=== PATIENT | male | born 1945 | race Caucasian/White ===

== ENCOUNTER 2020-04-06 19:58 | Inpatient (IN) | payer MEDICAID, SELFPAY ==
[~2020-04-06] VITALS: Ht 177.8 cm; Wt 87.1 kg
[2020-04-06] MEDS ORDERED: ACETAMINOPHEN ES 500 MG TABLET ONE (20:14)
[2020-04-06 20:27] LABS: BASOPHILS % (AUTO) 0.3 % (0.0-2.0); HEMATOCRIT 43 % (39-51); HEMOGLOBIN 14.4 g/dL (13.5-17.5); LYMPHOCYTES # (AUTO) 0.5 /CMM (0.8-4.8); LYMPHOCYTES % (AUTO) 4.3 % (20.0-44.0); MEAN CORPUSCULAR HGB CONC 33 g/dl (31.0-36.0); MEAN CORPUSCULAR VOLUME 90 fL (80-96); MONOCYTES # (AUTO) 0.4 /CMM (0.1-1.30); MONOCYTES % (AUTO) 3.5 % (2.0-12.0); NEUTROPHILS # (AUTO) 10.2 /CMM (1.8-8.9); NEUTROPHILS % (AUTO) 91.9 % (43.0-81.0); PLATELET COUNT (AUTO) 269 /CMM (150-450); RED BLOOD CELL COUNT(AUTO) 4.81 MIL/uL (4.5-6.0); WHITE BLOOD COUNT (AUTO) 11.1 K/uL (4.3-11.0)
[2020-04-06] MEDS ORDERED: IV NS 0.9% 500 ML BAG IV ONE (20:30)
[2020-04-06] MEDS ORDERED: ACETAMINOPHEN ES 500 MG TABLET PO ONE (20:30)
--- NOTE | 2020-04-06 20:32 | NUR ---
bryant from home sob x 3d; d/c'd from [facility], covid+. PT AAOX3, PT ALSO C/O FATIGUE. DENIES CP, DIZZINESS, N/V AT THIS TIME. PT SEEN & EVAL'D BY DR. SALOMON. PLACED ON BATT MACHINE OPERATOR, ST. PLACED ON HI MAGY NR PER DR. SALOMON, PT BOBBY WELL. RESP TECH @ BS. LABS DRAWN & SENT TO LAB. WILL CONT TO MONITOR.
[2020-04-06 20:49] LABS: CALCIUM, SERUM 8.7 mg/dL (8.5-10.1); CARBON DIOXIDE 26 mmol/L (21-32); CHLORIDE 99 mmol/L (98-107); CREATININE 1.6 mg/dL (0.6-1.3); GLUCOSE 200 mg/dL (74-106); POTASSIUM 4.3 mmol/L (3.5-5.1); SODIUM SERUM 135 mmol/L (136-145); UREA NITROGEN, BLOOD 50 mg/dL (7-18)
[2020-04-06 20:55] LABS: ALANINE AMINOTRANSFERASE 147 U/L (12-78); ALBUMIN 2.5 g/dL (3.4-5.0); ALKALINE PHOSPHATASE 87 U/L (46-116); ASPARTATE AMINOTRANSFERASE 75 U/L (15-37); B-TYPE NATRIURETIC PEPTIDE 1174 PG/ML (0-125); BILIRUBIN,TOTAL 0.9 mg/dL (0.2-1.0); TOTAL PROTEIN, SERUM 7.5 g/dL (6.4-8.2)
[2020-04-06] MEDS ORDERED: DEXAMETHASONE SOD PHOSPHATE 10 MG/ML VIAL IV ONE (21:00)
[2020-04-06] MEDS ORDERED: DEXAMETHASONE SOD PHOSPHATE 10 MG/ML VIAL ONE (21:08)
[2020-04-06] MEDS ORDERED: FUROSEMIDE 20 MG/2 ML VIAL ONE (21:08)
[2020-04-06] MEDS ORDERED: LEVOFLOXACIN 750 MG /D5W 150ML 150 ML IV ONE ×2 (21:24→21:30)
--- NOTE | 2020-04-06 21:24 | NUR ---
MEDICATED PER ERMD ORDER, PT BOBBY WELL.
[2020-04-06] MEDS ORDERED: FUROSEMIDE 20 MG/2 ML VIAL IV ONE (21:30)
--- NOTE | 2020-04-06 21:30 | NUR ---
RN OPENING NOTES Received the client from ED with moderate respiratory distress, Covid + according to previous testing reports the client. Sat at 95% on 60 L hiflow NC, fio2 100%. A/o x4. Other VS WNL. skin is intact. denies pain, no s/s of pain. L arm 20G flushing well. independent repositioning on bed. Minimal assistance to perform ADLs. All needs rendered at this time. will continue to monitor.
[2020-04-06 21:33] LABS: CREATINE KINASE, TOTAL 74 U/L (39-308); FERRITIN 3377 ng/mL (8-388)
--- NOTE | 2020-04-06 21:41 | NUR ---
REPORT GIVEN TO KENJI KNIGHT FOR CONOR.
[2020-04-06] MEDS ORDERED: MAG HYDROX/AL HYDROX/SIMETH 30 ML UDC PO PRN (22:00)
[2020-04-06] MEDS ORDERED: LEVOFLOXACIN 500 MG /D5W 100ML 500 MG in PREMIX 1 EA IV SCH (22:00)
[2020-04-06 22:10] LABS: ABG BASE EXCESS 0.7 mmol/L; ABG PH 7.489 (7.350-7.450); ABG PO2 68.5 mmHg (75.0-100.0); AaDO2 613.5 mmHg; SITE, ABG Left Radial; VENT MODE, BG HFNC
[2020-04-06] MEDS ORDERED: VANCOMYCIN 1.75 GM in IV D5W 500 ML IV ONE (22:30)
[2020-04-06] MEDS ORDERED: VANCOMYCIN 1 GM VIAL ONE (22:48)
[2020-04-06 23:03] VITALS: BP 108/66
[2020-04-07] VITALS (19 sets, daily range): BP systolic 95–169; BP diastolic 52–84
[2020-04-07 06:01] LABS: APPEARANCE,URINE CLEAR (CLEAR); BILIRUBIN,URINE NEGATIVE (NEGATIVE); BLOOD, URINE NEGATIVE Ery/uL (NEGATIVE); COLOR,URINE YELLOW (YELLOW); KETONES,URINE NEGATIVE (NEGATIVE); LEUKOCYTE ESTERASE ,URINE NEGATIVE (NEGATIVE); NITRITE, URINE NEGATIVE (NEGATIVE); PH,URINE 5.5 (5.0-8.0); PROTEIN,URINE TRACE mg/dl (NEGATIVE); UGLUCOSE NEGATIVE (NEGATIVE); UROBILINOGEN,URINE 0.2 EU/dL (0.2)
--- NOTE | 2020-04-07 06:44 | NUR ---
RN CLOSING NOTES No change of condition during the shift. The client is Covid + according to previous testing reports, states the client. Sat at 94% on 60 L hiflow NC, fio2 100%. A/o x4. Other VS WNL. skin is intact. denies pain, no s/s of pain. L arm 20G flushing well. independent repositioning on bed. Minimal assistance to perform ADLs. All needs rendered at this time. Will endorse the next shift.
--- NOTE | 2020-04-07 07:10 | NUR ---
RN OPENING NOTES RECEIVED PT ON BED, A/Ox4, PT ON HIGH FLOW O2 , O2 SAT WNL , ON TELE SR HR IN 80'S, L HAND IV SITE G 20 CLEAN, DRY AND INTACT, SR UP x3, CALL LIGHT WITHIN EASY REACH, BED LOCKED AND IN LOWEST POSITION, CONTINUE TO MONITOR .
[2020-04-07] MEDS ORDERED: FEE PK DOSING 1 MIN EA MC ONE (07:25)
[2020-04-07 08:04] LABS: BASOPHILS % (AUTO) 0.1 % (0.0-2.0); HEMATOCRIT 43 % (39-51); HEMOGLOBIN 14.1 g/dL (13.5-17.5); LYMPHOCYTES # (AUTO) 0.7 /CMM (0.8-4.8); LYMPHOCYTES % (AUTO) 6.7 % (20.0-44.0); MEAN CORPUSCULAR HGB CONC 33 g/dl (31.0-36.0); MEAN CORPUSCULAR VOLUME 91 fL (80-96); MONOCYTES # (AUTO) 0.4 /CMM (0.1-1.30); MONOCYTES % (AUTO) 4.1 % (2.0-12.0); NEUTROPHILS # (AUTO) 8.7 /CMM (1.8-8.9); NEUTROPHILS % (AUTO) 89.1 % (43.0-81.0); PLATELET COUNT (AUTO) 282 /CMM (150-450); RED BLOOD CELL COUNT(AUTO) 4.71 MIL/uL (4.5-6.0); WHITE BLOOD COUNT (AUTO) 9.7 K/uL (4.3-11.0)
[2020-04-07 08:20] LABS: ALBUMIN 2.4 g/dL (3.4-5.0); BILIRUBIN,DIRECT 0.3 mg/dL (0.0-0.2); BILIRUBIN,TOTAL 0.7 mg/dL (0.2-1.0); CALCIUM, SERUM 8.5 mg/dL (8.5-10.1); CREATININE 1.3 mg/dL (0.6-1.3); PHOSPHORUS 4.1 mg/dL (2.5-4.9); POTASSIUM 4.2 mmol/L (3.5-5.1); TOTAL PROTEIN, SERUM 7.3 g/dL (6.4-8.2)
[2020-04-07 08:26] LABS: THYROID STIMULATING HORMONE 0.263 uIU/mL (0.358-3.74)
[2020-04-07] MEDS: ENOXAPARIN SODIUM 40 MG/0.4 ML DISP.SYRIN SQ SCH (08:33)
[2020-04-07] MEDS ORDERED: AZIT250T13 PO (09:41)
[2020-04-07] MEDS ORDERED: METH4TAB17 PO (09:41)
[2020-04-07] MEDS ORDERED: ASCO500T10 PO (09:41)
[2020-04-07] MEDS ORDERED: ZINC1CAP3 PO (09:41)
[2020-04-07] MEDS ORDERED: ACET325T53 MT (09:41)
--- NOTE | 2020-04-07 10:15 | NUR ---
RN NOTES SHERICE MASTERSON NOITFED REGARDING ID CONSULT .
[2020-04-07 10:22] LABS: ABG BASE EXCESS 0.9 mmol/L; ABG OXYGEN SATURATION 91.6 % (92.0-98.5); ABG PCO2 33.1 mmHg (35.0-45.0); ABG PH 7.474 (7.350-7.450); ABG PO2 59.6 mmHg (75.0-100.0); AaDO2 620.3 mmHg; COHb 0.1 % (0.5-1.5); MetHb 0.2 % (0.0-1.5); O2Hb 91.3 % (94.0-97.0); SITE, ABG Right Radial; VENT MODE, BG HIGH FLOW 100%
[2020-04-07] MEDS ORDERED: VANCOMYCIN 1 GM in IV D5W 250 ML IV SCH (11:00)
--- NOTE | 2020-04-07 11:00 | NUR ---
RN NOTES VANCO IV IS NOT AVAILABLE FROM PHARMACY . PHARMACY NOITFED .
--- NOTE | 2020-04-07 11:00 | NUR ---
RN NOTES ABG DONE, DR DELVIN ELI, ORDER RECEIVED TO TRANSFER PT TO ICU FOR CLOSE MONITORING . CONTINUE TO MONITOR .
[2020-04-07] MEDS: IV D5/0.45 NACL 1,000 ML IV PRN (11:16)
[2020-04-07] MEDS ORDERED: TOCILIZUMAB 400 MG in IV NS 0.9% 80 ML IV ONE (11:30)
--- NOTE | 2020-04-07 11:30 | NUR ---
RN NOTES PT IS ON HIGH FLOW O2 , O2 SAT IN 91-93%, D51/2 NS AT 75CC /HR RUNNING , CONTINUE TO MONITOR .
[2020-04-07] MEDS: VANCOMYCIN HCL 1.25 GM in IV D5W 250 ML IV SCH (12:19)
[2020-04-07] MEDS ORDERED: INVESTIGATIONAL MED MISC 1 EA in IV NS 0.9% 250 ML IV ONE (12:30)
--- NOTE | 2020-04-07 13:35 | NUR ---
KENJI NOTES PT TRANSFERED TO ICU VIA ACLS PROTOCOL . Addendum: 04/07/20 at 1336 by BRANDO HURTADO RN CORRECTION PT TRANSFERRED TO ICU AT 1100
[2020-04-07] MEDS: MORPHINE SULFATE INJ 2 MG/ML DISP.SYRIN IV PRN (14:23)
[2020-04-07] MEDS: LIDOCAINE 5% (PATCH) 1 EA PATCH TP SCH (15:00)
--- NOTE | 2020-04-07 18:00 | NUR ---
RN NOTES NO SIGNIFICANT CHANGES NOTED ON THIS SHIFT, PT IS A/OX4, ON HIGH FLOW O2 , ABLE TO MOVE AROUND IN BED AND USES URINAL , ON TELE SR HR IN 80'S , L HAND AND L FOREARM IV SITES, CLEAN,DRY AND INTACT, NO CONVALESCENT PLASMA FROM BLOOD BANK YET, SR UP X4 CALL LIGHT WITHIN EASY REACH, BED LOCKED AND IN LOWEST POSITION, WILL ENDORSE TO ENGLISH LANGUAGE LEARNER TEACHER NURSE FOR CONTINUITY OF CARE.
--- NOTE | 2020-04-07 19:30 | NUR ---
RN NOTES RECEIVED PATIENT IN BED ALERT AWAKE ORIENTED X4. CONTINUES ON HIGH FLOW OXYGEN SATURATING 95%. ON TELE MONITOR SR WITH PAC AND PVC IN 80'S. IV SITES LT HAND AND LFA INTACT PATENT FLUSHING WELL. SKIN WARM AND DRY TO TOUCH. ABDOMEN SOFT AND NON DISTENDED. SAFETY MEASURES IN PLACE, CALL LIGHT WITHIN REACH. WILL CONT TO MONITOR FOR CONOR.
--- NOTE | 2020-04-07 20:01 | NUR ---
RT PATIENT WAS RECEIVED ON HFNC 60L , 100% WITH 15 L NON REBREATHER . PATIENT TOLERATED CURRENT SETTINGS AT THIS TIME . WILL CONTINUE TO MONITOR. Addendum: 04/07/20 at 2005 by BALDEV KAMINSKI RT Amended: Links added.
[2020-04-07] MEDS: DEXAMETHASONE SOD PHOSPHATE 10 MG/ML VIAL IV SCH (20:36)
[2020-04-07] MEDS: LEVOFLOXACIN 750 MG /D5W 150ML 750 MG in PREMIX 1 EA IV SCH (22:01)
[2020-04-07 23:25] LABS: APPEARANCE,URINE CLOUDY (CLEAR); BILIRUBIN,URINE NEGATIVE (NEGATIVE); BLOOD, URINE NEGATIVE Ery/uL (NEGATIVE); COLOR,URINE YELLOW (YELLOW); KETONES,URINE NEGATIVE (NEGATIVE); LEUKOCYTE ESTERASE ,URINE NEGATIVE (NEGATIVE); NITRITE, URINE NEGATIVE (NEGATIVE); PH,URINE 5.5 (5.0-8.0); PROTEIN,URINE TRACE mg/dl (NEGATIVE); UGLUCOSE NEGATIVE (NEGATIVE); UROBILINOGEN,URINE 0.2 EU/dL (0.2)
[2020-04-07 23:45] LABS: CREATININE, URINE 161.8 MG/DL (30.0-125.0); URINE TOTAL PROTEIN 53.8 mg/dL (0-11.9)
[2020-04-07 23:55] LABS: BACTERIA,URINE None seen /HPF (None Seen); RBC,URINE 0-2 /HPF (0-2); SQUAMOUS EPITHELIAL CELL,UR Few /HPF (None Seen); WBC,URINE 0-2 /HPF (0-3)
[2020-04-07 23:56] LABS: EOSINOPHIL,URINE None Seen; URINE AMORPHOUS URATE Many /HPF (None Seen)
[2020-04-08] VITALS (26 sets, daily range): BP systolic 88–138; BP diastolic 49–96
[2020-04-08] MEDS: IV D5/0.45 NACL 1,000 ML IV PRN ×2 (03:00→18:54)
[2020-04-08 04:07] LABS: BASOPHILS % (AUTO) 0.4 % (0.0-2.0); HEMATOCRIT 42 % (39-51); HEMOGLOBIN 13.6 g/dL (13.5-17.5); LYMPHOCYTES # (AUTO) 0.5 /CMM (0.8-4.8); LYMPHOCYTES % (AUTO) 7.4 % (20.0-44.0); MEAN CORPUSCULAR HGB CONC 33 g/dl (31.0-36.0); MEAN CORPUSCULAR VOLUME 90 fL (80-96); MONOCYTES # (AUTO) 0.3 /CMM (0.1-1.30); MONOCYTES % (AUTO) 4.1 % (2.0-12.0); NEUTROPHILS # (AUTO) 5.4 /CMM (1.8-8.9); NEUTROPHILS % (AUTO) 88.1 % (43.0-81.0); PLATELET COUNT (AUTO) 263 /CMM (150-450); WHITE BLOOD COUNT (AUTO) 6.2 K/uL (4.3-11.0)
[2020-04-08 05:05] LABS: ALBUMIN 2.2 g/dL (3.4-5.0); BILIRUBIN,DIRECT 0.2 mg/dL (0.0-0.2); BILIRUBIN,TOTAL 0.5 mg/dL (0.2-1.0); CALCIUM, SERUM 8.3 mg/dL (8.5-10.1); CREATININE 1.2 mg/dL (0.6-1.3); MAGNESIUM 2.8 mg/dL (1.8-2.4); PHOSPHORUS 3.4 mg/dL (2.5-4.9); POTASSIUM 4.5 mmol/L (3.5-5.1); TOTAL PROTEIN, SERUM 6.6 g/dL (6.4-8.2)
[2020-04-08 05:59] LABS: D-DIMER 1.31 mg/L(FEU (0.17-0.50)
[2020-04-08] MEDS: VANCOMYCIN HCL 1.25 GM in IV D5W 250 ML IV SCH (06:06)
--- NOTE | 2020-04-08 06:30 | NUR ---
PATIENT WAS DESATURATING 84-85%. START ABG ORDERED.
[2020-04-08 06:51] LABS: ABG BASE EXCESS 0.3 mmol/L; ABG PCO2 33.9 mmHg (35.0-45.0); ABG PH 7.459 (7.350-7.450); ABG PO2 52.1 mmHg (75.0-100.0); COHb 0.1 % (0.5-1.5); MetHb 0.1 % (0.0-1.5); O2Hb 87.8 % (94.0-97.0); SITE, ABG Right Radial; VENT MODE, BG HFNC
--- NOTE | 2020-04-08 07:00 | NUR ---
RN NOTES RECEIVED PT ON BED, A/Ox4, ON HIGH FLOW O2 , O2 SAT 88%, NOTED THAT PT KEEP TAKING THE NR MASK OFF , ADVISED AND EXPLAINED TO PT HOW IMPORTANT IS TO KEEP NR MASK AND HIGH FLOW O2 ON AT ALL TIMES, AND FOLLOW PLAN OF CARE, PT VERBALIZES UNDERSTANDING, O2 SAT WENT UP TO 93-94% AFTER MASK PLACE BACK ON PT FACE . ON TELE SR HR IN 70'S , PT IS ABLE TO USE URINAL , VOIDING WELL, LFA AND L HAND IV SITS , CLEAN, DRY AND INTACT, SR UP x3, CALL LIGHT WITHIN EASY REACH, BED LOCKED AND IN LOWEST POSITION, CONTINUE TO MONITOR
--- NOTE | 2020-04-08 07:10 | NUR ---
RN NOTES ON HIGH FLOW O2 SATURATING 90%. NO S/S OF DISTRESS NOTED. IV SITES INTACT FLUIDS RUNNING WELL. SKIN WARM AND DRY TO TOUCH. DENIES ANY PAIN OR DISCOMFORT. PATIENT IAS INDEPENDENT REPOSITIONING ON BED AND NEEDS MINIMAL ASSISTANCE. SAFETY MEASURES IN PLACE. ENDORSE TO AM NURSE FOR CONOR.
[2020-04-08] MEDS: ENOXAPARIN SODIUM 40 MG/0.4 ML DISP.SYRIN SQ SCH (08:07)
[2020-04-08] MEDS: DEXAMETHASONE SOD PHOSPHATE 10 MG/ML VIAL IV SCH (08:19)
--- NOTE | 2020-04-08 11:20 | NUR ---
RN NOTES REMESIVIR IV IS NOT AVAILABLE FROM PHARMACY YET, PHARMACY NOITFED x2
[2020-04-08] MEDS: INVESTIGATIONAL MED MISC 1 EA in IV NS 0.9% 250 ML IV SCH (11:38)
--- NOTE | 2020-04-08 14:00 | NUR ---
RN NOTES PT STABLE , O2 SAT WNL , CONTINUE TO MONITOR ,
[2020-04-08] MEDS: LIDOCAINE 5% (PATCH) 1 EA PATCH TP SCH (15:00)
--- NOTE | 2020-04-08 18:00 | NUR ---
RN NOTES PT REMAINS ON HIGH FLOW O2 , O2 SAT IN MID 90'S , NO DISTRESS NOTED, SR UP x3, CALL LIGHT WITHIN EASY REACH, BED LOCKED AND IN LOWEST POSITION, WILL ENDORSE TO MOBILE PARAMEDICAL EXAMINER NURSE FOR CONTINUITY OF CARE .
--- NOTE | 2020-04-08 19:30 | NUR ---
RN NOTES RECEIVED PATIENT IN BED AO/4. CONTINUES ON HIGH FLOW O2,SATURATING 90%. BREATHING NORMAL NO SOB NOTED. ON TELE SR HR IN 75'S. LFA, LT HAND IV SITES INTACT PATENT FLUSHING WELL. CONTINUES ON ISOLATION FOR COVID+SKIN WARM AND DRY TO TOUCH. CALL LIGHT WITHIN REACH. WILL CONT TO MONITOR.
[2020-04-08] MEDS: LEVOFLOXACIN 750 MG /D5W 150ML 750 MG in PREMIX 1 EA IV SCH (22:00)
[2020-04-09] VITALS (24 sets, daily range): BP systolic 101–135; BP diastolic 55–95
--- NOTE | 2020-04-09 04:00 | NUR ---
BED BATH GIVEN PATIENT TOLERATED WELL
[2020-04-09 04:25] LABS: CALCIUM, SERUM 8.2 mg/dL (8.5-10.1); CREATININE 1.1 mg/dL (0.6-1.3); POTASSIUM 4.3 mmol/L (3.5-5.1)
--- NOTE | 2020-04-09 06:55 | NUR ---
RN NOTES NO CHANGES NOTED DURING SHIFT. CONTINUES ON HIGH FLOW OXYGEN SATURATING 92%. NO S/S OF ACUTE DISTRESS NOTED. DENIES ANY PAIN OR DISCOMFORT. SAFETY MEASURES IN PLACE. WILL ENDORSE TO AM NURSE FOR CONOR.
[2020-04-09] MEDS: DEXAMETHASONE SOD PHOSPHATE 10 MG/ML VIAL IV SCH (08:36)
[2020-04-09] MEDS: ENOXAPARIN SODIUM 40 MG/0.4 ML DISP.SYRIN SQ SCH (08:36)
[2020-04-09 09:32] LABS: ABG BASE EXCESS -1.5 mmol/L; ABG OXYGEN SATURATION 91.3 % (92.0-98.5); ABG PCO2 29.6 mmHg (35.0-45.0); ABG PH 7.469 (7.350-7.450); ABG PO2 57.9 mmHg (75.0-100.0); AaDO2 625.5 mmHg; COHb 0.1 % (0.5-1.5); MetHb 0.2 % (0.0-1.5); SITE, ABG Right Radial; VENT MODE, BG hfnc 60L 100% +nrb
[2020-04-09 10:14] LABS: ALBUMIN 2.2 g/dL (3.4-5.0); BILIRUBIN,DIRECT 0.2 mg/dL (0.0-0.2); BILIRUBIN,TOTAL 0.5 mg/dL (0.2-1.0); TOTAL PROTEIN, SERUM 6.3 g/dL (6.4-8.2)
[2020-04-09] MEDS: INVESTIGATIONAL MED MISC 1 EA in IV NS 0.9% 250 ML IV SCH (11:39)
[2020-04-09 13:17] LABS: PTH, INTACT 34 pg/mL (15-65)
[2020-04-09] MEDS: LIDOCAINE 5% (PATCH) 1 EA PATCH TP SCH (15:00)
[2020-04-09] MEDS: IV D5/0.45 NACL 1,000 ML IV PRN (16:00)
--- NOTE | 2020-04-09 18:50 | NUR ---
FINANCIAL COMPLIANCE OFFICER Patient remains A/Ox4, Belgian speaking, able to make needs known. 60L highflow nasal cannula + 15L 100% nonbreather mask SPO 96%, RR 23, no respiratory distress noted. Tele monitor attached, SR w/ PACs+PVCs HR in 70s. Urinal output=1,100mL this shift. Skin intact. NPO status maintained -> OGT & NGT not feasible for patient safety at this time due to O2 methods. Bri granddaughter updated - requesting "[place] water." L hand 20G infusing D5 1/2 NS@75mL/hr. Echo techs called x2 @1400, no answer. Patient remained laterally positioned throughout shift per Dr. Dooley order. SPO between 88-97%. Call light within reach. Tmax 100F oral.
--- NOTE | 2020-04-09 19:40 | NUR ---
BASKET PATCHER NOTES, PATIENT IN BED AWAKE A/O LATVIAN/SPANISH SPEAKING, ON HIGH FLOW O2 60L, 100% FIO2 AND NRM AT 15L, WITH O2 SAT 92-96% AT THIS TIME, ,BREATHING EVEN AND UNLABORED, NO S/S OF RESPIRATORY DISTRESS NOTED, NSR WITH OCCASIONAL PVC ON TELE MONITOR, WITH HR AT 80S AT THIS TIME, IV LINE IN LEFT HAND, PATENT AND INTACT, WITH IVF INFUSING ORDERED, AND PATIENT TOLERATED WELL, AFEBRILE, BED LOCKED AND LOWEST POSITION, 2 1/2 S/R OF BED UP, SAFETY MEASURES IN PLACE, WILL CONTINUE TO MONITOR CLOSELY.
[2020-04-09] MEDS: LEVOFLOXACIN 750 MG /D5W 150ML 750 MG in PREMIX 1 EA IV SCH (21:00)
[2020-04-09] MEDS ORDERED: MENTHOL/CETYLPYRD (CEPACOL) 1 LOZ LOZENGE PO PRN (22:00)
[2020-04-10] VITALS (24 sets, daily range): BP systolic 107–154; BP diastolic 59–102
[2020-04-10 05:05] LABS: BASOPHILS % (AUTO) 0.5 % (0.0-2.0); EOSINOPHILS % (AUTO) 0.2 % (0.0-6.0); HEMATOCRIT 44 % (39-51); HEMOGLOBIN 14.6 g/dL (13.5-17.5); LYMPHOCYTES # (AUTO) 0.6 /CMM (0.8-4.8); LYMPHOCYTES % (AUTO) 5.6 % (20.0-44.0); MEAN CORPUSCULAR HGB CONC 33 g/dl (31.0-36.0); MEAN CORPUSCULAR VOLUME 91 fL (80-96); MONOCYTES # (AUTO) 0.3 /CMM (0.1-1.30); MONOCYTES % (AUTO) 3.1 % (2.0-12.0); NEUTROPHILS % (AUTO) 90.6 % (43.0-81.0); PLATELET COUNT (AUTO) 292 /CMM (150-450); RED BLOOD CELL COUNT(AUTO) 4.87 MIL/uL (4.5-6.0)
[2020-04-10 05:39] LABS: CALCIUM, SERUM 8.9 mg/dL (8.5-10.1); CREATININE 1.1 mg/dL (0.6-1.3); MAGNESIUM 2.4 mg/dL (1.8-2.4); PHOSPHORUS 3.3 mg/dL (2.5-4.9); POTASSIUM 4.2 mmol/L (3.5-5.1)
[2020-04-10 05:53] LABS: ALBUMIN 2.3 g/dL (3.4-5.0); BILIRUBIN,DIRECT 0.1 mg/dL (0.0-0.2); BILIRUBIN,TOTAL 0.6 mg/dL (0.2-1.0); TOTAL PROTEIN, SERUM 6.3 g/dL (6.4-8.2)
[2020-04-10] MEDS: IV D5/0.45 NACL 1,000 ML IV PRN (05:53)
--- NOTE | 2020-04-10 06:50 | NUR ---
DIE FITTER NOTES, PATIENT IN BED AWAKE A/O LIBERIAN/URUGUAYAN SPEAKING, CONT ON HIGH FLOW O2 60L, 100% FIO2 AND NRM AT 15L, WITH O2 SAT 90-96% AT THIS TIME, BREATHING EVEN AND UNLABORED, NO S/S OF RESPIRATORY DISTRESS NOTED, NSR WITH OCCASIONAL PVC ON TELE MONITOR, WITH HR AT 80S MOST OF THE TIME, IV LINE IN LEFT HAND, PATENT AND INTACT, WITH IVF INFUSING ORDERED, NO SIGNIFICANT CHANGE IN CONDITION DURING THE NIGHT, AFEBRILE THROUGHOUT THE NIGHT, BED LOCKED AND LOWEST POSITION, 2 1/2 S/R OF BED UP, SAFETY MEASURES IN PLACE, WILL ENDORSE CONTINUITY OF CARE TO ONCOMING NURSE.
[2020-04-10] MEDS: DEXAMETHASONE SOD PHOSPHATE 10 MG/ML VIAL IV SCH (08:15)
[2020-04-10] MEDS: ENOXAPARIN SODIUM 40 MG/0.4 ML DISP.SYRIN SQ SCH (08:16)
[2020-04-10] MEDS: INVESTIGATIONAL MED MISC 1 EA in IV NS 0.9% 250 ML IV SCH (10:30)
--- NOTE | 2020-04-10 10:39 | NUR ---
per Dr. Dooley, maintain NPO status as patient is not stable to eat
[2020-04-10 12:00] LABS: ALBUMIN 2.3 g/dL (3.4-5.0); BILIRUBIN,DIRECT 0.2 mg/dL (0.0-0.2); BILIRUBIN,TOTAL 0.7 mg/dL (0.2-1.0); TOTAL PROTEIN, SERUM 6.2 g/dL (6.4-8.2)
[2020-04-10] MEDS: LIDOCAINE 5% (PATCH) 1 EA PATCH TP SCH (15:00)
[2020-04-10 15:38] LABS: C-REACTIVE PROTEIN 3.1 mg/dL (0.0-0.9)
--- NOTE | 2020-04-10 17:58 | NUR ---
RT NOTE Pt received on high flow nasal cannula 60L 100% w NRB 15L. Pt stable t/o shift. No respiratory distress noted. Addendum: 04/10/20 at 1838 by SIVAN KING RT Amended: Links added.
--- NOTE | 2020-04-10 19:24 | NUR ---
FIBRE OPTICS JOINTER Patient remains A/Ox4, Danish speaking, able to make needs known. 60L highflow nasal cannula + 15L 100% nonbreather mask SPO 87%, RR 25, no respiratory distress noted. Tele monitor attached, SR w/ PACs+PVCs HR in 80s. Skin intact. NPO status maintained -> OGT & NGT not feasible for patient safety at this time due to O2 methods. Bri granddaughter updated - L hand 20G infusing D5 1/2 NS@75mL/hr. Patient remained laterally positioned throughout shift per Dr. Dooley order. SPO between 88-94%. Call light within reach.
--- NOTE | 2020-04-10 19:35 | NUR ---
COAL OR ORE CONTROLLER NOTES PATIENT IN BED AWAKE A/OX4 MACEDONIAN/ALBANIAN SPEAKING, ABLE TO MAKE NEEDS KNOWN. ON HIGH FLOW NC O2 60L, 100% FIO2 AND NRM AT 15L, WITH O2 SAT 86-92% AT THIS TIME. NAD, NO SOB, NSR WITH OCCASIONAL PVC AND PAC ON TELE MONITOR. CONTINENT OF URINE AND BOWELS. ABLE TO UTILIZE THE URINAL. PIV LINE IN L HAND, PATENT AND INTACT, WITH IVF INFUSING ORDERED, BOBBY WELL. BED LOCKED AND LOWEST POSITION, 2 1/2 S/R OF BED UP, SAFETY MEASURES IN PLACE, WILL CONTINUE TO MONITOR.
[2020-04-10] MEDS: LEVOFLOXACIN 750 MG /D5W 150ML 750 MG in PREMIX 1 EA IV SCH (21:00)
[2020-04-11] VITALS (26 sets, daily range): BP systolic 84–136; BP diastolic 41–88
[2020-04-11] MEDS: IV D5/0.45 NACL 1,000 ML IV PRN ×2 (02:42→16:04)
[2020-04-11 05:00] LABS: BASOPHILS % (AUTO) 0.1 % (0.0-2.0); EOSINOPHILS % (AUTO) 0.9 % (0.0-6.0); HEMATOCRIT 44 % (39-51); HEMOGLOBIN 14.6 g/dL (13.5-17.5); LYMPHOCYTES # (AUTO) 0.7 /CMM (0.8-4.8); LYMPHOCYTES % (AUTO) 5.7 % (20.0-44.0); MEAN CORPUSCULAR HGB CONC 33 g/dl (31.0-36.0); MEAN CORPUSCULAR VOLUME 90 fL (80-96); MONOCYTES # (AUTO) 0.3 /CMM (0.1-1.30); MONOCYTES % (AUTO) 2.6 % (2.0-12.0); NEUTROPHILS # (AUTO) 11.2 /CMM (1.8-8.9); NEUTROPHILS % (AUTO) 90.7 % (43.0-81.0); PLATELET COUNT (AUTO) 264 /CMM (150-450); RED BLOOD CELL COUNT(AUTO) 4.86 MIL/uL (4.5-6.0); WHITE BLOOD COUNT (AUTO) 12.3 K/uL (4.3-11.0)
[2020-04-11 05:31] LABS: CALCIUM, SERUM 8.1 mg/dL (8.5-10.1); MAGNESIUM 2.1 mg/dL (1.8-2.4); POTASSIUM 3.9 mmol/L (3.5-5.1)
[2020-04-11 07:30] LABS: *SPE A/G RATIO 0.7 (0.7-1.7); *SPE ALBUMIN 2.3 g/dL (2.9-4.4); *SPE ALPHA-1-GLOBULIN 0.3 g/dL (0.0-0.4); *SPE ALPHA-2-GLOBULIN 1.1 g/dL (0.4-1.0); *SPE BETA GLOBULIN 1.2 g/dL (0.7-1.3); *SPE GLOBULIN, TOTAL 3.3 g/dL (2.2-3.9); *SPE M-SPIKE Not Observed g/dL (Not Observed); *SPEGAMMA GLOBULIN 0.7 g/dL (0.4-1.8)
--- NOTE | 2020-04-11 07:46 | NUR ---
CLOUD ARCHITECT NOTE PATIENT IN BED ,ALERT ORIENTED X3 ON 60L HIGH FLOW 100%AND NONREBREATHER MASK 100% O2 SAT AT THIS TIME 88%, ON NPO STATUS AT THIS TIME, ON IVF ORDERED, BED IN LOWEST AND LOCKED POSITION , CALL LIGHT WITHIN REACH , WILL CONT TO MONITOR
[2020-04-11] MEDS: DEXAMETHASONE SOD PHOSPHATE 10 MG/ML VIAL IV SCH (08:09)
[2020-04-11] MEDS: ENOXAPARIN SODIUM 40 MG/0.4 ML DISP.SYRIN SQ SCH (08:10)
--- NOTE | 2020-04-11 08:30 | NUR ---
agricultural crop farm manager note stayed on prone position, marina 88-89% abg done as ordered
[2020-04-11 08:37] LABS: ABG BASE EXCESS -2.5 mmol/L; ABG OXYGEN SATURATION 94.3 % (92.0-98.5); ABG PCO2 34.6 mmHg (35.0-45.0); ABG PH 7.408 (7.350-7.450); ABG PO2 72.1 mmHg (75.0-100.0); AaDO2 606.3 mmHg; COHb 1.4 % (0.5-1.5); MetHb 0.1 % (0.0-1.5); O2Hb 92.9 % (94.0-97.0); SITE, ABG Right Radial; VENT MODE, BG HFNC 60L 100%
--- NOTE | 2020-04-11 09:00 | NUR ---
director of curriculum note abg result given to dr garrison with cont same o2 as ordered
--- NOTE | 2020-04-11 09:38 | NUR ---
AUTOMOTIVE PAINTER HELPER NOTE UNABLE TO STAY ON PRONE POSITION ,REPOSITION DONE ON BACK SIDE ,SATURATION NOW 86%, WILL CONT TO MONITOR
--- NOTE | 2020-04-11 10:21 | NUR ---
MACHINE BILLER NOTE OFFERED TO STAY ON PRONE POSITION STILL REFUSING, EXPLAINED HOW IMPORTANT, STILL REFUSED ,WILL CONT TO ENCOURAGING TO PLACE ON PRONE POSITION
[2020-04-11] MEDS: INVESTIGATIONAL MED MISC 1 EA in IV NS 0.9% 250 ML IV SCH (10:23)
[2020-04-11 11:40] LABS: ALBUMIN 2.2 g/dL (3.4-5.0); BILIRUBIN,DIRECT 0.2 mg/dL (0.0-0.2); BILIRUBIN,TOTAL 0.8 mg/dL (0.2-1.0); TOTAL PROTEIN, SERUM 5.9 g/dL (6.4-8.2)
--- NOTE | 2020-04-11 12:31 | NUR ---
SENIOR ARCHITECTURAL DESIGNER NOTE MID LINE ANDERSON 18 INSERTED ON LT UPPER ARM ORDERED, CONT ON IVF ORDERED WILL MONITOR
--- NOTE | 2020-04-11 14:00 | NUR ---
WAITER/WAITRESS DINING CAR NOTE PLACED ON PRONE POSITION, ENCOURAGED PATIENT STAY LONGER POSSIBLE, SAT NOW 88-90% ,WILL MONITOR ,CONT ON IVF VIA MID LINE
[2020-04-11] MEDS: LIDOCAINE 5% (PATCH) 1 EA PATCH TP SCH (14:16)
--- NOTE | 2020-04-11 14:30 | NUR ---
LIGHTOUT EXAMINER NOTE BACK TO BACK POSITION ,SAT NOW 88% EXPLAINED PATIENT TO STAY LONGER ON HIS BACK , WILL CONT TO MONITOR
[2020-04-11 14:50] LABS: C-REACTIVE PROTEIN 2.3 mg/dL (0.0-0.9)
--- NOTE | 2020-04-11 18:17 | NUR ---
AIRFIELD ENGINEER OFFICER NOTE CONT ON HIGH O2 AND NONREBREATHER MASK, SAT NOW 88% SHERICE PHILLIP SUPERVISORY LIFEGUARD ID NURSE AWARE OF PATIENT CONDITION Addendum: 04/11/20 at 1828 by STEFANIE VALDIVIA RN SHERICE PHILLIP SUPERVISORY LIFEGUARD ID NOTIFIED ABOUT REACTIVE PROTEIN 2.3, NO NEW ORDER GIVEN AT THIS TIME
--- NOTE | 2020-04-11 19:10 | NUR ---
RN OPENING NOTES RECEIVED PT ON BED AWAKE A/O X4 KAZAKH SPEAKING ON HIGH FLOW 60L 100% FIO2 SPO2 89% NASAL FLARING NOTED, WITH YISEL MIDLINE WITH ONGOING D5 1/2 NS @ 75ML /HR INFUSING WELL ON NPO MIGUEL ON BEDSIDE MONITOR WITH CURRENT READING SINUS TACHY 90-100, ON DROPLET ISOLATION FOR COVID (+) SAFETY MEASURE MAINTAINED WILL CONT TO MONITOR
[2020-04-11] MEDS: LEVOFLOXACIN 750 MG /D5W 150ML 750 MG in PREMIX 1 EA IV SCH (21:24)
[2020-04-11] MEDS: MORPHINE SULFATE INJ 2 MG/ML DISP.SYRIN IV PRN (23:10)
[2020-04-12] VITALS (25 sets, daily range): BP systolic 98–134; BP diastolic 56–87
--- NOTE | 2020-04-12 | NUR ---
RN NOTES PT BLOOD PRESSURE DROPS WHEN WE CHANGE HE LEVOPHED FROM 8MG TO 32MG CONCENTRATION TITRATE IT UP TO 1MCG/KG/MIN BUT BP STILL 74/46 SPO2 IS 94 VIA 15L NON REBREATHER MASK PT ON KUSSMAUL RESPIRATION NOESYNEPHRINE STARTED AND TITRATE IT PER PROTOCOL DR. VALIENTE MADE AWARE OF THE PT CONDITION AND HE SAW IT, FAMILY MADE AWARE OF THE LATEST CONDITION OF THE PT VIA PHONE CALL WILL CONT TO MONITOR THE PT Addendum: 04/12/20 at 0214 by VENESSA ALBERT RN WRONG PT IT SHOULD BE ON ROOM 260
[2020-04-12 04:42] LABS: BASOPHILS % (AUTO) 0.2 % (0.0-2.0); EOSINOPHILS % (AUTO) 1.5 % (0.0-6.0); HEMATOCRIT 45 % (39-51); LYMPHOCYTES # (AUTO) 0.7 /CMM (0.8-4.8); LYMPHOCYTES % (AUTO) 4.5 % (20.0-44.0); MEAN CORPUSCULAR HGB CONC 33 g/dl (31.0-36.0); MEAN CORPUSCULAR VOLUME 90 fL (80-96); MONOCYTES # (AUTO) 0.4 /CMM (0.1-1.30); MONOCYTES % (AUTO) 2.6 % (2.0-12.0); NEUTROPHILS # (AUTO) 13.5 /CMM (1.8-8.9); NEUTROPHILS % (AUTO) 91.2 % (43.0-81.0); PLATELET COUNT (AUTO) 223 /CMM (150-450); RED BLOOD CELL COUNT(AUTO) 4.99 MIL/uL (4.5-6.0); WHITE BLOOD COUNT (AUTO) 14.8 K/uL (4.3-11.0)
[2020-04-12] MEDS: IV D5/0.45 NACL 1,000 ML IV PRN ×2 (05:04→18:24)
[2020-04-12 05:05] LABS: CALCIUM, SERUM 7.1 mg/dL (8.5-10.1); CARBON DIOXIDE 21 mmol/L (21-32); CHLORIDE 97 mmol/L (98-107); PHOSPHORUS 2.8 mg/dL (2.5-4.9); POTASSIUM 3.6 mmol/L (3.5-5.1); SODIUM SERUM 128 mmol/L (136-145); UREA NITROGEN, BLOOD 25 mg/dL (7-18)
[2020-04-12 05:08] LABS: GLUCOSE 567 mg/dL (74-106)
[2020-04-12 05:12] LABS: FERRITIN 950 ng/mL (8-388)
[2020-04-12 05:52] LABS: CALCIUM, SERUM 8.1 mg/dL (8.5-10.1); CARBON DIOXIDE 23 mmol/L (21-32); CHLORIDE 101 mmol/L (98-107); GLUCOSE 154 mg/dL (74-106); POTASSIUM 4.3 mmol/L (3.5-5.1); SODIUM SERUM 133 mmol/L (136-145); UREA NITROGEN, BLOOD 29 mg/dL (7-18)
--- NOTE | 2020-04-12 06:52 | NUR ---
RN CLOSING NOTES PT ON BED ASLEEP NO SIGN AND SYMPTOMS OF RESPIRATORY DISTRESS SPO2 90 VIA 60L 100% FI02 HIGH FLOW AND NON REBREATHER, NO PAIN COMPLAINT AT THIS TIME, BEDSIDE MONITOR READS SINUS TACHY 100'S NO SIGNIFICANT CHANGES ON CONDITION NOTED, ALL NEEDS ATTENDED, DROPLET ISOLATION MAINTAINED FOR COVID 19(+) SAFETY PRECAUTION OBSERVED WILL ENDORSED TO AM SHIFT NURSE
--- NOTE | 2020-04-12 07:30 | NUR ---
BIT WELDER NOTES PT ON BED A/OX4 SCOTTISH SPEAKER ON ISOLATION FOR COVID POSITIVE DROPLET. NO SIGN AND SYMPTOMS OF RESPIRATORY DISTRESS SPO2 90 VIA 60L 100% FI02 HIGH FLOW AND NON REBREATHER, PATIENT DOES NOT HAVE ANY PAIN AT THIS MOMENT. SINUS TACHY 100'S. BED AT THE LOWEST POSITION LOCKED. PATIENT ON D51/2 NS 75ML /HR. WILL CONTINUE TO MONITOR.
[2020-04-12] MEDS: ENOXAPARIN SODIUM 40 MG/0.4 ML DISP.SYRIN SQ SCH (09:26)
[2020-04-12] MEDS: DEXAMETHASONE SOD PHOSPHATE 10 MG/ML VIAL IV SCH (09:27)
[2020-04-12 10:21] LABS: ALBUMIN 2.2 g/dL (3.4-5.0); BILIRUBIN,DIRECT 0.3 mg/dL (0.0-0.2); BILIRUBIN,TOTAL 0.9 mg/dL (0.2-1.0); TOTAL PROTEIN, SERUM 5.8 g/dL (6.4-8.2)
[2020-04-12 11:53] LABS: ABG BASE EXCESS -2.1 mmol/L; ABG OXYGEN SATURATION 94.2 % (92.0-98.5); ABG PCO2 30.3 mmHg (35.0-45.0); ABG PO2 68.3 mmHg (75.0-100.0); AaDO2 614.4 mmHg; COHb 0.2 % (0.5-1.5); MetHb 0.2 % (0.0-1.5); O2Hb 93.8 % (94.0-97.0); SITE, ABG Left Radial; VENT MODE, BG Hi Flow 60 L 100% + NRB
[2020-04-12] MEDS: LIDOCAINE 5% (PATCH) 1 EA PATCH TP SCH (15:18)
--- NOTE | 2020-04-12 18:45 | NUR ---
DIRECTOR EXPERIMENTAL MEDICINE NOTES CLOSING PT ON BED A/OX4 INDONESIAN SPEAKER STILL ON ISOLATION FOR COVID POSITIVE DROPLET. NO SIGN AND SYMPTOMS OF RESPIRATORY DISTRESS SPO2 89 VIA 60L 100% FI02 HIGH FLOW AND NON REBREATHER, PATIENT DOES NOT HAVE ANY PAIN AT THIS MOMENT. HR 99. ALL NEEDS ATTENDED, MEDS GIVEN. HAD CONVERSATION WITH THE GRANDDAUGHTER ABOUT THE CONDITION DURING THE DAY. NO MAJOR CHANGES DURING THE SHIFT. BED AT THE LOWEST POSITION LOCKED. PATIENT ON D51/2 NS 75ML /HR. ENDORSED TO CEO AND PRESIDENT NURSE FOR CONOR.
--- NOTE | 2020-04-12 19:30 | NUR ---
YOUTH TEACHER OPENING NOTES: Received pt awake in bed, A&Ox4 Paraguayan speaking. On isolation for positive Covid. On high flow O2 tolerating well. No SOB or respiratory distress noted. ST with PVC on tele monitor. Pt NPO. L hand #20 patent and flushed. Dressing c/d/i. YISEL midline patent and flushed w/ D5 1/2NS infusing at 75ml/hr. Dressing c/d/i. Safety measures in place. Will continue to monitor.
[2020-04-12] MEDS: LEVOFLOXACIN 750 MG /D5W 150ML 750 MG in PREMIX 1 EA IV SCH (22:00)
[2020-04-13] VITALS (41 sets, daily range): BP systolic 89–147; BP diastolic 53–90
[2020-04-13] MEDS: ONDANSETRON HCL/PF 4 MG/2 ML VIAL IVP PRN ×2 (04:09→04:16)
--- NOTE | 2020-04-13 04:16 | NUR ---
MICROPHONE BOOM OPERATOR NOTE: Yellow emesis x1 noted. IV Zofran PRn given as ordered. Will continue to monitor.
[2020-04-13 04:55] LABS: BASOPHILS % (AUTO) 0.2 % (0.0-2.0); HEMATOCRIT 47 % (39-51); HEMOGLOBIN 15.2 g/dL (13.5-17.5); LYMPHOCYTES # (AUTO) 0.7 /CMM (0.8-4.8); LYMPHOCYTES % (AUTO) 4.5 % (20.0-44.0); MEAN CORPUSCULAR HGB CONC 32 g/dl (31.0-36.0); MEAN CORPUSCULAR VOLUME 92 fL (80-96); MONOCYTES # (AUTO) 0.3 /CMM (0.1-1.30); MONOCYTES % (AUTO) 2.1 % (2.0-12.0); NEUTROPHILS # (AUTO) 14.5 /CMM (1.8-8.9); NEUTROPHILS % (AUTO) 92.2 % (43.0-81.0); PLATELET COUNT (AUTO) 156 /CMM (150-450); RED BLOOD CELL COUNT(AUTO) 5.12 MIL/uL (4.5-6.0); WHITE BLOOD COUNT (AUTO) 15.7 K/uL (4.3-11.0)
[2020-04-13 05:18] LABS: CALCIUM, SERUM 8.1 mg/dL (8.5-10.1); MAGNESIUM 2.4 mg/dL (1.8-2.4); PHOSPHORUS 3.1 mg/dL (2.5-4.9); POTASSIUM 4.2 mmol/L (3.5-5.1)
[2020-04-13 05:31] LABS: ALBUMIN 2.2 g/dL (3.4-5.0); BILIRUBIN,DIRECT 0.4 mg/dL (0.0-0.2); TOTAL PROTEIN, SERUM 5.6 g/dL (6.4-8.2)
--- NOTE | 2020-04-13 05:56 | NUR ---
MACHINE ETCHER NOTE: Pt noted w/ HR in 180s. Randy Abad on floor. Made aware. Gave orders for Adenosine 12mg for sustained SVT >2 mins. As was giving orders, pt's HR came down to 120-123. Stated to monitor pt and give if needed. Will continue to monitor.
[2020-04-13] MEDS ORDERED: ADENOSINE 6 MG/2 ML VIAL IVP ONE ×2 (06:00→13:00)
[2020-04-13] MEDS: MORPHINE SULFATE INJ 2 MG/ML DISP.SYRIN IV PRN ×3 (06:12→18:59)
--- NOTE | 2020-04-13 06:30 | NUR ---
SIZE STAMPER CLOSING NOTES: Pt remains on high flow and nonrebreather mask. No SOB or respiratory distress noted. Isolation precautions still in place. ST on tele monitor w/ episode of SVT. All meds administered as ordered. Safety measures in place. Will endorse to AM nurse for CONOR.
--- NOTE | 2020-04-13 08:00 | NUR ---
RN NOTE: PT RECEIVED ALERT AWAKE ORIENTED X 4. ON NON REBREATHER MASK/HIGH FLOW 60L, 100% FiO2. DESATURATES (SPO2 <89%) WITH PERIODS OF ANXIETY. ST ON TELE MONITOR. C/O CHEST DISCOMFORT R/T BREATHING, ABLE TO TOLERATE PER PT. IV INTACT, RUNNING IV FLUIDS ORDERED. CONTINUE WITH CONTACT & DROPLET PRECAUTIONS FOR COVID. ENCOURAGE PT TO TURN & REPOSITION Q2H. SAFETY MEASURES OBSERVED. ENCOURAGE TO USE CALL LIGHT FOR ASSISTANCE. CONTINUE WITH PLAN OF CARE.
[2020-04-13] MEDS: DEXAMETHASONE SOD PHOSPHATE 10 MG/ML VIAL IV SCH (08:52)
[2020-04-13] MEDS: ENOXAPARIN SODIUM 40 MG/0.4 ML DISP.SYRIN SQ SCH (09:00)
[2020-04-13] MEDS: IV NS 0.9% 1,000 ML IV PRN (09:47)
[2020-04-13] MEDS ORDERED: AMIODARONE 150 MG in IV D5W 100 ML IV ONE (14:30)
--- NOTE | 2020-04-13 14:30 | NUR ---
RN NOTE: PT REFUSED TO TURN & REPOSITION Q2H. EXPLAIN RISK OF SKIN BREAKDOWN, PT VERBALIZED UNDERSTANDING. WILL CONTINUE TO ENCOURAGE TURNING & REPOSITIONING.
--- NOTE | 2020-04-13 14:50 | NUR ---
ICU/RN P COMPLAIN OF PAIN 9-07/06.MORPHINE SULFATE 2MG IV GIVEN ORDERED.
[2020-04-13] MEDS: LIDOCAINE 5% (PATCH) 1 EA PATCH TP SCH (15:21)
[2020-04-13] MEDS: AMIODARONE 450 MG in IV D5W 250 ML IV PRN ×2 (15:46→21:45)
--- NOTE | 2020-04-13 15:56 | NUR ---
RN NOTES: SVT NOTED HR 150s SUSTAINING. NOTIFIED DR. LANCE AT BEDSIDE, EKG DONE ORDERED. EKG RELAYED TO DR. ALFORD. RECEIVED NEW ORDERS, OK TO GIVE ADENOSINE 12MG IV ONCE. & START AMIODARONE 150MG IV BOLUS ONCE & THEN MAINTENANCE DOSE PER PHARMACY. 1407: ADENOSINE 12 MG IVP FAST & FLUSHED WITH NS. HR FROM 150S DOWN TO 110-120S AFTER ADENOSINE IV PUSH. 15:20 AMIODARONE 150MG BOLUS GIVEN ORDERED. 15:45 AMIODARONE 1GM/HR IS RUNNING FOR 6 HOURS UNTIL 09:45PM. CONTINUE TO MONITOR CLOSELY.
--- NOTE | 2020-04-13 18:00 | NUR ---
RN NOTE: ABG DONE ORDERED. RESULTS RELAYED TO DR. LOPEZ, CONTINUE WITH SAME TREATMENT, IF STABLE PER DR. LOPEZ. CONTINUE TO MONITOR.
--- NOTE | 2020-04-13 19:05 | NUR ---
RN OPENING NOTES RECEIVED PT ON BED AWAKE A/O X4 DIVEHI SPEAKING ON HIGH FLOW 60L 100% FIO2 SPO2 88% NASAL FLARING NOTED, WITH YISEL MIDLINE WITH ONGOING NS @ 50ML /HR AND AMIODARONE DRIP @ 33.33 ML/HR INFUSING WELL ON NPO MIGUEL ON BEDSIDE MONITOR WITH CURRENT READING SINUS TACHY 90-100, ON DROPLET ISOLATION FOR COVID (+) SAFETY MEASURE MAINTAINED WILL CONT TO MONITOR
[2020-04-13] MEDS ORDERED: PROPOFOL 100 ML ONE (23:38)
--- NOTE | 2020-04-13 23:45 | NUR ---
RN NOTES PT SPO2 IS ON 85-87% REPORTED TO DR. ALBA VALIENTE WITH ORDER PREPARE PT FOR INTUBATION, CHARGE NURSE TALK TO THE PT AND EXPLAIN THAT HE NEED TO BE INTUBATED PT AGREE, I INFORM THE FAMILY TALK TO MS VO AND EXPLAIN THE SITUATION AND THE NEED OF HIS GRANDFATHER TO BE INTUBATED, FAMILY AGREED. PREPARE PT FOR INTUBATION
[2020-04-14] VITALS (95 sets, daily range): BP systolic 44–174; BP diastolic 23–122
[2020-04-14] MEDS: PROPOFOL 10MG/ML 50ML 50 ML IV PRN ×2 (00:05→02:15)
--- NOTE | 2020-04-14 00:05 | NUR ---
RT NOTES PT ORALLY INTUBATED BY DR VALIENTE WITH 8.0 ETT SECURED AT 25.5CM AT THE LIP LINE. COLOR CHANGED CONFIRMED ON CO2 DETECTOR. MIST IN TUBE NOTED. EQUAL CHEST RISE NOTED. PT PLACED ON MD ORDERED SETTINGS OF AC MODE, RATE 24, VT 600, FIO2 100%, PEEP +12. ALARMS SET AND AUDIBLE. VENT PLUGGED INTO RED OUTLET. ABG TO BE DONE IN AN HOUR. WILL CONT TO MONITOR CLOSELY. Addendum: 04/14/20 at 0050 by FELIPE DING RT Amended: Links added.
[2020-04-14] MEDS ORDERED: NOREPINEPHRINE 8MG/250ML RTU 250 ML IV ONE ×2 (00:19→04:37)
[2020-04-14] MEDS: NOREPINEPHRINE 8 MG in IV NS 0.9% 242 ML IV PRN ×4 (00:36→17:01)
[2020-04-14] MEDS ORDERED: PROPOFOL 100 ML ONE (02:39)
[2020-04-14] MEDS: PROPOFOL 100 ML IV PRN ×6 (04:44→23:54)
[2020-04-14 05:31] LABS: EOSINOPHILS % (AUTO) 0.1 % (0.0-6.0); HEMATOCRIT 46 % (39-51); HEMOGLOBIN 14.9 g/dL (13.5-17.5); LYMPHOCYTES # (AUTO) 0.9 /CMM (0.8-4.8); LYMPHOCYTES % (AUTO) 2.9 % (20.0-44.0); MEAN CORPUSCULAR HGB CONC 32 g/dl (31.0-36.0); MEAN CORPUSCULAR VOLUME 91 fL (80-96); MONOCYTES # (AUTO) 1.4 /CMM (0.1-1.30); MONOCYTES % (AUTO) 4.3 % (2.0-12.0); NEUTROPHILS # (AUTO) 29.8 /CMM (1.8-8.9); NEUTROPHILS % (AUTO) 92.7 % (43.0-81.0); PLATELET COUNT (AUTO) 167 /CMM (150-450); RED BLOOD CELL COUNT(AUTO) 5.07 MIL/uL (4.5-6.0)
[2020-04-14 05:46] LABS: CALCIUM, SERUM 7.9 mg/dL (8.5-10.1); CARBON DIOXIDE 21 mmol/L (21-32); CHLORIDE 98 mmol/L (98-107); CREATININE 1.6 mg/dL (0.6-1.3); GLUCOSE 209 mg/dL (74-106); MAGNESIUM 2.3 mg/dL (1.8-2.4); PHOSPHORUS 4.4 mg/dL (2.5-4.9); POTASSIUM 4.4 mmol/L (3.5-5.1); SODIUM SERUM 131 mmol/L (136-145); UREA NITROGEN, BLOOD 37 mg/dL (7-18)
[2020-04-14] MEDS: IV NS 0.9% 1,000 ML IV PRN (05:57)
--- NOTE | 2020-04-14 06:19 | NUR ---
RT NOTES ETT ADVANCED 1.[address] VALIENTE. 8.0 ETT NOW SECURED AT 27CM AT THE LIP LINE. Addendum: 04/14/20 at 0620 by FELIPE DING RT Amended: Links added.
[2020-04-14 06:52] LABS: WHITE BLOOD COUNT (AUTO) 32.1 K/uL (4.3-11.0)
--- NOTE | 2020-04-14 06:58 | NUR ---
RN CLOSING NOTES PT ON BED SEDATED ON ETT/VENT SETTING ORDERED SPO2 99% NO SIGN AND SYMPTOMS OF DISTRESS, NO SIGNIFICANT CHANGES ON CONDITION NOTED, ON DROPLET ISOLATION FOR COVID STILL ON AMIODARONE 0.5MG/ML BEDSIDE MONITOR READS SINUS RHYTHM 83 BPM, ALL NEEDS ATTENDED ON BILATERLA WRIST SOFT RESTRAINTS SAFETY MEASURE MAINTAINED WILL ENDORSED TO AM SHIFT NURSE
--- NOTE | 2020-04-14 07:30 | NUR ---
RN NOTES RECEIVED PATIENT IN BED, SEDATED WITH DIPRIVAN AT 50MCG/KG/MIN. ORALLY INTUBATED, SECURED AT 27CM ON THE LIP. ON VENTILATOR WITH THE FOLLOWING SETTINGS AC 24, TV 650, FIO2 AT 100% AND PEEP OF 10, TOLERATING WELL AND SATING FINE AT 9% AT THIS TIME. SINUS RHYTHM ON THE MONITOR WITH HR ON THE 80s. WITH ONGOING AMIODARONE DRIP AT 0.05MG/MIN, LEVOPHED AT 0.03MCG/KG/MIN-WILL TITRATE ABLE, NS AT 50CC/HR. BILATERAL SOFT RESTRAINTS IN PLACE, REMOVE AND REPLACED TO CHECK FOR SKIN ISSUES. HOB ELEVATED AT 30-45. SAFETY MEASURES OBSERVED AND MAINTAINED. BED IN LOW AND LOCK POSITION. SRX2 UP. CALL LIGHT WITHIN REACH, WILL CONTINUE TO MONITOR PATIENT AND IMPLEMENT ISOLATION AT ALL TIME.
[2020-04-14] MEDS: HYDROCORTISONE SOD SUCCINATE 100 MG/2 ML VIAL IV SCH ×3 (09:11→17:17)
[2020-04-14] MEDS: ENOXAPARIN SODIUM 40 MG/0.4 ML DISP.SYRIN SQ SCH (09:11)
[2020-04-14 10:34] LABS: MONOCYTES % (MANUAL) 3 % (0-11.0); NEUTROPHILS % (MANUAL) 97 (42-76)
[2020-04-14 10:38] LABS: LYMPHOCYTES % (MANUAL) 0 % (16-48)
[2020-04-14] MEDS ORDERED: SUCCINYLCHOLINE CHLORIDE 20 MG/ML VIAL IV ONE (11:47)
[2020-04-14] MEDS ORDERED: ETOMIDATE 2 MG/ML VIAL IV ONE (11:47)
[2020-04-14 15:55] LABS: ABG OXYGEN SATURATION 87.3 % (92.0-98.5); ABG PCO2 33.9 mmHg (35.0-45.0); ABG PH 7.371 (7.350-7.450); ABG PO2 53.4 mmHg (75.0-100.0); AaDO2 625.7 mmHg; COHb 0.5 % (0.5-1.5); MetHb 0.2 % (0.0-1.5); O2Hb 86.7 % (94.0-97.0); SITE, ABG Right Radial; VENT MODE, BG HFNC 6OL 100%
[2020-04-14 15:55] LABS: ABG BASE EXCESS -7.6 mmol/L; ABG PCO2 49.3 mmHg (35.0-45.0); AaDO2 588.7 mmHg; COHb 0.3 % (0.5-1.5); MetHb 0.3 % (0.0-1.5); O2Hb 91.4 % (94.0-97.0); SITE, ABG Right Radial
[2020-04-14] MEDS ORDERED: JEVITY 1.2 CAL 1,000 ML BOTTLE GT PRN (16:00)
[2020-04-14] MEDS: LIDOCAINE 5% (PATCH) 1 EA PATCH TP SCH (16:12)
--- NOTE | 2020-04-14 19:30 | NUR ---
CONCRETE ROD BUSTER INITIAL SHIFT NOTES RECEIVED PATIENT IN BED, ORALLY INTUBATED, ON MECHANICAL VENTILATION, SETTINGS PRESCRIBED, TOLERATING WELL, SPO2 99% AT THIS TIME, FREE FROM ANY SIGNS AND SYMPTOMS OF RESPIRATORY DISTRESS OTHERWISE. TUBE FEEDING ONGOING @ 20ML/HR, TOLERATING FAIRLY, GASTRIC RESIDUAL 10ML. LEFT UPPER ARM MIDLINE PATENT AND INTACT, LEVOPHED DRIP @ 0.06MCG/KG/MIN, DIPRIVAN @ 45MCG/KG/MIN. BILATERAL SOFT WRIST RESTRAINTS IN PLACE FOR SAFETY DUE TO SELF EXTUBATION RISK. WILL MONITOR CLOSELY
[2020-04-14] MEDS: MEROPENEM 1 G in IV NS 0.9% 100 ML IV SCH (20:12)
[2020-04-15] VITALS (96 sets, daily range): BP systolic 86–161; BP diastolic 56–91
[2020-04-15] MEDS: PROPOFOL 100 ML IV PRN ×6 (03:10→23:43)
--- NOTE | 2020-04-15 03:42 | NUR ---
RT NOTE PT rec'd orally intubated via ETT #8.0 secured @ 27CM at the lipline. pt on [facility] vent on AC mode settings as charted. Pt shows no signs of resp distress or sob. Pt sx'd for thick large amt of blood tinged secretions. Alarms are set and auidble. Vent plugged into red outlet. Ambu bag bedside. Will continue to monitor cloesly. Addendum: 04/15/20 at 0342 by SILVIA WHITE RT Amended: Links added.
[2020-04-15 05:10] LABS: BASOPHILS # (AUTO) 0.1 /CMM (0.0-0.2); BASOPHILS % (AUTO) 0.4 % (0.0-2.0); EOSINOPHILS % (AUTO) 0.1 % (0.0-6.0); HEMATOCRIT 41 % (39-51); HEMOGLOBIN 13.2 g/dL (13.5-17.5); LYMPHOCYTES # (AUTO) 0.6 /CMM (0.8-4.8); LYMPHOCYTES % (AUTO) 3.3 % (20.0-44.0); MEAN CORPUSCULAR HGB CONC 33 g/dl (31.0-36.0); MEAN CORPUSCULAR VOLUME 90 fL (80-96); MONOCYTES # (AUTO) 0.6 /CMM (0.1-1.30); MONOCYTES % (AUTO) 3.5 % (2.0-12.0); NEUTROPHILS # (AUTO) 17.1 /CMM (1.8-8.9); NEUTROPHILS % (AUTO) 92.7 % (43.0-81.0); PLATELET COUNT (AUTO) 103 /CMM (150-450); RED BLOOD CELL COUNT(AUTO) 4.53 MIL/uL (4.5-6.0); WHITE BLOOD COUNT (AUTO) 18.5 K/uL (4.3-11.0)
[2020-04-15 05:49] LABS: ALANINE AMINOTRANSFERASE 21 U/L (12-78); ALKALINE PHOSPHATASE 52 U/L (46-116); ASPARTATE AMINOTRANSFERASE 20 U/L (15-37); BILIRUBIN,TOTAL 0.5 mg/dL (0.2-1.0); CALCIUM, SERUM 7.9 mg/dL (8.5-10.1); CARBON DIOXIDE 23 mmol/L (21-32); CHLORIDE 99 mmol/L (98-107); CREATININE 1.4 mg/dL (0.6-1.3); GLUCOSE 176 mg/dL (74-106); MAGNESIUM 2.5 mg/dL (1.8-2.4); PHOSPHORUS 3.8 mg/dL (2.5-4.9); POTASSIUM 4.5 mmol/L (3.5-5.1); SODIUM SERUM 132 mmol/L (136-145); TOTAL PROTEIN, SERUM 5.3 g/dL (6.4-8.2); UREA NITROGEN, BLOOD 41 mg/dL (7-18)
[2020-04-15 05:51] LABS: CREATINE KINASE, TOTAL 44 U/L (39-308)
--- NOTE | 2020-04-15 06:00 | NUR ---
SCALP TREATMENT OPERATOR NOTES BP 87/62, LEVOPHED DRIP TITRATED TO 0.1MCG/KG/MIN. DIPRIVAN DRIP REMAINS @ 45MCG/KG/MIN. WILL MONITOR CLOSELY
[2020-04-15 06:47] LABS: ABG BASE EXCESS -3.2 mmol/L; ABG OXYGEN SATURATION 97.4 % (92.0-98.5); ABG PCO2 38.1 mmHg (35.0-45.0); ABG PH 7.372 (7.350-7.450); ABG PO2 95.6 mmHg (75.0-100.0); AaDO2 579.3 mmHg; COHb 0.3 % (0.5-1.5); MetHb 0.2 % (0.0-1.5); O2Hb 96.9 % (94.0-97.0); PEEP,BG 10 cm H2O; SITE, ABG Left Radial; VENT MODE, BG AC 24 650 100 +10
[2020-04-15] MEDS: MEROPENEM 1 G in IV NS 0.9% 100 ML IV SCH ×2 (09:23→21:56)
[2020-04-15] MEDS: HYDROCORTISONE SOD SUCCINATE 100 MG/2 ML VIAL IV SCH ×3 (09:23→17:43)
[2020-04-15] MEDS ORDERED: ENOXAPARIN SODIUM 100 MG/ML DISP.SYRIN SQ SCH (09:30)
[2020-04-15] MEDS: NOREPINEPHRINE 8 MG in IV NS 0.9% 242 ML IV PRN ×2 (10:52→22:12)
[2020-04-15] MEDS: ENOXAPARIN SODIUM 100 MG/ML DISP.SYRIN SQ SCH ×2 (11:37→22:01)
[2020-04-15] MEDS: LIDOCAINE 5% (PATCH) 1 EA PATCH TP SCH (15:10)
[2020-04-15 15:23] LABS: ABG BASE EXCESS -4.5 mmol/L; ABG OXYGEN SATURATION 98.4 % (92.0-98.5); ABG PCO2 31.4 mmHg (35.0-45.0); ABG PH 7.403 (7.350-7.450); ABG PO2 123.3 mmHg (75.0-100.0); AaDO2 414.1 mmHg; COHb 0.2 % (0.5-1.5); MetHb 0.2 % (0.0-1.5); SITE, ABG Right Radial; VENT MODE, BG AC24 650 +10 80%
[2020-04-15] MEDS: IV NS 0.9% 250 ML IV PRN (16:26)
--- NOTE | 2020-04-15 19:30 | NUR ---
MARKETING ASSOCIATE INITIAL SHIFT NOTES RECEIVED PATIENT IN BED, ORALLY INTUBATED, ON MECHANICAL VENTILATION, SETTINGS PRESCRIBED, TOLERATING WELL, SPO2 96% AT THIS TIME, FREE FROM ANY SIGNS AND SYMPTOMS OF RESPIRATORY DISTRESS OTHERWISE. TUBE FEEDING ONGOING @ 20ML/HR, TOLERATING WELL, GASTRIC RESIDUAL <5ML. LEFT UPPER ARM MIDLINE PATENT AND INTACT, LEVOPHED DRIP @ 0.1MCG/KG/MIN, DIPRIVAN @ 30MCG/KG/MIN. BILATERAL SOFT WRIST RESTRAINTS IN PLACE FOR SAFETY DUE TO SELF EXTUBATION RISK. WILL MONITOR CLOSELY
[2020-04-16] VITALS (84 sets, daily range): BP systolic 90–141; BP diastolic 50–92
[2020-04-16] MEDS: PROPOFOL 100 ML IV PRN ×4 (03:25→21:58)
[2020-04-16 05:15] LABS: BASOPHILS # (AUTO) 0.1 /CMM (0.0-0.2); BASOPHILS % (AUTO) 0.5 % (0.0-2.0); EOSINOPHILS % (AUTO) 0.1 % (0.0-6.0); HEMATOCRIT 40 % (39-51); LYMPHOCYTES # (AUTO) 0.6 /CMM (0.8-4.8); LYMPHOCYTES % (AUTO) 3.5 % (20.0-44.0); MEAN CORPUSCULAR HGB CONC 33 g/dl (31.0-36.0); MEAN CORPUSCULAR VOLUME 91 fL (80-96); MONOCYTES # (AUTO) 0.7 /CMM (0.1-1.30); MONOCYTES % (AUTO) 3.8 % (2.0-12.0); NEUTROPHILS # (AUTO) 16.7 /CMM (1.8-8.9); NEUTROPHILS % (AUTO) 92.1 % (43.0-81.0); PLATELET COUNT (AUTO) 106 /CMM (150-450); RED BLOOD CELL COUNT(AUTO) 4.41 MIL/uL (4.5-6.0); WHITE BLOOD COUNT (AUTO) 18.2 K/uL (4.3-11.0)
[2020-04-16 05:40] LABS: BILIRUBIN,TOTAL 0.6 mg/dL (0.2-1.0); CALCIUM, SERUM 8.3 mg/dL (8.5-10.1); CREATININE 1.1 mg/dL (0.6-1.3); MAGNESIUM 2.7 mg/dL (1.8-2.4); PHOSPHORUS 3.5 mg/dL (2.5-4.9); POTASSIUM 4.5 mmol/L (3.5-5.1); TOTAL PROTEIN, SERUM 5.2 g/dL (6.4-8.2)
[2020-04-16] MEDS: HYDROCORTISONE SOD SUCCINATE 100 MG/2 ML VIAL IV SCH ×3 (08:35→16:51)
[2020-04-16] MEDS: MEROPENEM 1 G in IV NS 0.9% 100 ML IV SCH ×2 (08:35→21:09)
[2020-04-16] MEDS: ENOXAPARIN SODIUM 100 MG/ML DISP.SYRIN SQ SCH ×2 (08:36→22:05)
--- NOTE | 2020-04-16 11:50 | NUR ---
pt receive stable on MV, settings are AC 24 650 +10 60% FIO2, ET tube patent and secured, morning ABG done 7.43 33 86 21.5 96%, Dr Dooley said just leave on current settings, will continue to monitor Addendum: 04/16/20 at 1153 by ORESTES VALERA RT Amended: Links added.
[2020-04-16] MEDS: NOREPINEPHRINE 8 MG in IV NS 0.9% 242 ML IV PRN (12:02)
[2020-04-16 14:05] LABS: ABG OXYGEN SATURATION 96.4 % (92.0-98.5); ABG PH 7.431 (7.350-7.450); ABG PO2 86.1 mmHg (75.0-100.0); AaDO2 305.4 mmHg; COHb 0.2 % (0.5-1.5); O2Hb 96.2 % (94.0-97.0); PEEP,BG 10 cm H2O; SITE, ABG Left Radial; VT, ABG 650 mL
[2020-04-16] MEDS: LIDOCAINE 5% (PATCH) 1 EA PATCH TP SCH (14:28)
[2020-04-16] MEDS: GLUCERNA 1.2 1,000 ML BOTTLE NG PRN (15:33)
[2020-04-16] MEDS: IV NS 0.9% 250 ML IV PRN (16:51)
--- NOTE | 2020-04-16 19:30 | NUR ---
RN OPENING NOTE RECEIVED PATIENT IN BED RESTING SEDATED ON PROPOFOL, ORALLY INTUBATED MECHANICAL VENT,ETT 8/27 CM AT LIP LINE AC 24 TV 650 FIO2 60% PEEP 10,ON ISOLATION PRECAUTION FOR COVID+,ON ORAL G-TUBE FEEDING GLUCERNA 1.2 30CC/HR PLACEMENT CHECKED IN PLACE,ON NAVARRETE CATHETER, URINE DRAINAGE YELLOW AND CLEAR, IV SITE IS ON MID LINE ON LEFT UPPER ARM,INTACT PATENT,PROPOFOL RUNNING ON 30 MCG/KG/MIN,ALSO PATIENT IS ON RESTRAIN BILATERAL WRIST CONTINUE TO MONITOR.
[2020-04-17] VITALS (69 sets, daily range): BP systolic 68–160; BP diastolic 44–102
--- NOTE | 2020-04-17 03:45 | NUR ---
RN NOTE BP 83/55 STARTED LEVOPHED AT 0.1 MCG/KG/MIN .
[2020-04-17] MEDS: PROPOFOL 100 ML IV PRN ×6 (04:00→22:19)
[2020-04-17 04:27] LABS: BASOPHILS # (AUTO) 0.1 /CMM (0.0-0.2); BASOPHILS % (AUTO) 0.6 % (0.0-2.0); EOSINOPHILS % (AUTO) 0.9 % (0.0-6.0); HEMATOCRIT 37 % (39-51); LYMPHOCYTES # (AUTO) 0.7 /CMM (0.8-4.8); LYMPHOCYTES % (AUTO) 6.2 % (20.0-44.0); MEAN CORPUSCULAR HGB CONC 33 g/dl (31.0-36.0); MEAN CORPUSCULAR VOLUME 91 fL (80-96); MONOCYTES # (AUTO) 0.8 /CMM (0.1-1.30); MONOCYTES % (AUTO) 6.5 % (2.0-12.0); NEUTROPHILS # (AUTO) 9.9 /CMM (1.8-8.9); NEUTROPHILS % (AUTO) 85.8 % (43.0-81.0); PLATELET COUNT (AUTO) 83 /CMM (150-450); RED BLOOD CELL COUNT(AUTO) 4.01 MIL/uL (4.5-6.0); WHITE BLOOD COUNT (AUTO) 11.6 K/uL (4.3-11.0)
[2020-04-17 04:49] LABS: CALCIUM, SERUM 8.3 mg/dL (8.5-10.1); POTASSIUM 4.4 mmol/L (3.5-5.1)
[2020-04-17 05:37] LABS: LYMPHOCYTES % (MANUAL) 5 % (16-48); MONOCYTES % (MANUAL) 3 % (0-11.0); NEUTROPHILS % (MANUAL) 92 (42-76)
--- NOTE | 2020-04-17 07:00 | NUR ---
RN CLOSING NOTE PATIENT REMAINS ON ORALLY INTUBATED ON MECH VENT,AT PRESCRIBE SETTING,TOLERATING WELL,PATIENT SEDATED ON PROPOFOL 30 MCG/KG/MIN AND ON LEVOPHED 0.05 MCG/KG/MIN,ALL DUE MED GIVEN MD ORDERED,KEPT CLEAN AND DRY ALL THE TIME,ENDORSE TO NEXT COMING SHIFT FOR CONTINUATION OF CARE
[2020-04-17] MEDS: ENOXAPARIN SODIUM 40 MG/0.4 ML DISP.SYRIN SQ SCH (09:00)
[2020-04-17] MEDS: HYDROCORTISONE SOD SUCCINATE 100 MG/2 ML VIAL IV SCH ×3 (09:15→16:15)
--- NOTE | 2020-04-17 09:15 | NUR ---
RN OPENING NOTE: RECEIVED PATIENT IN BED THIS MORNING. PATIENT IS SEDATED AND INTUBATED. TOLERATING VENT SETTINGS WELL. NO SIGNS OF ACUTE DISTRESS NOTED AT THIS PRESENT TIME. PATIENT IS SR IN THE 90S ALTERNATING WITH ST AND PVC ON THE BEDSIDE MONITOR. PATIENT HAS OGT WITH GLUCERNA 1.2 RUNNING AT 30CC/HR WITH A GOAL OF 40CC/HR, NO RESIDUAL NOTED ON ASPIRATION. YISEL MIDLINE, C/D/I, FLUSHING WELL, NO SIGNS OF COMPLICATIONS NOTED. PATIENT HAS A NAVARRETE, DRAINING WELL. ISOLATION PRECAUTIONS FOR COVID 19 + IMPLEMENTED. SAFETY MEASURES IMPLEMENTED, BED IN LOWEST POSITION, LOCKED, SIDE RAILS UP, CALL LIGHT WITHIN REACH. WILL CONTINUE TO MONITOR PATIENT FOR CHANGES.
[2020-04-17] MEDS: MEROPENEM 1 G in IV NS 0.9% 100 ML IV SCH ×2 (09:16→21:19)
[2020-04-17] MEDS: PROSOURCE / PROSTAT (PYXIS) 30 ML UDC GT SCH ×2 (11:42→16:16)
--- NOTE | 2020-04-17 12:40 | NUR ---
CONTACTED DR LANCE IN REGARDS TO PRN TYLENOL FOR PATIENT'S INCREASED TEMP WITH NEW ORDERS
[2020-04-17] MEDS: ACETAMINOPHEN 650 MG/20.3 ML UDC GT PRN (13:10)
[2020-04-17 15:41] LABS: ABG BASE EXCESS -0.8 mmol/L; ABG OXYGEN SATURATION 96.8 % (92.0-98.5); ABG PCO2 32.9 mmHg (35.0-45.0); ABG PH 7.452 (7.350-7.450); ABG PO2 90.1 mmHg (75.0-100.0); AaDO2 301.5 mmHg; COHb 0.2 % (0.5-1.5); O2Hb 96.6 % (94.0-97.0); PEEP,BG 10 cm H2O; SITE, ABG Left Radial; VT, ABG 650 mL
[2020-04-17] MEDS: LIDOCAINE 5% (PATCH) 1 EA PATCH TP SCH (16:15)
--- NOTE | 2020-04-17 18:59 | NUR ---
RN CLOSING NOTE: PATIENT REMAINS IN BED. NO SIGNS OF ACUTE DISTRESS NOTED AT THIS PRESENT TIME. PATIENT IS SR IN THE 70S ALTERNATING WITH ST AND PVC ON THE BEDSIDE MONITOR. SAFETY MEASURES IMPLEMENTED, BED IN LOWEST POSITION, LOCKED, SIDE RAILS UP, CALL LIGHT WITHIN REACH. WILL ENDORSE TO ONCOMING SHIFT RN FOR CONTINUITY OF CARE.
--- NOTE | 2020-04-17 19:00 | NUR ---
RN OPENING NOTES: PATIENT IN BED, INTUBATED, TOLERATING CURRENT VENT SETTINGS WELL. NO RESPIRATORY DISTRESS. REMAINS SEDATED, ON PROPOFOL AT 60 MCG, WILL TITRATE PER PROTOCOL. NO S/S OF PAIN. SAFETY PRECAUTIONS IMPLEMENTED. BED LOCKED, ALARM ON, LOW POSITION. HOB ELEVATED. ON GT FEEDING, NO RESIDUAL. NAVARRETE CATH INTACT AND PATENT. YISEL MIDLINE FLUSHING; C/D/I. WILL CONT. TO MONITOR.
[2020-04-17] MEDS: NOREPINEPHRINE 8 MG in IV NS 0.9% 242 ML IV PRN (19:13)
[2020-04-17] MEDS ORDERED: FEE PK DOSING 1 MIN EA MC ONE (20:13)
[2020-04-17] MEDS ORDERED: VANCOMYCIN 1.5 GM in IV D5W 500 ML IV ONE (21:00)
--- NOTE | 2020-04-17 21:26 | NUR ---
RT NOTE PT RECEIVED INTUBATED WITH 7.5 ET TUBE @ 27 CM MID LIP LINE. MOVED ET TUBE TO LEFT LIP LINE. SX DONE, ET TUBE SECURED AND PATENT. AMBU BAG @ HOB. ALARMS ON AND AUDIBLE. VENT PLUGGED TO RED OUTLET. NO DISTRESS NOTED AT THIS TIME. WILL CONTINUE TO MONITOR T/O SHIFT. Addendum: 04/17/20 at 2127 by MIN CARY RT Amended: Links added.
[2020-04-18] VITALS (91 sets, daily range): BP systolic 92–141; BP diastolic 56–89
--- NOTE | 2020-04-18 00:49 | NUR ---
RN NOTE: RT COLLECTED RESPIRATORY CX SPECIMEN. CALLED EBONI FROM LAB, READY FOR INFORMATICS MANAGER.
[2020-04-18] MEDS: PROPOFOL 100 ML IV PRN ×7 (00:55→22:59)
[2020-04-18] MEDS: GLUCERNA 1.2 1,000 ML BOTTLE NG PRN (01:56)
[2020-04-18 05:14] LABS: CALCIUM, SERUM 8.1 mg/dL (8.5-10.1); CREATININE 0.9 mg/dL (0.6-1.3); MAGNESIUM 2.5 mg/dL (1.8-2.4); PHOSPHORUS 3.3 mg/dL (2.5-4.9); POTASSIUM 4.2 mmol/L (3.5-5.1)
[2020-04-18 05:15] LABS: BASOPHILS % (AUTO) 0.1 % (0.0-2.0); EOSINOPHILS % (AUTO) 0.3 % (0.0-6.0); HEMATOCRIT 37 % (39-51); HEMOGLOBIN 12.1 g/dL (13.5-17.5); LYMPHOCYTES # (AUTO) 0.9 /CMM (0.8-4.8); LYMPHOCYTES % (AUTO) 5.6 % (20.0-44.0); MEAN CORPUSCULAR HGB CONC 33 g/dl (31.0-36.0); MEAN CORPUSCULAR VOLUME 90 fL (80-96); MONOCYTES # (AUTO) 1.2 /CMM (0.1-1.30); MONOCYTES % (AUTO) 7.7 % (2.0-12.0); NEUTROPHILS # (AUTO) 13.2 /CMM (1.8-8.9); NEUTROPHILS % (AUTO) 86.3 % (43.0-81.0); PLATELET COUNT (AUTO) 125 /CMM (150-450); WHITE BLOOD COUNT (AUTO) 15.3 K/uL (4.3-11.0)
[2020-04-18 05:50] LABS: C-REACTIVE PROTEIN 10.3 mg/dL (0.0-0.9)
[2020-04-18] MEDS ORDERED: NOREPINEPHRINE 8MG/250ML RTU 250 ML IV ONE (05:51)
[2020-04-18] MEDS: NOREPINEPHRINE 8 MG in IV NS 0.9% 242 ML IV PRN (06:31)
--- NOTE | 2020-04-18 07:05 | NUR ---
RN NOTES: RECEIVED PT ON BED, INTUBATED,AND SEDATED, ON DIPRIVAN AT 60 MCG/KG/MIN, WILL TITRATE PER RROTOCOL TOLERATING CURRENT VENT SETTINGS WELL.ON TELE SR HR IN 60'S, ON LEVO AT .08MCG/KG/MIN FOR BP SUPPORT, NAVARRETE DRINING TO GRAVITY, NO S/S OF PAIN NOTED, SAFETY PRECAUTIONS IMPLEMENTED. BED LOCKED, AND IN LOWEST POSITION. HOB ELEVATED. ON OGT FEEDING AT 40CC/HR RUNNING, NO RESIDUAL. YISEL MIDLINE FLUSHING; C/D/I. WILL CONT. TO MONITOR.
--- NOTE | 2020-04-18 07:15 | NUR ---
RN CLOSING NOTES: PATIENT IN NO ACUTE DISTRESS DURING SHIFT. REMAINED STABLE. ENDORSED TO AM RN FOR CONTINUITY OF CARE.
[2020-04-18] MEDS: MEROPENEM 1 G in IV NS 0.9% 100 ML IV SCH ×2 (08:42→20:20)
[2020-04-18] MEDS: HYDROCORTISONE SOD SUCCINATE 100 MG/2 ML VIAL IV SCH ×3 (08:43→16:16)
[2020-04-18] MEDS: ENOXAPARIN SODIUM 40 MG/0.4 ML DISP.SYRIN SQ SCH (08:45)
[2020-04-18] MEDS: PROSOURCE / PROSTAT (PYXIS) 30 ML UDC GT SCH ×2 (08:46→16:17)
[2020-04-18] MEDS: VANCOMYCIN 1 GM in IV D5W 250 ML IV SCH ×2 (09:12→21:15)
[2020-04-18 14:02] LABS: ABG BASE EXCESS 6.4 mmol/L; ABG OXYGEN SATURATION 96.4 % (92.0-98.5); ABG PH 7.487 (7.350-7.450); ABG PO2 86.4 mmHg (75.0-100.0); AaDO2 296.3 mmHg; COHb 0.3 % (0.5-1.5); MetHb 0.2 % (0.0-1.5); O2Hb 95.9 % (94.0-97.0); PEEP,BG 10 cm H2O; SITE, ABG Right Radial; VT, ABG 650 mL
[2020-04-18] MEDS: LIDOCAINE 5% (PATCH) 1 EA PATCH TP SCH (15:29)
--- NOTE | 2020-04-18 18:48 | NUR ---
RN NOTES PT REMAINS INTUBATED AND SEDATED, ON DIPRIVAN AT 45MCG/KG/MIN, AND LEVO AT .03MCG/KG/MIN FOR BP SUPPORT, ON TELE SR HR IN 60'D, NO SIGNIFICANT CHANGES NOTED ON THIS SHIFT, TOLERATING OGT FEEDING AT 40CC/HR WELL, NO RESIDUAL NOTED, SR UP X3, CALL LIGHT WITHIN EASY REACH, BED LOCKED AND IN LOWEST POSITION, WILL ENDORSE TO LABORATORY EQUIPMENT CLEANER NURSE FOR CONTINUITY OF CARE .
--- NOTE | 2020-04-18 19:30 | NUR ---
ELECTRICIAN SHOP RCD PT W/DX COVID; PT IS SEDATED ON PROPOFOL AT 45 MCG/KG/MIN. NSR ON MONITOR W/LEVOPHED AT 0.03 MCG/KG/MIN. OG TUBE W/GLUCERNA AT 40 ML/HR NO RESIDUAL AT THIS TIME. SACRAL REDNESS NOTED; MEPILEX APPLIED. YISEL MIDLINE PATENT NO BLOOD RETURN AT THIS TIME.
[2020-04-18] MEDS ORDERED: NOREPINEPHRINE 8 MG in IV D5W 242 ML IV PRN (20:30)
[2020-04-18] MEDS ORDERED: NOREPINEPHRINE 8 MG in IV D5W 500 ML IV PRN (20:30)
[2020-04-18] MEDS: NOREPINEPHRINE 8 MG in IV D5W 250 ML IV PRN (21:30)
--- NOTE | 2020-04-18 22:00 | NUR ---
TRAIN INSPECTOR PT TURNED AND REPOSITIONED; RENDERED ORAL CARE.
--- NOTE | 2020-04-18 22:45 | NUR ---
HUMAN RESOURCES RECORDS CLERK RCD CALL FROM GRAND DAUGHTER UPDATED ON PLAN OF CARE.
[2020-04-19] VITALS (75 sets, daily range): BP systolic 92–128; BP diastolic 54–91
[2020-04-19] MEDS: GLUCERNA 1.2 1,000 ML BOTTLE NG PRN (01:41)
[2020-04-19] MEDS: ACETAMINOPHEN 650 MG/20.3 ML UDC GT PRN (04:25)
[2020-04-19 05:21] LABS: BASOPHILS % (AUTO) 0.1 % (0.0-2.0); EOSINOPHILS % (AUTO) 0.3 % (0.0-6.0); HEMATOCRIT 34 % (39-51); HEMOGLOBIN 11.2 g/dL (13.5-17.5); LYMPHOCYTES # (AUTO) 0.6 /CMM (0.8-4.8); LYMPHOCYTES % (AUTO) 5.8 % (20.0-44.0); MEAN CORPUSCULAR HGB CONC 33 g/dl (31.0-36.0); MEAN CORPUSCULAR VOLUME 91 fL (80-96); MONOCYTES # (AUTO) 0.7 /CMM (0.1-1.30); MONOCYTES % (AUTO) 6.1 % (2.0-12.0); NEUTROPHILS # (AUTO) 9.9 /CMM (1.8-8.9); NEUTROPHILS % (AUTO) 87.7 % (43.0-81.0); PLATELET COUNT (AUTO) 112 /CMM (150-450); RED BLOOD CELL COUNT(AUTO) 3.75 MIL/uL (4.5-6.0); WHITE BLOOD COUNT (AUTO) 11.3 K/uL (4.3-11.0)
[2020-04-19 05:38] LABS: ALBUMIN 1.8 g/dL (3.4-5.0); BILIRUBIN,TOTAL 0.5 mg/dL (0.2-1.0); CALCIUM, SERUM 8.1 mg/dL (8.5-10.1); CREATININE 0.8 mg/dL (0.6-1.3); MAGNESIUM 2.2 mg/dL (1.8-2.4); PHOSPHORUS 3.4 mg/dL (2.5-4.9); POTASSIUM 4.6 mmol/L (3.5-5.1); TOTAL PROTEIN, SERUM 5.2 g/dL (6.4-8.2)
[2020-04-19] MEDS: PROPOFOL 100 ML IV PRN ×5 (06:05→20:30)
--- NOTE | 2020-04-19 08:00 | NUR ---
RN STAFF: pt is sedated with 45 mcg/kg/m Diprivan well, reactive for pain stimuli/grimacing, coughing with suction, on wrists restraints, O2sat. over 95%, no SOB, SR, SBP over 90 now, on 0.03 mcg/kg/m Levophed gtt/continue titrate, OGTF residual 5 ml, keep HOB over 40, urine out 650ml/12hr, no critical labs reported
[2020-04-19] MEDS ORDERED: ENOXAPARIN SODIUM 40 MG/0.4 ML DISP.SYRIN SQ SCH (09:00)
[2020-04-19] MEDS: PROSOURCE / PROSTAT (PYXIS) 30 ML UDC GT SCH ×2 (09:22→16:28)
[2020-04-19] MEDS: MEROPENEM 1 G in IV NS 0.9% 100 ML IV SCH ×2 (09:27→20:30)
[2020-04-19] MEDS: HYDROCORTISONE SOD SUCCINATE 100 MG/2 ML VIAL IV SCH ×3 (09:27→16:28)
[2020-04-19] MEDS: LIDOCAINE 5% (PATCH) 1 EA PATCH TP SCH (09:28)
[2020-04-19] MEDS: ENOXAPARIN SODIUM 40 MG/0.4 ML DISP.SYRIN SQ SCH (09:29)
--- NOTE | 2020-04-19 09:30 | NUR ---
EDGE BRUSHER: called to pharmacy to get Vanco IV BAG
--- NOTE | 2020-04-19 11:30 | NUR ---
MOTOR BUILDER WINDER: pt.daughter called/updated with pt.current condition, VS, T, sedation level, pressor titration, I/O, OGTF, labs, O2sat., knows phone#/recommended for Dx, prognosis, CXR results to speak with Mds
--- NOTE | 2020-04-19 11:45 | NUR ---
HOUSING ASSISTANT PROPERTY MANAGER: is in room, updated with pt.sedation level, Levophed gtt is off now, VS, I/O, OGTF, vent setting/60% FiO2/peep10, O2sat. over 95%, pt.granddaughter call, labs, see new orders
--- NOTE | 2020-04-19 12:44 | NUR ---
RT NOTE PT REMAINS MECHANICALLY VENTILATED VIA 8.0 CUFFED TRACHEOSTOMY TUBE @ 27 CM LIP. CUFF INFLATED. ETT SECURE. VENTILATOR SETTINGS PRESCRIBED. ALARMS SET PER PROTOCOL AND AUDIBLE. VENT PLUGGED IN TO RED OUTLET. NO DISTRESS NOTED. Addendum: 04/19/20 at 1247 by JENNIFER KAMINSKI RT Amended: Links added. Addendum: 04/19/20 at 1250 by JENNIFER KAMINSKI RT CORRECTION: ETT NOT TRACHEOSTOMY
[2020-04-19] MEDS: VANCOMYCIN 1 GM in IV D5W 250 ML IV SCH ×2 (13:31→23:00)
--- NOTE | 2020-04-19 17:16 | NUR ---
ADVANCED SOLUTIONS ARCHITECT: pt.is sedated well with 40mcg/kg/m Diprivan, reactive(grimacing, arms activity+) by pain stimuli, O2sat. over 96%, no SOB, SR, SBP over 90, Levophed is off, OGTF residual WNL, urine out 700ml/12h, all PM/skin care/bedbath done, skin under restraints is intact/WNL, suctioned well
--- NOTE | 2020-04-19 18:50 | NUR ---
VINYL FLOORING INSTALLER: RU Hayward updated with pt.VS, T, sedation level, pressor off, I/O, respiratory status, meds
--- NOTE | 2020-04-19 19:30 | NUR ---
EVENT HOST RCD PT W/DX COVID; PT IS SEDATED ON PROPOFOL AT 40 MCG/KG/MIN. NSR ON MONITOR.OG TUBE W/GLUCERNA AT 40 ML/HR NO RESIDUAL AT THIS TIME. SACRAL REDNESS NOTED; MEPILEX IN PLACE. YISEL MIDLINE PATENT NO BLOOD RETURN AT THIS TIME. INTUBATED 8 @ 27 W/VENT SETTINGS AC 18 650 60% +10. NOTED THICK WHITE SECRETIONS. NAVARRETE CATH WITH CLEAR YELLOW URINE OUTPUT. NS @ TKO. CONTINUE TO MONITOR.
--- NOTE | 2020-04-19 20:02 | NUR ---
RT NOTE PT rec'd orally intubated via ETT #8.0 secured @ 27CM at the lipline. pt on [facility] vent on AC mode settings as charted. Pt shows no signs of resp distress or sob. Pt sx'd for thick large amt of blood tinged secretions. Alarms are set and auidble. Vent plugged into red outlet. Ambu bag bedside. Will continue to monitor cloesly. Addendum: 04/19/20 at 2001 by JEAN CLAUDE SAMSON RT Amended: Links added.
[2020-04-19] MEDS: IV NS 0.9% 250 ML IV PRN (20:30)
--- NOTE | 2020-04-19 22:45 | NUR ---
POTATO CHIP SACKING MACHINE OPERATOR RCD CALL FROM PTS GRAND DAUGHTER. UPDATED ON PLAN OF CARE. CONTINUE TO MONITOR.
[2020-04-20] VITALS (44 sets, daily range): BP systolic 85–113; BP diastolic 54–75
[2020-04-20] MEDS: PROPOFOL 100 ML IV PRN ×6 (00:55→20:02)
[2020-04-20] MEDS: GLUCERNA 1.2 1,000 ML BOTTLE NG PRN (01:45)
[2020-04-20] MEDS: ACETAMINOPHEN 650 MG/20.3 ML UDC GT PRN (02:13)
[2020-04-20 05:15] LABS: BASOPHILS % (AUTO) 0.5 % (0.0-2.0); EOSINOPHILS % (AUTO) 1.5 % (0.0-6.0); HEMATOCRIT 32 % (39-51); HEMOGLOBIN 10.8 g/dL (13.5-17.5); LYMPHOCYTES # (AUTO) 0.7 /CMM (0.8-4.8); LYMPHOCYTES % (AUTO) 8.5 % (20.0-44.0); MEAN CORPUSCULAR HGB CONC 34 g/dl (31.0-36.0); MEAN CORPUSCULAR VOLUME 91 fL (80-96); MONOCYTES # (AUTO) 0.5 /CMM (0.1-1.30); MONOCYTES % (AUTO) 6.9 % (2.0-12.0); NEUTROPHILS # (AUTO) 6.6 /CMM (1.8-8.9); NEUTROPHILS % (AUTO) 82.6 % (43.0-81.0); PLATELET COUNT (AUTO) 111 /CMM (150-450); RED BLOOD CELL COUNT(AUTO) 3.53 MIL/uL (4.5-6.0)
[2020-04-20 05:23] LABS: CALCIUM, SERUM 8.4 mg/dL (8.5-10.1); CREATININE 0.9 mg/dL (0.6-1.3); POTASSIUM 4.2 mmol/L (3.5-5.1)
--- NOTE | 2020-04-20 08:00 | NUR ---
ORDERLY: pt is sedated well with 40 mcg/kg/m Diprivan, reactive by light pain stimuli/touch with coughing, grimacing, trace arms activity, on wrists restraints, suctioned well, SR, pressor off, SBP over 90/below 150, O2sat. over 95%/no SOB, OGTF residual 5 ml, urine 700ml/12hrs, no BM reported since 04/13/has Mg milk PRN, FiO60%, peep10, ABG: pH 7.44/36/89/24
[2020-04-20] MEDS: ENOXAPARIN SODIUM 40 MG/0.4 ML DISP.SYRIN SQ SCH (08:24)
[2020-04-20] MEDS: PROSOURCE / PROSTAT (PYXIS) 30 ML UDC GT SCH ×2 (08:25→16:25)
[2020-04-20] MEDS: HYDROCORTISONE SOD SUCCINATE 100 MG/2 ML VIAL IV SCH ×3 (08:25→16:25)
[2020-04-20] MEDS: MEROPENEM 1 G in IV NS 0.9% 100 ML IV SCH ×2 (08:26→21:00)
[2020-04-20 08:30] LABS: ABG BASE EXCESS 2.7 mmol/L; ABG OXYGEN SATURATION 96.8 % (92.0-98.5); ABG PH 7.506 (7.350-7.450); ABG PO2 87.9 mmHg (75.0-100.0); AaDO2 303.6 mmHg; COHb 0.3 % (0.5-1.5); MetHb 0.1 % (0.0-1.5); O2Hb 96.4 % (94.0-97.0); SITE, ABG Right Radial; VENT MODE, BG AC 24 650 60% +10
--- NOTE | 2020-04-20 10:30 | NUR ---
FIELD HEALTH OFFICER: pt.granddaughter called/updated with pt status, VS, O2sat., I/O, labs, POC
--- NOTE | 2020-04-20 11:05 | NUR ---
FRONT DESK ADMIN: updated with pt.current condition, ABG, VS, sedation level, pressor off, I/O, suction amount, pt.neuro reaction yesterday with 30 mcg Diprivan rate (grimacing, coughing, bitting ETT)
[2020-04-20 11:10] LABS: ABG BASE EXCESS 0.5 mmol/L; ABG OXYGEN SATURATION 96.7 % (92.0-98.5); ABG PCO2 36.1 mmHg (35.0-45.0); ABG PH 7.445 (7.350-7.450); AaDO2 299.1 mmHg; COHb 0.3 % (0.5-1.5); MetHb 0.1 % (0.0-1.5); O2Hb 96.3 % (94.0-97.0); PEEP,BG 10 cm H2O; SITE, ABG Left Radial; VENT MODE, BG AC 60%; VT, ABG 650 mL
[2020-04-20] MEDS: VANCOMYCIN 1 GM in IV D5W 250 ML IV SCH (12:27)
[2020-04-20] MEDS: LIDOCAINE 5% (PATCH) 1 EA PATCH TP SCH (12:40)
--- NOTE | 2020-04-20 13:10 | NUR ---
INSURANCE DEFENSE PARALEGAL: updated with pt.current condition, VS, sedation level, pressor off, vent setting/O2 sat/suction amount, I/O, GTF, no BM last 6 days/laxatives meds prn+, 700ml/12hrs urine out, restraints, granddaughter call, meds/antbxs, see new orders
--- NOTE | 2020-04-20 16:59 | NUR ---
BAG PRINTER: O2sat. over 96%, still on 60% FiO2, peep10, no SOB, sedated well with 40 mcg/kg/m Diprivan, suctioned well, thick orally saliva++, T WNL, SR , SBP over 90/below 150, GTF residual below 10ml, applied Lidocaine patch, all PM/bedbath/skin/wound care done, no BM/will notify [facility] nurse to use laxatives HS PRN, turned q2h, skin under restraints: intact, WNL
--- NOTE | 2020-04-20 18:16 | NUR ---
ASSEMBLER SURGICAL GARMENT: RU Hayward updated with pt.status, VS, tWNL, sedation level, I/O, meds, suction amount, vent setting
--- NOTE | 2020-04-20 19:15 | NUR ---
COMMUTATOR TESTER OPENING NOTES: RECEIVED PATIENT ORALLY INTUBATED WITH ETT 8 AND 27 CM AT LIPLINE, IN BED. PATIENT IN NO S/SX OF ACUTE DISTRESS AT THIS TIME. NO SOB NOTED. PATIENT ON MECHANICAL VENT; SETTINGS PRESCRIBED; PT TOLERATED WELL. AMBU BAG AT BED SIDE ALARMS SET PER PROTOCOL AND AUDIBLE. VENT PLUGGED IN TO RED OUTLET. NO DISTRESS NOTED. PATIENT ON TELE MONITORING READING SINUS RHYTHM HR IS @70 AT TIME OF RECEIVED. NOTED OGT IN PLACED. PLACEMENT VERIFIED WITH AUSCULTATION. NO RESIDUAL TAKEN AT THIS TIME. WITH TUBE FEEDING OF GLUCERNA 1.2 RUNNING @40MLS/HR; PT TOLERATES WELL. NOTED IV SITE ON L UA MIDLINE #18; PATENT IN INTACT,NO S/S OF INFECTION OR INFILTRATION. WITH BILATERAL SOFT WRIST RESTRAINTS IN PLACE, ASSESSED PER PROTOCOL.NAVARRETE CATH IN PLACE; MODERATE URINE OUTPUT NOTED. SAFETY MEASURES HAVE BEEN PROVIDED AND IMPLEMENTED. PATIENT BED ALARM IS ON. HEAD OF BED ELEVATED. BED IS LOCKED, IN LOWEST POSITION AND SIDE RAILS UP. CALL LIGHT WITHIN REACH OF THE PATIENT. ISOLATION PRECAUTIONS IN IMPLEMENTED. WILL CONTINUE TO MONITOR AND REASSESS FOR ANY CHANGES.
[2020-04-21] VITALS (32 sets, daily range): BP systolic 88–115; BP diastolic 54–77
[2020-04-21] MEDS: MAGNESIUM HYDROXIDE 30 ML UDC PO PRN (00:12)
[2020-04-21] MEDS: PROPOFOL 100 ML IV PRN ×7 (04:06→23:53)
[2020-04-21 04:57] LABS: BASOPHILS % (AUTO) 0.6 % (0.0-2.0); EOSINOPHILS % (AUTO) 3.3 % (0.0-6.0); HEMATOCRIT 32 % (39-51); HEMOGLOBIN 10.8 g/dL (13.5-17.5); LYMPHOCYTES # (AUTO) 0.8 /CMM (0.8-4.8); LYMPHOCYTES % (AUTO) 11.7 % (20.0-44.0); MEAN CORPUSCULAR HGB CONC 34 g/dl (31.0-36.0); MEAN CORPUSCULAR VOLUME 90 fL (80-96); MONOCYTES # (AUTO) 0.5 /CMM (0.1-1.30); MONOCYTES % (AUTO) 6.4 % (2.0-12.0); NEUTROPHILS # (AUTO) 5.6 /CMM (1.8-8.9); PLATELET COUNT (AUTO) 135 /CMM (150-450); RED BLOOD CELL COUNT(AUTO) 3.55 MIL/uL (4.5-6.0); WHITE BLOOD COUNT (AUTO) 7.2 K/uL (4.3-11.0)
[2020-04-21 05:12] LABS: CALCIUM, SERUM 8.3 mg/dL (8.5-10.1); CREATININE 0.8 mg/dL (0.6-1.3); MAGNESIUM 2.4 mg/dL (1.8-2.4); PHOSPHORUS 3.4 mg/dL (2.5-4.9)
[2020-04-21] MEDS: GLUCERNA 1.2 1,000 ML BOTTLE NG PRN (06:01)
--- NOTE | 2020-04-21 06:51 | NUR ---
ICU CLOSING NOTES PATIENT RESTING IN BED COMFORTABLY,PT SEDATED WELL WITH 40 MCG/KG/M OF DIPRIVAN. TOLERATING VENT SETTINGS ORDERED. NO SIGNS OF ACUTE DISTRESS. BREATHING EVEN AND UNLABORED. TELE MONITORS READING SR WITH EPISODES OF PACs & PVCs. VITAL SIGNS WNL. OGTUBE FEEDING RUNNING @40ML/HR. IV LINE REMAINED PATENT AND INTACT WITHIN END OF SHIFT. SAFETY PRECAUTIONS IN PLACE WITH BED IN LOWEST POSITION, CALL LIGHT WITHIN REACH, BREAKS ON, SIDE RAILS UP. ALL NEEDS ATTENDED TO; SHIFT ASSESSMENT/BEDBATH/SKIN/WOUND CARE DONE. PATIENT KEPT CLEAN AND DRY. WILL ENDORSE TO INCOMING SHIFT FOR CONOR.
--- NOTE | 2020-04-21 07:20 | NUR ---
RN OPENING NOTE Received patient sedated in bed appears calm and relaxed. Vital signs within normal limits. On ett 05/23 vent setting ac 18 tv 650 fio2 60% peep 5 tolerating well. On Propofol 40mcg/kg/hr running on YISEL Midline. Tele monitor reading SR with PVCs at 90s. Has OG tube running Glucerna 1.2 @ 40ml/hr. Mar catheter in place draining yellow urine by gravity. Noted with BLE edema. Bilateral soft wrist restraints in place no signs of decreased circulation. Safety measures reinforced. Will cont to monitor.
[2020-04-21] MEDS: PROSOURCE / PROSTAT (PYXIS) 30 ML UDC GT SCH ×2 (08:27→16:36)
[2020-04-21] MEDS: HYDROCORTISONE SOD SUCCINATE 100 MG/2 ML VIAL IV SCH ×3 (08:28→16:36)
[2020-04-21] MEDS: MEROPENEM 1 G in IV NS 0.9% 100 ML IV SCH ×2 (08:28→21:09)
[2020-04-21] MEDS: ENOXAPARIN SODIUM 40 MG/0.4 ML DISP.SYRIN SQ SCH (08:34)
--- NOTE | 2020-04-21 09:20 | NUR ---
SEDATION VACATION DONE NOTED WITH MILD AGITATION AND INC EFFORT IN BREATHING
--- NOTE | 2020-04-21 11:47 | NUR ---
SEEN BY DR LANCE NO NEW ORDER AT THIS TIME.
--- NOTE | 2020-04-21 12:27 | NUR ---
VANCO TROUGH 14 WILL GIVE 1200 DOSE
[2020-04-21] MEDS: VANCOMYCIN 1 GM in IV D5W 250 ML IV SCH ×4 (14:10→23:36)
[2020-04-21] MEDS: LIDOCAINE 5% (PATCH) 1 EA PATCH TP SCH (15:18)
--- NOTE | 2020-04-21 18:47 | NUR ---
RN CLOSING NOTE Patient os still sedated in bed appears calm and relaxed. On ett 05/23 vent setting ac 18 tv 650 fio2 60% peep 10 tolerating well. On Propofol 40mcg/kg/hr running on YISEL Midline. Has R. Forearm #22 saline lock flushes well. Tele monitor reading SR with PVCs at 80-90s. Has OG tube running Glucerna 1.2 @ 40ml/hr. Mar catheter in place drained 1300ml. Noted with BUE edema. Bilateral soft wrist restraints in place no signs of decreased circulation. Accdg to notes inflammatory markers trending down. Will hold off on IL-6. Kept clean and comfortable. Repositioned q2h. Flushed water frequently for hydration. Vital signs within normal limits. Safety measures reinforced. Will endorse chute operator nurse for leda.
--- NOTE | 2020-04-21 19:15 | NUR ---
FIXED WING PILOT NOTE RECEIVED PATIENT IN BED RESTING WITH HOB ELEVATED. SEDATED. BREATHING IS EVEN AND NON LABORED, NO SOB NOTED AT THIS TIME. VENT DEPENDANT. IV SITES ON YISEL MIDLINE AND RIGHT FOREARM GAUGE 22 ARE CLEAN, DRY, AND PATENT. ON DIPRIVAN DRIP RUNNING AT 40 MCS/KG/MIN. ON NAVARRETE CATH, URINE IS CLEAR AND YANNICK IN COLOR. NOTED NON PITTING EDEMA ON BILATERAL UPPER EXTREMITIES. IN NO APPARENT DISTRESS NOTED AT THIS TIME. WILL CONTINUE TO MONITOR.
[2020-04-21] MEDS: ACETAMINOPHEN 650 MG/20.3 ML UDC GT PRN (21:14)
--- NOTE | 2020-04-21 23:15 | NUR ---
KERRICK KLEANER OPERATOR NOTE NOTED PATIENT WITH BOWEL MOVEMENT AROUND THIS TIME. PATIENT IS CLEANED, DRIED, AND MADE COMFORTABLE. BED LINENS CHANGED. WOUND CARE RENDERED. PICTURE OF SACRAL REDNESS TAKEN AND PLACED IN PATIENT'S CHART. WILL CONTINUE TO MONITOR.
[2020-04-22] VITALS (83 sets, daily range): BP systolic 79–172; BP diastolic 49–115
[2020-04-22] MEDS: NOREPINEPHRINE 8 MG in IV D5W 250 ML IV PRN (02:17)
--- NOTE | 2020-04-22 02:30 | NUR ---
PSYCHIATRIC MENTAL HEALTH NURSE NOTE PATIENT STARTED ON LEVOPHED DRIP AROUND THIS TIME. PATIENT'S BP DROPPED TO 79/54 AROUND 0215. WILL TITRATE PER PROTOCOL AND CONTINUE TO MONITOR CLOSELY.
[2020-04-22 04:12] LABS: BASOPHILS % (AUTO) 0.5 % (0.0-2.0); EOSINOPHILS % (AUTO) 0.7 % (0.0-6.0); HEMATOCRIT 36 % (39-51); LYMPHOCYTES # (AUTO) 0.9 /CMM (0.8-4.8); MEAN CORPUSCULAR HGB CONC 34 g/dl (31.0-36.0); MEAN CORPUSCULAR VOLUME 92 fL (80-96); MONOCYTES # (AUTO) 0.6 /CMM (0.1-1.30); MONOCYTES % (AUTO) 6.7 % (2.0-12.0); NEUTROPHILS # (AUTO) 7.7 /CMM (1.8-8.9); NEUTROPHILS % (AUTO) 82.1 % (43.0-81.0); PLATELET COUNT (AUTO) 181 /CMM (150-450); WHITE BLOOD COUNT (AUTO) 9.3 K/uL (4.3-11.0)
[2020-04-22 04:31] LABS: CALCIUM, SERUM 8.5 mg/dL (8.5-10.1); CREATININE 0.8 mg/dL (0.6-1.3); MAGNESIUM 2.3 mg/dL (1.8-2.4); PHOSPHORUS 3.7 mg/dL (2.5-4.9); POTASSIUM 3.9 mmol/L (3.5-5.1)
[2020-04-22] MEDS: PROPOFOL 100 ML IV PRN ×6 (05:02→20:30)
[2020-04-22] MEDS: GLUCERNA 1.2 1,000 ML BOTTLE NG PRN (05:27)
--- NOTE | 2020-04-22 06:59 | NUR ---
CRIBBER NOTE PATIENT IS KEPT CLEAN, DRY, AND COMFORTABLE. ALL NEEDS ATTENDED AND MET. ALL DUE MEDS GIVEN ORDERED AND TOLERATED WELL. TITRATED LEVOPHED ORDERED. WILL ENDORSE TO AM SHIFT RN FOR CONTINUATION OF CARE.
--- NOTE | 2020-04-22 08:00 | NUR ---
Sedation Vacation Notes Patient able to follow command. Pupils PERRLA. Biting on ETT+ coughing
[2020-04-22] MEDS: ENOXAPARIN SODIUM 40 MG/0.4 ML DISP.SYRIN SQ SCH (08:43)
--- NOTE | 2020-04-22 08:43 | NUR ---
VENT CHANGES BELOW PER DR. HARGROVE: FIO2 50% Addendum: 04/22/[address] THOMPSON RT Amended: Links added.
[2020-04-22] MEDS: HYDROCORTISONE SOD SUCCINATE 100 MG/2 ML VIAL IV SCH ×3 (08:44→17:47)
[2020-04-22] MEDS: MEROPENEM 1 G in IV NS 0.9% 100 ML IV SCH ×2 (08:46→20:30)
[2020-04-22] MEDS: PROSOURCE / PROSTAT (PYXIS) 30 ML UDC GT SCH ×2 (08:46→17:47)
[2020-04-22] MEDS: VANCOMYCIN 1 GM in IV D5W 250 ML IV SCH ×2 (12:12→23:59)
[2020-04-22] MEDS: LIDOCAINE 5% (PATCH) 1 EA PATCH TP SCH (14:17)
--- NOTE | 2020-04-22 17:27 | NUR ---
"Upper arm DVTs don't embolize" - Dr. Marco Conklin. No new orders received for L arm DVT
--- NOTE | 2020-04-22 19:25 | NUR ---
DRAIN TILER RCD PT W/DX COVID. SEDATED ON DIPRIVAN AT 40 MCG/KG/MIN W/INTERMITTENT EPISODES OF WAKING UP THUS HEEL STAINER RESTRAINTS IN PLACE. INTUBATED 8 @ 27 W/VENT SETTINGS AC 18 650 50% +10. RENDERED ORAL CARE. NAVARRETE CATH DRAINING DARK COLORED URINE. EDEMA NOTED TO BUE. SACRAL REDNESS W/MEPILEX IN PLACE. OG TUBE W/ GLUCERNA 1.2 @ 40 ML/HR NO RESIDUAL NOTED AT THIS TIME. CONTINUE TO MONITOR.
--- NOTE | 2020-04-22 19:30 | NUR ---
SENIOR CORPORATE STRATEGY MANAGER RCD PT W/DX ACUTE HYPOXIC RESP FAIL. PT WAS INTUBATED TODAY 7.5 @ 20 W/VENT SETTINGS AC 20 450 +5. RENDERED ORAL CARE. PT ON DIPRIVAN 30 MCG/KG/MIN HOWEVER PT IS AWAKE AT THIS TIME W/LOW BP NOTED; LEVOPHED AT 0.2 MCG/KG/MIN. TITRATING TO MAINTAIN SBP >90. OG TUBE W/JEVITY @ 45 ML/HR. NO RESIDUAL NOTED AT THIS TIME. BUE EDEMA W/WEEPING NOTED ON LEFT ARM. CONTINUE TO MONITOR. Addendum: 04/22/20 at 2134 by TRINA RICK RN ERROR WRONG PT
--- NOTE | 2020-04-22 20:00 | NUR ---
CLINICAL SERVICES DIRECTOR LEVOPHED TITRATED OFF BP 111/61. CONTINUE TO MONITOR.
[2020-04-23] VITALS (73 sets, daily range): BP systolic 79–134; BP diastolic 49–86
[2020-04-23] MEDS: PROPOFOL 100 ML IV PRN ×5 (03:20→21:39)
[2020-04-23 04:08] LABS: HEMATOCRIT 32 % (39-51); HEMOGLOBIN 10.7 g/dL (13.5-17.5); LYMPHOCYTES # (AUTO) 0.4 /CMM (0.8-4.8); LYMPHOCYTES % (AUTO) 5.7 % (20.0-44.0); MEAN CORPUSCULAR HGB CONC 33 g/dl (31.0-36.0); MEAN CORPUSCULAR VOLUME 92 fL (80-96); MONOCYTES # (AUTO) 2.5 /CMM (0.1-1.30); MONOCYTES % (AUTO) 37.1 % (2.0-12.0); NEUTROPHILS # (AUTO) 3.8 /CMM (1.8-8.9); NEUTROPHILS % (AUTO) 56.2 % (43.0-81.0); PLATELET COUNT (AUTO) 165 /CMM (150-450); RED BLOOD CELL COUNT(AUTO) 3.48 MIL/uL (4.5-6.0); WHITE BLOOD COUNT (AUTO) 6.8 K/uL (4.3-11.0)
[2020-04-23 04:28] LABS: CALCIUM, SERUM 8.1 mg/dL (8.5-10.1); CREATININE 0.8 mg/dL (0.6-1.3); MAGNESIUM 2.3 mg/dL (1.8-2.4); PHOSPHORUS 2.9 mg/dL (2.5-4.9); POTASSIUM 3.6 mmol/L (3.5-5.1)
[2020-04-23 05:16] LABS: LYMPHOCYTES % (MANUAL) 7 % (16-48); MONOCYTES % (MANUAL) 6 % (0-11.0); NEUTROPHILS % (MANUAL) 87 (42-76)
--- NOTE | 2020-04-23 08:00 | NUR ---
Sedation Vacation Notes Patient able to follow commands "squeeze fingers". Addendum: 04/23/20 at 1333 by GAVI ORTIZ RN communicated using Charito PHILLIP Iraqi speaker
[2020-04-23] MEDS: HYDROCORTISONE SOD SUCCINATE 100 MG/2 ML VIAL IV SCH ×3 (08:33→17:03)
[2020-04-23] MEDS: PROSOURCE / PROSTAT (PYXIS) 30 ML UDC GT SCH ×2 (08:33→17:01)
[2020-04-23] MEDS: ENOXAPARIN SODIUM 40 MG/0.4 ML DISP.SYRIN SQ SCH (08:34)
[2020-04-23] MEDS: GLUCERNA 1.2 1,000 ML BOTTLE NG PRN (11:40)
[2020-04-23] MEDS: LIDOCAINE 5% (PATCH) 1 EA PATCH TP SCH (14:01)
[2020-04-23 14:32] LABS: ABG BASE EXCESS 5.7 mmol/L; ABG OXYGEN SATURATION 96.9 % (92.0-98.5); ABG PCO2 40.4 mmHg (35.0-45.0); ABG PH 7.483 (7.350-7.450); ABG PO2 91.6 mmHg (75.0-100.0); AaDO2 219.5 mmHg; COHb 0.3 % (0.5-1.5); MetHb 0.3 % (0.0-1.5); O2Hb 96.3 % (94.0-97.0); SITE, ABG Left Radial; VENT MODE, BG AC 18 600 50% +10
[2020-04-23] MEDS ORDERED: ENOXAPARIN SODIUM 80 MG/0.8 ML DISP.SYRIN SQ SCH (15:00)
--- NOTE | 2020-04-23 18:25 | NUR ---
FRAME STYLIST Closing Note Patient sedated at this time. PERREMELY. Attached to [facility] vent via ETT, 27@lip. FiO2 50%, PEEP 10. SPO2 96%, no SOB or respiratory distress noted. See sedation vacation notes. Tele monitor attached, SR HR 70s-80s this shift. OGT in place, verified via auscultation+aspiration, glucerna @40mL/hr, no residual. Mar draining to gravity. Turned per protocol. Zguard applied. Restraints on bilat wrists. no s/s impaired sensation or circulation. R FA 22G, intact, MAIKOL midline infusing diprivan @35mcg/kg/min. Lidocaine patch on L shoulder, endorse off @0200 to NOC RN. HOB slightly elevated, oral care provided. Lovenox 80mg given this afternoon in addition to 40mg given this morning, per pharmacy who spoke to Randy Abad DNP.
--- NOTE | 2020-04-23 20:00 | NUR ---
REceived patient orally intubated to the ventilator on AC mode,+ Covid -19, on contact/Droplet isolation. Sedated on Propofol drip with RASS -3,opens eyes to pain ,+ cough and gag ,grimaces to pain, weakly able to moves all extremities.Comfort care done ,needs attended.Tube feeding tolerating well via OGT ,Aspiration precaution observed.
[2020-04-23] MEDS ORDERED: ENOXAPARIN SODIUM 100 MG/ML DISP.SYRIN SQ SCH (21:00)
[2020-04-24] VITALS (69 sets, daily range): BP systolic 85–148; BP diastolic 45–85
--- NOTE | 2020-04-24 | NUR ---
Condition unchanged,not in any distress,at times awake,opens eyes,tries to talk,but not triggering the ventilator.
[2020-04-24] MEDS: PROPOFOL 100 ML IV PRN ×8 (02:32→23:00)
--- NOTE | 2020-04-24 04:00 | NUR ---
AM bath done,tolerated turning/moving, no SOB ,saturation stable in the high 90's.
[2020-04-24 04:23] LABS: BASOPHILS % (AUTO) 0.3 % (0.0-2.0); HEMATOCRIT 31 % (39-51); HEMOGLOBIN 10.4 g/dL (13.5-17.5); LYMPHOCYTES # (AUTO) 0.8 /CMM (0.8-4.8); LYMPHOCYTES % (AUTO) 14.2 % (20.0-44.0); MEAN CORPUSCULAR HGB CONC 33 g/dl (31.0-36.0); MEAN CORPUSCULAR VOLUME 91 fL (80-96); MONOCYTES # (AUTO) 0.4 /CMM (0.1-1.30); MONOCYTES % (AUTO) 7.6 % (2.0-12.0); NEUTROPHILS # (AUTO) 4.4 /CMM (1.8-8.9); NEUTROPHILS % (AUTO) 76.9 % (43.0-81.0); PLATELET COUNT (AUTO) 184 /CMM (150-450); RED BLOOD CELL COUNT(AUTO) 3.43 MIL/uL (4.5-6.0); WHITE BLOOD COUNT (AUTO) 5.8 K/uL (4.3-11.0)
[2020-04-24 04:27] LABS: CALCIUM, SERUM 8.1 mg/dL (8.5-10.1); CREATININE 0.7 mg/dL (0.6-1.3); MAGNESIUM 2.3 mg/dL (1.8-2.4); PHOSPHORUS 3.1 mg/dL (2.5-4.9); POTASSIUM 3.5 mmol/L (3.5-5.1)
[2020-04-24] MEDS ORDERED: ENOXAPARIN SODIUM 80 MG/0.8 ML DISP.SYRIN SQ SCH (05:00)
--- NOTE | 2020-04-24 06:00 | NUR ---
slightly agitated ,moving and kicking legs,propofol drip titrated up to 45 mcg/kg/min.
[2020-04-24] MEDS: IV NS 0.9% 250 ML IV PRN (06:43)
--- NOTE | 2020-04-24 07:00 | NUR ---
report given to Tessa PHILLIP.
--- NOTE | 2020-04-24 07:10 | NUR ---
RN NOTES RECEIVED PT ON BED, INTUBATED, SEDATED, ON DIPRIVAN AT 35MCG/KG/MIN RUNNING , TOLERATING CURRENT VENT SETTING WELL, NO SOB NOTED, NAVARRETE DRINING TO GRAVITY, GLUCERNA AT 40CC /HR RUNNING VIA OGT , NO RESIDUAL NOTED, PT ON CONTACT /DROPLETS ISOLATION FOR COVID-19, SR UP x3,CALL LIGHT WITHIN EASY REACH, BED LOCKED AND IN LOWEST POSITION, CONTINUE TO MONITOR
[2020-04-24 08:16] LABS: ABG BASE EXCESS 7.1 mmol/L; ABG OXYGEN SATURATION 96.5 % (92.0-98.5); ABG PCO2 41.9 mmHg (35.0-45.0); ABG PH 7.488 (7.350-7.450); ABG PO2 85.6 mmHg (75.0-100.0); AaDO2 223.8 mmHg; COHb 0.3 % (0.5-1.5); O2Hb 96.2 % (94.0-97.0); PEEP,BG 10 cm H2O; SITE, ABG Right Brachial; VT, ABG 600 mL
[2020-04-24] MEDS: PROSOURCE / PROSTAT (PYXIS) 30 ML UDC GT SCH ×2 (08:34→16:53)
[2020-04-24] MEDS: HYDROCORTISONE SOD SUCCINATE 100 MG/2 ML VIAL IV SCH ×3 (08:34→16:53)
--- NOTE | 2020-04-24 12:00 | NUR ---
RN NOTES ET TUBE SUCTIONING DONE, VSS STABLE, CONTINUITY TO MONITOR .
[2020-04-24] MEDS: GLUCERNA 1.2 1,000 ML BOTTLE NG PRN (13:12)
[2020-04-24] MEDS: LIDOCAINE 5% (PATCH) 1 EA PATCH TP SCH (16:07)
[2020-04-24] MEDS: ENOXAPARIN SODIUM 100 MG/ML DISP.SYRIN SQ SCH (16:55)
--- NOTE | 2020-04-24 18:00 | NUR ---
RN NOTES PT REMAINS INTUBATED AND SEDATED ON DIPRIVAN AT 60MCG/KG/MIN , TF AT 40CC/HR RUNNING , TOLERATING WELL, NO RESIDUAL NOTED , NO SIGNIFICANT CHANGES NOTED ON THIS SHIFT, WILL ENDORSE TO MEAT CUTTING BLOCK REPAIRER NURSE FOR CONTINUITY OF CARE .
--- NOTE | 2020-04-24 19:20 | NUR ---
HYDROBLASTER NOTES, RECEIVED PATIENT ON BED, INTUBATED, SEDATED, ON DIPRIVAN AT 60MCG/KG/MIN RUNNING , ON MECHANICAL VENTILATOR, TOLERATING CURRENT VENT SETTING WELL, NO SOB NOTED/ACUTE DISTRESS NOTED AT THIS TIME, NSR IN TELE MONITOR WITH HR 70S-80S AT THIS TIME, MAIKOL MIDLINE IN PLACED, PATENT AND INTACT, NAVARRETE DRAINING TO GRAVITY, OGT IN PLACED, AND ISOLATION PRECAUTIONS IN PLACED FOR COVID-19, BED LOCKED AND LOWEST POSITION, SR UP x3, CALL LIGHT WITHIN EASY REACH, WILL CONTINUE TO MONITOR CLOSELY.
[2020-04-25] VITALS (43 sets, daily range): BP systolic 101–143; BP diastolic 57–99
[2020-04-25] MEDS: PROPOFOL 100 ML IV PRN ×7 (01:35→22:18)
[2020-04-25 04:28] LABS: BASOPHILS # (AUTO) 0.1 /CMM (0.0-0.2); BASOPHILS % (AUTO) 0.8 % (0.0-2.0); EOSINOPHILS % (AUTO) 0.9 % (0.0-6.0); HEMATOCRIT 33 % (39-51); LYMPHOCYTES # (AUTO) 0.9 /CMM (0.8-4.8); MEAN CORPUSCULAR HGB CONC 33 g/dl (31.0-36.0); MEAN CORPUSCULAR VOLUME 92 fL (80-96); MONOCYTES # (AUTO) 0.6 /CMM (0.1-1.30); MONOCYTES % (AUTO) 8.5 % (2.0-12.0); NEUTROPHILS # (AUTO) 5.4 /CMM (1.8-8.9); NEUTROPHILS % (AUTO) 76.8 % (43.0-81.0); PLATELET COUNT (AUTO) 190 /CMM (150-450)
--- NOTE | 2020-04-25 04:31 | NUR ---
RT NOTE Pt rec'd orally intubated via ETT sz #8.0 secured @ 27 cm at the lipline. Pt on [facility] vent on AC mode settings as charted. Pt shows no signs of resp distress and sob. Pt sx'd for small amt of Thick blood tinged secretions. Alarms are set and audible. Ambu bag is bedside. Vent plugged into red outlet. Will continue to monitor. Addendum: 04/25/20 at 0432 by SILVIA WHITE RT Amended: Links added.
[2020-04-25] MEDS: ENOXAPARIN SODIUM 100 MG/ML DISP.SYRIN SQ SCH ×2 (04:35→17:51)
[2020-04-25 04:42] LABS: CREATININE 0.7 mg/dL (0.6-1.3); MAGNESIUM 2.2 mg/dL (1.8-2.4); PHOSPHORUS 3.9 mg/dL (2.5-4.9); POTASSIUM 3.9 mmol/L (3.5-5.1)
--- NOTE | 2020-04-25 06:47 | NUR ---
MANDREL PRESS HAND CLOSING NOTES, PATIENT ON BED, INTUBATED, CONT ON MECHANICAL VENTILATOR, SEDATED, ON DIPRIVAN SAME RATE, TOLERATED WELL, NO SOB NOTED/ACUTE DISTRESS NOTED THROUGHOUT THE NIGHT, NSR IN TELE MONITOR WITH [id number] DURING THE NIGHT, MAIKOL MIDLINE IN PLACED, PATENT AND INTACT, NAVARRETE DRAINING TO GRAVITY, OGT IN PLACED, AND ISOLATION PRECAUTIONS IN PLACED FOR COVID-19, NO SIGNIFICANT CHANGE IN CONDITION DURING THE NIGHT, BED LOCKED AND LOWEST POSITION, SR UP x3, CALL LIGHT WITHIN REACH, WILL ENDORSE CONTINUITY OF CARE TO ONCOMING NURSE.
[2020-04-25] MEDS: HYDROCORTISONE SOD SUCCINATE 100 MG/2 ML VIAL IV SCH ×3 (08:08→17:53)
[2020-04-25] MEDS: PROSOURCE / PROSTAT (PYXIS) 30 ML UDC GT SCH ×2 (08:11→17:53)
[2020-04-25 08:44] LABS: ABG BASE EXCESS 4.7 mmol/L; ABG OXYGEN SATURATION 98.2 % (92.0-98.5); ABG PH 7.457 (7.350-7.450); ABG PO2 115.9 mmHg (75.0-100.0); AaDO2 193.4 mmHg; COHb 0.1 % (0.5-1.5); O2Hb 98.1 % (94.0-97.0); PEEP,BG 10 cm H2O; SITE, ABG Left Radial; VT, ABG 550 mL
--- NOTE | 2020-04-25 14:24 | NUR ---
PROVIDER RELATIONS REP NOTE CLARIFIED LIDOCAINE PATCH ORDER WITH DR VALIENTE, PATIENT SEDATED ON DIPRIVAN. OK TO DC LIDOCAINE PATCH PER DR VALIENTE. NOTED AND CARRIED OUT.
[2020-04-25] MEDS: GLUCERNA 1.2 1,000 ML BOTTLE NG PRN (17:56)
--- NOTE | 2020-04-25 19:05 | NUR ---
MANAGED SERVICES SALES CONSULTANT NOTE RECEIVED PATIENT IN BED RESTING WITH HOB ELEVATED. PATIENT IS SEDATED. ON DIPRIVAN DRIP RUNNING AT 60 MCS/KG/MIN. PATIENT IS VENT DEPENDANT. BREATHING IS EVEN AND NON LABORED, NO SOB NOTED. ON ISOLATION FOR POSITIVE COVID-19. IV SITES ON MAIKOL MIDLINE AND RIGHT FOREARM SL ARE CLEAN, DRY, AND PATENT. ON GTF GLUCERNA 1.2 RUNNING AT 40 ML/HR. 10 ML RESIDUAL NOTED. PATIENT IS ON NAVARRETE CATH, URINE IS SLIGHTLY CLOUDY AND YELLOW IN COLOR. NOTED BILATERAL ARMS EDEMA. PER REPORT FROM AM NURSE, PATIENT HAS DVT ON LEFT ARM. LEFT ARM IS ELEVATED AND STABILIZED AT THIS TIME. ON BILATERAL SOFT WRIST RESTRAINTS. IN NO APPARENT DISTRESS NOTED AT THIS TIME. WILL CONTINUE TO MONITOR.
--- NOTE | 2020-04-25 19:14 | NUR ---
RAIL SWITCHMAN CLOSING NOTE NO SIGNIFICANT CHANGES. NO DISTRESS NOTED. TOLERATING CURRENT VENT SETTINGS. OGT PATENT AND INTACT, NO RESIDUAL NOTED. PATIENT SEDATED WITH DIPRIVAN AT 60 MCG/KG/MIN. TOLERATED GTF. F/C PATENT AND DRAINING BY GRAVITY. ALL DUE MEDS GIVEN. ISOLATION PRECAUTIONS OBSERVED. HOB ELEVATED. SIDE RAILS UP AND LOCKED. TURNED AND REPOSITIONED Q2 AND PRN. CONTINUITY OF CARE ENDORSED TO PM NURSE.
[2020-04-26] VITALS (63 sets, daily range): BP systolic 93–203; BP diastolic 46–133
[2020-04-26] MEDS: PROPOFOL 100 ML IV PRN ×8 (01:14→23:03)
--- NOTE | 2020-04-26 02:05 | NUR ---
METER TESTER PRIMARY NOTE PATIENT TOLERATED BED BATH WELL AT THIS TIME. NO BM NOTED. WOUND CARE RENDERED AND BED LINENS CHANGED. WILL CONTINUE TO MONITOR.
[2020-04-26 04:13] LABS: BASOPHILS % (AUTO) 0.9 % (0.0-2.0); EOSINOPHILS % (AUTO) 1.8 % (0.0-6.0); HEMATOCRIT 32 % (39-51); HEMOGLOBIN 10.6 g/dL (13.5-17.5); LYMPHOCYTES # (AUTO) 0.8 /CMM (0.8-4.8); LYMPHOCYTES % (AUTO) 15.9 % (20.0-44.0); MEAN CORPUSCULAR HGB CONC 33 g/dl (31.0-36.0); MEAN CORPUSCULAR VOLUME 91 fL (80-96); MONOCYTES # (AUTO) 0.5 /CMM (0.1-1.30); MONOCYTES % (AUTO) 10.9 % (2.0-12.0); NEUTROPHILS # (AUTO) 3.4 /CMM (1.8-8.9); NEUTROPHILS % (AUTO) 70.5 % (43.0-81.0); PLATELET COUNT (AUTO) 199 /CMM (150-450); WHITE BLOOD COUNT (AUTO) 4.8 K/uL (4.3-11.0)
[2020-04-26 04:17] LABS: CALCIUM, SERUM 8.5 mg/dL (8.5-10.1); CREATININE 0.7 mg/dL (0.6-1.3); MAGNESIUM 2.1 mg/dL (1.8-2.4); PHOSPHORUS 3.6 mg/dL (2.5-4.9); POTASSIUM 3.7 mmol/L (3.5-5.1)
[2020-04-26] MEDS: ENOXAPARIN SODIUM 100 MG/ML DISP.SYRIN SQ SCH (04:18)
--- NOTE | 2020-04-26 06:35 | NUR ---
ASSEMBLY MECHANIC NOTE PATIENT REMAINED STABLE THROUGHOUT THE NIGHT. NO SIGNIFICANT CHANGES NOTED. DUE MED GIVEN ORDERED AND TOLERATED WELL. KEPT ON PROPOFOL 55 MCS/KG/MIN. PATIENT IS KEPT CLEAN, DRY, AND COMFORTABLE. WOUND CARE RENDERED. REPOSITIONED Q2H. WILL ENDORSE TO AM SHIFT RN FOR CONTINUATION OF CARE.
--- NOTE | 2020-04-26 07:25 | NUR ---
VICE PRINCIPAL: pt is sedated well with 55 mcg/kg/m Diprivan, weak legs, arms activity+, , grimacing, plan: SIMV mode today, will stop Diprivan gtt per protocol, on wrists restraints, O2sat. over 96%, no SOB, no distress reported, no any information re sedation vacation reaction by report, SR, SBP over 100/below 160, OGTF residual 5ml, keep HOB over 40
--- NOTE | 2020-04-26 07:30 | NUR ---
CARDIAC CATH RN: Spyker/isoflex bed system was disconnected, fixed problem
--- NOTE | 2020-04-26 07:35 | NUR ---
WINDOWS MOBILE DEVELOPER: yellow/pinky urine out, F/c tube hnederson applied with F/c tight pull out position/traumatization?, reapplied skin touch henderson
--- NOTE | 2020-04-26 07:50 | NUR ---
TARIFF EXPERT: updated with pt.current condition
[2020-04-26] MEDS: HYDROCORTISONE SOD SUCCINATE 100 MG/2 ML VIAL IV SCH ×3 (08:08→16:23)
--- NOTE | 2020-04-26 08:15 | NUR ---
EXPRESS CLERK: sedation is off, notified RT
[2020-04-26] MEDS: PROSOURCE / PROSTAT (PYXIS) 30 ML UDC GT SCH ×2 (08:46→16:24)
--- NOTE | 2020-04-26 09:10 | NUR ---
INCIDENT COORDINATOR: pt is off of sedation, on SIMV mode, O2sst. 94-96%, no SOB, ST, neuro: with open eyes, unable to follow commands (spoke with pt.by Libyan), legs/arms activity+, suctioned, hold GTF for 1 hr, ABG in 40mins
[2020-04-26 10:05] LABS: ABG BASE EXCESS 7.8 mmol/L; ABG OXYGEN SATURATION 92.1 % (92.0-98.5); ABG PH 7.454 (7.350-7.450); AaDO2 241.5 mmHg; COHb 0.1 % (0.5-1.5); MetHb 0.3 % (0.0-1.5); O2Hb 91.7 % (94.0-97.0); SITE, ABG Right Radial; VENT MODE, BG SIMV 4 50% PS 15
--- NOTE | 2020-04-26 10:50 | NUR ---
TOOLING MECHANIC: pt.is restless, with open eyes, but no eyes contact, unable to follow commands, strong uncontrolled legs, arms activity, suctioned x3 with thick large amount, laboring breathing before suctions, O2sat. 89-91%, RR 25-32, St 120-125, SBP up to 180, ABG: pH 7.45/48/61/32, RT updated, updated, pt is placed back to AC mode, resumed sedation
--- NOTE | 2020-04-26 11:11 | NUR ---
MOOSE HUNTER: pt.granddaughter called/detailed updated with all VS, weaning attempt, I/O, labs, neuro status, POC
--- NOTE | 2020-04-26 12:19 | NUR ---
EXTENSION COURSE COUNSELOR: at the room, updated with all above, weaning attempt with SIMV mode, sedation off reaction, ABG, VS, I/O, OGTF, suction amount, granddaughter call, restraints
--- NOTE | 2020-04-26 15:00 | NUR ---
HAIRCUTTER: after reposition noticed dark brown residual in stomach, connected to LIS, got 300ml coffee ground contents, also urine is yellow/pinky, getting Lovenox 100mg/12h, L.arm DVT+, H/H 10.6, plat 199, notified /got orders: start Protonix 40mg IV q12h, H/H at 17.00. RT was notified before: some times resistance into ETT with suction
[2020-04-26] MEDS: PANTOPRAZOLE 40 MG VIAL IV SCH ×2 (16:23→21:06)
[2020-04-26 17:37] LABS: HEMOGLOBIN 11.6 g/dL (13.5-17.5)
--- NOTE | 2020-04-26 17:43 | NUR ---
TELE RN: pt.is sedated well with 45 mcg/kg/m Diprivan, rest, O2sat. over 95%, no SOB, suctioned by RT, SR, SBP over 100, all skin/PM/bedbath care done, urine still yellow/pinky, OGT to LIS: 200 ml more of dark brown/coffee ground contents, waiting H/H result, last BM 04/23 by comp data/will notify next nurse re HS laxatives, skin under restraints is intact, FiO2 50%, peep8
[2020-04-26] MEDS: IV NS 0.9% 1,000 ML IV PRN (18:31)
--- NOTE | 2020-04-26 18:32 | NUR ---
ACCOUNTS PAYABLE LEAD: updated with H/H , still coffee ground OGT LIS, ordered: IVF NS@75ml/h, d/c Lovenox, continue LIS, charge nurse updated
--- NOTE | 2020-04-26 20:00 | NUR ---
Received patient Dx: Acute Hypoxic Respiratory Failure,Sepsis,Covid 19 +.Patient intubated to full vent support with prescribed settings and tolerating well.SPO2 100%Sedated on Diprivan gtt and will titrate accordingly.SR 70's.Normotensive. OGT to LIWS draining brownish output.Abdomen soft BS+.FC to gravity.IV's infusing to MAIKOL ML site intact.No distress noted.Turned and repositioned.Continue monitoring. Droplet/Contact isolation precaution maintained.
--- NOTE | 2020-04-26 23:39 | NUR ---
RT NOTE Pt rec'd orally intubated via ETT sz #8.0 secured @ 27 cm at the lipline. Pt on [facility] vent on AC mode settings as charted. Pt shows no signs of resp distress and sob. Pt sx'd for mod amt of thick pale yellow secretions. Alarms are set and audible. Ambu bag is bedside. Vent plugged into red outlet. Will continue to monitor. Addendum: 04/26/20 at 2340 by SILVIA WHITE RT Amended: Links added.
[2020-04-27] VITALS (49 sets, daily range): BP systolic 87–133; BP diastolic 44–83
[2020-04-27] MEDS: PROPOFOL 100 ML IV PRN ×5 (01:23→22:01)
[2020-04-27] MEDS: MAGNESIUM HYDROXIDE 30 ML UDC PO PRN (04:13)
[2020-04-27 04:44] LABS: BASOPHILS % (AUTO) 0.8 % (0.0-2.0); HEMATOCRIT 31 % (39-51); HEMOGLOBIN 10.2 g/dL (13.5-17.5); LYMPHOCYTES # (AUTO) 0.9 /CMM (0.8-4.8); LYMPHOCYTES % (AUTO) 19.5 % (20.0-44.0); MEAN CORPUSCULAR HGB CONC 33 g/dl (31.0-36.0); MEAN CORPUSCULAR VOLUME 91 fL (80-96); MONOCYTES # (AUTO) 0.4 /CMM (0.1-1.30); MONOCYTES % (AUTO) 9.1 % (2.0-12.0); NEUTROPHILS # (AUTO) 3.3 /CMM (1.8-8.9); NEUTROPHILS % (AUTO) 68.6 % (43.0-81.0); PLATELET COUNT (AUTO) 222 /CMM (150-450); RED BLOOD CELL COUNT(AUTO) 3.41 MIL/uL (4.5-6.0); WHITE BLOOD COUNT (AUTO) 4.8 K/uL (4.3-11.0)
[2020-04-27 05:10] LABS: CALCIUM, SERUM 7.9 mg/dL (8.5-10.1); CREATININE 0.7 mg/dL (0.6-1.3); MAGNESIUM 2.2 mg/dL (1.8-2.4); PHOSPHORUS 2.9 mg/dL (2.5-4.9); POTASSIUM 3.1 mmol/L (3.5-5.1)
[2020-04-27] MEDS: IV NS 0.9% 1,000 ML IV PRN ×2 (06:20→18:24)
--- NOTE | 2020-04-27 06:30 | NUR ---
Patient resting in no acute distress.Remains sedated on Diprivan gtt.VSS.SR.NPO with OGT to LIWS.IVF infusing well.No BM noted during the shift.PRN mom administered.No significant change noted.Complete Bed bath rendered.Complete linens changed.Turned and repositioned.All needs met.Will endorse to day shift for leda.
--- NOTE | 2020-04-27 08:09 | NUR ---
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
[2020-04-27] MEDS: PANTOPRAZOLE 40 MG VIAL IV SCH ×2 (08:49→21:11)
[2020-04-27] MEDS: PROSOURCE / PROSTAT (PYXIS) 30 ML UDC GT SCH ×2 (08:49→16:56)
[2020-04-27] MEDS: HYDROCORTISONE SOD SUCCINATE 100 MG/2 ML VIAL IV SCH ×3 (08:49→16:55)
[2020-04-27] MEDS ORDERED: POTASSIUM CHLORIDE 20 MEQ POWDER PACKET GT SCH (09:15)
--- NOTE | 2020-04-27 16:17 | NUR ---
pt is resting in the bed, sedated on Diprivan at 45mcg, sat well, OG to ILS, f/c OK output, v/s stable, no pain, pt cleaned, changed and repositioned.
--- NOTE | 2020-04-27 20:00 | NUR ---
Received patient from day shift patient resting in no acute distress.VSS.SR.Intubated to vent tolerating vent settings well.SPO2 100%.Sedated on Diprivan gtt at 45 mcg.Secretions suction and oral care done.NPO status with OGT to LIWS draining brownish output.Maintenance IVF and Diprivan gtt infusing via MAIKOL MLsite intact.FC fo gravity drainage.Turned and repositioned. Continue monitoring.PPE for droplet/contact isolation implemented.
[2020-04-28] VITALS (37 sets, daily range): BP systolic 86–168; BP diastolic 53–97
[2020-04-28] MEDS: PROPOFOL 100 ML IV PRN ×8 (00:58→21:31)
[2020-04-28 05:14] LABS: CALCIUM, SERUM 7.6 mg/dL (8.5-10.1); CARBON DIOXIDE 31 mmol/L (21-32); CHLORIDE 108 mmol/L (98-107); CREATININE 0.6 mg/dL (0.6-1.3); GLUCOSE 86 mg/dL (74-106); SODIUM SERUM 144 mmol/L (136-145); UREA NITROGEN, BLOOD 26 mg/dL (7-18)
[2020-04-28] MEDS: MAGNESIUM HYDROXIDE 30 ML UDC PO PRN (06:51)
[2020-04-28] MEDS: IV NS 0.9% 1,000 ML IV PRN ×2 (06:56→20:22)
--- NOTE | 2020-04-28 07:20 | NUR ---
Patient resting in no acute distress.VSS.SR.Tolerating vent settings well.Still no bm noted mom administered as prn.All needs attended.Turned and repositioned.Report given to day shift RN for CONOR.
--- NOTE | 2020-04-28 07:30 | NUR ---
PULLEY MAN INITIAL NOTE RECEIVED PATIENT AWAKE, CALM COOPERATIVE ON DIPRIVAN FOR [id number]. NO S/S OF PAIN OR DISCOMFORT. NO RESPIRATORY DISTRESS NOTED. ETT IN PLACE. TOLERATING VENT SETTINGS. OGT PATENT, INTACT, IN PLACE ON LOW INTERMITTENT SUCTION. F/C PATENT AND DRAINING BY GRAVITY. HOB ELEVATED. SIDE RAILS UP AND LOCKED. BED KEPT AT LOWEST POSITION. ISOLATION PRECAUTIONS OBSERVED. WILL CONTINUE TO MONITOR.
[2020-04-28] MEDS: HYDROCORTISONE SOD SUCCINATE 100 MG/2 ML VIAL IV SCH ×3 (08:41→16:35)
[2020-04-28] MEDS: POTASSIUM CHLORIDE 20 MEQ POWDER PACKET NG SCH ×2 (08:41→10:25)
[2020-04-28] MEDS: PANTOPRAZOLE 40 MG VIAL IV SCH ×2 (08:41→20:11)
[2020-04-28] MEDS: PROSOURCE / PROSTAT (PYXIS) 30 ML UDC GT SCH ×2 (08:41→16:35)
--- NOTE | 2020-04-28 19:26 | NUR ---
LASER ENGRAVER CLOSING NOTE NO SIGNIFICANT CHANGES. ALL DUE MEDS GIVEN. NO RESPIRATORY DISTRESS NOTED. TOLERATING CURRENT VENT SETTINGS. KEPT CLEAN AND DRY. TURNED AND REPOSITIONED Q2 AND PRN. SIDE RAILS UP AND LOCKED. BED KEPT AT LOWEST POSITION. BILATERAL SOFT RESTRAINTS IN PLACE. ISOLATION PRECAUTIONS OBSERVED. CONTINUITY OF CARE ENDORSED TO PM NURSE.
--- NOTE | 2020-04-28 20:00 | NUR ---
HEAD STOCK TRANSFER CLERK NOTE RECEIVED PT IN BED SUPINE SEDATED. ETT INTACT AND PATENT. TOLERATING VENT SETTINGS WELL. NO DISTRESS OR DISCOMFORT NOTED. NO S/S OF PAIN NOTED. ON TELE MONITOR SB 58. F/C INTACT AND PATENT DRAINING YELLOWISH COLOR URINE. PT REMAIN NPO EXCEPT MEDS. MAIKOL MIDLINE INTACT AND PATENT INFUSING DIPRIVAN AT 60 MCG/KG/MIN AND ALSO INFUSING NS AT 75 ML/HR, S/L IN RFA #22G ALSO INTACT AND PATENT, NO S/S OF INFILTRATION NOTED. ALSO OGT INTACT AND PATENT ON LIS NOTED LIGHT BROWNISH COLOR FLUIDS IN THE SUCTION CONTAINER. KEPT HIM DRY AND CLEAN. REPOSITION HIM FOR SKIN MANAGEMENT. SIDE RAILS UP X 3 AND CALL LIGHT WITHIN REACH. VSS. CONTINUE TO MONITOR HIM.
[2020-04-29] VITALS (40 sets, daily range): BP systolic 88–151; BP diastolic 45–90
[2020-04-29] MEDS: PROPOFOL 100 ML IV PRN ×9 (00:19→23:43)
[2020-04-29 04:27] LABS: BASOPHILS # (AUTO) 0.1 /CMM (0.0-0.2); BASOPHILS % (AUTO) 1.2 % (0.0-2.0); EOSINOPHILS % (AUTO) 1.6 % (0.0-6.0); HEMATOCRIT 32 % (39-51); HEMOGLOBIN 10.6 g/dL (13.5-17.5); LYMPHOCYTES # (AUTO) 0.9 /CMM (0.8-4.8); LYMPHOCYTES % (AUTO) 17.7 % (20.0-44.0); MEAN CORPUSCULAR HGB CONC 33 g/dl (31.0-36.0); MEAN CORPUSCULAR VOLUME 92 fL (80-96); MONOCYTES # (AUTO) 0.5 /CMM (0.1-1.30); MONOCYTES % (AUTO) 9.5 % (2.0-12.0); NEUTROPHILS # (AUTO) 3.5 /CMM (1.8-8.9); PLATELET COUNT (AUTO) 216 /CMM (150-450); RED BLOOD CELL COUNT(AUTO) 3.48 MIL/uL (4.5-6.0)
[2020-04-29 04:50] LABS: CALCIUM, SERUM 7.8 mg/dL (8.5-10.1); CARBON DIOXIDE 29 mmol/L (21-32); CHLORIDE 108 mmol/L (98-107); CREATININE 0.5 mg/dL (0.6-1.3); GLUCOSE 88 mg/dL (74-106); MAGNESIUM 2.4 mg/dL (1.8-2.4); PHOSPHORUS 2.1 mg/dL (2.5-4.9); POTASSIUM 3.3 mmol/L (3.5-5.1); SODIUM SERUM 142 mmol/L (136-145); UREA NITROGEN, BLOOD 23 mg/dL (7-18)
--- NOTE | 2020-04-29 06:41 | NUR ---
RELIGIOUS RITUAL SLAUGHTERER NOTE PT IN BED SEDATED. TOLERATING VENT SETTINGS WELL. NO DISTRESS OR DISCOMFORT NOTED. NO S/S OF PAIN NOTED. KEPT HIM DRY AND CLEAN. ON SB HR 51. F/C INTACT AND PATENT DRAINING GREENISH COLOR URINE. REPOSITION HIM Q2H, DIPRIVAN INFUSING AT 60 MCG AND NS INFUSING AT 75 ML/HR, NO S/S OF INFILTRATION NOTED. SIDE RAILS UP X 3 AND CALL LIGHT WITHIN REACH. WILL ENDORSE TO DAY SHIFT NURSE FOR CONTINUE TO CARE.
--- NOTE | 2020-04-29 07:30 | NUR ---
METAL COATER OPERATOR INITIAL NOTE RECEIVED PATIENT SEDATED ON DIPRIVAN AT 60MCG/ KG/ MIN. NO S/S OF PAIN OR DISCOMFORT. NO RESPIRATORY DISTRESS NOTED. ETT IN PLACE. TOLERATING VENT SETTINGS AC 18, TV 500, FIO2 40%, PEEP 5. OGT PATENT, INTACT, IN PLACE ON LOW INTERMITTENT SUCTION. F/C PATENT AND DRAINING BY GRAVITY. HOB ELEVATED. SIDE RAILS UP AND LOCKED. BED KEPT AT LOWEST POSITION. ISOLATION PRECAUTIONS OBSERVED. WILL CONTINUE TO MONITOR. Addendum: 04/29/20 at 0748 by COLT MOSS RN WRONG NURSE
[2020-04-29] MEDS: PANTOPRAZOLE 40 MG VIAL IV SCH ×2 (08:15→21:19)
[2020-04-29] MEDS: HYDROCORTISONE SOD SUCCINATE 100 MG/2 ML VIAL IV SCH ×3 (08:16→16:13)
[2020-04-29] MEDS: PROSOURCE / PROSTAT (PYXIS) 30 ML UDC GT SCH ×2 (08:17→16:15)
[2020-04-29] MEDS: IV NS 0.9% 1,000 ML IV PRN ×2 (09:30→21:36)
[2020-04-29] MEDS ORDERED: POTASSIUM CHLORIDE 20 MEQ POWDER PACKET GT SCH (10:00)
--- NOTE | 2020-04-29 11:24 | NUR ---
RESIDENTIAL FINISH CARPENTER NOTE RT AT BEDSIDE, PATIENT ATTEMPTED TO BE WEANED TODAY AND FAILED. PATIENT BECAME TACHYPNEIC AND DESATURATING. DIPRIVAN RESTARTED.
--- NOTE | 2020-04-29 11:31 | NUR ---
RT PATIENT WAS PLACED ON VENT WEANING TRIAL. AFTER 30 MIN PATIENT SHOWED VISIBLE SIGNS OF DISTRESS AND HR INCREASED OVER 100 AND PATIENT BEGAN TO DESATURATE. PATIENT PLACED BACK ON AC MODE AND SEDATED UNTIL COMFORTABLE. Addendum: 04/29/20 at 1133 by MEHREEN MATHEW RT Amended: Links added.
[2020-04-29] MEDS ORDERED: K PHOS NEUTRAL 250 MG TABLET PO ONE (14:30)
--- NOTE | 2020-04-29 14:34 | NUR ---
HOSPITAL RECRUITER NOTE DR HARGROVE SPOKE WITH GRANDDAUGHTER PER REQUEST AND UPDATES WERE GIVEN.
[2020-04-29] MEDS: ENOXAPARIN SODIUM 40 MG/0.4 ML DISP.SYRIN SQ SCH (15:11)
--- NOTE | 2020-04-29 19:05 | NUR ---
CAR SHUNTER NOTE RECEIVED PATIENT IN BED RESTING WITH HOB ELEVATED. PATIENT IS SEDATED. ON DIPRIVAN DRIP RUNNING AT 70 MCS/KG/MIN. PATIENT IS VENT DEPENDANT. BREATHING IS EVEN AND NON LABORED, NO SOB NOTED. ON ISOLATION FOR POSITIVE COVID-19. IV SITES ON MAIKOL MIDLINE AND RIGHT FOREARM SL ARE CLEAN, DRY, AND PATENT. GTF IS CLAMPED, ON LOW CONTINUOUS SUCTION. PATIENT IS ON NAVARRETE CATH, URINE IS CLEAR AND YELLOW IN COLOR. NOTED BILATERAL ARMS EDEMA. PATIENT HAS DVT ON LEFT ARM. LEFT ARM IS ELEVATED AND STABILIZED AT THIS TIME. ON BILATERAL SOFT WRIST RESTRAINTS. IN NO APPARENT DISTRESS NOTED AT THIS TIME. WILL CONTINUE TO MONITOR.
[2020-04-30] VITALS (41 sets, daily range): BP systolic 100–150; BP diastolic 50–95
--- NOTE | 2020-04-30 | NUR ---
PEDIATRIC PHYSICIAN ASSISTANT NOTE PATIENT IS STABLE AT THIS TIME. NO APPARENT DISTRESS NOTED. VITALS WNL. PROPOFOL DRIP RUNNING AT 70 MC/KG/MIN AND TOLERATING WELL.
[2020-04-30] MEDS: PROPOFOL 100 ML IV PRN ×9 (02:06→23:06)
--- NOTE | 2020-04-30 03:30 | NUR ---
WHEEL TUNER NOTE PATIENT TOLERATED BED BATH WELL AT THIS TIME. WOUND CARE RENDERED. NO BM NOTED.
[2020-04-30 04:12] LABS: CALCIUM, SERUM 7.6 mg/dL (8.5-10.1); CREATININE 0.6 mg/dL (0.6-1.3); MAGNESIUM 2.2 mg/dL (1.8-2.4); PHOSPHORUS 2.4 mg/dL (2.5-4.9); POTASSIUM 3.4 mmol/L (3.5-5.1)
[2020-04-30 04:20] LABS: BASOPHILS % (AUTO) 0.7 % (0.0-2.0); EOSINOPHILS % (AUTO) 1.4 % (0.0-6.0); HEMATOCRIT 32 % (39-51); HEMOGLOBIN 10.5 g/dL (13.5-17.5); LYMPHOCYTES # (AUTO) 0.9 /CMM (0.8-4.8); LYMPHOCYTES % (AUTO) 20.8 % (20.0-44.0); MEAN CORPUSCULAR HGB CONC 33 g/dl (31.0-36.0); MEAN CORPUSCULAR VOLUME 91 fL (80-96); MONOCYTES # (AUTO) 0.4 /CMM (0.1-1.30); MONOCYTES % (AUTO) 9.9 % (2.0-12.0); NEUTROPHILS % (AUTO) 67.2 % (43.0-81.0); PLATELET COUNT (AUTO) 216 /CMM (150-450); RED BLOOD CELL COUNT(AUTO) 3.49 MIL/uL (4.5-6.0); WHITE BLOOD COUNT (AUTO) 4.4 K/uL (4.3-11.0)
--- NOTE | 2020-04-30 06:39 | NUR ---
PROFESSOR OF CRIMINAL JUSTICE NOTE NO SIGNIFICANT CHANGES NOTED THROUGHOUT THE SHIFT. PATIENT IS KEPT CLEAN, DRY, AND COMFORTABLE. REPOSITIONED Q2H. DUE MED GIVEN AND TOLERATED WELL. KEPT ON LOW INTERMITTENT OGT SUCTION. IN NO APPARENT DISTRESS NOTED AT THIS TIME. WILL ENDORSE TO AM SHIFT RN FOR CONTINUATION OF CARE.
--- NOTE | 2020-04-30 07:52 | NUR ---
INFECTION CONTROL MANAGER NOTE PATIENT IN BED SEDATED ,BOTH EYES CLOSED, ON ETT TO VENT SETTING ORDERED, SATURATION AT THIS TIME 98%, ON TELE MONITOR SR HR 57 , WITH OG TUBE TO LOWE INTERMITTED SUCTION WITH GREEN BROWN COLOR NOTED, KEEP HOB ELEVATED TOLERATED, WITH NAVARRETE CATH TO GRAVITY WITH YELLOW COLOR URINE NOTED SMALL AMT , ON DIRPOVAN DRIP AT 70DCSKG\MIN, ON NPO STATUS AT THIS TIME ,ON IVF ORDERED, , BED IN LOWEST AND LOCKED POSITIOM, ORAL SUCTION DONE, WILL CONT TO MONITOR,
[2020-04-30] MEDS: PANTOPRAZOLE 40 MG VIAL IV SCH ×2 (08:43→21:52)
[2020-04-30] MEDS: HYDROCORTISONE SOD SUCCINATE 100 MG/2 ML VIAL IV SCH ×3 (08:43→16:39)
[2020-04-30] MEDS: PROSOURCE / PROSTAT (PYXIS) 30 ML UDC GT SCH ×2 (08:44→16:38)
[2020-04-30] MEDS: ENOXAPARIN SODIUM 40 MG/0.4 ML DISP.SYRIN SQ SCH (08:44)
--- NOTE | 2020-04-30 09:13 | NUR ---
GEAR HOBBER SET UP OPERATOR NOTE BP 115/70 SAT 97% HR 55 SEDATED DECREASED DIPRIVAN TO 65 MCG\KG\MIN WILL MONITOR
[2020-04-30] MEDS ORDERED: POTASSIUM PHOSPHATE MM 15 MMOL in IV NS 0.9% 250 ML IV SCH (09:30)
[2020-04-30] MEDS: POTASSIUM PHOSPHATE MM 7.5 MMOL in IV D5W 100 ML IV SCH ×2 (09:40→12:05)
--- NOTE | 2020-04-30 11:51 | NUR ---
FOLDED TOWEL MACHINE OPERATOR NOTE MORE RESTLESS DIPRIVAN DRIP AT 60 MCG\MIN\KG WILL MONITOR
[2020-04-30] MEDS: IV NS 0.9% 1,000 ML IV PRN (11:55)
--- NOTE | 2020-04-30 15:00 | NUR ---
STATISTICS MANAGER NOTE ROUNDS MADE WILL CONT TO MONITOR
--- NOTE | 2020-04-30 18:51 | NUR ---
WOOD CABINETMAKER NOTE ON DIPRIVAN AT 70 MCG\KG\MIN AND IVF ORDERED ,ALL NEEDS ATTENDED ,WILL MONITOR
--- NOTE | 2020-04-30 20:00 | NUR ---
RN NOTES RECEIVED PATIENT SEDATED WITH DIPRIVAN. ON STRICTLY ISOLATION DUE TO +COVID 19. ORALLY INTUBATED WITH ETT 8 AND 27B CM AT LIPLINE W/ VENT SETTING AC 18, TV 500 FIO2 40% AND PEEP 5 TOLERATED WELL SATURATION 97%. NO SOB OR ACUTE RESPIRATORY DITRESS NOTED. SR ON TELE MONITOR. ZERO FLACC. PATIENT HAS OGT ON LIS WITH COFFEE GROUND COLOR. IV SITE ON MAIKOL MIDLINE AND RFA G 22 WITH DIPRIVAN AND NS @ 75 ML/HR INTACT AND PATENT. PATIENT NAVARRETE CATH OFF FROM THE FLOOR DRAINED VIA GRAVITY WITH TEA COLOR URINE. TURNED AND REPOSITIONED MUCH POSSIBLE. KEPT PT CLEAN AND DRY. WILL CLOSELY MONITOR.
[2020-05-01] VITALS (44 sets, daily range): BP systolic 107–159; BP diastolic 45–98
[2020-05-01] MEDS: IV NS 0.9% 1,000 ML IV PRN ×2 (01:05→17:13)
[2020-05-01] MEDS: PROPOFOL 100 ML IV PRN ×4 (01:39→09:19)
[2020-05-01 04:24] LABS: BASOPHILS # (AUTO) 0.1 /CMM (0.0-0.2); BASOPHILS % (AUTO) 1.4 % (0.0-2.0); EOSINOPHILS % (AUTO) 2.9 % (0.0-6.0); HEMATOCRIT 33 % (39-51); HEMOGLOBIN 10.9 g/dL (13.5-17.5); LYMPHOCYTES # (AUTO) 1.2 /CMM (0.8-4.8); LYMPHOCYTES % (AUTO) 26.1 % (20.0-44.0); MEAN CORPUSCULAR HGB CONC 34 g/dl (31.0-36.0); MEAN CORPUSCULAR VOLUME 92 fL (80-96); MONOCYTES # (AUTO) 0.6 /CMM (0.1-1.30); MONOCYTES % (AUTO) 12.9 % (2.0-12.0); NEUTROPHILS # (AUTO) 2.7 /CMM (1.8-8.9); NEUTROPHILS % (AUTO) 56.7 % (43.0-81.0); PLATELET COUNT (AUTO) 183 /CMM (150-450); RED BLOOD CELL COUNT(AUTO) 3.55 MIL/uL (4.5-6.0); WHITE BLOOD COUNT (AUTO) 4.8 K/uL (4.3-11.0)
[2020-05-01 04:26] LABS: CALCIUM, SERUM 7.3 mg/dL (8.5-10.1); CARBON DIOXIDE 28 mmol/L (21-32); CHLORIDE 109 mmol/L (98-107); CREATININE 0.5 mg/dL (0.6-1.3); GLUCOSE 85 mg/dL (74-106); MAGNESIUM 2.1 mg/dL (1.8-2.4); PHOSPHORUS 2.6 mg/dL (2.5-4.9); POTASSIUM 3.1 mmol/L (3.5-5.1); SODIUM SERUM 143 mmol/L (136-145); UREA NITROGEN, BLOOD 14 mg/dL (7-18)
--- NOTE | 2020-05-01 07:00 | NUR ---
RN NOTES PATIENT REMAINED SEDATED WITH DIPRIVAN TITRATED ORDERED. ETT AND VENT SETTING TOLERATED WELL. NO CHANGE FROM VENT SETTING. AFEBRILE. VSS WITHOUT PRESSORS. STRICTLY ON OBSERVATION FOR COVID. ISOLATION PRECAUTION ALWAYS MET. OGT ON LIS STILL WITH COFFEE GROUND OUTPUT. IV SITE ARE INTACT AND PATENT, ,NAVARRETE CATH DRAINED WITH ADEQ. URINE. KEPT PT CLEAN AND DRY. ENDORSED CONTINUITY OF CARE TO AM NURSE.
[2020-05-01] MEDS: PANTOPRAZOLE 40 MG VIAL IV SCH ×2 (09:06→20:38)
[2020-05-01] MEDS: HYDROCORTISONE SOD SUCCINATE 100 MG/2 ML VIAL IV SCH ×3 (09:08→17:12)
[2020-05-01] MEDS: PROSOURCE / PROSTAT (PYXIS) 30 ML UDC GT SCH ×2 (09:10→17:13)
[2020-05-01] MEDS: ENOXAPARIN SODIUM 40 MG/0.4 ML DISP.SYRIN SQ SCH (09:10)
[2020-05-01] MEDS: PRECEDEX 400 MCG/100 ML BOTTLE 100 ML IV PRN ×4 (10:11→21:40)
--- NOTE | 2020-05-01 10:30 | NUR ---
Sedation Vacation Notes Patient speaks Swedish+Canadian. After titration of Propofol so that patient is minimally sedated, Cassy (Swedish speaking) & I went to assess neuro status. Patient was able to follow command "squeeze fingers" , "open+close eyes" and makes eye contact.
[2020-05-01] MEDS ORDERED: POTASSIUM CHLORIDE 20 MEQ TAB.PRT.SR PO ONE (11:00)
[2020-05-01] MEDS: POTASSIUM CL. PREMIX PERIPHER. 50 ML IV SCH ×4 (11:26→16:46)
--- NOTE | 2020-05-01 17:58 | NUR ---
Randy Abad notified of abdomen/flank appearance (sent picture)+ swollen MAIKOL. 100mL coffee ground output this shift. Per Dr. Dooley "no" to another unit of convalescent plasma
--- NOTE | 2020-05-01 19:05 | NUR ---
orders to check venous US of MAIKOL and monitor lower abdomen
--- NOTE | 2020-05-01 19:30 | NUR ---
RN NOTES RECEIVED PATIENT ON STRICTLY ISOLATION DUE TO + COVID 19. ORALLY INTUBATED WITH ETT 8 AND 27 CM AT LIP LINE W/ VENT SETTING AC 18, TV 500 FIO2 40% AND PEEP 5 BOBBY WELL SATURATION 98%. NO SOB OR ACUTE RESPIRATORY DISTRESS NOTED. SB 50'S ON TELE MONITOR. OGT ON LIS WITH YELLOW COLOR OUTPUT. IV SITE ON MAIKOL MIDLINE AND RFA G 22 WITH PRECEDEX AND NS @ 75 ML/HR INTACT AND PATENT. PATIENT NAVARRETE CATH OFF FROM THE FLOOR DRAINED VIA GRAVITY WITH YELLOW COLOR URINE. KEPT PT CLEAN AND DRY. TURNED AND REPOSITIONED AND WILL CLOSELY MONITOR.
--- NOTE | 2020-05-01 20:34 | NUR ---
RT NOTE PT INTUBATED WITH 8.0 ET TUBE @ 27 CM. MOVED ET TUBE TO RIGHT LIP LINE. PT AWAKE/ALERT. SX DONE, ET TUBE SECURED AND PATENT. ALARMS ON AND AUDIBLE. NO DISTRESS NOTED AT THIS TIME. VENT PLUGGED TO RED OUTLET. NO DISTRESS NOTED AT THIS TIME. WILL CONTINUE TO MONITOR T/O SHIFT. Addendum: 05/01/20 at 2034 by MIN CARY RT Amended: Links added.
[2020-05-01] MEDS: MORPHINE SULFATE INJ 2 MG/ML DISP.SYRIN IV PRN (20:38)
[2020-05-02] VITALS (31 sets, daily range): BP systolic 132–163; BP diastolic 74–111
[2020-05-02] MEDS: PRECEDEX 400 MCG/100 ML BOTTLE 100 ML IV PRN ×6 (02:00→21:09)
[2020-05-02 04:10] LABS: BASOPHILS % (AUTO) 1.1 % (0.0-2.0); EOSINOPHILS % (AUTO) 0.9 % (0.0-6.0); HEMATOCRIT 34 % (39-51); HEMOGLOBIN 11.2 g/dL (13.5-17.5); LYMPHOCYTES # (AUTO) 0.8 /CMM (0.8-4.8); LYMPHOCYTES % (AUTO) 17.2 % (20.0-44.0); MEAN CORPUSCULAR HGB CONC 33 g/dl (31.0-36.0); MEAN CORPUSCULAR VOLUME 91 fL (80-96); MONOCYTES # (AUTO) 0.5 /CMM (0.1-1.30); MONOCYTES % (AUTO) 11.2 % (2.0-12.0); NEUTROPHILS # (AUTO) 3.2 /CMM (1.8-8.9); NEUTROPHILS % (AUTO) 69.6 % (43.0-81.0); PLATELET COUNT (AUTO) 176 /CMM (150-450); RED BLOOD CELL COUNT(AUTO) 3.72 MIL/uL (4.5-6.0); WHITE BLOOD COUNT (AUTO) 4.6 K/uL (4.3-11.0)
[2020-05-02 04:26] LABS: CALCIUM, SERUM 7.4 mg/dL (8.5-10.1); CARBON DIOXIDE 26 mmol/L (21-32); CHLORIDE 107 mmol/L (98-107); CREATININE 0.5 mg/dL (0.6-1.3); GLUCOSE 120 mg/dL (74-106); MAGNESIUM 1.9 mg/dL (1.8-2.4); PHOSPHORUS 3.1 mg/dL (2.5-4.9); POTASSIUM 3.6 mmol/L (3.5-5.1); SODIUM SERUM 142 mmol/L (136-145); UREA NITROGEN, BLOOD 17 mg/dL (7-18)
[2020-05-02] MEDS: MORPHINE SULFATE INJ 2 MG/ML DISP.SYRIN IV PRN ×2 (04:29→21:32)
[2020-05-02] MEDS: IV NS 0.9% 1,000 ML IV PRN ×2 (06:52→19:44)
--- NOTE | 2020-05-02 07:10 | NUR ---
RN NOTES ETT AND ENT SETTING THE SAME TOLERATED WELL. NO ACUTE RESP. DISTRESS. NO SIGNIFICANT CHANGES THROUGHOUT THE SHIFT. AFEBRILE. VS CONTROLLED WITHUT PRESSOR. SB LOWEST HR 48. ISOLATION PRECAUTION FOR COVID STRICTLY OBSERVED. PRECEDEX CONTINUE TITRATED ORDERED. KEPT PT CLEAN AND DRY. F/C DRAINED WITH LIGHT GREENISH COLOR URINE. BED BATH TOLERATED WELL. KEPT PT CLEAN AND DRY.
--- NOTE | 2020-05-02 07:15 | NUR ---
RN NOTES CALLED GRAND DAUGHTER SPOKE TO TAVO AND GET CONSENT FOR PICC LINE INSERTION WITNESSED BY HELEN PHILLIP
--- NOTE | 2020-05-02 08:00 | NUR ---
ICU/RN: INITIAL NOTES,AM RECEIVED BEDSIDE REPORT FROM NIGHT NURSE. PT SEDATED AND INTUBATED ON VENT SETTINGS ORDERED BY MD, NO ACUTE DISTRESS NOTED AT THIS TIME. SINUS AIME ON TELE, VSS. PT ON IV PRECEDEX FOR IV SEDATION, ASSESSED AND TITRATED PER PROTOCOL. RIGHT ARM SWELLING NOTED, MD NOTIFIED. WILL FOLLOW UP. ALL NEEDS WILL BE ATTENDED TO, SAFETY MEASURES TAKEN, BED IN LOW POSITION, SIDE RAILS UP, CALL LIGHT WITHIN REACH. BILATERAL SOFT WRIST RESTRAINTS IN PLACE, ASSESSED PER PROTOCOL.
--- NOTE | 2020-05-02 09:00 | NUR ---
ICU/RN: PER DR. HARGROVE NO SEDATION VACATION THIS AM. PT NOTED TO BE AGITATED, EASILY OPENS EYES ON PRECEDEX SEDATION.
[2020-05-02] MEDS: PANTOPRAZOLE 40 MG VIAL IV SCH ×2 (09:13→21:17)
[2020-05-02] MEDS: HYDROCORTISONE SOD SUCCINATE 100 MG/2 ML VIAL IV SCH ×3 (09:13→17:10)
[2020-05-02] MEDS: ENOXAPARIN SODIUM 40 MG/0.4 ML DISP.SYRIN SQ SCH (09:14)
[2020-05-02] MEDS: PROSOURCE / PROSTAT (PYXIS) 30 ML UDC GT SCH ×2 (09:21→17:10)
--- NOTE | 2020-05-02 09:45 | NUR ---
ICU/RN: PER AND NO NEED FOR RIGHT ARM VENOUS DOPPLER. MIDLINE IS PATENT AT THIS TIME. SWELLING NOTED, HOWEVER IT HAS NOT INCREASED IN SIZE AND PULSES ARE EQUAL AND PALPABLE. WILL CONTINUE TO MONITOR.
--- NOTE | 2020-05-02 18:54 | NUR ---
ICU/RN: ENDING NOTES,AM REPORT WILL BE ENDORSED TO NIGHT NURSE FOR CONOR. ALL NEEDS ATTENDED TO. PT CONTINUES ON VENT SETTINGS ORDERED. NO DISTRESS. WEANING IN AM. SAFETY MEASURES TAKEN.
--- NOTE | 2020-05-02 19:31 | NUR ---
RT NOTE PT INTUBATED WITH 8.0 ET TUBE @ 27 CM. PT AWAKE. ET TUBE SECURED AND PATENT. ALARMS ON AND AUDIBLE. NO DISTRESS NOTED AT THIS TIME. VENT PLUGGED TO RED OUTLET. NO DISTRESS NOTED AT THIS TIME. WILL CONTINUE TO MONITOR T/O SHIFT.
--- NOTE | 2020-05-02 19:35 | NUR ---
RN NOTES RECEIVED PATIENT ORALLY INTUBATED WITH ETT 8/27 CM AT LIPLINE AND VENT SETTING AC 18 TV 500 FIO2 40% AND PEEP 5 SATURATION 99%. PATIENT IS AWAKE CALM AND COOPERATIVE NO ACUTE RESP. DISTRESS. . AFEBRILE. VS CONTROLLED WITHOUT PRESSOR. SB HR 49. ISOLATION PRECAUTION FOR COVID STRICTLY OBSERVED. PRECEDEX CONTINUE TITRATED ORDERED. KEPT PT CLEAN AND DRY. F/C KEPT OFF FROM THE FLOOR WITH GOOD URINE OUTPUT. TURNED AND REPOSITIONED PATIENT.WILL CONT TO MONITOR.
[2020-05-03] VITALS (44 sets, daily range): BP systolic 62–200; BP diastolic 36–125
[2020-05-03] MEDS: PRECEDEX 400 MCG/100 ML BOTTLE 100 ML IV PRN ×6 (00:56→23:33)
[2020-05-03 04:26] LABS: BASOPHILS # (AUTO) 0.1 /CMM (0.0-0.2); BASOPHILS % (AUTO) 1.3 % (0.0-2.0); EOSINOPHILS % (AUTO) 0.5 % (0.0-6.0); HEMATOCRIT 34 % (39-51); HEMOGLOBIN 11.5 g/dL (13.5-17.5); MEAN CORPUSCULAR HGB CONC 33 g/dl (31.0-36.0); MEAN CORPUSCULAR VOLUME 91 fL (80-96); MONOCYTES # (AUTO) 0.6 /CMM (0.1-1.30); MONOCYTES % (AUTO) 9.7 % (2.0-12.0); NEUTROPHILS # (AUTO) 4.4 /CMM (1.8-8.9); NEUTROPHILS % (AUTO) 72.5 % (43.0-81.0); PLATELET COUNT (AUTO) 170 /CMM (150-450)
[2020-05-03 04:38] LABS: CALCIUM, SERUM 7.5 mg/dL (8.5-10.1); CREATININE 0.6 mg/dL (0.6-1.3); MAGNESIUM 1.8 mg/dL (1.8-2.4); PHOSPHORUS 2.5 mg/dL (2.5-4.9); POTASSIUM 3.4 mmol/L (3.5-5.1)
--- NOTE | 2020-05-03 07:00 | NUR ---
RN NOTES PATIENT REMAINED CALM AND COOPERATIVE AT NIGHT. ETT AND VENT SETTING TOLERATED WELL, SATURATIING WELL. AFEBRILE. VSS. NO PRESSOR NEEDED. INCONTINENT CARE RENDERED. BED BATH DONE AND TOLERATED WELL. NO SIGNIFICANT CHANGES THROUGHOUT THE SHIFT. IV SITE FLUSHED WELL CONTINEU WITH PRECEDEX AND IVF TITRATED ORDERED. WILL HAVE WEANING TRIAL TODAY.
--- NOTE | 2020-05-03 07:30 | NUR ---
TOOL PROFILING MACHINE SET UP OPERATOR: pt is sedated with 0.7 mcg/kg/m Precedex, continue to titrate down/plan SIMV mode today, pt is with open eyes, rest, very slow and weak reaction by tracking stimuli, SR/SB, SB down to 41 episodes reported/MD is aware, SBP over 100, O2sat. over 96%, no SOB, OGT to LIS: nothing over night reported, on wrists restraints/skin is intact, MAIKOL midline is patent/no blood return reported
--- NOTE | 2020-05-03 08:00 | NUR ---
MAITRE D': updated with pt current status
[2020-05-03] MEDS: ENOXAPARIN SODIUM 40 MG/0.4 ML DISP.SYRIN SQ SCH (08:24)
[2020-05-03] MEDS: POTASSIUM CL. PREMIX PERIPHER. 50 ML IV SCH ×2 (08:24→09:11)
[2020-05-03] MEDS: HYDROCORTISONE SOD SUCCINATE 100 MG/2 ML VIAL IV SCH ×3 (08:25→16:21)
[2020-05-03] MEDS: PROSOURCE / PROSTAT (PYXIS) 30 ML UDC GT SCH ×2 (08:25→16:18)
[2020-05-03] MEDS: PANTOPRAZOLE 40 MG VIAL IV SCH ×2 (08:26→21:10)
--- NOTE | 2020-05-03 08:52 | NUR ---
COMMERCIAL INTELLIGENCE MANAGER: sedation is off, RT is in room/started SIMV mode, pt is with open eyes, rest, short eyes contact, can follow commands but with slow very weak reaction, no SOB now, suctioned well, SR, O2sat over 95%
--- NOTE | 2020-05-03 10:00 | NUR ---
MAGAZINE PUBLISHER: pt is awake, eyes contact+, can follow simple commands, but without appropriate strong reaction/without progress, O2sat. over 94%, no SOB, SR/ST
[2020-05-03 10:46] LABS: ABG BASE EXCESS -2.4 mmol/L; ABG PCO2 29.9 mmHg (35.0-45.0); ABG PH 7.453 (7.350-7.450); ABG PO2 73.3 mmHg (75.0-100.0); AaDO2 177.5 mmHg; COHb 0.6 % (0.5-1.5); MetHb 0.2 % (0.0-1.5); O2Hb 94.2 % (94.0-97.0); PEEP,BG 5 cm H2O; SITE, ABG Right Radial; VT, ABG 500 mL
--- NOTE | 2020-05-03 11:30 | NUR ---
RN ACUTE CARE: updated with pt.ABG, VS (ST,SBP 165), neuro reactions and current neurostatus, said: place back on AC mode, plan: CPAP tomorrow
--- NOTE | 2020-05-03 12:28 | NUR ---
FORENSIC INVESTIGATOR: resumed Precedex sedation but pt is still restless, grimacing, ST, SBP 160-150, will give Morphine, suctioned well, notified RT, plan CPAP at 06.00 tomorrow, ABG at 09.00
[2020-05-03] MEDS: MORPHINE SULFATE INJ 2 MG/ML DISP.SYRIN IV PRN ×2 (12:33→16:21)
[2020-05-03] MEDS: ACETAMINOPHEN 650 MG/20.3 ML UDC GT PRN (16:21)
--- NOTE | 2020-05-03 17:49 | NUR ---
SUPERVISOR JEWELRY DEPARTMENT: pt is sedated with 1.2 mcg/kg/m Precedex, rest now, no SOB, episode of O2sat. over 97%, SR, SBP over 90/[id number], suctioned well, OGT to LIS: 200ml/12hr, all PM,skin,wound care done, skin under restraints is intact, bedbath done
--- NOTE | 2020-05-03 19:30 | NUR ---
RN OPENING NOTES Received the client sedated in bed. client is arousal to pain, client remains with eyes open. The client is currently on PRECEDEX at 1.2 mcg. Per previous shift nurse, the client is to be taken off the precedex because the client will be removed from vent and place cpap, confirmed by orders from Dr Dooley. Client remains NPO, except for meds. Client is on OGT, no residual noted. F/C draining well. Safety and omfort measures in place, will continue to monitor.
--- NOTE | 2020-05-03 21:29 | NUR ---
sputum and urine sample for cultures have been delivered to the laboratory
[2020-05-03] MEDS: IV NS 0.9% 1,000 ML IV PRN (23:23)
[2020-05-04] VITALS (46 sets, daily range): BP systolic 108–200; BP diastolic 56–128
--- NOTE | 2020-05-04 00:57 | NUR ---
RN NOTES Per Ed the charge nurse, titration down of the current Precedex amount given at 1.2mcg/kg/hr should be lowered by 0.2mcg/kg/hr every hr, starting at 0200 at the actual dose and reaching a final dose of 0.2mcg/kg/hr at 0500 hr where the patient will remain until further instructions.
--- NOTE | 2020-05-04 02:00 | NUR ---
RN NOTES Precedex is set to 1.0 mcg/kg/hr, will monitor the client for unexpected changes. Client is currently sedated.
[2020-05-04] MEDS: PRECEDEX 400 MCG/100 ML BOTTLE 100 ML IV PRN ×7 (02:28→23:33)
--- NOTE | 2020-05-04 03:00 | NUR ---
the client seems a arousable to touch but remain unable to follow command. Will continue to monitor.
--- NOTE | 2020-05-04 04:00 | NUR ---
Client remains sedated, with eyes open but unable to follow commands. no s/s of distress other VS WNL.
[2020-05-04 04:48] LABS: BASOPHILS # (AUTO) 0.1 /CMM (0.0-0.2); BASOPHILS % (AUTO) 0.9 % (0.0-2.0); EOSINOPHILS % (AUTO) 0.4 % (0.0-6.0); HEMATOCRIT 32 % (39-51); HEMOGLOBIN 10.5 g/dL (13.5-17.5); LYMPHOCYTES # (AUTO) 0.9 /CMM (0.8-4.8); LYMPHOCYTES % (AUTO) 15.1 % (20.0-44.0); MEAN CORPUSCULAR HGB CONC 33 g/dl (31.0-36.0); MEAN CORPUSCULAR VOLUME 91 fL (80-96); MONOCYTES # (AUTO) 0.6 /CMM (0.1-1.30); MONOCYTES % (AUTO) 10.4 % (2.0-12.0); NEUTROPHILS # (AUTO) 4.4 /CMM (1.8-8.9); NEUTROPHILS % (AUTO) 73.2 % (43.0-81.0); PLATELET COUNT (AUTO) 140 /CMM (150-450); RED BLOOD CELL COUNT(AUTO) 3.53 MIL/uL (4.5-6.0)
--- NOTE | 2020-05-04 05:00 | NUR ---
client is able to follow simple commands. client is not in any form of apparent distress nor exhibits s/s of pain. VS are WNL. current level of precedex is at 0.4mcg/kg/hr. Will continue to monitor.
[2020-05-04 05:12] LABS: CALCIUM, SERUM 7.4 mg/dL (8.5-10.1); CREATININE 0.6 mg/dL (0.6-1.3); MAGNESIUM 1.8 mg/dL (1.8-2.4); PHOSPHORUS 1.9 mg/dL (2.5-4.9)
[2020-05-04 05:15] LABS: POTASSIUM 2.8 mmol/L (3.5-5.1)
[2020-05-04] MEDS ORDERED: POTASSIUM CHLORIDE 20 MEQ POWDER PACKET GT ONE ×2 (05:30→10:00)
--- NOTE | 2020-05-04 05:35 | NUR ---
critical lab value of potassium 2.8. Hospitalist is aware. Has placed order for 40meq at 0530 and another 40meq at 1000. The initial dose will be administer now.
--- NOTE | 2020-05-04 06:08 | NUR ---
client has been placed on CPAP settings are as follow: PS 15, FIO2 40%, PEEP 5. Clietn saturation is at 98%. No s/s of distress at the moment. No s/s of pain. Will endorse the incoming nurse about changes.
--- NOTE | 2020-05-04 06:14 | NUR ---
RT PLACED PATIENT ON CPAP MODE PER MD ORDER. PATIENT TOLERATED CPAP MODE AT THIS TIME , NO RESPIRATORY DISTRESS NOTED .WILL CONTINUE TO MONITOR. Addendum: 05/04/20 at 0616 by BALDEV KAMINKSI RT Amended: Links added.
--- NOTE | 2020-05-04 06:44 | NUR ---
RN CLOSING NOTES Client is A/O x2. Client is on CPAP. Settings as previously noted. VS WNL. no S/S of distress nor pain at this moment. Client remains on OGT. Will endorse the incoming nurse on changes.
--- NOTE | 2020-05-04 07:30 | NUR ---
MED SPEC: pt is on CPAP mode now, O2sat. over 92%, no distress now, suctioned well, small dose of Precedex 0.2 mcg/kg/m - will stop, ABG at 09.00, SR, SBP 130-170, on wrists restraints, OGT to LIS: nothing over night reported
[2020-05-04] MEDS: HYDROCORTISONE SOD SUCCINATE 100 MG/2 ML VIAL IV SCH ×3 (08:17→16:53)
[2020-05-04] MEDS: PANTOPRAZOLE 40 MG VIAL IV SCH ×2 (08:17→21:16)
[2020-05-04] MEDS: ENOXAPARIN SODIUM 40 MG/0.4 ML DISP.SYRIN SQ SCH (08:19)
--- NOTE | 2020-05-04 08:45 | NUR ---
MAINTENANCE TECH: pt. is without sedation since 629 on CPAP mode, reactive by name, can follow simple commands for seconds, but no any progress for interaction reaction, unable to demonstrate appropriate awake reaction by commands, uncoordinated arms/legs activity, bitting ETT occas., ST 100-125, SBP up to 180, O2sat. 89-92%, tachypnea, t up to 100.2, evaluated pt., ABG, said: resume AC mode, sedation
[2020-05-04 08:51] LABS: ABG BASE EXCESS -1.3 mmol/L; ABG PCO2 34.3 mmHg (35.0-45.0); ABG PH 7.433 (7.350-7.450); ABG PO2 56.3 mmHg (75.0-100.0); AaDO2 189.5 mmHg; COHb 1.7 % (0.5-1.5); O2Hb 88.5 % (94.0-97.0); PEEP,BG 5 cm H2O; SITE, ABG Right Radial; VENT MODE, BG CPAP PS15 40%
[2020-05-04] MEDS: PROSOURCE / PROSTAT (PYXIS) 30 ML UDC GT SCH ×2 (08:56→16:53)
[2020-05-04] MEDS: MORPHINE SULFATE INJ 2 MG/ML DISP.SYRIN IV PRN ×4 (08:57→21:15)
[2020-05-04] MEDS: ACETAMINOPHEN 650 MG/20.3 ML UDC GT PRN (09:34)
--- NOTE | 2020-05-04 09:45 | NUR ---
BLASTING CAP ASSEMBLER: continuously lags activity, unable to fix BP cuff well, SBP 180-190, not accurate?, unable to use arms for BP cuff by report
[2020-05-04] MEDS ORDERED: POTASSIUM PHOSPHATE MM 15 MMOL in IV NS 0.9% 250 ML IV ONE (09:54)
--- NOTE | 2020-05-04 10:00 | NUR ---
POLICE RESERVES COMMANDER: is at room/updated with pt.current condition, neuro/mental reaction without sedation and on CPAP mode, ABG, back to AC mode and Precedex on, restraints, VS, I/O, still NPO status, IVF, labs, meds, ordered: start OGTF Jevity 30ml/hr
--- NOTE | 2020-05-04 11:30 | NUR ---
SPECIAL COLLECTIONS LIBRARIAN: pt.granddaughter called, notified re pt.current condition, sedation off,CPAP attempt, neuro status, VS, I/O, suction amount, O2sat., POC
[2020-05-04] MEDS: IV NS 0.9% 1,000 ML IV PRN (12:25)
[2020-05-04] MEDS: JEVITY 1.2 CAL 1,000 ML BOTTLE GT PRN ×2 (14:49→19:45)
--- NOTE | 2020-05-04 15:53 | NUR ---
NEUROSCIENCE SPECIALIST: pt.is sedated well, rest, no SOB/distress, reactive by touch/light pain with grimacing, weak activity, O2sat. over 96%, suctioned well with thick secretion, SR, on Edwardo, Levo gtts, will continue titrate down as possible, getting free water 150 ml TID, GTF residual WNL, keep HOB over, BM x1, all PM/skin/bedbath/wounds care done, turned q2h, warmed measures applied
--- NOTE | 2020-05-04 16:43 | NUR ---
TIMBER INSPECTOR: Yesy VENCES updated, pt.is grimacing now 5-8/10, coughing, restless, max rate of Precedex, will give Morphine 2 mg, all PM/skin/bedbath/wound care done
--- NOTE | 2020-05-04 19:30 | NUR ---
RN OPENING NOTES Client is on vent, setting as follow: AC18, TV500, FIO2 50, PEEP 5, tolerating settings well. Maggy remains sedated at this time. Client is receiving 1.5 mcg/kg/hr of Precedex. No s/s/ of distress nor pain at this time. Client has OGT, flushing well. Safety mechanisms in place, call light within reach. Bilateral wrist restraints, skin intact, cap refill less than 3sec. Will continue to monitor and provide care as indicated.
--- NOTE | 2020-05-04 22:30 | NUR ---
RN NOTES Client seems to not be tolerating Tube feeding at this time. Total amount given 20ml, rsidual amount 300ml which includes all gastric content. The client exhibits discomfort, agitation, and regurgitation sound form his stomach. Tube feeding has been stopped at this moment. Has been placed in intermittent suctioning to avoid aspiration. The hospitalist is aware of all changes made. Will continue to monitor.
--- NOTE | 2020-05-04 22:30 | NUR ---
Spoke to the hospitalist about the moderate agitation of the client and the elevated BP 150/90. The hospitalist recommend to continue the current level of Precedex at 1.5mcg/kg/hr and Morphine IV Q4 PRN.
[2020-05-05] VITALS (78 sets, daily range): BP systolic 74–171; BP diastolic 49–114
--- NOTE | 2020-05-05 00:05 | NUR ---
PT SPO2 DECREASED TO LOW 80S. PT SUCTIONED, HME CHANGED, AND FIO2 INCREASED. PT SPO2 94% POST CHANGES. Addendum: 05/05/20 at 0619 by ABNER LEYVA RT Amended: Links added.
[2020-05-05] MEDS ORDERED: LORAZEPAM INJ 2 MG/ML VIAL IV PRN (00:30)
--- NOTE | 2020-05-05 00:30 | NUR ---
RN NOTES Ativan is being administer to help reduce agitation. Order is being placed at the sole judgement of the Charge nurse Ed.
--- NOTE | 2020-05-05 01:00 | NUR ---
per the charge nurse Ed, give morphine dose earlier to help the client with ventilator discomfort.
[2020-05-05] MEDS: MORPHINE SULFATE INJ 2 MG/ML DISP.SYRIN IV PRN ×2 (01:05→04:47)
[2020-05-05] MEDS: ACETAMINOPHEN 650 MG/20.3 ML UDC GT PRN ×2 (01:21→13:12)
[2020-05-05] MEDS: IV NS 0.9% 1,000 ML IV PRN (01:27)
[2020-05-05] MEDS: PRECEDEX 400 MCG/100 ML BOTTLE 100 ML IV PRN ×3 (01:54→09:25)
--- NOTE | 2020-05-05 03:31 | NUR ---
PT SPO2 DECREASED TO LOW 80S. PT SUCTIONED AND SPO2 INCREASED TO 100% ABG ORDERED FOR 0400 Addendum: 05/05/20 at 0619 by ABNER DECKER Amended: Links added.
--- NOTE | 2020-05-05 03:33 | NUR ---
CLIENT SATURATION AT 0300 O2 85% ON 50%FIO2. vent settings changed to 100% FIO2, CLIENT NOW SATURATING 92% TO 85%. ABG'S STAT ABG'S HAVE BEEN PLACED TO FURTHER ASSESS THE CLIENT.
[2020-05-05 04:09] LABS: ABG BASE EXCESS -1.7 mmol/L; ABG OXYGEN SATURATION 77.5 % (92.0-98.5); ABG PCO2 50.3 mmHg (35.0-45.0); ABG PH 7.314 (7.350-7.450); ABG PO2 44.7 mmHg (75.0-100.0); COHb 1.1 % (0.5-1.5); O2Hb 76.6 % (94.0-97.0); PEEP,BG 5 cm H2O; SITE, ABG Right Radial; VENT MODE, BG AC 18 500 100% +5; VT, ABG 500 mL
--- NOTE | 2020-05-05 04:30 | NUR ---
SPOKE TO DR SINCLAIR ABOUT THE CURRENT PATIENT CONDITION: DOCTOR ORDER TO CHANGE VENT SETTINGS TO PEEP OF 10; ATIVAN Q2HR, AND MORPHINE Q2HR TO REDUCE AGITATION. CURRENT O2 SAT IS 93%.
--- NOTE | 2020-05-05 06:17 | NUR ---
VENT CHANGES INCREASE PEEP TO 10 PER MD. Addendum: 05/05/20 at 0619 by ABNER LEYVA RT Amended: Links added.
--- NOTE | 2020-05-05 06:49 | NUR ---
RN CLOSING NOTES Client remains stable at this time, sedated. Vent setting changed to PEEP of 10, per MD, other settings remain as previously noted. No s/s of distress at this time. no s/s of pain. Client reains on ativan 1MG, and morphine 2MG PRN per MD. Other changes and updates have been previously documented. All comfort and safety mechanisms in place at this time. Will endorse the incoming nurse.
[2020-05-05 08:00] LABS: ABG BASE EXCESS -2.9 mmol/L; ABG OXYGEN SATURATION 93.4 % (92.0-98.5); ABG PCO2 54.7 mmHg (35.0-45.0); ABG PH 7.271 (7.350-7.450); ABG PO2 75.3 mmHg (75.0-100.0); COHb 0.6 % (0.5-1.5); MetHb 0.2 % (0.0-1.5); O2Hb 92.7 % (94.0-97.0); SITE, ABG Right Radial; VENT MODE, BG AC 18 500 +10 100%
[2020-05-05] MEDS ORDERED: NEUTRA PHOS 1 POWD.PACKET PO SCH (08:00)
[2020-05-05] MEDS ORDERED: POTASSIUM CHLORIDE 20 MEQ POWDER PACKET GT SCH (08:30)
[2020-05-05] MEDS: PANTOPRAZOLE 40 MG/PACK PACK NG SCH (08:40)
[2020-05-05] MEDS: HYDROCORTISONE SOD SUCCINATE 100 MG/2 ML VIAL IV SCH ×3 (08:45→16:55)
[2020-05-05] MEDS: PROSOURCE / PROSTAT (PYXIS) 30 ML UDC GT SCH ×2 (08:47→16:55)
[2020-05-05] MEDS: LORAZEPAM INJ 2 MG/ML VIAL IV PRN (08:48)
--- NOTE | 2020-05-05 08:52 | NUR ---
RN OPENING NOTE: RECEIVED PATIENT IN BED THIS MORNING. PATIENT IS INTUBATED, SATING WELL ON CURRENT SETTINGS, RT FOLLOWING UP WITH PATIENT'S RESPIRATORY STATUS. PATIENT IS ST IN THE 100S WITH OCCASIONAL PAC, PVC ON THE MONITOR. PATIENT HAS A GT, C/D/I, FLUSHING WELL, FEEDING HELD D/T HIGH RESIDUAL. NAVARRETE CATHETER DRAINING URINE. #20 RFA, MAIKOL MIDLINE, C/D/I, FLUSHING WELL, NO SIGNS OF COMPLICATIONS NOTED. SAFETY MEASURES IMPLEMENTED, BED IN LOWEST POSITION, LOCKED, SIDE RAILS UP, CALL LIGHT WITHIN REACH. WILL CONTINUE TO MONITOR PATIENT FOR CHANGES.
--- NOTE | 2020-05-05 08:59 | NUR ---
PER DR HARGROVE, PATIENT IS UNSTABLE, HOLD OFF ON SEDATION VACATION.
[2020-05-05] MEDS: ENOXAPARIN SODIUM 40 MG/0.4 ML DISP.SYRIN SQ SCH (09:26)
--- NOTE | 2020-05-05 09:31 | NUR ---
PER DR HARGROVE, OK TO GIVE LOVENOX WITH PLATELET 140
[2020-05-05 10:49] LABS: CALCIUM, SERUM 7.5 mg/dL (8.5-10.1); CREATININE 0.6 mg/dL (0.6-1.3); MAGNESIUM 1.6 mg/dL (1.8-2.4); PHOSPHORUS 2.8 mg/dL (2.5-4.9); POTASSIUM 3.2 mmol/L (3.5-5.1)
--- NOTE | 2020-05-05 10:57 | NUR ---
PATIENT'S BP 74/49 AFTER RE-CHECKING BP. NEW ORDERS FOR LEVOPHED CARRIED OUT. Addendum: 05/05/20 at 1131 by ALEXANDREA ANDERSON RN STILL AWAITING DELIVERY OF NEWLY ORDERED MEDS FROM PHARMACY
[2020-05-05] MEDS ORDERED: NOREPINEPHRINE 32 MG in IV NS 0.9% 218 ML IV PRN (11:00)
[2020-05-05] MEDS ORDERED: INVESTIGATIONAL MED MISC 1 EA in IV NS 0.9% 250 ML IV ONE (11:00)
[2020-05-05] MEDS ORDERED: TOCILIZUMAB 400 MG in IV NS 0.9% 80 ML IV ONE (11:00)
[2020-05-05 11:44] LABS: C-REACTIVE PROTEIN 15.4 mg/dL (0.0-0.9)
[2020-05-05] MEDS: NOREPINEPHRINE 8 MG in IV D5W 250 ML IV PRN ×2 (11:52→19:32)
[2020-05-05 12:17] LABS: BILIRUBIN,TOTAL 1.5 mg/dL (0.2-1.0); TOTAL PROTEIN, SERUM 5.5 g/dL (6.4-8.2)
[2020-05-05] MEDS: MIDAZOLAM HCL 100 MG in IV NS 0.9% 80 ML IV PRN (12:24)
[2020-05-05] MEDS: FENTANYL CITRATE IV 1,250 MCG in IV NS 0.9% 225 ML IV PRN ×2 (12:31→19:23)
[2020-05-05] MEDS: Magnesium 1GM/D5W 100ML PREMIX 100 ML IV SCH ×2 (13:07→14:16)
[2020-05-05 14:30] LABS: D-DIMER 5.06 mg/L(FEU (0.17-0.50)
[2020-05-05] MEDS: INVESTIGATIONAL MED MISC 1 EA in IV NS 0.9% 250 ML IV SCH (16:38)
--- NOTE | 2020-05-05 18:30 | NUR ---
CONTACTED DR ALFORD IN REGARDS TO PATIENT HAVING AN EPISODE OF SVT OF 170
--- NOTE | 2020-05-05 19:38 | NUR ---
RN CLOSING NOTE: PATIENT REMAINS IN BED. NO SIGNS OF ACUTE DISTRESS NOTED AT THIS TIME. SAFETY MEASURES IMPLEMENTED, BED IN LOWEST POSITION, LOCKED, SIDE RAILS UP, CALL LIGHT WITHIN REACH. ENDORSED TO KENJI GARAY FOR CONTINUITY OF CARE/ TO GIVE LIFE SCIENCE TECHNICAL OFFICER THE PAPERWORK FOR CONVALESCENT PLASMA.
[2020-05-05] MEDS ORDERED: VANCOMYCIN 2 GM in IV D5W 500 ML IV ONE (20:00)
[2020-05-05] MEDS: MICAFUNGIN SODIUM 100 MG in IV NS 0.9% 100 ML IV SCH (20:08)
--- NOTE | 2020-05-05 20:25 | NUR ---
CUSTOM PROTECTION OFFICER NOTES - IV CEFEPIME NOTED WITH NEW ORDER FOR IV ANTIBIOTICS, NO MEDICATION AVAILABLE IN MED ROOM AND OMNICELL. ORDER FAXED TO SPRING UP SUPERVISOR MAURO. WILL ADMINISTER MEDICATION ONCE DELIVERED
[2020-05-05] MEDS ORDERED: CEFEPIME 1 GM VIAL ONE ×2 (21:14→21:46)
[2020-05-05] MEDS ORDERED: VANCOMYCIN 1 GM VIAL ONE (21:15)
[2020-05-05] MEDS: CEFEPIME 2 GM in IV D5W 100 ML IV SCH (21:35)
--- NOTE | 2020-05-05 22:08 | NUR ---
WORKING SECOND HAND NOTES NOTED RHYTHM CHANGE FROM SINUS TACHYCARDIA, HR 105 BPM TO SINUS TACHYCARDIA/SVT. PATIENT SEEN AND EXAMINED BY KEILY TRANSMITTER ENGINEER, WITH ORDERS FOR LAB WORK, STAT BMP AND MAGNESIUM LEVEL, AND STAT EKG. ORDERS PLACED, RT NOTIFIED REGARDING STAT EKG. WILL CONTINUE TO MONITOR
[2020-05-05 22:49] LABS: MAGNESIUM 2.2 mg/dL (1.8-2.4)
[2020-05-05 23:18] LABS: CREATININE 0.8 mg/dL (0.6-1.3)
--- NOTE | 2020-05-05 23:38 | NUR ---
TELECOMMUNICATIONS OFFICER NOTES LAB RESULTS, MAGNESIUM LEVEL 2.2, POTASSIUM LEVEL 4.0, BNP [id number]. ALL RESULTS RELAYED TO KEILY ORACLE EBS DEVELOPER. PER KEILY, IF ELEVATED HEART RATE PERSISTS, START AMIODARONE DRIP PER PROTOCOL WITH BOLUS. ALL ORDERS READ BACK FOR CLARIFICATION. WILL MONITOR CLOSELY AND CARRY OUT NEW ORDERS
[2020-05-05] MEDS ORDERED: AMIODARONE 150 MG/3 ML VIAL IV ONE (23:46)
[2020-05-06] VITALS (92 sets, daily range): BP systolic 83–155; BP diastolic 54–112
[2020-05-06] MEDS ORDERED: AMIODARONE 150 MG in IV D5W 100 ML IV ONE ×2
[2020-05-06] MEDS: AMIODARONE 450 MG in IV D5W 250 ML IV PRN ×2 (00:08→05:28)
[2020-05-06] MEDS: MIDAZOLAM HCL 100 MG in IV NS 0.9% 80 ML IV PRN ×3 (01:04→20:01)
[2020-05-06] MEDS: FENTANYL CITRATE IV 1,250 MCG in IV NS 0.9% 225 ML IV PRN ×4 (02:43→21:57)
[2020-05-06] MEDS: IV NS 0.9% 250 ML IV PRN (02:57)
[2020-05-06] MEDS: CEFEPIME 2 GM in IV D5W 100 ML IV SCH ×3 (03:50→20:00)
[2020-05-06] MEDS ORDERED: AMIODARONE 150 MG/3 ML VIAL IV ONE (04:15)
[2020-05-06 04:36] LABS: BASOPHILS # (AUTO) 0.2 /CMM (0.0-0.2); BASOPHILS % (AUTO) 1.1 % (0.0-2.0); HEMATOCRIT 37 % (39-51); HEMOGLOBIN 11.9 g/dL (13.5-17.5); LYMPHOCYTES # (AUTO) 1.1 /CMM (0.8-4.8); LYMPHOCYTES % (AUTO) 7.2 % (20.0-44.0); MEAN CORPUSCULAR HGB CONC 33 g/dl (31.0-36.0); MEAN CORPUSCULAR VOLUME 92 fL (80-96); MONOCYTES # (AUTO) 1.3 /CMM (0.1-1.30); MONOCYTES % (AUTO) 8.9 % (2.0-12.0); NEUTROPHILS # (AUTO) 12.1 /CMM (1.8-8.9); NEUTROPHILS % (AUTO) 82.8 % (43.0-81.0); PLATELET COUNT (AUTO) 170 /CMM (150-450); RED BLOOD CELL COUNT(AUTO) 3.96 MIL/uL (4.5-6.0); WHITE BLOOD COUNT (AUTO) 14.7 K/uL (4.3-11.0)
[2020-05-06] MEDS: MORPHINE SULFATE INJ 2 MG/ML DISP.SYRIN IV PRN ×2 (05:11→20:25)
[2020-05-06 05:16] LABS: CALCIUM, SERUM 8.1 mg/dL (8.5-10.1); CREATININE 0.9 mg/dL (0.6-1.3); MAGNESIUM 2.4 mg/dL (1.8-2.4); PHOSPHORUS 2.2 mg/dL (2.5-4.9); POTASSIUM 3.6 mmol/L (3.5-5.1)
--- NOTE | 2020-05-06 05:45 | NUR ---
SAMPLE CUTTER NOTES PATIENT CONTINUES ON AMIODARONE DRIP, TITRATED DOWN TO 0.5MG/MIN BY CHARGE NURSE ED. PATIENT REMAINS IN AFIB, RATE BETTER CONTROLLED COMPARED TO BEFORE INITIATING DRIP. WILL CONTINUE CLOSE MONITORING
--- NOTE | 2020-05-06 07:00 | NUR ---
CONCRETE PUMP OPERATOR CLOSING NOTES PATIENT REMAINS ORALLY INTUBATED ON MECHANICAL VENT, AMIODARONE DRIP @ 0.5MG/MIN, LEVOPHED @ 0.04MCG/KG/MIN, VERSED DRIP @ 0.5MG/HR, FENTANYL DRIP @ 2MCG. WILL ENDORSE THE PATIENT TO THE AM SHIFT NURSE FOR CONTINUITY OF CARE. ISOLATION PRECAUTIONS FOR COVID-19 FOLLOWED CLOSELY
--- NOTE | 2020-05-06 07:30 | NUR ---
RN NOTES RECEIVED PATIENT. SEDATED VERSED AT 0.5MG/HR AND FENTANYL AT 2MCG/JG/MIN. PATIENT RESPONSIVE TO TACTILE STIMULI, OPENS EYES BUT IS NOT ABLE TO TRACK, UNABLE TO FOLLOW COMMAND. NOT ON RESPIRATORY DISTRESS. ORALLY INTUBATED. SATING 98% WITH CURRENT VENT SETTING. SATING FINE. AFIB ON THE MONITOR WITH HR FLUCTUATING FROM 120-140s, ON AMIODARONE DRIP AT 0.O5MG. OGT ON LIS, SECRETION NOTED TO BE BROWNISH IN COLOR, WILL CONTINUE TO MONITOR.ABDOMEN IS NONDISTENDED, NO TENDERNESS NOTED. BILATERAL HAND SWELLING, L>R. BILATERAL SOFT RESTRAINTS IN PLACE, REMOVE AND REPLACED TO CHECK FOR SKIN BREAKDOWN, NONE NOTED AT THIS TIME. MIDLINE ON THE MAIKOL, IN PLACE. DRESSING INTACT.NAVARRETE CATHETER IN PLACE. HOB ELEVATED FOR SAP. SAFETY MEASURES OBSERVED AND MAINTAINED. CALL LIGHT WITHIN REACH, WILL CONTINUE TO MONITOR PATIENT ACCORDINGLY
[2020-05-06] MEDS: NOREPINEPHRINE 8 MG in IV D5W 250 ML IV PRN (07:35)
[2020-05-06] MEDS: ENOXAPARIN SODIUM 40 MG/0.4 ML DISP.SYRIN SQ SCH (08:56)
[2020-05-06] MEDS: HYDROCORTISONE SOD SUCCINATE 100 MG/2 ML VIAL IV SCH ×3 (08:56→17:20)
[2020-05-06] MEDS: PANTOPRAZOLE 40 MG/PACK PACK NG SCH (08:56)
[2020-05-06] MEDS: PROSOURCE / PROSTAT (PYXIS) 30 ML UDC GT SCH ×2 (08:56→17:00)
[2020-05-06 11:25] LABS: ALBUMIN 1.8 g/dL (3.4-5.0); BILIRUBIN,DIRECT 0.8 mg/dL (0.0-0.2); BILIRUBIN,TOTAL 1.3 mg/dL (0.2-1.0); TOTAL PROTEIN, SERUM 5.5 g/dL (6.4-8.2)
[2020-05-06] MEDS ORDERED: NEUTRA PHOS 1 POWD.PACKET GT ONE (11:30)
[2020-05-06] MEDS: VANCOMYCIN 1 GM in IV D5W 250ml IV SCH ×2 (11:36→23:48)
[2020-05-06 11:49] LABS: ABG BASE EXCESS 2.3 mmol/L; ABG OXYGEN SATURATION 98.2 % (92.0-98.5); ABG PCO2 55.4 mmHg (35.0-45.0); ABG PH 7.339 (7.350-7.450); ABG PO2 113.6 mmHg (75.0-100.0); AaDO2 253.3 mmHg; MetHb 0.3 % (0.0-1.5); O2Hb 97.9 % (94.0-97.0); SITE, ABG Left Radial; VENT MODE, BG ac 18 500 60% +12
--- NOTE | 2020-05-06 12:00 | NUR ---
RN NOTES HAD A VERY LONG CONVERSATION WITH BEN (GRANDSON) IN BEHALF OF TAVO (RP) PER THE LATER TAVO IS WITH HER AT THIS TIME AND WOULD WANT AN UPDATE SINCE TAVO IS NOT ON THE MEDICAL FIELD. ACCOMMODATED AND ADDRESSED ABLE. CONCERNS REGARDING KIDNEY FUNCTIONS WERE DEFERRED TO DR. HERRERA, WHO SPOKE TO THE THE GRANDSON. AFTER TALKING TO DR. HERRERA. PHONE CALL WAS GIVEN BACK TO ME AND AT THIS POINT, DR VALIENTE WAS ALSO IN THE UNIT, AWARE THAT I AM TALKING TO FAMILY. ALL FAMILYS QUESTION AND CONCERNS DEFERRED TO DR. VALIENTE WELL.
[2020-05-06] MEDS ORDERED: FUROSEMIDE 20 MG/2 ML VIAL IV ONE (13:30)
[2020-05-06] MEDS: INVESTIGATIONAL MED MISC 1 EA in IV NS 0.9% 250 ML IV SCH (18:32)
--- NOTE | 2020-05-06 19:28 | NUR ---
RN NOTES UPDATED DR. ALFORD ON PATIENT BEING STILL ON AFIB WITH HR FLUCTUATING FRON 120-130s . OBTAINED ORDER TO CONTINUE AMIODARONE DRIP TO 0.5M. ORDER NOTED AND CARRIED OUT
[2020-05-06] MEDS ORDERED: AMIODARONE 450 MG in IV D5W 250 ML IV PRN (19:30)
--- NOTE | 2020-05-06 19:30 | NUR ---
CELLOPHANE WORKER INITIAL SHIFT NOTES RECEIVED PATIENT IN BED, ORALLY INTUBATED ON MECHANICAL VENTILATION 50% FIO2, PEEP +12, SEDATED ON VERSED DRIP @ 0.5, FENTANYL @ 2. ORDER CLARIFIED WITH DR ALFORD REGARDING AMIODARONE DRIP, NOW CONTINUOUS AT 0.5MG/MIN. WILL CARRY OUT NEW ORDERS. BEDSIDE TELEMETRY MONITORING SHOWS UNCONTROLLED AFIB, HR 130-160BPM AT THIS TIME, CONTINUES ON AMIODARONE DRIP @ 0.5MG/MIN ORDERED. RIGHT THIGH PICC LINE NOT FLUSHING UNLESS PULLED TAUT. ATTEMPTED TO KEEP TAUT USING TAPE, BUT INEFFECTIVE. ALL MEDICATIONS RUNNING THROUGH MAIKOL MIDLINE. ISOLATION PRECAUTIONS OBSERVED. WILL MONITOR CLOSELY
[2020-05-06] MEDS: MICAFUNGIN SODIUM 100 MG in IV NS 0.9% 100 ML IV SCH (20:36)
--- NOTE | 2020-05-06 23:45 | NUR ---
TRAVELING CONSTRUCTION SUPERINTENDENT NOTES RECEIVED CALL FROM PATIENT'S FAMILY MEMBERS, WITH MULTIPLE QUESTIONS, ANSWERED ABLE. FAMILY MEMBERS REQUESTING TO SPEAK TOP A PROVIDER REGARDING CONCERN ABOUT KIDNEY FUNCTION. CALLED AND SPOKE TO KEILY PLANER OPERATOR / GRADER, WHOM WAS ABLE TO PERSONALLY SPEAK TO THE FAMILY, AND ADDRESSED ALL CONCERNS AT THIS TIME, INCLUDING STARTING LOW RATE IV FLUIDS. PLAN TO START TUBE FEEDING LATER ON IN SHIFT AFTER CLOSE MONITORING OF GASTRIC RESIDUALS.
[2020-05-07] VITALS (93 sets, daily range): BP systolic 75–136; BP diastolic 46–110
[2020-05-07] MEDS: AMIODARONE 450 MG in IV D5W 250 ML IV PRN (01:13)
[2020-05-07 04:05] LABS: BASOPHILS % (AUTO) 0.3 % (0.0-2.0); HEMATOCRIT 32 % (39-51); HEMOGLOBIN 10.5 g/dL (13.5-17.5); LYMPHOCYTES # (AUTO) 0.6 /CMM (0.8-4.8); LYMPHOCYTES % (AUTO) 7.9 % (20.0-44.0); MEAN CORPUSCULAR HGB CONC 33 g/dl (31.0-36.0); MEAN CORPUSCULAR VOLUME 92 fL (80-96); MONOCYTES # (AUTO) 0.5 /CMM (0.1-1.30); MONOCYTES % (AUTO) 6.2 % (2.0-12.0); NEUTROPHILS # (AUTO) 6.9 /CMM (1.8-8.9); NEUTROPHILS % (AUTO) 85.6 % (43.0-81.0); PLATELET COUNT (AUTO) 132 /CMM (150-450); RED BLOOD CELL COUNT(AUTO) 3.51 MIL/uL (4.5-6.0); WHITE BLOOD COUNT (AUTO) 8.1 K/uL (4.3-11.0)
[2020-05-07] MEDS: CEFEPIME 2 GM in IV D5W 100 ML IV SCH ×2 (05:02→12:52)
[2020-05-07] MEDS: FENTANYL CITRATE IV 1,250 MCG in IV NS 0.9% 225 ML IV PRN (05:09)
[2020-05-07 05:13] LABS: ALBUMIN 1.7 g/dL (3.4-5.0); BILIRUBIN,DIRECT 0.5 mg/dL (0.0-0.2); BILIRUBIN,TOTAL 0.8 mg/dL (0.2-1.0); CALCIUM, SERUM 7.8 mg/dL (8.5-10.1); CREATININE 1.3 mg/dL (0.6-1.3); PHOSPHORUS 2.2 mg/dL (2.5-4.9); POTASSIUM 3.2 mmol/L (3.5-5.1); TOTAL PROTEIN, SERUM 5.3 g/dL (6.4-8.2)
--- NOTE | 2020-05-07 07:00 | NUR ---
CUSTOMER ACCOUNT ADMINISTRATOR NOTES NAVARRETE CATHETER, URINE OUTPUT TOTAL = 1400 ML YELLOW. PATIENT CONTINUES ON VERSED DRIP @ 0.5, FENTANYL @ 2, LEVOPHED @ 0.02, NS @ 75ML/HR. HR REMAINS IN AFIB, BUT RATE BETTER CONTROLLED, NOW 100-110 BPM. WILL ENDORSE THE PATIENT TO THE AM SHIFT NURSE FOR CONTINUITY OF CARE
[2020-05-07] MEDS: JEVITY 1.2 CAL 1,000 ML BOTTLE GT PRN (07:20)
[2020-05-07] MEDS ORDERED: POTASSIUM PHOSPHATE MM 5 MMOL in IV NS 0.9% 100 ML IV SCH (09:00)
[2020-05-07] MEDS: PROSOURCE / PROSTAT (PYXIS) 30 ML UDC GT SCH ×2 (09:10→17:07)
[2020-05-07] MEDS: PANTOPRAZOLE 40 MG/PACK PACK NG SCH (09:12)
[2020-05-07] MEDS: HYDROCORTISONE SOD SUCCINATE 100 MG/2 ML VIAL IV SCH ×3 (09:12→17:05)
[2020-05-07] MEDS: ACETAMINOPHEN 650 MG/20.3 ML UDC GT PRN ×2 (09:14→17:09)
[2020-05-07] MEDS: NOREPINEPHRINE 8 MG in IV D5W 250 ML IV PRN (09:16)
--- NOTE | 2020-05-07 09:59 | NUR ---
JUST RECEIVED VERSED AND FENTANYL FROM PHARMACY, STILL AWAITING AMIODARONE DRIP.
[2020-05-07] MEDS ORDERED: Sodium Phosphate 15 MMOL in IV NS 0.9% 245 ML IV SCH (10:00)
[2020-05-07] MEDS: FENTANYL CITRAT IV 2,500 MCG in IV NS 0.9% 200 ML IV PRN ×2 (10:22→20:04)
[2020-05-07] MEDS: NS 0.9% IV PRN ×2 (10:23→21:55)
[2020-05-07] MEDS: MIDAZOLAM HCL IV PRN ×2 (10:23→21:55)
[2020-05-07] MEDS: POTASSIUM CL. PREMIX PERIPHER. 50 ML IV SCH ×3 (10:58→13:06)
[2020-05-07 11:07] LABS: ABG BASE EXCESS 3.9 mmol/L; ABG OXYGEN SATURATION 92.4 % (92.0-98.5); ABG PCO2 47.7 mmHg (35.0-45.0); ABG PH 7.406 (7.350-7.450); ABG PO2 61.5 mmHg (75.0-100.0); AaDO2 168.8 mmHg; COHb 0.3 % (0.5-1.5); O2Hb 92.1 % (94.0-97.0); SITE, ABG Right Radial
[2020-05-07] MEDS: VANCOMYCIN 1 GM in IV D5W 250ml IV SCH (11:57)
[2020-05-07] MEDS: DIGOXIN INJ 0.5 MG/2 ML AMPUL IV SCH ×2 (12:13→17:05)
[2020-05-07] MEDS: LORAZEPAM INJ 2 MG/ML VIAL IV PRN (12:46)
--- NOTE | 2020-05-07 12:57 | NUR ---
INFORMED DR SALDANA THAT PATIENT'S HR AND BP IS INCREASING AND PATIENT IS MOVING AROUND, ANXIOUS, ATTEMPTING TO PULL OUT TUBING. MD AWARE THAT FENTANYL IS INCREASED TO 3MCG/KG/MIN. ATIVAN ALSO GIVEN TO HELP WITH THE ANXIOUSNESS. WILL CONTINUE TO MONITOR PATIENT.
--- NOTE | 2020-05-07 13:23 | NUR ---
UPDATED FAMILY ABOUT PATIENT'S STATUS
--- NOTE | 2020-05-07 14:18 | NUR ---
TF RESUMED AT 10CC/HR , RESIDUAL 100CC AFTER 4 HOURS, DIETARY AWARE, INFORMED TO CONTINUE FEEDING AND RE-CHECK RESIDUAL. WILL CONTINUE TO MONITOR PATIENT.
--- NOTE | 2020-05-07 14:19 | NUR ---
PER DR HARGROVE, HOLD OFF ON SEDATION VACATION D/T PATIENT'S UNSTABLE HEALTH STATUS
[2020-05-07] MEDS: INVESTIGATIONAL MED MISC 1 EA in IV NS 0.9% 250 ML IV SCH (15:23)
--- NOTE | 2020-05-07 17:47 | NUR ---
INFORMED DR SALDANA THAT PATIENT HAS 200CC RESIDUAL FROM GT. ORDERS TO HOLD FEEDING AND TRY AGAIN TOMORROW MORNING.
--- NOTE | 2020-05-07 18:53 | NUR ---
CONTACTED TAVO Alejo TO RECEIVE OVER THE PHONE CONSENT FOR TRACHEOSTOMY PLACEMENT, NO RESPONSE, LEFT VOICEMAIL, WILL ENDORSE TO ONCOMING SHIFT TO FOLLOW UP. ALSO, SPOKE TO DR ROD AND DR LESTER REGARDING TRACH PLACEMENT SET UP FOR TOMORROW. STATES INR OF 1.6 IS TOO HIGH AND WANTS IT TO GO DOWN PRIOR TO SURGERY. ALSO WANTS 2 NEGATIVES FOR COVID TESTING TO OPERATE AND IS REQUESTING A RAPID COVID TEST. WILL ENDORSE TO ONCOMING RN TO RE-SWAB PATIENT.
--- NOTE | 2020-05-07 19:00 | NUR ---
Received patient orally intubated to the ventilator on AC mode,not in any acute distress,breathing regular and non labored.On contact and enhanced droplet isolation due to COVID. But last swab done 05/06/20 (-), 1st negative result.(2nd swab will be done tonight).On Sedation Fentanyl and versed drip, RASS -2, still responds to deep pain,+ cough and gag ,grimaces to pain and suctioning. + edema of all extremities ,with very limited to no movement of extremities.OGT clamped,feeding on hold due to high residuals.(residuals checked ,aspirated at least 200 ml of light brownish return,connected to LIWS). MIDline @ MAIKOL, PICC line @ right thigh, all ports clogged,unable to flush all 3 ports.Comfort care done,needs attended. Patient for tracheostomy in am. 1930 Family called,updated on patient's status ,spoke to Mj (grandson), consent obtained for tracheostomy ,and anesthesia consent.
--- NOTE | 2020-05-07 19:24 | NUR ---
RN CLOSING NOTE: PATIENT REMAINS IN BED. NO SIGNS OF ACUTE DISTRESS NOTED AT THIS TIME. ENDORSED IN REGARDS TO SURGERY TOMORROW AND TO RE-SWAB RAPID COVID TEST. INNPUT ORDERS. SAFETY MEASURES IMPLEMENTED, BED IN LOWEST POSITION, LOCKED, SIDE RAILS UP, CALL LIGHT WITHIN REACH. GAVE REPORT TO KENJI SALTER FOR CONTINUITY OF CARE.
[2020-05-07] MEDS: MICAFUNGIN SODIUM 100 MG in IV NS 0.9% 100 ML IV SCH (20:15)
[2020-05-07] MEDS: IV NS 0.9% 1,000 ML IV PRN ×2 (21:08)
[2020-05-07] MEDS: MEROPENEM 500 MG in IV NS 0.9% 50 ML IV SCH (22:06)
--- NOTE | 2020-05-07 22:30 | NUR ---
Specimen sent for rapid Covid test .
[2020-05-07] MEDS: VANCOMYCIN 0.75 GM in IV D5W 250 ML IV SCH (23:06)
--- NOTE | 2020-05-07 23:25 | NUR ---
Received result for Covid rapid test (-)
[2020-05-08] VITALS (73 sets, daily range): BP systolic 91–148; BP diastolic 56–100
--- NOTE | 2020-05-08 | NUR ---
Stable,no change, sedated still easily responding to pain,will increase Versed drip if needed.Maintain NPO.OGT still to LIWS
[2020-05-08] MEDS: DIGOXIN INJ 0.5 MG/2 ML AMPUL IV SCH (00:05)
[2020-05-08] MEDS: NOREPINEPHRINE 8 MG in IV D5W 250 ML IV PRN (02:35)
--- NOTE | 2020-05-08 04:00 | NUR ---
Afebrile,not in any distress,Maintaining BP with Levophed drip @ 0.08 mcg/kg/min
[2020-05-08 04:28] LABS: BASOPHILS % (AUTO) 0.3 % (0.0-2.0); HEMATOCRIT 32 % (39-51); HEMOGLOBIN 10.6 g/dL (13.5-17.5); LYMPHOCYTES # (AUTO) 0.8 /CMM (0.8-4.8); LYMPHOCYTES % (AUTO) 9.4 % (20.0-44.0); MEAN CORPUSCULAR HGB CONC 33 g/dl (31.0-36.0); MEAN CORPUSCULAR VOLUME 91 fL (80-96); MONOCYTES # (AUTO) 0.7 /CMM (0.1-1.30); MONOCYTES % (AUTO) 8.3 % (2.0-12.0); NEUTROPHILS # (AUTO) 6.7 /CMM (1.8-8.9); PLATELET COUNT (AUTO) 147 /CMM (150-450); RED BLOOD CELL COUNT(AUTO) 3.55 MIL/uL (4.5-6.0); WHITE BLOOD COUNT (AUTO) 8.2 K/uL (4.3-11.0)
[2020-05-08 04:47] LABS: ALBUMIN 1.6 g/dL (3.4-5.0); BILIRUBIN,DIRECT 0.4 mg/dL (0.0-0.2); BILIRUBIN,TOTAL 0.7 mg/dL (0.2-1.0); CALCIUM, SERUM 7.8 mg/dL (8.5-10.1); MAGNESIUM 2.1 mg/dL (1.8-2.4); PHOSPHORUS 1.9 mg/dL (2.5-4.9); POTASSIUM 3.3 mmol/L (3.5-5.1)
[2020-05-08] MEDS: FENTANYL CITRAT IV 2,500 MCG in IV NS 0.9% 200 ML IV PRN ×3 (04:50→20:10)
[2020-05-08] MEDS: MEROPENEM 500 MG in IV NS 0.9% 50 ML IV SCH ×3 (04:58→21:22)
--- NOTE | 2020-05-08 06:00 | NUR ---
No change.stable V/S with 0.06 mcg/kg/min of Levophed drip.
--- NOTE | 2020-05-08 06:35 | NUR ---
Blood bank called,convalescent plasma now available for the patient which still needs to be thawed,will call blood bank back once RN ready to transfuse (due to change of shift.)
--- NOTE | 2020-05-08 07:00 | NUR ---
inr=2.2, called Celia Chapin ,relayed result.made him aware patient is going for tracheostomy today if he wants to give transfusion, also made him aware that patient is getting convalescent plasma this morning.He ordered 1 unit FFP transfusion now .Requested from blood bank.
--- NOTE | 2020-05-08 07:30 | NUR ---
trach placement today. patient has been npo since yesterday @1700, consents signed, no blood thinners per EMAR
--- NOTE | 2020-05-08 08:14 | NUR ---
wristband # incorrect due to cancelled type & screen order, awaiting stat lab draw for new type & screen, wristband #
--- NOTE | 2020-05-08 08:26 | NUR ---
received call from grandson who wanted to know vitals and chest xray results. provided vitals + read dictation of cxr. any further medical questions directed to medical team. requested to speak to dr. garrison and surgeon dr. reece. relayed message to dr. garrison who states that he spoke with another family member at length yesterday and he can follow up with her for information.
--- NOTE | 2020-05-08 09:43 | NUR ---
INR 2.2. received order @0713 this am for plasma with procedure scheduled early in am. wristband# mismatch, order for redraw of type+screen & plasma infusion unable to be completed in time for procedure. per dr. reece surgeon procedure is cancelled today due to high INR. acceptable level is NORMAL 1.5 or less. therefore, per Dr. Dooley cancel plasma order
[2020-05-08] MEDS: PANTOPRAZOLE 40 MG/PACK PACK NG SCH (10:18)
[2020-05-08] MEDS: HYDROCORTISONE SOD SUCCINATE 100 MG/2 ML VIAL IV SCH ×3 (10:35→18:21)
[2020-05-08] MEDS: PROSOURCE / PROSTAT (PYXIS) 30 ML UDC GT SCH ×2 (10:36→16:43)
[2020-05-08] MEDS: NS 0.9% IV PRN ×2 (10:52→21:03)
[2020-05-08] MEDS: MIDAZOLAM HCL IV PRN ×2 (10:52→21:03)
[2020-05-08] MEDS: VANCOMYCIN 0.75 GM in IV D5W 250 ML IV SCH ×2 (11:00→23:15)
[2020-05-08] MEDS ORDERED: POTASSIUM CHLORIDE 20 MEQ POWDER PACKET NG SCH (11:00)
--- NOTE | 2020-05-08 12:00 | NUR ---
convalescent plasma infused today @1200 with no complications noted verified w/ Mame PHILLIP via scanning. However, did not click "begin". Therefore, had to override in order to "begin" and "end" infusion documentation
[2020-05-08] MEDS ORDERED: PHYTONADIONE INJ 10 MG/1 ML AMPUL SQ ONE (13:00)
[2020-05-08] MEDS: DIGOXIN 0.25 MG TABLET GT SCH (14:41)
--- NOTE | 2020-05-08 15:15 | NUR ---
patient opening eyes, not following command. entered room with Emani PHILLIP , Malagasy speaking Addendum: 05/08/20 at 1837 by GAVI ORTIZ RN patient is possibly too sedated to follow command
[2020-05-08] MEDS ORDERED: NEUTRA PHOS 1 POWD.PACKET PO ONE (16:30)
[2020-05-08] MEDS ORDERED: NEUTRA PHOS 1 POWD.PACKET GT ONE (16:30)
[2020-05-08] MEDS: LORAZEPAM INJ 2 MG/ML VIAL IV PRN (17:33)
[2020-05-08] MEDS: IV NS 0.9% 1,000 ML IV PRN (18:20)
[2020-05-08] MEDS: INVESTIGATIONAL MED MISC 1 EA in IV NS 0.9% 250 ML IV SCH (18:21)
--- NOTE | 2020-05-08 18:37 | NUR ---
per. Dr. Lucero, INR must be LESS THAN 1.5 for procedure. About 3hrs after Vitamin K admin INR = 2.08. Dr. Lucero and Dr. Pantoja made aware. Orders to recheck INR "@0400 or however early you think it needs to be checked so I have an answer by 6. scheduled for procedure @0730. & give 2U FFP prior to surgery"
--- NOTE | 2020-05-08 19:45 | NUR ---
ICU/WOOD CUTTER RECEIVED REPORT FROM DAY NURSE. SEE FLOWSHEET FOR ASSESSMENT, ALONG WITH SKIN ISSUES WHICH ARE ADDRESSED AND THE INTERVENTIONS TO EACH. PT IS CURRENTLY PROPERLY SEDATED WITH VERSED AND FENTANYL. PT IS ORALLY INTUBATED, TOLERATING CURRENT VENT SETTINGS WITH SATURATION AT 98-100%. PT IS CURRENTLY ON PRESSORS FOR LOW BLOOD PRESSURE. SEE IV SPREAD SHEET FOR THIS. PT WAS TURNED AND REPOSITIONED FOR COMFORT AND CARE. WILL CONTINUE TO MONITOR THIS PT, NO ACUTE DISTRESS SEEN.
[2020-05-08] MEDS: MICAFUNGIN SODIUM 100 MG in IV NS 0.9% 100 ML IV SCH (20:24)
--- NOTE | 2020-05-08 22:10 | NUR ---
ICU/ESTATE ATTORNEY PT WAS GIVEN ORAL CARE AT THIS TIME, THEN PT WAS PROVIDED PM CARE. PT TOLERATED THIS WELL. PT REMAINS ON CURRENT VENT SETTINGS WITH SATURATION AT 100%. PT WAS THEN TURNED AND REPOSITIONED FOR COMFORT AND CARE. NO ACUTE DISTRESS SEEN AT THIS TIME. WILL CONTINUE TO MONITOR THIS PT.
[2020-05-09] VITALS (49 sets, daily range): BP systolic 93–168; BP diastolic 58–104
--- NOTE | 2020-05-09 00:35 | NUR ---
ICU/WALLPAPERER PT WAS THEN TURNED AND REPOSITIONED FOR COMFORT AND CARE. NO ACUTE DISTRESS SEEN AT THIS TIME. WILL CONTINUE TO MONITOR THIS PT.
[2020-05-09] MEDS: ACETAMINOPHEN 650 MG/20.3 ML UDC GT PRN (02:09)
--- NOTE | 2020-05-09 02:37 | NUR ---
ICU/DESIGN PAINTER PT APPEARED TO BE IN PAIN USING THE FLACC SCALE. TYLENOL WAS GIVEN FOR THIS. WILL CONTINUE TO MONITOR THIS PT AND HIS PAIN.
--- NOTE | 2020-05-09 03:38 | NUR ---
ICU/SUPERVISOR ELECTROLYTIC TINNING PT'S BLOOD PRESSURE HAS BEEN STABLE, WITH BP AT 120'S TO 130'S. NOTIFIED CHARGE NURSE WHO THEN TURNED OFF THE LEVO. WILL CONTINUE TO MONITOR THIS PT AND HIS BLOOD PRESSURE.
--- NOTE | 2020-05-09 03:55 | NUR ---
ICU/WET CROWN BLOCKING OPERATOR SECOND FFP WAS GIVEN NOW AWAITING FOR STAT LAB TO COME.
[2020-05-09] MEDS: FENTANYL CITRAT IV 2,500 MCG in IV NS 0.9% 200 ML IV PRN ×3 (04:08→17:43)
[2020-05-09] MEDS: MEROPENEM 500 MG in IV NS 0.9% 50 ML IV SCH ×3 (04:08→21:06)
--- NOTE | 2020-05-09 04:25 | NUR ---
ICU/NEGOTIATOR STAT PT, PTT,INR DONE FOR SURGERY.
[2020-05-09 04:37] LABS: BASOPHILS % (AUTO) 0.5 % (0.0-2.0); EOSINOPHILS % (AUTO) 0.1 % (0.0-6.0); HEMATOCRIT 30 % (39-51); HEMOGLOBIN 9.8 g/dL (13.5-17.5); LYMPHOCYTES # (AUTO) 0.5 /CMM (0.8-4.8); LYMPHOCYTES % (AUTO) 8.9 % (20.0-44.0); MEAN CORPUSCULAR HGB CONC 33 g/dl (31.0-36.0); MEAN CORPUSCULAR VOLUME 91 fL (80-96); MONOCYTES # (AUTO) 0.4 /CMM (0.1-1.30); MONOCYTES % (AUTO) 7.6 % (2.0-12.0); NEUTROPHILS # (AUTO) 4.8 /CMM (1.8-8.9); NEUTROPHILS % (AUTO) 82.9 % (43.0-81.0); PLATELET COUNT (AUTO) 100 /CMM (150-450); RED BLOOD CELL COUNT(AUTO) 3.25 MIL/uL (4.5-6.0); WHITE BLOOD COUNT (AUTO) 5.7 K/uL (4.3-11.0)
[2020-05-09 04:49] LABS: ALANINE AMINOTRANSFERASE 50 U/L (12-78); ALBUMIN 1.7 g/dL (3.4-5.0); ALKALINE PHOSPHATASE 54 U/L (46-116); ASPARTATE AMINOTRANSFERASE 36 U/L (15-37); BILIRUBIN,DIRECT 0.6 mg/dL (0.0-0.2); BILIRUBIN,TOTAL 0.9 mg/dL (0.2-1.0); CALCIUM, SERUM 7.7 mg/dL (8.5-10.1); CARBON DIOXIDE 32 mmol/L (21-32); CHLORIDE 105 mmol/L (98-107); CREATININE 1.2 mg/dL (0.6-1.3); GLUCOSE 119 mg/dL (74-106); PHOSPHORUS 1.9 mg/dL (2.5-4.9); POTASSIUM 3.2 mmol/L (3.5-5.1); SODIUM SERUM 138 mmol/L (136-145); TOTAL PROTEIN, SERUM 4.7 g/dL (6.4-8.2); UREA NITROGEN, BLOOD 36 mg/dL (7-18)
--- NOTE | 2020-05-09 04:59 | NUR ---
RT NOTE Pt rec'd orally intubated via ETT #8.0 secured at 27CM at the lipline. Pt on [facility] vent on AC mode settings as charted. Pt shows no signs of resp distress or sob. Pt sx'd for thick mod amt of pale yellow secretions. Alarms are set and audible. ambu bag bedside. Vent plugged into red outlet. Will continue to monitor closely. Addendum: 05/09/20 at 0500 by SILVIA WHITE RT Amended: Links added.
--- NOTE | 2020-05-09 06:00 | NUR ---
ICU/RESIDENTIAL LAWN SPECIALIST CALLED DR DHILLON FOR THE AM INR-1.35, PT IS OK TO GO TO SURGERY.
[2020-05-09] MEDS ORDERED: CELLULOSE,OXIDIZED 1 EA PACK MC ONE (06:40)
[2020-05-09] MEDS ORDERED: ROCURONIUM BROMIDE 50 MG/5 ML ONE (06:49)
--- NOTE | 2020-05-09 07:35 | NUR ---
LOFT WORKER APPRENTICE NOTES OPENING PATIENT IN BED INTUBATED , NO SOB OR DISCOMFORT NOTED AT THIS TIME. SURGERY TEAM HERE TO TAKE THE PATIENT FOR TRACH PLACEMENT.
--- NOTE | 2020-05-09 08:03 | NUR ---
IDEA WORKER NOTES RECEIVED VERSED FROM [employer], PATIENT IN SURGERY WILL REPLACED THE BAG AFTER PATIENT IS RETURNED FROM SURGERY.
--- NOTE | 2020-05-09 08:31 | NUR ---
CERTIFIED FAMILY MEDIATOR NOTES PATIENT BACK FROM SURGERY. PACU NURSE AT BEDSIDE.
[2020-05-09] MEDS: NS 0.9% IV PRN ×2 (08:54→20:53)
[2020-05-09] MEDS: MIDAZOLAM HCL IV PRN ×2 (08:54→20:53)
--- NOTE | 2020-05-09 09:30 | NUR ---
DECORATOR INSPECTOR NOTES OG TUBE PATENT, AUSCULTATED AND IN PLACE, FLUSHED WITH WATER WELL.
[2020-05-09] MEDS: PANTOPRAZOLE 40 MG/PACK PACK NG SCH (09:32)
[2020-05-09] MEDS: HYDROCORTISONE SOD SUCCINATE 100 MG/2 ML VIAL IV SCH ×3 (09:33→17:11)
[2020-05-09] MEDS: PROSOURCE / PROSTAT (PYXIS) 30 ML UDC GT SCH ×2 (09:33→17:13)
--- NOTE | 2020-05-09 09:35 | NUR ---
BOTTLE SORTER NOTES PER DR RAIN OK TO RESUME PRIOR ORDERS, OK TO RESUME FEEDING.
[2020-05-09] MEDS: POTASSIUM CHLORIDE 20 MEQ POWDER PACKET GT SCH ×2 (10:37→11:57)
--- NOTE | 2020-05-09 10:55 | NUR ---
SEWING MACHINE ASSEMBLER NOTES PATIENT OPEN EYES WHEN NAME CALLED, ASKED PATIENT IN [place] TO SQUEEZE HANDS AND MOVE FEET. PATIENT WAS UNABLE TO FOLLOW COMMAND.
--- NOTE | 2020-05-09 11:13 | NUR ---
FLOOR CLERK NOTES CALLED PHARMACY AND INFORMED THAT THE VANCO THROUGH LEVEL IS 20 FROM 05/07/2020. PER PHARMACY THE DOSE IS ADJUSTED AND OK TO ADMINISTER.
[2020-05-09] MEDS: VANCOMYCIN 0.75 GM in IV D5W 250 ML IV SCH ×2 (11:19→23:04)
[2020-05-09] MEDS ORDERED: NEUTRA PHOS 1 POWD.PACKET GT ONE (11:30)
--- NOTE | 2020-05-09 11:39 | NUR ---
LICENSED AUDIOLOGIST NOTES COVID TEST SAMPLE OBTAINED AND SENT TO LAB.
[2020-05-09] MEDS: DIGOXIN 0.25 MG TABLET GT SCH (12:01)
[2020-05-09] MEDS: JEVITY 1.2 CAL 1,000 ML BOTTLE GT PRN (12:02)
[2020-05-09] MEDS: IV NS 0.9% 1,000 ML IV PRN (14:03)
[2020-05-09] MEDS ORDERED: ENOXAPARIN SODIUM 40 MG/0.4 ML DISP.SYRIN SQ SCH (15:00)
[2020-05-09] MEDS: INVESTIGATIONAL MED MISC 1 EA in IV NS 0.9% 250 ML IV SCH (15:35)
--- NOTE | 2020-05-09 18:48 | NUR ---
SERVICING REP NOTES PATIENT IN BED ABLE TO OPEN EYES WHEN TOUCHED AND NAME CALLED. INFORMED THE CURRENT SITUATION TO GRAND DAUGHTER. NO RESIDUAL 20 ML RESIDUAL NOTED FROM THE FEEDING (OG, FOOD). NO COMPLICATION DURING THE SHIFT. REPORT WILL BE GIVEN TO TEACHERS' ASSISTANT NURSE FOR CONOR.
--- NOTE | 2020-05-09 19:05 | NUR ---
CHIEF OF FIELD OPERATIONS NOTE RECEIVED PATIENT IN BED WITH HOB ELEVATED. SEDATED. S/P TRACHEOSTOMY PER AM SHIFT REPORT. BREATHING IS EVEN AND NON-LABORED. TRACH SITE IS NOTED WITH MINIMAL DRY BLOOD ON DRESSING. NO ACTIVE BLEEDING NOTED. ON VERSED AND FENTANYL IV DRIPS. ABLE TO MOVE LOWER EXTREMITIES WITH LIGHT PAIN STIMULATION. PATIENT ON ORAL GT RUNNING AT 10 ML/HR. 10 ML OF RESIDUAL NOTED. BILATERAL UPPER EXTREMITIES NOTED WITH +4 EDEMA. BILATERAL ARMS ELEVATED ON PILLOWS. IV SITES ON MAIKOL AND RIGHT UPPER THIGH ARE CLEAN, DRY, AND PATENT. IV FLUIDS RUNNING AT 75 ML/HR. PATIENT IS ON NAVARRETE CATH, URINE IS CLOUDY AND YELLOW IN COLOR. WILL CONTINUE TO MONITOR.
[2020-05-09] MEDS: MICAFUNGIN SODIUM 100 MG in IV NS 0.9% 100 ML IV SCH (20:04)
[2020-05-10] VITALS (24 sets, daily range): BP systolic 102–170; BP diastolic 57–110
--- NOTE | 2020-05-10 01:00 | NUR ---
INDUSTRIAL CAFETERIA MANAGER NOTE PATIENT REMAINS SEDATED AT THIS TIME. RESPONSIVE TO TACTILE STIMULI. REPOSITIONED Q2H. WILL CONTINUE TO MONITOR.
[2020-05-10] MEDS: FENTANYL CITRAT IV 2,500 MCG in IV NS 0.9% 200 ML IV PRN (02:40)
[2020-05-10] MEDS: MEROPENEM 500 MG in IV NS 0.9% 50 ML IV SCH ×3 (04:28→20:39)
[2020-05-10 04:36] LABS: BASOPHILS % (AUTO) 0.2 % (0.0-2.0); EOSINOPHILS % (AUTO) 0.1 % (0.0-6.0); HEMATOCRIT 32 % (39-51); HEMOGLOBIN 10.6 g/dL (13.5-17.5); LYMPHOCYTES # (AUTO) 0.4 /CMM (0.8-4.8); LYMPHOCYTES % (AUTO) 6.9 % (20.0-44.0); MEAN CORPUSCULAR HGB CONC 33 g/dl (31.0-36.0); MEAN CORPUSCULAR VOLUME 92 fL (80-96); MONOCYTES # (AUTO) 0.6 /CMM (0.1-1.30); MONOCYTES % (AUTO) 9.7 % (2.0-12.0); NEUTROPHILS % (AUTO) 83.1 % (43.0-81.0); PLATELET COUNT (AUTO) 119 /CMM (150-450); RED BLOOD CELL COUNT(AUTO) 3.54 MIL/uL (4.5-6.0); WHITE BLOOD COUNT (AUTO) 6.1 K/uL (4.3-11.0)
[2020-05-10 05:10] LABS: CALCIUM, SERUM 7.6 mg/dL (8.5-10.1); CARBON DIOXIDE 30 mmol/L (21-32); CHLORIDE 105 mmol/L (98-107); CREATININE 1.2 mg/dL (0.6-1.3); GLUCOSE 130 mg/dL (74-106); PHOSPHORUS 2.6 mg/dL (2.5-4.9); POTASSIUM 3.4 mmol/L (3.5-5.1); SODIUM SERUM 140 mmol/L (136-145); UREA NITROGEN, BLOOD 39 mg/dL (7-18)
[2020-05-10] MEDS: IV NS 0.9% 1,000 ML IV PRN ×2 (05:30→18:08)
--- NOTE | 2020-05-10 06:39 | NUR ---
GROUP COUNSELOR NOTE PATIENT REMAINED STABLE THROUGHOUT THE NIGHT. NO SIGNIFICANT CHANGES NOTED. KEPT ON VERSED AND FENTANYL DRIP. ALL DUE MEDS GIVEN ORDERED AND TOLERATED WELL. PATIENT IS KEPT CLEAN, DRY, AND COMFORTABLE. REPOSITIONED Q2H. NO BM NOTED. NOTED 80 ML OF GASTRIC RESIDUAL AT THIS TIME. WILL ENDORSE TO AM SHIFT RN FOR CONTINUATION OF CARE.
--- NOTE | 2020-05-10 07:15 | NUR ---
SAT INSTRUCTOR NOTES RECEIVED PATIENT SEDATED, NOT IN ACUTE DISTRESS , RESPIRATIONS EVEN AND UNLABORED WITH SPO2 OF 100% VIA MECHANICAL VENT SETTINGS ORDERED , TRACH OF SHILEY # [address] , SUTURES INTACT , NO ACTIVE BLEEDING AT THIS TIME AFIB 95 ON BEDSIDE MONITOR , OGT IN PLACE WITH JEVITY @ 20ML/HR , INCREASE RATE @ 30ML/HR NO RESIDUALS NOTED , FC DRAINING VIA GRAVITY , MAIKOL MIDLINE WITH VERSED @ 2MG/HR , FENTANYL @ 3MCG/KG/MIN INFUSING WELL , R THIGH PICC WITH NS @ 75ML/HR INFUSING WELL , ALL NEEDS ATTENDED , WILL CONTINUE TO MONITOR
[2020-05-10] MEDS: PROSOURCE / PROSTAT (PYXIS) 30 ML UDC GT SCH ×2 (08:53→16:24)
[2020-05-10] MEDS: PANTOPRAZOLE 40 MG/PACK PACK NG SCH (08:53)
[2020-05-10] MEDS: HYDROCORTISONE SOD SUCCINATE 100 MG/2 ML VIAL IV SCH ×3 (08:53→16:24)
--- NOTE | 2020-05-10 09:16 | NUR ---
FAMILY CONSUMER SCIENCE TEACHER NOTES VERSED AND FENTANYL DRIP HELD FOR SEDATION VACATION , PT OPENS EYES RESPONSIVE TO VERBAL STIMULI , STILL DROWSY , WILL CONTINUE TO MONITOR
[2020-05-10] MEDS: MORPHINE SULFATE INJ 2 MG/ML DISP.SYRIN IV PRN ×5 (10:04→22:24)
[2020-05-10] MEDS: LORAZEPAM INJ 2 MG/ML VIAL IV PRN ×4 (10:59→21:02)
[2020-05-10] MEDS ORDERED: POTASSIUM CHLORIDE 20 MEQ POWDER PACKET GT ONE (11:00)
[2020-05-10] MEDS: VANCOMYCIN 0.75 GM in IV D5W 250 ML IV SCH (11:20)
[2020-05-10] MEDS: DIGOXIN 0.25 MG TABLET GT SCH (12:07)
--- NOTE | 2020-05-10 12:30 | NUR ---
PATIENT MONITOR NOTES RECEIVED A CALL FROM BLOOD BANK REGARDING 3 CONVALESCENT PLASMA AVAILABLE FOR THE PT , DISCUSSED THAT PT RECEIVED CONVALESCENT PLASMA ALREADY , NOTIFIED DR HARGROVE AND VERIFIED IF HE STILL WANTS TO GIVE THE PLASMA , PER MD NO NEED TO GIVE CONVALESCENT PLASMA
--- NOTE | 2020-05-10 13:21 | NUR ---
DIGITAL PRESS OPERATOR NOTES OGT DISCONTINUED PT IS UNCOMFORTABLE AND BITTING THE OGT , INSERTED LEFT NARE NGT NOTED WITH GURGLING SOUND AROUND STOMACH UPON AUSCULTATION ASPIRATED NOTED WITH GASTRIC FEEDING CONTENT , VERIFIED WITH ANOTHER RN FOR PLACEMENT
[2020-05-10] MEDS: JEVITY 1.2 CAL 1,000 ML BOTTLE GT PRN (16:39)
--- NOTE | 2020-05-10 16:43 | NUR ---
HISTORICAL GUIDE NOTES NOTIFIED DR SALDANA THAT I SPOKE WITH PT RELATIVES , GRANDSON , DISCUSSED PT STATUS , FAMILY IS REQUESTING ZINC AND VIT C TO BE ADDED TO HIS MEDICATIONS , MD AWARE OK TO ADD , ORDERS CARRIED OUT
--- NOTE | 2020-05-10 16:53 | NUR ---
BUNDLE PACKER NOTES SPOKE WITH DR SALDANA , DISCUSSED THAT I SPOKE WITH THE PT GRANDSON EARLIER THAT THEY ARE REQUESTING TO INCREASE IVF TO " RELEASE PT TOXIN IN THE BODY " AND DIURETICS FOR PT HIGH BP OF 160-150MMHG , , CURRENT BP IS 150/71 HR 101 AFIB , ATIVAN AND MORPHINE IVP GIVEN PRN , PER MD START PT ON NORCO 10-325 Q4 , ORDER CARRIED OUT
[2020-05-10] MEDS: HYDROCODONE/APAP 10/325MG TABLET PO PRN ×2 (17:23→23:40)
--- NOTE | 2020-05-10 17:57 | NUR ---
ORACLE MANUFACTURING CONSULTANT NOTES DR HARGROVE AGREED TO DC VERSED AND FENTANYL DRIP . CONTINUE ATIVAN AND MORPHINE IVP PRN ORDER CARRIED OUT
--- NOTE | 2020-05-10 19:11 | NUR ---
GREEN CHAIN OFF BEARER NOTES PATIENT STABLE AT THIS TIME NOT IN ACUTE DISTRESS , RESPIRATIONS EVEN AND UNLABORED WITH SPO2 OF 100% VIA MECHANICAL VENT SETTINGS ORDERED , TRACH OF SHILEY # [address] , SUTURES INTACT , NO ACTIVE BLEEDING AT THIS TIME AFIB 97 ON BEDSIDE MONITOR , LEFT NARE NGT IN PLACE WITH JEVITY @ 30ML/HR , NO RESIDUALS NOTED , FC DRAINING VIA GRAVITY , MAIKOL MIDLINE PATENT AND INTACT, R THIGH PICC WITH NS @ 75ML/HR INFUSING WELL , ALL NEEDS ATTENDED , REPORT GIVEN TO VENESSA FOR CONTINUITY OF CARE
--- NOTE | 2020-05-10 19:20 | NUR ---
RN OPENING NOTE RECEIVED PATIENT IN BED IN SEMI HARRISON'S POSITION. NO SIGNS OR SYMPTOMS OF ACUTE DISTRESS OR DISCOMFORT. RESPIRATIONS EVEN AND UNLABORED, TOLERATING VENT SETTINGS WELL, TRACH SHILEY # [address] , SUTURES INTACT , NO ACTIVE BLEEDING AT THIS TIME. AFIB ON BEDSIDE MONITOR , LEFT NARE NGT IN PLACE VERIFIED VIA AUSCULTATION. WITH JEVITY @ 30ML/HR ORDERED WITH NO GASTRIC RESIDUALS NOTED , NAVARRETE CATHETER PATENT AND IN PLACE DRAINING VIA GRAVITY, MAIKOL MIDLINE PATENT AND INTACT, R THIGH PICC WITH NS @ 75ML/HR INFUSING WELL WITHOUT COMPLICATIONS NOTED AT SITE, ALL NEEDS ATTENDED TO, CALL LIGHT WITHIN REACH, SAFETY MEASURES IN PLACE, WILL MONITOR PATIENT.
[2020-05-10] MEDS: MICAFUNGIN SODIUM 100 MG in IV NS 0.9% 100 ML IV SCH (19:32)
--- NOTE | 2020-05-10 20:04 | NUR ---
RT NOTE Pt rec'd trached. Pt on [facility] vent on AC mode settings as charted. Pt shows no signs of resp distress or sob. Alarms are set and audible. ambu bag bedside. Vent plugged into red outlet. Will continue to monitor closely. Addendum: 05/10/20 at 2004 by JEAN CLAUDE SAMSON RT Amended: Links added.
[2020-05-10] MEDS: VANCOMYCIN 500 MG in IV D5W 100 ML IV SCH (22:24)
[2020-05-11] VITALS (37 sets, daily range): BP systolic 122–183; BP diastolic 63–129
[2020-05-11] MEDS: LORAZEPAM INJ 2 MG/ML VIAL IV PRN ×5 (00:03→15:07)
[2020-05-11] MEDS ORDERED: LIDOCAINE 1%-EPI 1:100,000 20 ML VIAL ONE (01:44)
[2020-05-11 01:50] LABS: BASOPHILS # (AUTO) 0.1 /CMM (0.0-0.2); HEMATOCRIT 36 % (39-51); HEMOGLOBIN 11.6 g/dL (13.5-17.5); LYMPHOCYTES # (AUTO) 0.5 /CMM (0.8-4.8); LYMPHOCYTES % (AUTO) 6.2 % (20.0-44.0); MEAN CORPUSCULAR HGB CONC 32 g/dl (31.0-36.0); MEAN CORPUSCULAR VOLUME 92 fL (80-96); MONOCYTES # (AUTO) 0.7 /CMM (0.1-1.30); MONOCYTES % (AUTO) 8.1 % (2.0-12.0); NEUTROPHILS % (AUTO) 84.7 % (43.0-81.0); PLATELET COUNT (AUTO) 159 /CMM (150-450); RED BLOOD CELL COUNT(AUTO) 3.91 MIL/uL (4.5-6.0); WHITE BLOOD COUNT (AUTO) 8.3 K/uL (4.3-11.0)
--- NOTE | 2020-05-11 02:40 | NUR ---
RN NOTE PT NOTED TO BE PROFUSELY BLEEDING FROM TRACH SITE. RT CALLED AT BEDSIDE WHO APPLIED COLD COMPRESS TO SITE AND LAVAGED SITE WITH ICE COLD SALINE. ER CALLED AND ASSESSED SITE FOR POSSIBLE REPAIR OF SUTURES. ER DOCTOR STATES THAT THERE IS NOT ANYTHING HE CAN DO ABOUT SINCE BLEEDING MIGHT BE COMING FROM INSIDE AND THAT THE SUTURES ARE IN PLACE. PER MD, FEEDING STOPPED AND CONNECTED TO LOW INTERMITTENT SUCTION WHICH SHOWS BLOOD TINGED DRAINAGE. STAT LABS DONE AND PENDING. BLEEDING STOPPED FOR NOW. WILL MONITOR PATIENT CLOSELY. Addendum: 05/11/20 at 0422 by VENESSA ROBBINS RN AMANDA MASTERSON (CERAMIST) MADE AWARE AND AGREES WITH ER PHYSICIAN'S PLAN OF CARE. WILL NOTIFY PASTA MAKER IN AM TO FURTHER ASSESS TRACH.
[2020-05-11] MEDS: MORPHINE SULFATE INJ 2 MG/ML DISP.SYRIN IV PRN ×5 (02:42→15:07)
--- NOTE | 2020-05-11 02:46 | NUR ---
RT NOTE WAS CALLED TO ASSESS TRACH FOR BLEEDING BY HEAD UP OPERATOR. WHEN ON SITE NOTICED A LARGE AMOUNT OF BLEEDING AROUND THE NEW TRACH SITE (SHILEY 8 DCT). KENJI CLIFFORD WAS IN THE ROOM. WENT TO GRAB A CUP OF ICE TO PLACE SALINE BULLETS INTO CUP FOR COLD LAVAGE. GOWNED UP TO ENTER ROOM. STARTED TO ASSESS SITE AND NOTED BLEEDING AROUND NEW TRACH SITE. LAVAGED AROUND AND IN TRACH SITE. NO BLOOD WHEN SUCTIONING WITH IN LINE CATHETER. LAVAGED 3X W/ ICED SALINE BULLETS AND IT WAS CLEAR OF BLOOD. HELD ICE IN SMALL TOWEL TO TRACH SITE TO STOP BLEEDING. CALLED RT LEAD TO HELP ASSESS SITE WELL. SPO2 96-98% T/O ORDEAL ON CURRENT VENT SETTING. CALLED ER DOCTOR TO ASSESS SITE AND SAID TO NOTIFY WAREHOUSE STOCK CLERK. KENJI CLIFFORD HAD LABS DONE. AWAITING LAB RESULTS. BLEEDING STOPPED/CLOTTED. CHANGED TRACH TIE AND CLEANED UP SITE MUCH POSSIBLE. NOTED SMALL CLOTS WHEN CLEANED WITH COLD WASH CLOTH. SUCTIONED ORALLY AND GOT THIN PINK SECRETIONS. WILL CONTINUE TO MONITOR T/O REST OF SHIFT.
--- NOTE | 2020-05-11 04:00 | NUR ---
RN NOTE REASSESSED TRACH SITE. NO FURTHER BLEEDING NOTED WITH SMALL CLOTS AROUND STOMA. H/H WNL. PENDING FIBRINOGEN AND D. DIMER. V/S WNL. WILL CONTINUE TO MONITOR.
[2020-05-11] MEDS: MEROPENEM 500 MG in IV NS 0.9% 50 ML IV SCH ×3 (04:06→21:08)
[2020-05-11 04:39] LABS: D-DIMER 10.45 mg/L(FEU (0.17-0.50)
[2020-05-11 04:57] LABS: BASOPHILS % (AUTO) 0.1 % (0.0-2.0); EOSINOPHILS % (AUTO) 0.1 % (0.0-6.0); HEMATOCRIT 33 % (39-51); HEMOGLOBIN 10.7 g/dL (13.5-17.5); LYMPHOCYTES # (AUTO) 0.6 /CMM (0.8-4.8); LYMPHOCYTES % (AUTO) 7.5 % (20.0-44.0); MEAN CORPUSCULAR HGB CONC 33 g/dl (31.0-36.0); MEAN CORPUSCULAR VOLUME 91 fL (80-96); MONOCYTES # (AUTO) 0.8 /CMM (0.1-1.30); MONOCYTES % (AUTO) 9.7 % (2.0-12.0); NEUTROPHILS # (AUTO) 6.8 /CMM (1.8-8.9); NEUTROPHILS % (AUTO) 82.6 % (43.0-81.0); PLATELET COUNT (AUTO) 158 /CMM (150-450); RED BLOOD CELL COUNT(AUTO) 3.57 MIL/uL (4.5-6.0); WHITE BLOOD COUNT (AUTO) 8.3 K/uL (4.3-11.0)
--- NOTE | 2020-05-11 05:00 | NUR ---
RN NOTE NO FURTHER BLEEDING NOTED FROM TRACH SITE. NGT SUCTION NOTED WITH BROWN DRAINAGE WITH SMALL AMOUNTS OF BLOOD. TRACH SUCTIONING DONE WITH PINK TINGED SECRETIONS. ORAL SUCTIONING DONE WITH MICHAEL COLORED SPUTUM. NO SIGNS OF DISTRESS AT THIS TIME, WILL CONTINUE TO MONITOR PATIENT CLOSELY.
[2020-05-11 05:12] LABS: CALCIUM, SERUM 7.9 mg/dL (8.5-10.1); CREATININE 1.3 mg/dL (0.6-1.3); MAGNESIUM 2.2 mg/dL (1.8-2.4); PHOSPHORUS 2.7 mg/dL (2.5-4.9); POTASSIUM 3.5 mmol/L (3.5-5.1)
--- NOTE | 2020-05-11 06:33 | NUR ---
RN NOTE NOTED WITH SMALL AMOUNTS OF BLEEDING FROM SITE. REINFORCED SITE WITH RESOLVEMENT. CALLED DR. RAIN ([phone]) AND GAVE UPDATE REGARDING CHANGE OF CONDITION. PER MD, CONTINUE TO MONITOR AND REINFORCE PRN AND CALL MD AGAIN IF BLEEDING PERSISTS. WILL ENDORSE TO AM SHIFT.
--- NOTE | 2020-05-11 07:10 | NUR ---
RN NOTES RECEIVED PATIENT ON BED, TRACH/ VENT DEPENDENT , SMALL AMOUNT OF BLOODY DRAINAGE NOTED AT THE TRACH SITE , CONTINUE TO MONITOR THE DRAINAGE, ON TELE A. FIB HR IN 100'S, NGT TO LIS WITH BLOODY DRANING , O2 SAT WNL, TOLERATING VENT SETTING WELL, NAVARRETE CATHETER PATENT AND IN PLACE DRAINING VIA GRAVITY, R UA MIDLINE PATENT AND INTACT, R THIGH PICC WITH NS @ 75ML/HR INFUSING WELL WITHOUT COMPLICATIONS NOTED AT SITE, ALL NEEDS ATTENDED TO, CALL LIGHT WITHIN EASY REACH, SR UP x3. SAFETY MEASURES IN PLACE, WILL CONTINUE ZENAIDA MONITOR CLOSELY.
[2020-05-11] MEDS: HYDROCORTISONE SOD SUCCINATE 100 MG/2 ML VIAL IV SCH ×3 (08:17→16:46)
[2020-05-11] MEDS: PROSOURCE / PROSTAT (PYXIS) 30 ML UDC GT SCH ×2 (08:45→16:31)
[2020-05-11] MEDS: ASCORBIC ACID 500 MG TABLET NG SCH (08:46)
[2020-05-11] MEDS: ZINC SULFATE 220 MG CAPSULE NG SCH (08:46)
[2020-05-11] MEDS: PANTOPRAZOLE 40 MG/PACK PACK NG SCH (08:46)
--- NOTE | 2020-05-11 10:40 | NUR ---
RN NOTES DR ALFORD NOTIFIED REGARDING BP AND A.FIB HR IN 120'S . CONTINUE TO MONITOR.
--- NOTE | 2020-05-11 10:48 | NUR ---
RN NOTES DR PHAM NOITFED REGARDING HIGH BP AND HR A.FIB 120'S AND SOME BLEEDING FORM TRACH SITE, CONTINUE TO MONITOR PER DR PHAM .
[2020-05-11] MEDS ORDERED: DILTIAZEM HCL IV 125 MG in IV NS 0.9% 100 ML IV PRN (11:00)
[2020-05-11] MEDS: IV NS 0.9% 1,000 ML IV PRN (11:09)
[2020-05-11] MEDS: Z GUARD REMEDY 2 OZ OINT TP PRN (11:11)
[2020-05-11] MEDS: VANCOMYCIN 500 MG in IV D5W 100 ML IV SCH ×2 (11:12→22:07)
[2020-05-11] MEDS: METOPROLOL TARTRATE 50 MG TABLET PO SCH ×3 (12:12→23:26)
[2020-05-11] MEDS: DIGOXIN 0.25 MG TABLET GT SCH (13:03)
[2020-05-11] MEDS: hydrALAZINE HCL IV 20 MG VIAL IV PRN ×2 (15:26→21:12)
--- NOTE | 2020-05-11 16:00 | NUR ---
RN NOTES TRACH SITE OOZING STOPPED, TRACH CARE DONE, NGT STILL TO LIS , MODERATE AMOUNT OF BLOODY GASTRIC DRAINAGE NOTED, MD AWARE , CONTINUE TO MONITOR.
--- NOTE | 2020-05-11 17:39 | NUR ---
RT NOTE PT REMAINS MECHANICALLY VENTILATED VIA CUFFED TRACHEOSTOMY TUBE. CUFF INFLATED. TRACH TUBE MIDLINE AND SECURE. VENTILATOR SETTINGS PRESCRIBED. ALARMS SET PER PROTOCOL AND AUDIBLE. VENT PLUGGED IN TO RED OUTLET. AMBU BAG AT BED SIDE. NO DISTRESS NOTED. WEANING HELD DUE TO FRESH BLOOD IN SECRETIONS AND AROUND STOMA. RN AWARE. COLD SALINE LAVAGE TECHNIQUE APPLIED DURING SUCTIONING. Addendum: 05/11/20 at 1743 by JENNIFER KAMINSKI RT Amended: Links added.
--- NOTE | 2020-05-11 18:31 | NUR ---
RN NOTES NO MORE DRAINAGE NOTED AROUND THE TRACH SITE, TOLERATING ON TELE A.FIB HR IN 90'S , NAVARRETE DRAINING TO GRAVITY, NGT TO LIS, NS AT 75CC/HR RUNNING VIA R THIGH PICC LINE SITE, CLEAN,DRY AND INTACT, SR UP x3, CALL LIGHT WITHIN EASY REACH, BED LOCKED AND IN LOWEST POSITION, WILL ENDORSE TO WATERWORKS CHIEF ENGINEER NURSE FOR CONTINUITY OF CARE .
[2020-05-11] MEDS: MICAFUNGIN SODIUM 100 MG in IV NS 0.9% 100 ML IV SCH (19:49)
--- NOTE | 2020-05-11 19:50 | NUR ---
RN NOTE NO BLEEDING NOTED AT TRACH SITE. WILL CONTINUE TO MONITOR.
--- NOTE | 2020-05-11 21:03 | NUR ---
RN NOTE SPOKE TO TAVO (GRAND DAUGHTER) FOR CONSENT FOR PEG TUBE PLACEMENT. WILL CALL BACK. Addendum: 05/11/20 at 2310 by VENESSA ROBBINS RN FAMILY STILL DECIDING WHETHER THEY WANT TO CONTINUE WITH PEG TUBE PLACEMENT. WILL FOLLOW UP IN AM.
[2020-05-12] VITALS (31 sets, daily range): BP systolic 104–195; BP diastolic 56–125
--- NOTE | 2020-05-12 | NUR ---
RN ANIKA SPOKE TO TAVO STRONG (GRAND DAUGHTER) AND OBTAINED TELEPHONE CONSENT FOR PEG TUBE PLACEMENT WITNESSED BY KENJI NAVARRETE.
[2020-05-12] MEDS: MORPHINE SULFATE INJ 2 MG/ML DISP.SYRIN IV PRN ×2 (01:10→14:58)
[2020-05-12 01:48] LABS: APPEARANCE,URINE SL CLOUDY (CLEAR); BILIRUBIN,URINE NEGATIVE (NEGATIVE); BLOOD, URINE LARGE Ery/uL (NEGATIVE); COLOR,URINE YELLOW (YELLOW); KETONES,URINE NEGATIVE (NEGATIVE); LEUKOCYTE ESTERASE ,URINE NEGATIVE (NEGATIVE); NITRITE, URINE NEGATIVE (NEGATIVE); PH,URINE 5.5 (5.0-8.0); PROTEIN,URINE NEGATIVE (NEGATIVE); UGLUCOSE NEGATIVE (NEGATIVE); UROBILINOGEN,URINE 0.2 EU/dL (0.2)
[2020-05-12] MEDS: LORAZEPAM INJ 2 MG/ML VIAL IV PRN (02:02)
[2020-05-12] MEDS: IV NS 0.9% 1,000 ML IV PRN ×2 (02:10→23:08)
[2020-05-12] MEDS: MEROPENEM 500 MG in IV NS 0.9% 50 ML IV SCH ×3 (04:14→21:00)
[2020-05-12 04:52] LABS: BASOPHILS % (AUTO) 0.1 % (0.0-2.0); EOSINOPHILS % (AUTO) 0.1 % (0.0-6.0); HEMATOCRIT 30 % (39-51); HEMOGLOBIN 9.8 g/dL (13.5-17.5); LYMPHOCYTES # (AUTO) 0.9 /CMM (0.8-4.8); MEAN CORPUSCULAR HGB CONC 33 g/dl (31.0-36.0); MEAN CORPUSCULAR VOLUME 91 fL (80-96); MONOCYTES # (AUTO) 0.8 /CMM (0.1-1.30); MONOCYTES % (AUTO) 8.4 % (2.0-12.0); NEUTROPHILS # (AUTO) 7.9 /CMM (1.8-8.9); NEUTROPHILS % (AUTO) 82.4 % (43.0-81.0); PLATELET COUNT (AUTO) 191 /CMM (150-450); RED BLOOD CELL COUNT(AUTO) 3.27 MIL/uL (4.5-6.0); WHITE BLOOD COUNT (AUTO) 9.6 K/uL (4.3-11.0)
[2020-05-12] MEDS: METOPROLOL TARTRATE 50 MG TABLET PO SCH ×4 (05:02→23:35)
[2020-05-12 05:37] LABS: CALCIUM, SERUM 7.8 mg/dL (8.5-10.1); CARBON DIOXIDE 30 mmol/L (21-32); CREATININE 1.2 mg/dL (0.6-1.3); GLUCOSE 120 mg/dL (74-106); MAGNESIUM 2.1 mg/dL (1.8-2.4); PHOSPHORUS 2.7 mg/dL (2.5-4.9); UREA NITROGEN, BLOOD 36 mg/dL (7-18)
[2020-05-12 05:53] LABS: CHLORIDE 105 mmol/L (98-107); SODIUM SERUM 141 mmol/L (136-145)
[2020-05-12 06:08] LABS: POTASSIUM 2.6 mmol/L (3.5-5.1)
--- NOTE | 2020-05-12 06:14 | NUR ---
RN NOTE RECEIVED ALERT FOR POTASSIUM 2.6. PAGED BO CALVILLO HAT CONDITIONER HOSPICE MANAGER.
--- NOTE | 2020-05-12 06:26 | NUR ---
RN NOTE AMANDA CALVILLO GENERAL PASSENGER AGENT SCHOOL PSYCHOLOGY PROFESSOR NOTIFIED OF CRITICAL LAB RESULT WITH ORDER TO ADMINISTER POTASSIUM CHLORIDE 60MEQ VIA IV. ORDER NOTED AND CARRIED OUT.
[2020-05-12] MEDS: POTASSIUM CL. PREMIX PERIPHER. 50 ML IV SCH ×6 (07:00→14:58)
[2020-05-12] MEDS: ZINC SULFATE 220 MG CAPSULE NG SCH (08:44)
[2020-05-12] MEDS: ASCORBIC ACID 500 MG TABLET NG SCH (08:44)
[2020-05-12] MEDS: PANTOPRAZOLE 40 MG/PACK PACK NG SCH (08:44)
[2020-05-12] MEDS: PROSOURCE / PROSTAT (PYXIS) 30 ML UDC GT SCH ×2 (08:45→17:00)
[2020-05-12] MEDS: HYDROCORTISONE SOD SUCCINATE 100 MG/2 ML VIAL IV SCH ×3 (09:29→17:59)
[2020-05-12] MEDS: POTASSIUM CHLORIDE 20 MEQ TAB.PRT.SR PO SCH ×3 (10:00→12:00)
[2020-05-12] MEDS: VANCOMYCIN 500 MG in IV D5W 100 ML IV SCH ×2 (11:52→23:08)
[2020-05-12] MEDS: DIGOXIN 0.25 MG TABLET GT SCH (12:07)
[2020-05-12] MEDS ORDERED: POTASSIUM CHLORIDE 20 MEQ POWDER PACKET GT ONE (12:30)
[2020-05-12] MEDS: hydrALAZINE HCL IV 20 MG VIAL IV PRN (13:24)
[2020-05-12] MEDS ORDERED: ALBUMIN 5% 12.5 GM in PREMIX 1 EA IV ONE (15:00)
--- NOTE | 2020-05-12 17:39 | NUR ---
RT NOTE PT REMAINS MECHANICALLY VENTILATED VIA CUFFED TRACHEOSTOMY. CUFF INFLATED. TRACH TUBE MIDLINE AND SECURE. VENTILATOR SETTINGS PRESCRIBED. ALARMS SET PER PROTOCOL AND AUDIBLE. VENT PLUGGED IN TO RED OUTLET. AMBU BAG AT BED SIDE. NO DISTRESS NOTED. Addendum: 05/12/20 at 1740 by JENNIFER KAMINSKI RT Amended: Links added.
--- NOTE | 2020-05-12 18:52 | NUR ---
RN NOTES: PATIENT REMAINS STABLE SINCE RECEIVED, NO SOB, RESPIRATORY DISTRESS, VITAL WNL, SAFETY MEASURES MAINTAINED, CALL LIGHT WITHIN REACH, WILL ENDORSE TO PM NURSE FOR CONTINUATION OF CARE.
[2020-05-12] MEDS: MICAFUNGIN SODIUM 100 MG in IV NS 0.9% 100 ML IV SCH (20:18)
[2020-05-12] MEDS: ACETAMINOPHEN 650 MG/20.3 ML UDC GT PRN (20:40)
--- NOTE | 2020-05-12 20:40 | NUR ---
Received patient drowsy non verbal with trach to vent on full vent support tolerating well. Sat 97%.ST 101 -105.Feverish temp 100.5 prn Tylenol given and cooling measures done.NGT to LIS draining coffee ground output.Maintenance IVF infusing via R upper thigh site intact. FC to gravity drainage.Turned and repositioned.No acute distress noted.Continue monitoring.
[2020-05-12] MEDS: PANTOPRAZOLE 40 MG VIAL IV SCH (20:41)
[2020-05-12] MEDS ORDERED: IV NS 0.9% 250 ML IV ONE (23:30)
--- NOTE | 2020-05-12 23:50 | NUR ---
Patient grandson Mj called and updated of patient status..
[2020-05-13] VITALS (46 sets, daily range): BP systolic 83–180; BP diastolic 43–112
[2020-05-13] MEDS: hydrALAZINE HCL IV 20 MG VIAL IV PRN ×3 (00:42→23:04)
[2020-05-13] MEDS: MORPHINE SULFATE INJ 2 MG/ML DISP.SYRIN IV PRN ×4 (01:51→20:05)
--- NOTE | 2020-05-13 01:51 | NUR ---
Patient tachy 150's and grimacing.PRN morphine administered.Turned and repositioned.Continue monitoring.
[2020-05-13] MEDS: LORAZEPAM INJ 2 MG/ML VIAL IV PRN ×3 (02:42→13:53)
--- NOTE | 2020-05-13 02:47 | NUR ---
Patient agitated and tachycardic 150's.PRN Ativan administered.Will continue to monitor.
[2020-05-13 04:44] LABS: BASOPHILS % (AUTO) 0.2 % (0.0-2.0); EOSINOPHILS % (AUTO) 0.1 % (0.0-6.0); HEMATOCRIT 27 % (39-51); LYMPHOCYTES # (AUTO) 0.7 /CMM (0.8-4.8); LYMPHOCYTES % (AUTO) 8.2 % (20.0-44.0); MEAN CORPUSCULAR HGB CONC 33 g/dl (31.0-36.0); MEAN CORPUSCULAR VOLUME 91 fL (80-96); MONOCYTES # (AUTO) 0.7 /CMM (0.1-1.30); MONOCYTES % (AUTO) 8.1 % (2.0-12.0); NEUTROPHILS # (AUTO) 7.4 /CMM (1.8-8.9); NEUTROPHILS % (AUTO) 83.4 % (43.0-81.0); PLATELET COUNT (AUTO) 202 /CMM (150-450); RED BLOOD CELL COUNT(AUTO) 3.02 MIL/uL (4.5-6.0); WHITE BLOOD COUNT (AUTO) 8.9 K/uL (4.3-11.0)
[2020-05-13 05:20] LABS: BILIRUBIN,DIRECT 1.8 mg/dL (0.0-0.2); BILIRUBIN,TOTAL 2.6 mg/dL (0.2-1.0); CALCIUM, SERUM 7.7 mg/dL (8.5-10.1); CREATININE 1.2 mg/dL (0.6-1.3); MAGNESIUM 2.1 mg/dL (1.8-2.4); PHOSPHORUS 2.3 mg/dL (2.5-4.9); TOTAL PROTEIN, SERUM 4.8 g/dL (6.4-8.2)
[2020-05-13] MEDS: MEROPENEM 500 MG in IV NS 0.9% 50 ML IV SCH ×3 (05:21→21:05)
[2020-05-13 05:26] LABS: POTASSIUM 2.7 mmol/L (3.5-5.1)
[2020-05-13] MEDS: METOPROLOL TARTRATE 50 MG TABLET PO SCH (05:29)
[2020-05-13] MEDS: POTASSIUM CL. PREMIX PERIPHER. 50 ML IV SCH ×6 (06:30→12:59)
--- NOTE | 2020-05-13 06:30 | NUR ---
Patient resting vs stable SR 90's. No distress noted.AM care done.BM X 1 small amount. Kept clean and dry.Turned and repositioned.AM labs resulted K+2.7 called to [facility] with orders.To give 60 meq of KCL. 1st bag 10 meq infusing.And to give Potassium Phosphate 15 mmol.Pharmacy to mix.Will endorse to day shift for CON[facility].
--- NOTE | 2020-05-13 07:30 | NUR ---
HAND GLOVE CLEANER INITIAL NOTE RECEIVED PATIENT SLEEPING, NO S/S OF PAIN OR DISCOMFORT. NO DISTRESS NOTED. TOLERATING CURRENT VENT SETTINGS. LEFT NARE NGT PATENT, INTACT, IN PLACE, ON LIS WITH DARK BROWN OUTPUT NOTED. ON TELE MONITOR SR WITH OCC PVCS. HOB ELEVATED. SIDE RAILS UP AND LOCKED. BED KEPT AT LOWEST POSITION. WILL CONTINUE TO MONITOR.
[2020-05-13] MEDS ORDERED: POTASSIUM PHOSPHATE MM 15 MMOL in IV D5W 250 ML IV SCH (08:00)
[2020-05-13] MEDS: PANTOPRAZOLE 40 MG VIAL IV SCH ×2 (08:32→21:05)
[2020-05-13] MEDS: HYDROCORTISONE SOD SUCCINATE 100 MG/2 ML VIAL IV SCH ×3 (08:33→18:24)
[2020-05-13] MEDS: PROSOURCE / PROSTAT (PYXIS) 30 ML UDC GT SCH ×2 (08:33→16:28)
[2020-05-13] MEDS: ASCORBIC ACID 500 MG TABLET NG SCH (08:33)
[2020-05-13] MEDS: ZINC SULFATE 220 MG CAPSULE NG SCH (08:33)
[2020-05-13] MEDS: VANCOMYCIN 500 MG in IV D5W 100 ML IV SCH ×2 (11:00→23:00)
--- NOTE | 2020-05-13 11:05 | NUR ---
DEVELOPING MACHINE OPERATOR NOTE UPDATES GIVEN TO MADDY TARANGO, RELAYED TO DR SALDANA FAMILY WOULD LIKE TO SPEAK WITH HER.
--- NOTE | 2020-05-13 11:20 | NUR ---
CONCHE LOADER AND UNLOADER NOTE CLARIFIED LOPRESSOR ORDER WITH DR SALDANA, MEDICATION IS PO AND PATIENT IS NPO. PER MD OK TO CHANGE MEDICATION ROUTE TO IV.
--- NOTE | 2020-05-13 11:46 | NUR ---
PSYCHIATRIC NURSE NOTE RELAYED TO DR SALDANA PATIENT RECEIVES LOPRESSOR 50MG Q6, PER PHARMACY THERE'S NO EQUIVALENT TO THE RECENT DOSE FOR IVP, PER PHARMACY IT CAN BE EITHER 2.5MG OR 5MG IVP. PER MD CHANGE TO 5MG IVP. NOTED
[2020-05-13] MEDS: METOPROLOL TARTRATE INJ 5 MG/5 ML AMPUL IVP SCH ×2 (12:02→18:25)
[2020-05-13 12:04] LABS: THYROID STIMULATING HORMONE 0.31 uIU/mL (0.358-3.74)
--- NOTE | 2020-05-13 12:09 | NUR ---
BODY TEAM MEMBER NOTE SPOKE WITH DR SALDANA, TELEPHONE ORDERS RECEIVED. KEEP PATIENT NPO, DIETARY CONSULT TO INITIATE TPN, CHANGE DIGOXIN TO IVP. NOTED.
[2020-05-13] MEDS: DIGOXIN INJ 0.5 MG/2 ML AMPUL IV SCH (13:02)
--- NOTE | 2020-05-13 13:57 | NUR ---
TOP IRONER NOTE PATIENT NOTED TO BE RESTLESS, TACHYPNEIC, SEEN BY DR HARGROVE. OK TO GIVE MORPHINE AND ATIVAN ORDERED.
--- NOTE | 2020-05-13 14:50 | NUR ---
ASSISTANCE SPECIALIST NOTE INFORMED DR HARGROVE PATIENT IS TACHYPNEIC EVEN AFTER ATIVAN AND MORPHINE BEING GIVEN. PATIENT IS RESTLESS. NEW ORDERS RECEIVED TO START PATIENT ON DIPRIVAN AND CHECK TRIGLYCERIDE LEVEL TOMORROW MORNING. NOTED
[2020-05-13] MEDS: PROPOFOL 100 ML IV PRN (15:30)
--- NOTE | 2020-05-13 16:10 | NUR ---
STONE DECORATOR NOTE NOTE PATIENT WITH SPO2 <94%, RT INFORMED. FIO2 INCREASED TO 50%. PATIENT RESTING COMFORTABLY AT THIS TIME.
--- NOTE | 2020-05-13 19:10 | NUR ---
RN OPENING NOTES: RECEIVED PATIENT SEDATED WITH DIPRIVAN AT 10MCG/KG/MIN;NOT ON RESPIRATORY DISTRESS. PATIENT ON MECHANICAL VENT; SETTINGS PRESCRIBED; PT TOLERATED WELL. AMBU BAG AT BED SIDE ALARMS SET PER PROTOCOL AND AUDIBLE. VENT PLUGGED IN TO RED OUTLET. NO DISTRESS NOTED. PATIENT ON TELE MONITORING READING SINUS RHYTHM HR IS 90s UPON RECEIVED. NOTED NGT IN PLACED. PLACEMENT VERIFIED WITH AUSCULTATION. NOTED RESIDUAL OF SMALL AMOUNT OF BLACK/BROWN GASTRIC DRAINAGE. PT ON NPO. NOTED IV SITE ON R UA MIDLINE AND R U THIGH PICC LINE; PATENT IN INTACT,NO S/S OF INFECTION OR INFILTRATION. NAVARRETE CATH IN PLACE, MODERATE URINE OUTPUT NOTED . PATIENT WITH DVT PUMP.SAFETY MEASURES HAVE BEEN PROVIDED AND IMPLEMENTED. PATIENT BED ALARM IS ON. HEAD OF BED ELEVATED. BED IS LOCKED, IN LOWEST POSITION AND SIDE RAILS UP. CALL LIGHT WITHIN REACH OF THE PATIENT. ISOLATION PRECAUTIONS IN PLACE. WILL CONTINUE TO MONITOR AND REASSESS FOR ANY CHANGES.
[2020-05-13] MEDS: MICAFUNGIN SODIUM 100 MG in IV NS 0.9% 100 ML IV SCH (20:02)
--- NOTE | 2020-05-13 20:05 | NUR ---
CLINIC MGR NOTES MORPHINE GIVEN OF 2MG/ML; CURRENT BP IS AT 175/103. NOTED SLIGHT RESTLESSNESS AND FACIAL GRIMACING. WILL RE-EVALUATE AFTER 30MINS TO AN HOUR; IF BP IS STILL >160 WILL ADMINISTER APRESOLINE IV (PRN). EPIDEMIOLOGIST MADE AWARE. WILL CONTINUE TO MONITOR
--- NOTE | 2020-05-13 21:30 | NUR ---
ARTIFICIAL STONE APPLICATOR NOTES COMMUNICATED WITH WILLIS GODINEZ, ADVISED THAT DR. SALDANA ORDERED DUE TO LOW TSH, PATIENT IS CURRENTLY ON NPO AND WITH NGT. AM SHIFT RN ABLE TO DRAIN 50CC OF BLOODY GASTRIC DRAINAGE; VERIFIED FROM WILLIS GODINEZ IF PROPYTHIOURACIL 50MG/1TAB BE GIVEN SCHEDULED. BO SAID NO AND PUT HOLD ANY PO MEDS AND RE-EVALUATE IN THE MORNING. WOODS SUPERINTENDENT MADE AWARE. PLAN: WILL ENDORSE TO AM SHIFT TO RE-EVALUATE IN THE MORNING AND ADDRESS WITH MD FOR PLAN.
--- NOTE | 2020-05-13 21:30 | NUR ---
LUMBER TRIMMER NOTES\\ Addendum: 05/13/20 at 2138 by MIKE CAREY RN IC
--- NOTE | 2020-05-13 23:05 | NUR ---
CREW PERSON NOTES NOTED PT'S BP @ 169/112 AND HR @100, ADMINSTERED CARRIED OUT PRN MEDS OF APRESOLINE IV/HYRALAZINE HCL IV 10MG<0.5ML> GLASS CUTTER HELPER MADE AWARE. WILL CONTINUE TO REASSESS AND MONITOR
[2020-05-14] VITALS (39 sets, daily range): BP systolic 104–162; BP diastolic 59–117
[2020-05-14] MEDS: PROPOFOL 100 ML IV PRN ×2 (00:03→17:09)
[2020-05-14] MEDS: LORAZEPAM INJ 2 MG/ML VIAL IV PRN (00:22)
[2020-05-14] MEDS: METOPROLOL TARTRATE INJ 5 MG/5 ML AMPUL IVP SCH ×4 (00:45→17:18)
--- NOTE | 2020-05-14 00:54 | NUR ---
BUFFING WHEEL INSPECTOR NOTES RECEIVED CALL FROM PATIENT'S GRAND DAUGHTER TAVO, SHE IS TRYING TO GET MEDICAL SPECIFIC INFORMATION REGARDING PATIENT , EXPLAINED TO HER THAT SPECIFIC DETAILS REGARDING PT'S TREATMENT SHOULD BE COURSED THROUGH PT'S PHYSICIAN, RN ONLY PROVIDED SIMPLE INFO REGARDING LIKE CURRENT VITALS. SPECIFIC MEDICATIONS AND TREATMENT WERE NOT PROVIDED.CONSULTING SERVICES ASSOCIATE MADE AWARE.
[2020-05-14 04:27] LABS: BASOPHILS % (AUTO) 0.3 % (0.0-2.0); EOSINOPHILS % (AUTO) 0.1 % (0.0-6.0); HEMATOCRIT 26 % (39-51); HEMOGLOBIN 8.6 g/dL (13.5-17.5); LYMPHOCYTES # (AUTO) 0.6 /CMM (0.8-4.8); LYMPHOCYTES % (AUTO) 6.9 % (20.0-44.0); MEAN CORPUSCULAR HGB CONC 33 g/dl (31.0-36.0); MEAN CORPUSCULAR VOLUME 90 fL (80-96); MONOCYTES # (AUTO) 0.6 /CMM (0.1-1.30); MONOCYTES % (AUTO) 6.9 % (2.0-12.0); NEUTROPHILS # (AUTO) 7.7 /CMM (1.8-8.9); NEUTROPHILS % (AUTO) 85.8 % (43.0-81.0); PLATELET COUNT (AUTO) 208 /CMM (150-450); RED BLOOD CELL COUNT(AUTO) 2.91 MIL/uL (4.5-6.0); WHITE BLOOD COUNT (AUTO) 8.9 K/uL (4.3-11.0)
[2020-05-14 04:28] LABS: CALCIUM, SERUM 7.6 mg/dL (8.5-10.1); CREATININE 1.1 mg/dL (0.6-1.3); PHOSPHORUS 3.2 mg/dL (2.5-4.9)
[2020-05-14 04:50] LABS: POTASSIUM 2.7 mmol/L (3.5-5.1)
--- NOTE | 2020-05-14 05:12 | NUR ---
MANAGER MANAGED BACKUP SERVICES NOTES RECEIVED CALL FROM LAB ([facility]) REGARDING POTASSIUM LEVEL @2.7. GOAT DRIVER MADE AWARE, ALSO COMMUNICATED WITH WILLIS GODINEZ TO RELAY CRITICAL LAB VALUE. WILLIS GODINEZ ORDERED POTASSIUM REPLACEMENT 6 BAGS. WILL CARRY OUR ORDER. GOAT DRIVER WELL AWARE.
[2020-05-14] MEDS: MEROPENEM 500 MG in IV NS 0.9% 50 ML IV SCH ×3 (05:19→20:18)
[2020-05-14] MEDS: POTASSIUM CL. PREMIX PERIPHER. 50 ML IV SCH ×12 (05:50→20:42)
--- NOTE | 2020-05-14 06:43 | NUR ---
CASTING CHIPPER CLOSING NOTES PATIENT RESTING IN BED COMFORTABLY,PT SEDATED WELL WITH (10 )MCG/KG/M OF DIPRIVAN. TOLERATING VENT SETTINGS ORDERED. NO SIGNS OF ACUTE DISTRESS. BREATHING EVEN AND UNLABORED. TELE MONITORS READING SR (HR -90s). VITAL SIGNS WNL. IV LINE REMAINED PATENT AND INTACT WITHIN END OF SHIFT. SAFETY PRECAUTIONS IN PLACE WITH BED IN LOWEST POSITION, CALL LIGHT WITHIN REACH, BREAKS ON, SIDE RAILS UP. ALL NEEDS ATTENDED TO; SHIFT ASSESSMENT/BEDBATH/SKIN/WOUND CARE DONE. PATIENT KEPT CLEAN AND DRY. WILL ENDORSE TO ONCOMING SHIFT FOR CON[facility].
[2020-05-14] MEDS: PANTOPRAZOLE 40 MG VIAL IV SCH ×2 (08:07→20:18)
[2020-05-14] MEDS: ASCORBIC ACID 500 MG TABLET NG SCH (08:16)
[2020-05-14] MEDS: ZINC SULFATE 220 MG CAPSULE NG SCH (08:16)
[2020-05-14] MEDS: PROSOURCE / PROSTAT (PYXIS) 30 ML UDC GT SCH ×2 (08:16→17:00)
--- NOTE | 2020-05-14 08:16 | NUR ---
COUNTY SURVEYOR NOTE PER REPORT HOLD PO MED DUE TO N G TUBE DRAINAGE WAS TO SUCTION WAS 20 ML WILL F\U
[2020-05-14] MEDS: HYDROCORTISONE SOD SUCCINATE 100 MG/2 ML VIAL IV SCH ×3 (09:25→17:19)
--- NOTE | 2020-05-14 10:00 | NUR ---
CHEERLEADING COACH NOTE SPOKE WITH DR HARGROVE NOTIFIED THAT PATENT STILL ON DIPRIVAN 5MCG KG\MIN OK TO CONT TO ADMINISTER, MONITOR FOR RR IF ABOVE 25 LEAVE DIPRIVAN, WILL MONITOR CLOSELY
[2020-05-14] MEDS: VANCOMYCIN 500 MG in IV D5W 100 ML IV SCH ×2 (11:28→23:09)
[2020-05-14] MEDS: DIGOXIN INJ 0.5 MG/2 ML AMPUL IV SCH (12:53)
--- NOTE | 2020-05-14 13:47 | NUR ---
WATER RESOURCES BUSINESS SEGMENT LEADER NOTE 6 BAG OF KCL ADMINISTERED ORDERED
--- NOTE | 2020-05-14 14:00 | NUR ---
agricultural real estate agent note report given to Edith marshall
--- NOTE | 2020-05-14 14:09 | NUR ---
RECEIVED REPORT TO TAKE OVER PATIENT. AT THIS TIME NO ACUTE DISTRESS NOTED. CLARIFIED POTASSIUM WITH DR ALFORD. ORDERS TO HANG A TOTAL OF 120 MEQ, WILL INITIATE THE REMAINING 60 MEQ.
[2020-05-14] MEDS: IV D5/ 0.9% NACL 1,000 ML IV PRN (14:36)
--- NOTE | 2020-05-14 15:53 | NUR ---
EARLIER THIS MORNING, AM RNSTEFANIE WAS TAKING CARE OF PATIENT, TRIED SEDATION VACATION AND PATIENT BECAME TACHYPNEIC AND TACHYCARDIC. PER REPORT TO TAKE OVER PATIENT, SHE STATED TO NOT DECREASE PROPOFOL PER DR HARGROVE IF PATIENT IS TACHYPNEIC/ IF VS START CHANGING AND PATIENT IS NOT TOLERATING WELL.
--- NOTE | 2020-05-14 17:25 | NUR ---
RT NOTE Pt received on [employer] # 8 trach and on [facility] vent with ordered settings. Trach is patent and secure. Vent is plugged into red outlet. Alarms are set and audible. [facility] [place]. Pt stable, no signs of sob t/o shift. Addendum: 05/14/20 at 1728 by SIVAN KING RT Amended: Links added.
--- NOTE | 2020-05-14 19:05 | NUR ---
RN OPENING NOTES: RECEIVED PATIENT AWAKE WITH DIPRIVAN AT 10MCG/KG/MIN NOT AGITATED AT THIS TIME;NOT ON RESPIRATORY DISTRESS. PATIENT ON MECHANICAL VENT; SETTINGS ORDERED; PT TOLERATED WELL. AMBU BAG AT BED SIDE ALARMS SET PER PROTOCOL AND AUDIBLE. VENT PLUGGED IN TO RED OUTLET. NO DISTRESS NOTED. PATIENT ON TELE MONITORING READING SINUS RHYTHM HR IS 90s UPON RECEIVED. NOTED NGT IN PLACED. PLACEMENT VERIFIED WITH AUSCULTATION. NOTED RESIDUAL OF SMALL AMOUNT OF BLACK/BROWN GASTRIC DRAINAGE. PT ON NPO. NOTED IV SITE ON R UA MIDLINE WITH ONGOIGN K+ RATE 50ML/HR INFUSING WELL AND R U THIGH PICC LINE WITH DIPRIVAN RATE @ 10MCG/KG/MIN INFUSING WELL,NO S/S OF INFECTION OR INFILTRATION. NAVARRETE CATH IN PLACE, MODERATE URINE OUTPUT NOTED . PATIENT WITH DVT PUMP.SAFETY MEASURES HAVE BEEN PROVIDED AND IMPLEMENTED. PATIENT BED ALARM IS ON. HEAD OF BED ELEVATED. BED IS LOCKED, IN LOWEST POSITION AND SIDE RAILS UP. WILL CONTINUE TO MONITOR AND REASSESS FOR ANY CHANGES.
--- NOTE | 2020-05-14 19:05 | NUR ---
RN CLOSING NOTE: PATIENT REMAINS IN BED. NO SIGNS OF ACUTE DISTRESS NOTED AT THIS TIME. PATIENT STILL HAS 2 MORE BAGS OF POTASSIUM TO ADMINISTER. INFORMED RN ABOUT POSSIBLE TPN START TOMORROW UNTIL VS AND K+ LEVELS START TO GET BETTER, ALSO TO FIND OUT IF MD STILL WANTS FLUIDS POST TPN START. PATIENT IS SR IN THE 90S AT THIS TIME. SAFETY MEASURES IMPLEMENTED, BED IN LOWEST POSITION, LOCKED, SIDE RAILS UP, CALL LIGHT WITHIN REACH. WILL ENDORSE TO ONCOMING SHIFT RN FOR CONTINUITY OF CARE.
[2020-05-15] VITALS (39 sets, daily range): BP systolic 81–163; BP diastolic 46–107
[2020-05-15] MEDS: METOPROLOL TARTRATE INJ 5 MG/5 ML AMPUL IVP SCH ×5 (00:16→23:32)
[2020-05-15] MEDS: PROPOFOL 100 ML IV PRN ×3 (00:39→17:51)
[2020-05-15] MEDS: IV NS 0.9% 250 ML IV PRN (02:45)
[2020-05-15] MEDS: IV D5/ 0.9% NACL 1,000 ML IV PRN ×2 (03:37→17:50)
[2020-05-15] MEDS: MEROPENEM 500 MG in IV NS 0.9% 50 ML IV SCH ×3 (04:17→20:16)
[2020-05-15 04:46] LABS: BASOPHILS % (AUTO) 0.1 % (0.0-2.0); EOSINOPHILS % (AUTO) 0.2 % (0.0-6.0); HEMATOCRIT 24 % (39-51); HEMOGLOBIN 8.2 g/dL (13.5-17.5); LYMPHOCYTES # (AUTO) 0.5 /CMM (0.8-4.8); LYMPHOCYTES % (AUTO) 7.8 % (20.0-44.0); MEAN CORPUSCULAR HGB CONC 34 g/dl (31.0-36.0); MEAN CORPUSCULAR VOLUME 91 fL (80-96); MONOCYTES # (AUTO) 0.4 /CMM (0.1-1.30); MONOCYTES % (AUTO) 6.6 % (2.0-12.0); NEUTROPHILS # (AUTO) 5.8 /CMM (1.8-8.9); NEUTROPHILS % (AUTO) 85.3 % (43.0-81.0); PLATELET COUNT (AUTO) 196 /CMM (150-450); RED BLOOD CELL COUNT(AUTO) 2.63 MIL/uL (4.5-6.0); WHITE BLOOD COUNT (AUTO) 6.8 K/uL (4.3-11.0)
[2020-05-15 05:06] LABS: CALCIUM, SERUM 7.5 mg/dL (8.5-10.1); CARBON DIOXIDE 30 mmol/L (21-32); CHLORIDE 108 mmol/L (98-107); CREATININE 0.9 mg/dL (0.6-1.3); GLUCOSE 117 mg/dL (74-106); PHOSPHORUS 2.8 mg/dL (2.5-4.9); SODIUM SERUM 145 mmol/L (136-145); UREA NITROGEN, BLOOD 33 mg/dL (7-18)
[2020-05-15 05:11] LABS: POTASSIUM 2.8 mmol/L (3.5-5.1)
--- NOTE | 2020-05-15 05:53 | NUR ---
RN NOTES REPORTED TO DR. BOOGIE ABOUT THE K+ LVL 2.8 FOR THIS DAY WITH ORDER FOR POTASSIUM 40MEQ IV THEN REPEAT K+ 2H AFTER THE INFUSION NOTED AND CARRIED OUT
[2020-05-15] MEDS: POTASSIUM CL. PREMIX PERIPHER. 50 ML IV SCH ×12 (06:11→20:16)
--- NOTE | 2020-05-15 06:44 | NUR ---
RN CLOSING NOTES PT ON BED ASLEEP NO SIGN AND SYMPTOMS OF RESPIRATORY DISTRESS STILL ON TRACH/VENT SETTING ORDER BEDSIDE MONITOR READIS SINUS RHYTHM WITH OCCASIONAL PVC'S WITH ONGOIGN POTASSIUM 10 MEQ RUNNING @ 50ML/HR FOR HYPOKALEMIA NO SIGNIIFACANT CHANGES ON CONDITION NOTED ALL NEEDS ATTENDED LATEST BP 118/77 STILL ON DIPRIVAN 15 MCG/KG/MIN SAFETY MEASURE MAINTAINED WILL ENDORSED TO AM SHIFT NURSE
--- NOTE | 2020-05-15 07:40 | NUR ---
RN OPENING NOTE: RECEIVED PATIENT IN BED THIS MORNING. PATIENT HAS TRACH, TOLERATING SETTINGS WELL. NO SIGNS OF ACUTE DISTRESS NOTED AT THIS TIME. CONTINUE K+ SUPPLEMENTATION. SR IN THE 90S ON BEDSIDE MONITOR. L NARE NGT, INTERMITTENT SUCTIONING, PATIENT REMAINS NPO STATUS. NAVARRETE DRAINING URINE. WOUND CARE PER ORDERS. MAIKOL MIDLINE, R FEMORAL PICC LINE, C/D/I, FLUSHING WELL, NO SIGNS OF COMPLICATIONS NOTED. SAFETY MEASURES IMPLEMENTED, BED IN LOWEST POSITION, LOCKED, SIDE RAILS UP, CALL LIGHT WITHIN REACH. WILL CONTINUE TO MONITOR PATIENT FOR CHANGES.
[2020-05-15] MEDS: ASCORBIC ACID 500 MG TABLET NG SCH (08:14)
[2020-05-15] MEDS: ZINC SULFATE 220 MG CAPSULE NG SCH (08:14)
[2020-05-15] MEDS: PROSOURCE / PROSTAT (PYXIS) 30 ML UDC GT SCH (08:14)
[2020-05-15] MEDS: PANTOPRAZOLE 40 MG VIAL IV SCH ×2 (08:17→20:16)
[2020-05-15] MEDS: HYDROCORTISONE SOD SUCCINATE 100 MG/2 ML VIAL IV SCH ×3 (08:17→17:00)
--- NOTE | 2020-05-15 08:47 | NUR ---
PER DR HARGROVE, INCREASE DIPRIVAN TO 25MCG/KG/MIN IF PATIENT'S RESPIRATIONS INCREASE TO HIGH 20S.
--- NOTE | 2020-05-15 09:24 | NUR ---
SPOKE TO GRANDSONEMELINA AND GAVE A THOROUGH UPDATE ON PATIENT'S STATUS.
[2020-05-15] MEDS: VANCOMYCIN 500 MG in IV D5W 100 ML IV SCH ×2 (10:48→22:25)
[2020-05-15] MEDS: ENOXAPARIN SODIUM 40 MG/0.4 ML DISP.SYRIN SQ SCH (11:21)
--- NOTE | 2020-05-15 12:14 | NUR ---
PER DR. LANCE, START TPN TODAY, ORDER INPUT, WILL FOLLOW UP WITH PHARMACY Addendum: 05/15/20 at 1216 by ALEXANDREA ANDERSON RN DIETARY ALSO AWARE OF TPN START
[2020-05-15] MEDS: DIGOXIN INJ 0.5 MG/2 ML AMPUL IV SCH (12:26)
[2020-05-15] MEDS ORDERED: TPN/PPN PER PHARMACY XX PRN (12:30)
[2020-05-15] MEDS ORDERED: DEXTROSE 50%-WATER 50 ML DISP.SYRIN IV PRN (13:30)
[2020-05-15 13:54] LABS: BASOPHILS % (AUTO) 0.1 % (0.0-2.0); EOSINOPHILS % (AUTO) 0.5 % (0.0-6.0); HEMATOCRIT 26 % (39-51); HEMOGLOBIN 8.4 g/dL (13.5-17.5); LYMPHOCYTES # (AUTO) 0.5 /CMM (0.8-4.8); LYMPHOCYTES % (AUTO) 6.2 % (20.0-44.0); MEAN CORPUSCULAR HGB CONC 33 g/dl (31.0-36.0); MEAN CORPUSCULAR VOLUME 92 fL (80-96); MONOCYTES # (AUTO) 0.4 /CMM (0.1-1.30); MONOCYTES % (AUTO) 4.9 % (2.0-12.0); NEUTROPHILS # (AUTO) 7.5 /CMM (1.8-8.9); NEUTROPHILS % (AUTO) 88.3 % (43.0-81.0); PLATELET COUNT (AUTO) 192 /CMM (150-450); RED BLOOD CELL COUNT(AUTO) 2.78 MIL/uL (4.5-6.0); WHITE BLOOD COUNT (AUTO) 8.5 K/uL (4.3-11.0)
[2020-05-15] MEDS ORDERED: TPN BAG #1 IV SCH ×2 (14:00)
--- NOTE | 2020-05-15 14:10 | NUR ---
TURNER PRIETO RN REPORT FOR CONTINUITY OF CARE. INFORMED HER PER PHARMACY AND DR LANCE, TO START TPN ON 30CC/HR, DECREASE D5 NS TO 30CCHR, AND ACCUCHECK Q6HRS AND TO CONTINUE POTASSIUM SUPPLEMENTATION/ NOT TO USE NGT, PATIENT IS NPO STATUS. AT THIS TIME PATIENT HAS NO ACUTE DISTRESS NOTED.
--- NOTE | 2020-05-15 14:15 | NUR ---
RECEIVED REPORT FROM PRAKASH PHILLIP FOR CONOR.
--- NOTE | 2020-05-15 16:15 | NUR ---
GAVE PATIENT BACK TO PRAKASH PERDOMO
--- NOTE | 2020-05-15 16:21 | NUR ---
RECEIVED REPORT BACK FROM KENJI PRIETO FOR CONTINUITY OF CARE. NO ACUTE DISTRESS NOTED AT THIS TIME. WILL CONTINUE TO MONITOR PATIENT.
[2020-05-15] MEDS: INSULIN REGULAR, HUMAN 100 UNIT/ML 3 ML VIAL SQ PRN ×2 (17:32→23:31)
[2020-05-15] MEDS: BLOOD SUGAR DIAGNOSTIC 1 EACH STRIP IN SCH ×2 (18:05→23:30)
--- NOTE | 2020-05-15 18:56 | NUR ---
RN CLOSING NOTE: PATIENT REMAINS IN BED. POTASSIUM STILL HANGING, X2 MORE BAGS TO BE ADMIN. SR IN THE 80S. NO SIGNS OF ACUTE DISTRESS NOTED AT THIS TIME. STILL PLAN FOR PEG PLACEMENT IF K+ LEVELS ARE WNL AND HR WNL, F/U WITH MD. SAFETY MEASURES IMPLEMENTED, BED IN LOWEST POSITION, LOCKED, SIDE RAILS UP, CALL LIGHT WITHIN REACH. ENDORSED TO KENJI CLIFFORD FOR CONTINUITY OF CARE.
--- NOTE | 2020-05-15 19:05 | NUR ---
RN OPENING NOTES: RECEIVED PATIENT AWAKE WITH DIPRIVAN AT 15MCG/KG/MIN NOT AGITATED AT THIS TIME;NOT ON RESPIRATORY DISTRESS.PATIENT ON MECHANICAL VENT; SETTINGS ORDERED; PT TOLERATED WELL. AMBU BAG AT BED SIDE ALARMS SET PER PROTOCOL AND AUDIBLE. VENT PLUGGED IN TO RED OUTLET. NO DISTRESS NOTED. PATIENT ON TELE MONITORING READING SINUS RHYTHM HR IS 90s UPON RECEIVED. NOTED NGT IN PLACED. PLACEMENT VERIFIED WITH AUSCULTATION. NOTED RESIDUAL OF SMALL AMOUNT OF BLACK/BROWN GASTRIC DRAINAGE. PT ON NPO. NOTED IV SITE ON R UA MIDLINE WITH ONGOIGN K+ RATE 50ML/HR INFUSING WELL AND D5NS @ 30ML/HR AND R U THIGH PICC LINE WITH DIPRIVAN RATE @ 15 MCG/KG/MIN INFUSING WELL AND TPN @ 30ML/HR INFUSING WELL,NO S/S OF INFECTION OR INFILTRATION. NAVARRETE CATH IN PLACE, MODERATE URINE OUTPUT NOTED . PATIENT WITH DVT PUMP.SAFETY MEASURES HAVE BEEN PROVIDED AND IMPLEMENTED. PATIENT BED ALARM IS ON. HEAD OF BED ELEVATED. BED IS LOCKED, IN LOWEST POSITION AND SIDE RAILS UP. WILL CONTINUE TO MONITOR AND REASSESS FOR ANY CHANGES.
[2020-05-16] VITALS (42 sets, daily range): BP systolic 89–168; BP diastolic 52–112
[2020-05-16] MEDS: LORAZEPAM INJ 2 MG/ML VIAL IV PRN (01:09)
[2020-05-16] MEDS: PROPOFOL 100 ML IV PRN ×4 (02:05→19:45)
[2020-05-16 04:20] LABS: BASOPHILS % (AUTO) 0.4 % (0.0-2.0); EOSINOPHILS % (AUTO) 0.2 % (0.0-6.0); HEMATOCRIT 24 % (39-51); HEMOGLOBIN 8.1 g/dL (13.5-17.5); LYMPHOCYTES # (AUTO) 0.6 /CMM (0.8-4.8); MEAN CORPUSCULAR HGB CONC 33 g/dl (31.0-36.0); MEAN CORPUSCULAR VOLUME 91 fL (80-96); MONOCYTES # (AUTO) 0.5 /CMM (0.1-1.30); MONOCYTES % (AUTO) 6.8 % (2.0-12.0); NEUTROPHILS # (AUTO) 6.7 /CMM (1.8-8.9); NEUTROPHILS % (AUTO) 85.6 % (43.0-81.0); PLATELET COUNT (AUTO) 194 /CMM (150-450); RED BLOOD CELL COUNT(AUTO) 2.67 MIL/uL (4.5-6.0); WHITE BLOOD COUNT (AUTO) 7.8 K/uL (4.3-11.0)
[2020-05-16] MEDS: MEROPENEM 500 MG in IV NS 0.9% 50 ML IV SCH ×2 (04:29→13:25)
[2020-05-16 04:32] LABS: CALCIUM, SERUM 7.5 mg/dL (8.5-10.1); CARBON DIOXIDE 30 mmol/L (21-32); CHLORIDE 109 mmol/L (98-107); CREATININE 0.9 mg/dL (0.6-1.3); GLUCOSE 118 mg/dL (74-106); PHOSPHORUS 2.3 mg/dL (2.5-4.9); POTASSIUM 3.2 mmol/L (3.5-5.1); SODIUM SERUM 143 mmol/L (136-145); UREA NITROGEN, BLOOD 29 mg/dL (7-18)
[2020-05-16] MEDS: BLOOD SUGAR DIAGNOSTIC 1 EACH STRIP IN SCH ×3 (05:56→17:46)
[2020-05-16] MEDS: METOPROLOL TARTRATE INJ 5 MG/5 ML AMPUL IVP SCH ×3 (05:56→17:46)
[2020-05-16] MEDS: INSULIN REGULAR, HUMAN 100 UNIT/ML 3 ML VIAL SQ PRN (05:57)
--- NOTE | 2020-05-16 06:51 | NUR ---
RN CLOSING NOTES PT ON BED ASLEEP NO SIGN AND SYMPTOMS OF RESPIRATORY DISTRESS STILL ON TRACH/VENT SETTING ORDER BEDSIDE MONITOR READIS SINUS RHYTHM WITH OCCASIONAL PVC'S NO SIGNIIFACANT CHANGES ON CONDITION NOTED ALL NEEDS ATTENDED STILL ON DIPRIVAN 15 MCG/KG/MIN TPN @ 30ML/HR D5NS @ 30ML/HR SAFETY MEASURE MAINTAINED WILL ENDORSED TO AM SHIFT NURSE
--- NOTE | 2020-05-16 07:05 | NUR ---
RN NOTES: RECEIVED PATIENT ON BED, VENT/TRACH DEPENDED, TOLERATING VENT SETTING WELL, O2 SAT WNL, ON SEDATION ,DIPRIVAN AT 15MCG/KG/MIN , VSS WNL, ON TELE SR HR IN 70'S , NGT ATTACHED TO LIS , SMALL AMOUNT OF DARK BROWN DRAINAGE NOTED , PT IS NPO AT THIS TIME, NAVARRETE DRAINING TO GRAVITY, R UPPER ARM MIDLINE AND R FEMORAL IV SITED CLEAN, DRY AND INTACT, TPN AT 30CC/HR , D5NS AT 30CC/HR RUNNING , SR UP x3, CALL LIGHT WITHIN EASY REACH, BED LOCKED AND IN LOWEST POSITION, CONTINUE TO MONITOR.
[2020-05-16] MEDS: PANTOPRAZOLE 40 MG VIAL IV SCH ×2 (08:27→21:20)
[2020-05-16] MEDS: ZINC SULFATE 220 MG CAPSULE NG SCH (08:27)
[2020-05-16] MEDS: ASCORBIC ACID 500 MG TABLET NG SCH (08:27)
[2020-05-16] MEDS: HYDROCORTISONE SOD SUCCINATE 100 MG/2 ML VIAL IV SCH ×3 (08:27→16:40)
[2020-05-16] MEDS: ENOXAPARIN SODIUM 40 MG/0.4 ML DISP.SYRIN SQ SCH (08:29)
[2020-05-16] MEDS ORDERED: POTASSIUM CHLORIDE 20 MEQ POWDER PACKET NG SCH (09:30)
--- NOTE | 2020-05-16 10:00 | NUR ---
RN NOTES CALL RECEIVED FORM PT'S GRAND DAUGHTER (TAVO) . UPDATED INFORMATION GIVEN TO HER REGARDING PT'S STATUS.
[2020-05-16] MEDS: POTASSIUM CL. PREMIX PERIPHER. 50 ML IV SCH ×3 (10:08→12:14)
[2020-05-16] MEDS: VANCOMYCIN 500 MG in IV D5W 100 ML IV SCH (10:23)
[2020-05-16] MEDS ORDERED: LORAZEPAM 1 MG TABLET PO PRN (11:00)
[2020-05-16] MEDS ORDERED: POTASSIUM PHOSPHATE MM 15 MMOL in IV NS 0.9% 250 ML IV SCH (12:00)
[2020-05-16] MEDS: DIGOXIN INJ 0.5 MG/2 ML AMPUL IV SCH (12:24)
--- NOTE | 2020-05-16 13:00 | NUR ---
RN NOTES PT STABLE , CONTINUE TO MONITOR .
[2020-05-16] MEDS ORDERED: TPN BAG #2 IV SCH (14:00)
[2020-05-16] MEDS: Z GUARD REMEDY 2 OZ OINT TP PRN (16:08)
[2020-05-16] MEDS: IV D5/ 0.9% NACL 1,000 ML IV PRN (16:45)
--- NOTE | 2020-05-16 18:00 | NUR ---
RN NOTES VSS STABLE , NO SIGNIFICANT CHANGES NOTED ON THIS SHIFT, TRACH CARE DONE NEEDED , IVF AT 30 CC/HR , TPN AT 30CC/HR AND DIPRIVAN AT 30MCG/KG/MIN RUNNING . R UPPER ARM MIDLINE AND R FEMORAL TLC SITE CLEAN,DRY INTACT, SR UP x3, CALL LIGHT WITHIN EASY REACH, BED LOCKED AND IN LOWEST POSITION, WILL ENDORSE TO SKIMMER REVERBERATORY NURSE FOR CONTINUITY OF CARE .
--- NOTE | 2020-05-16 19:48 | NUR ---
PT RCVD WITH DON 8 ON VENT WITH NOTED VENT SETTINGS. TRACH IS PATENT AND SECURE. SX DONE. VENT PLUGGED INTO RED OUTLET, VENTS ALARMS ON AND AUDIBLE, LICENSED BONDSMAN DONE . AMBU BAG @ BEDSIDE. NO RESPIRATORY DISTRESS NOTED AT THIS TIME . WILL CONTINUE TO MONITOR PT T/O SHIFT.
--- NOTE | 2020-05-16 19:54 | NUR ---
RN NOTE REPORT GIVEN TO TRINA PHILLIP FOR CONTINUATION OF CARE.
[2020-05-17] VITALS (34 sets, daily range): BP systolic 82–178; BP diastolic 53–108
[2020-05-17] MEDS: BLOOD SUGAR DIAGNOSTIC 1 EACH STRIP IN SCH ×4 (00:31→17:31)
[2020-05-17] MEDS: METOPROLOL TARTRATE INJ 5 MG/5 ML AMPUL IVP SCH ×4 (00:31→17:30)
[2020-05-17] MEDS: PROPOFOL 100 ML IV PRN ×5 (00:31→21:20)
[2020-05-17 04:00] LABS: BASOPHILS % (AUTO) 0.4 % (0.0-2.0); HEMATOCRIT 24 % (39-51); HEMOGLOBIN 7.8 g/dL (13.5-17.5); LYMPHOCYTES # (AUTO) 0.7 /CMM (0.8-4.8); LYMPHOCYTES % (AUTO) 9.9 % (20.0-44.0); MEAN CORPUSCULAR HGB CONC 33 g/dl (31.0-36.0); MEAN CORPUSCULAR VOLUME 92 fL (80-96); MONOCYTES # (AUTO) 0.5 /CMM (0.1-1.30); MONOCYTES % (AUTO) 6.5 % (2.0-12.0); NEUTROPHILS # (AUTO) 6.2 /CMM (1.8-8.9); NEUTROPHILS % (AUTO) 82.2 % (43.0-81.0); PLATELET COUNT (AUTO) 187 /CMM (150-450); RED BLOOD CELL COUNT(AUTO) 2.58 MIL/uL (4.5-6.0); WHITE BLOOD COUNT (AUTO) 7.5 K/uL (4.3-11.0)
[2020-05-17 04:12] LABS: CALCIUM, SERUM 7.4 mg/dL (8.5-10.1); CARBON DIOXIDE 30 mmol/L (21-32); CHLORIDE 107 mmol/L (98-107); CREATININE 0.8 mg/dL (0.6-1.3); GLUCOSE 134 mg/dL (74-106); MAGNESIUM 1.8 mg/dL (1.8-2.4); PHOSPHORUS 3.3 mg/dL (2.5-4.9); POTASSIUM 3.2 mmol/L (3.5-5.1); SODIUM SERUM 142 mmol/L (136-145); UREA NITROGEN, BLOOD 26 mg/dL (7-18)
--- NOTE | 2020-05-17 06:48 | NUR ---
YARDAGE CONTROL CLERK ATTEMPTED TO DECREASE PROPOFOL HOWEVER PT NOTED TO BE TACHYPNEIC INCREASED PROPOFOL PER PROTOCOL. CONTINUE TO MONITOR.
--- NOTE | 2020-05-17 07:15 | NUR ---
MAILING MACHINE OPERATOR NOTES RECEIVED PATIENT SEDATED , NOT IN ACUTE DISTRESS , RESPIRATIONS EVEN AND UNLABORED WITH SPO2 OF 98% VIA MECHANICAL VENT SETTINGS ORDERED , DON # [address] SUCTION PT NO BLEEDING NOTED , SR 95 ON BEDSIDE MONITOR , L NARE NGT TO LOW ICS DRAINING WITH DARK TARRY OUTPUT MINIMAL IN AMOUNT , FC DRAINING VIA GRAVITY , MAIKOL MIDLINE WITH DIPRIVAN @ 25MCG/KG/MIN , LEFT THIGH PICC WITH TPN @ 30ML/HR AND D5NS @ 30ML/HR INFUSING WELL , ALL NEEDS ATTENDED , WILL CONTINUE TO MONITOR
--- NOTE | 2020-05-17 07:32 | NUR ---
GORE SEAMER NOTES CALLED PHARMACY , SPOKE WITH [facility] , DISCUSSED PT IS ON PROPYLTHIOURACIL PO , UNABLE TO GIVE THRU NGT DUE TO LOW INTERMITTENT SUCTION , PT ON TPN , PER TESSA NO IV FORM OF THIS MEDICATION AND ALTERNATIVE IS SOLU CORTEF AND PT IS ON IT .
--- NOTE | 2020-05-17 07:34 | NUR ---
BACKSIDE GRINDER NOTES OT TEAM AT BEDSIDE , CONSENT REVIEWED , PRE OP CHECK LIST IS DONE , WILL CONTINUE TO MONITOR .
--- NOTE | 2020-05-17 07:51 | NUR ---
RT NOTE RECEIVED PT MECHANICALLY VENTILATED VIA CUFFED TRACHEOSTOMY TUBE. CUFF INFLATED. TRACH TUBE MIDLINE AND SECURE. VENTILATOR SETTINGS PRESCRIBED. ALARMS SET PER PROTOCOL AND AUDIBLE. VENT PLUGGED IN TO RED OUTLET. AMBU BAG AT BED SIDE. NO DISTRESS NOTED AT MOMENT. Addendum: 05/17/20 at 0754 by JENNIFER KAMINSKI RT Amended: Links added.
[2020-05-17] MEDS ORDERED: POTASSIUM CHLORIDE 20 MEQ POWDER PACKET GT SCH (08:00)
--- NOTE | 2020-05-17 08:10 | NUR ---
CHERRY CUTTER NOTES PT STABLE S/P PEG PLACEMENT , SEDATED ON DIPRIVAN @ 25MCG/KG/MIN , GT SITE INPLACE WITH NO BLEEDING NOTED , ASPIRATED GT NO OUTPUT NOTED , POST OP ORDERS RECEIVED
--- NOTE | 2020-05-17 08:16 | NUR ---
BOND MANAGER NOTES CALLED DR LANCE , PAGED THRU [facility] , SPOKE WITH HIM , NOTIFIED PT GT WAS PLACED BY DR PETERSON , PER MD OK TO USE GT FOR MEDS AND FEEDING , OK TO RESUME PRE OP ORDERS , NOTIFIED THAT PT STILL ON LOW INTERMITTENT SUCTION DRAINING WITH DARK TARRY STOOL MINIMAL IN AMOUNT , PER VERIFY WITH DR PETERSON NOTIFIED DR PETERSON IF HE WANTS TO RESUME PRE OP ORDERS , PT IS ON NGT LOW INTERMITTENT SUCTION DRAINING WITH DARK TARRY SECRETIONS MINIMAL IN AMOUNT , PER MD OK TO RESUME
[2020-05-17] MEDS: ASCORBIC ACID 500 MG TABLET NG SCH (08:22)
[2020-05-17] MEDS: PANTOPRAZOLE 40 MG VIAL IV SCH ×2 (08:22→21:20)
[2020-05-17] MEDS: HYDROCORTISONE SOD SUCCINATE 100 MG/2 ML VIAL IV SCH ×3 (08:22→17:30)
[2020-05-17] MEDS: ZINC SULFATE 220 MG CAPSULE NG SCH (08:22)
[2020-05-17] MEDS: ENOXAPARIN SODIUM 40 MG/0.4 ML DISP.SYRIN SQ SCH (08:22)
--- NOTE | 2020-05-17 08:30 | NUR ---
CITY SANITARIAN NOTES NGT TO LOW ICS REMOVED BY DR PETERSON .
--- NOTE | 2020-05-17 08:38 | NUR ---
RECOVERY SPECIALIST NOTES PT NOTED WITH DISTRESS , RR 30-[address] [facility] VENT SETTINGS ORDERED HR 160'S ST , BP ELEVATED , SEEN AND EVALUATED BY DR HARGROVE , SEEN PT CURRENT SITUATION , PT UNABLE TO FOLLOW COMMANDS ,PT BOTH EYES UPWARD ON THE LEFT SIDE , RESPONSIVE TO PAIN , DIPRIVAN RESTARTED , FIO2 PLACED TO 100% BY RT MORPHINE GIVEN PRN IVP , WILL CONTINUE TO MONITOR Addendum: 05/17/20 at 1022 by PURVI URENA RN PER ORDER HEAD CT WITHOUT CONTRAST WHEN PT IS MORE STABLE . ORDER CARRIED OUT
--- NOTE | 2020-05-17 08:45 | NUR ---
DRUM ATTENDANT NOTES SEDATION VACATION NOTED , PT DOESN'T FOLLOW COMMANDS , OPENS EYES , PT LOOKING UPWARD LEFT , DISTRESSED, TACHYCARDIC @ 150-160 ST , RR OF 35-40CPM , DESATS @ 80% ON MECH VENT SETTINGS ORDERED FIO2 PLACED TO 100% , BP ELEVATED , WILL CONTINUE TO MONITOR
[2020-05-17] MEDS: MORPHINE SULFATE INJ 2 MG/ML DISP.SYRIN IV PRN ×2 (08:46→11:35)
--- NOTE | 2020-05-17 09:12 | NUR ---
pt unstable per rn @1659 yw
[2020-05-17] MEDS: HYDROCODONE/APAP 10/325MG TABLET PO PRN (09:52)
--- NOTE | 2020-05-17 10:00 | NUR ---
MEMBER CERTIFICATION MANAGER NOTES PT NOTED STILL WITH MILD DISTRESS , HR WITH EPISODES OF 150-160'S , NOT STABLE FOR HEAD CT AT THIS TIME , WILL CONTINUE TO MONITOR
[2020-05-17] MEDS: DIGOXIN INJ 0.5 MG/2 ML AMPUL IV SCH (12:34)
[2020-05-17] MEDS: GLUCERNA 1.2 1,000 ML BOTTLE GT PRN (13:30)
[2020-05-17] MEDS ORDERED: TPN BAG #3 IV SCH (14:00)
[2020-05-17] MEDS: LORAZEPAM INJ 2 MG/ML VIAL IV PRN (15:30)
--- NOTE | 2020-05-17 15:30 | NUR ---
MORTGAGE SPECIALIST NOTES TRANSFERRED PT TO RADIOLOGY FOR HEAD CT , PT IS MORE SEDATED AND STABLE , VSS , AFEBRILE , TRANSFERED VIA ACLS , WILL CONTINUE TO MONITOR
--- NOTE | 2020-05-17 15:45 | NUR ---
VOCATIONAL HORTICULTURE INSTRUCTOR NOTES PT STABLE S/P HEAD CT , NO ACUTE EVENTS , WILL CONTINUE TO MONITOR
--- NOTE | 2020-05-17 16:53 | NUR ---
CREDIT ANALYST NOTES RECEIVED A CALL FROM RADIOLOGY , SPOKE WITH YAMILA , DISCUSSED ABNORMAL HEAD CT RESULT , DR CASI ALONSO ,
--- NOTE | 2020-05-17 16:58 | NUR ---
GRAPHIC ART SALES REPRESENTATIVE NOTES: DR LANCE WAS PAGED THROUGH [employer] SPOKE WITH SONIA WANIGAN CLERK 219, WILL NOTIFY DR LANCE REGARDING ABNORMAL HEAD CT RESULTS. AWAITING FOR THE CALL BACK.
--- NOTE | 2020-05-17 17:06 | NUR ---
MEDICAL BILLING COORDINATOR NOTES: SPOKE WITH DR LANCE DISCUSSED ABNORMAL HEAD CT RESULTS, MD BRENNER ORDER NEURO CONSULT UNDER DR KERR. NO NEW ORDERS RECEIVED.
[2020-05-17] MEDS: IV D5/ 0.9% NACL 1,000 ML IV PRN (18:56)
--- NOTE | 2020-05-17 19:13 | NUR ---
MACHINE TOOL OPERATOR NOTES SPOKE WITH DR KERR , DISCUSSED PT ADMISSION DATE AND RESULT OF CT SCAN , PT ON LOVENOX HELD IT TODAY DUE TO LOW H/H , MINIMAL BLEED WITH DARK TARRY OUTPUT AT NGT MD AWARE
--- NOTE | 2020-05-17 22:00 | NUR ---
CONCRETE MIXER TUBE FEEDING RESIDUAL 100 ML AT THIS TIME CONTINUE TO MONITOR AND RUN TPN.
[2020-05-18] VITALS (24 sets, daily range): BP systolic 104–168; BP diastolic 58–97
[2020-05-18] MEDS: BLOOD SUGAR DIAGNOSTIC 1 EACH STRIP IN SCH ×3 (00:40→11:33)
[2020-05-18 04:41] LABS: BASOPHILS % (AUTO) 0.2 % (0.0-2.0); EOSINOPHILS % (AUTO) 1.1 % (0.0-6.0); HEMATOCRIT 26 % (39-51); HEMOGLOBIN 8.6 g/dL (13.5-17.5); LYMPHOCYTES # (AUTO) 0.8 /CMM (0.8-4.8); LYMPHOCYTES % (AUTO) 7.7 % (20.0-44.0); MEAN CORPUSCULAR HGB CONC 33 g/dl (31.0-36.0); MEAN CORPUSCULAR VOLUME 92 fL (80-96); MONOCYTES # (AUTO) 0.5 /CMM (0.1-1.30); MONOCYTES % (AUTO) 4.9 % (2.0-12.0); NEUTROPHILS # (AUTO) 8.9 /CMM (1.8-8.9); NEUTROPHILS % (AUTO) 86.1 % (43.0-81.0); PLATELET COUNT (AUTO) 192 /CMM (150-450); RED BLOOD CELL COUNT(AUTO) 2.87 MIL/uL (4.5-6.0); WHITE BLOOD COUNT (AUTO) 10.4 K/uL (4.3-11.0)
[2020-05-18] MEDS: LORAZEPAM INJ 2 MG/ML VIAL IV PRN (04:52)
[2020-05-18 04:58] LABS: CALCIUM, SERUM 7.5 mg/dL (8.5-10.1); CREATININE 0.9 mg/dL (0.6-1.3); PHOSPHORUS 2.6 mg/dL (2.5-4.9); POTASSIUM 3.5 mmol/L (3.5-5.1)
[2020-05-18] MEDS: METOPROLOL TARTRATE INJ 5 MG/5 ML AMPUL IVP SCH ×2 (05:16)
[2020-05-18] MEDS: PROPOFOL 100 ML IV PRN ×4 (06:35→22:34)
--- NOTE | 2020-05-18 07:15 | NUR ---
MANAGER CHEMISTRY NOTES RECEIVED PATIENT SEDATED , NOT IN ACUTE DISTRESS , RESPIRATIONS EVEN AND UNLABORED WITH SPO2 OF 98% VIA MECHANICAL VENT SETTINGS ORDERED , DON # [address] , SR 87 ON BEDSIDE MONITOR , FC DRAINING VIA GRAVITY , LEFT THIGH PICC WITH DIPRIVAN @ 20 MCG/KG/MIN , D5NS @ 30ML/HR INFUSING WELL , ALL NEEDS ATTENDED , WILL CONTINUE TO MONITOR
--- NOTE | 2020-05-18 07:56 | NUR ---
RT PATIENT REC'D TRACHED ON [facility] VENT WITH ORDERED SETTINGS BOBBY WELL. ALARMS CHECKED + AUDIBLE. DONNIEU BAG AT HOB. CONT CURRENT PLAN OF CARE. Addendum: 05/18/20 at 1355 by MEHREEN MATHEW RT Amended: Links added.
[2020-05-18] MEDS: HYDROCORTISONE SOD SUCCINATE 100 MG/2 ML VIAL IV SCH ×2 (08:25→16:00)
[2020-05-18] MEDS: METOPROLOL TARTRATE 25 MG TABLET PO SCH ×2 (08:25→21:12)
[2020-05-18] MEDS: PANTOPRAZOLE 40 MG/PACK PACK GT SCH (08:25)
[2020-05-18] MEDS: ASCORBIC ACID 500 MG TABLET NG SCH (08:25)
[2020-05-18] MEDS: ZINC SULFATE 220 MG CAPSULE NG SCH (08:25)
[2020-05-18] MEDS: ENOXAPARIN SODIUM 40 MG/0.4 ML DISP.SYRIN SQ SCH ×2 (08:26→10:34)
--- NOTE | 2020-05-18 09:00 | NUR ---
PC MAINTENANCE TECHNICIAN NOTES SEDATION VACATION @ 0845 , 0900 - SEDATION RESTARTED PT NOTED WITH HR OF 150-160 ST , RR OF 30-40CPM WITH DISTRESS , BP ELEVATED , PT UNABLE TO FOLLOW COMMANDS , EYES DEVIATED TO THE LEFT SEEN AND EVALUATED BY DR KERR , DISCUSSED PT BASELINE MENTAL STATUS AND HEAD CT RESULTS PT HAD DVT ON THE LEFT BASILIC VEIN , PT UNABLE TO FOLLOW COMMANDS OFF SEDATION WITH EYES DEVIATED TO THE LEFT , UNABLE TO WEAN OFF SEDATION DUE TO DISTRESS , MD AWARE , PER MD ORDER CAROTID US TO RULE OUT CVA , ORDER CARRIED OUT
[2020-05-18] MEDS: MORPHINE SULFATE INJ 2 MG/ML DISP.SYRIN IV PRN (09:30)
--- NOTE | 2020-05-18 10:28 | NUR ---
LEAD ORACLE DEVELOPER NOTES PRECISION INSTRUMENT MAKER AND REPAIRER AT BEDSIDE FOR CAROTID US ,
--- NOTE | 2020-05-18 10:49 | NUR ---
COLLECTIONS DIRECTOR NOTES SEEN AND EVALUATED BY DR LOPEZ , DISCUSSED LABS , UNABLE TO WEAN OFF DIPRIVAN DUE TO DISTRESS , TOLERATING CURRENT VENT SETTINGS , HR 160ST , BP ELEVATED RR 35-40 CPM , DISCUSSED PEG WAS PLACED YESTERDAY , TRACH NOTED WITH MINIMAL BLEED , DISCUSSED HEAD CT RESULTS , DM AWARE
[2020-05-18] MEDS: INSULIN REGULAR, HUMAN 100 UNIT/ML 3 ML VIAL SQ PRN (11:40)
[2020-05-18] MEDS: DIGOXIN INJ 0.5 MG/2 ML AMPUL IV SCH (12:06)
--- NOTE | 2020-05-18 13:14 | NUR ---
CISCO NETWORK ARCHITECT NOTES SEEN AND EVALUATED BY DR LANCE , DISCUSSED LABS , UNABLE TO WEAN OFF DIPRIVAN DUE TO DISTRESS , VS STABLE , AFEBRILE , TOELRATING CURRENT VENT SETTINGS , TRACH SITE NOTED WITH MINIMAL BLEED, , GOOD URINE OUTPUT , TOLERATING GT FEEDING , DIPRIVAN @ 20MCG/KG/MIN , CAROTID US NEGATIVE , DISCUSSED BLE UPPER EXTREMITY NOTED WITH SWELLING LAST US DOPPLER WAS DONE 04/22 AND (+) WITH DVT @ L BASILIC VEIN , VERIFIED ALSO IF HE WANTS TO DC ACCUCHECK AND TPN PT IS TOLERATING GT FEEDING , AWARE , OK TO DC ACCUCHECK AND TPN , ORDER CARRIED OUT NOTIFIED DR LANCE THAT FAMILY WANTS TO DISCUSSED PLAN OF CARE , PER MD HE WILL CALL THEM TODAY
[2020-05-18] MEDS: GLUCERNA 1.2 1,000 ML BOTTLE GT PRN (16:01)
[2020-05-18] MEDS: IV D5/ 0.9% NACL 1,000 ML IV PRN (16:01)
[2020-05-18] MEDS: hydrALAZINE HCL IV 20 MG VIAL IV PRN (16:54)
--- NOTE | 2020-05-18 18:52 | NUR ---
BOAT DESIGNER NOTES PATIENT STABLE, NOT IN ACUTE DISTRESS , RESPIRATIONS EVEN AND UNLABORED WITH SPO2 OF 99% VIA MECHANICAL VENT SETTINGS ORDERED , DON # [address] , SR 97 ON BEDSIDE MONITOR , FC DRAINING VIA GRAVITY , LEFT THIGH PICC WITH DIPRIVAN @ 20 MCG/KG/MIN , D5NS @ 30ML/HR INFUSING WELL , ALL NEEDS ATTENDED , REPORT GIVEN TO ЕКАТЕРИНА PHILLIP FOR CONTINUITY OF CARE
--- NOTE | 2020-05-18 19:41 | NUR ---
IN HOME TUTOR INITIAL ASSESSMENT. RECEIVED THE PT REST ON THE BED, TRACH TO VENT CONNECTED. DIPRIVAN FOR RESPIRATORY DISTRESS. TRACH SHILEY#8,AC 18,TV 500,FIO2 45%,PEEP 5. SAT 98%. COMMAND CENTER OFFICER SHOWING NSR. IV RT FEMORAL PICC LINE DIPRIVAN 20MCG/KG/MIN,IVF D5NS 30 ML/H,FC PATENT, URINE DRAINING. OB ELEVATED. GT INTACT. GLUCERNA 40ML/H. WILL CONTINUE TO MONITOR VITALS.
[2020-05-19] VITALS (24 sets, daily range): BP systolic 103–158; BP diastolic 58–104
[2020-05-19] MEDS: PROPOFOL 100 ML IV PRN ×4 (02:33→20:32)
--- NOTE | 2020-05-19 04:08 | NUR ---
agricultural inspector. neuro check unable to assess. pt on diprivan
--- NOTE | 2020-05-19 04:25 | NUR ---
agricultural economics teacher. am care, oral care, bed bath given. linen changed. remaining same vent setting on. sat 100%. monitoring and evaluation advisor showing nsr. iv rt femoral picc line ivf d5ns 30ml/h. diprivan 25 mcg/kg/min. gt feeding tolerated well. boston hand swelling +4. afebrile. hob elevated, turn and reposition q2h. fc patent. urine draining, will continue to monitor vitals.
[2020-05-19 04:47] LABS: BASOPHILS % (AUTO) 0.2 % (0.0-2.0); EOSINOPHILS % (AUTO) 1.7 % (0.0-6.0); HEMATOCRIT 26 % (39-51); HEMOGLOBIN 8.3 g/dL (13.5-17.5); LYMPHOCYTES # (AUTO) 0.5 /CMM (0.8-4.8); LYMPHOCYTES % (AUTO) 7.1 % (20.0-44.0); MEAN CORPUSCULAR HGB CONC 32 g/dl (31.0-36.0); MEAN CORPUSCULAR VOLUME 92 fL (80-96); MONOCYTES # (AUTO) 0.4 /CMM (0.1-1.30); MONOCYTES % (AUTO) 5.6 % (2.0-12.0); NEUTROPHILS # (AUTO) 6.5 /CMM (1.8-8.9); NEUTROPHILS % (AUTO) 85.4 % (43.0-81.0); PLATELET COUNT (AUTO) 156 /CMM (150-450); RED BLOOD CELL COUNT(AUTO) 2.77 MIL/uL (4.5-6.0); WHITE BLOOD COUNT (AUTO) 7.6 K/uL (4.3-11.0)
[2020-05-19 05:08] LABS: CALCIUM, SERUM 7.4 mg/dL (8.5-10.1); CREATININE 0.8 mg/dL (0.6-1.3); PHOSPHORUS 2.5 mg/dL (2.5-4.9)
--- NOTE | 2020-05-19 08:00 | NUR ---
ICU/RN INITIAL NOTES,AM RECEIVED REPORT FROM NIGHT NURSE. PT TRACH TO VENT WITH SETTINGS ORDERED, NO ACUTE DISTRESS NOTED. SINUS ON TELE. PT SEDATED, WILL DO SEDATION VACATION. NEURO ASSESSMENT LIMITED DUE TO SEDATION. DIPRIVAN INFUSING AT 20MCG/KG/MIN. GTUBE FEEDING INFUSING, TOLERATING OK, 20ML RESIDUAL NOTED, WILL CONTINUE TO MONITOR. PT SEEN BY NEURO MD, REQUESTED TO CALL FAMILY TO UPDATES, WILL FOLLOW UP. ALL NEEDS WILL BE ATTENDED TO, SAFETY MEASURES TAKEN, PT TURNED AND REPOSITIONED.
[2020-05-19 08:36] LABS: ABG BASE EXCESS 5.7 mmol/L; ABG OXYGEN SATURATION 94.1 % (92.0-98.5); ABG PCO2 41.6 mmHg (35.0-45.0); ABG PH 7.473 (7.350-7.450); ABG PO2 69.6 mmHg (75.0-100.0); AaDO2 203.9 mmHg; COHb 0.6 % (0.5-1.5); O2Hb 93.5 % (94.0-97.0); SITE, ABG Right Radial
[2020-05-19 08:53] LABS: IRON, SERUM 30 ug/dl (50-175); TOTAL IRON BINDING CAPACITY 444 ug/dl (250-450)
[2020-05-19] MEDS: METOPROLOL TARTRATE 25 MG TABLET PO SCH ×2 (08:57→20:19)
[2020-05-19] MEDS: PANTOPRAZOLE 40 MG/PACK PACK GT SCH (08:57)
[2020-05-19] MEDS: ASCORBIC ACID 500 MG TABLET NG SCH (08:57)
[2020-05-19] MEDS: HYDROCORTISONE SOD SUCCINATE 100 MG/2 ML VIAL IV SCH ×2 (08:57→17:13)
[2020-05-19] MEDS: ZINC SULFATE 220 MG CAPSULE NG SCH (08:57)
[2020-05-19] MEDS: ENOXAPARIN SODIUM 40 MG/0.4 ML DISP.SYRIN SQ SCH (08:58)
--- NOTE | 2020-05-19 09:00 | NUR ---
SEDATION VACATION STARTED.
[2020-05-19 09:06] LABS: FERRITIN 589 ng/mL (8-388)
[2020-05-19] MEDS: POTASSIUM CHLORIDE 20 MEQ POWDER PACKET GT SCH ×3 (09:58→13:17)
--- NOTE | 2020-05-19 11:00 | NUR ---
ICU/RN: SEDATION RESUMED. PT AGITATED, INCREASED WORK OF BREATHING.
--- NOTE | 2020-05-19 12:30 | NUR ---
ICU/RN: FAMILY UPDATED ON PT CONDITION. PAGED AND INFORMED HIM THAT FAMILY IS WAITING FOR A CALL REGARDING UPDATES. WILL FOLLOW UP.
[2020-05-19] MEDS: DIGOXIN INJ 0.5 MG/2 ML AMPUL IV SCH (13:05)
--- NOTE | 2020-05-19 16:00 | NUR ---
ICU/RN: HAD A CONFERENCE CALL WITH PT'S FAMILY.
[2020-05-19] MEDS: GLUCERNA 1.2 1,000 ML BOTTLE GT PRN (17:13)
--- NOTE | 2020-05-19 18:37 | NUR ---
ICU/RN ENDING NOTES,AM REPORT WILL BE ENDORSED TO NIGHT NURSE FOR CONOR. PT SEDATED AND INTUBATED ON VENT SETTINGS ORDERED. ALL NEEDS ATTENDED TO, SAFETY MEASURES TAKEN. ON GTUBE FEEDING, TOLERATING WELL. ALL NEEDS ATTENDED TO, SAFETY MEASURES TAKEN, BED IN LOW POSITION, SIDE RAILS UP, CALL LIGHT WITHIN REACH.
--- NOTE | 2020-05-19 19:30 | NUR ---
RN NOTES RECEIVED PATIENT IN BED SEDATED ON DIPRIVAN RUNNING AT 20MCG TOLERATING WELL. NO S/S OF DISTRESS NOTED. RESPIRATION EVEN NON LABORED. ON GTF GLUCERNA RUNNING AT 40 ML/HR TOLERATING WELL NO RESIDUAL NOTED. HOB ELEVATED. RT FEMORAL PICC LINE AND MAIKOL MIDLINE INTACT FLUSHES WELL. TELE MONITOR READING SR IN 80'S. F/C INTACT URINE RUNNING TO GRAVITY. SAFETY MEASURES IN PLACE, SIDE RAILS UP, CALL LIGHT WITHIN REACH. WILL CONT TO MONITOR FOR CONOR.
[2020-05-19] MEDS: IV D5/ 0.9% NACL 1,000 ML IV PRN (20:15)
[2020-05-20] VITALS (32 sets, daily range): BP systolic 107–183; BP diastolic 54–113
[2020-05-20] MEDS: PROPOFOL 100 ML IV PRN (03:01)
[2020-05-20 04:08] LABS: BASOPHILS % (AUTO) 0.5 % (0.0-2.0); EOSINOPHILS % (AUTO) 1.7 % (0.0-6.0); HEMATOCRIT 25 % (39-51); LYMPHOCYTES # (AUTO) 0.5 /CMM (0.8-4.8); LYMPHOCYTES % (AUTO) 7.5 % (20.0-44.0); MEAN CORPUSCULAR HGB CONC 33 g/dl (31.0-36.0); MEAN CORPUSCULAR VOLUME 91 fL (80-96); MONOCYTES # (AUTO) 0.4 /CMM (0.1-1.30); MONOCYTES % (AUTO) 6.3 % (2.0-12.0); NEUTROPHILS # (AUTO) 5.3 /CMM (1.8-8.9); PLATELET COUNT (AUTO) 166 /CMM (150-450); RED BLOOD CELL COUNT(AUTO) 2.68 MIL/uL (4.5-6.0); WHITE BLOOD COUNT (AUTO) 6.3 K/uL (4.3-11.0)
[2020-05-20 04:27] LABS: CALCIUM, SERUM 7.6 mg/dL (8.5-10.1); CREATININE 0.8 mg/dL (0.6-1.3); MAGNESIUM 1.9 mg/dL (1.8-2.4); POTASSIUM 3.1 mmol/L (3.5-5.1)
--- NOTE | 2020-05-20 06:38 | NUR ---
RN NOTES PATIENT RESTED COMFORTABLY IN BED SEDATED ON DIPRIVAN RUNNING AT 25MCG TOLERATED WELL. NO S/S OF DISTRESS NOTED. BREATHING NORMAL RESPIRATION EVEN NON LABORED. GTF GLUCERNA RUNNING AT 40 ML/HR TOLERATING WELL NO RESIDUAL NOTED. HOB ELEVATED. RT FEMORAL PICC LINE AND MAIKOL MIDLINE INTACT FLUSHES WELL. F/C INTACT URINE RUNNING TO GRAVITY. SAFETY MEASURES IN PLACE, SIDE RAILS UP, CALL LIGHT WITHIN REACH. WILL ENDORSE TO AM NURSE FOR CONOR.
--- NOTE | 2020-05-20 07:30 | NUR ---
RN NOTES RECEIVED PATIENT AWAKE. ABLE TO TRACK. NONVERBAL. ORALLY INTUBATED WITH TUBBE SECURED AT 26CM ON THE LIP. NO SHORTNESS OF BREATH NOTED AT THIS TIME. TOLERATING CURRENT VENT SETTINGS. SATING FINE AT 97 % AT THIS TIME. SINUS RHYTHM ON THE MONITOR WITH HR ON THE 60s. GT IN PLACE, PLACEMENT VERIFIED THOROUGH AUSCULTATION AND ASPIRATING GASTRIC RESIDUAL, NONE TAKEN AT THIS TIME. GTF RUNNING AT DESIRED RATE. PICC LINE ON THE L LEG, TRIPLE LUMEN. HOB KEPT ELEVATED FOR SAP. SAFETY MEASURES OBSERVED AND KEPT IN PLACE. CALL LIGHT WITHIN REACH. WILL CONTINUE TO MONITOR PATIENT ACCORDINGLY. Addendum: 05/20/20 at 1227 by TAURUS DOZIER RN DISREGARD NOTES. INTENDED FOR ANOTHER PATIENT
--- NOTE | 2020-05-20 07:30 | NUR ---
RN NOTES RN NOTES RECEIVED PATIENT SEDATED WITH PROPOFOL AT 25MCG/KG/MIN. TRACH AT MIDLINE. NO SHORTNESS OF BREATH NOTED AT THIS TIME. TOLERATING CURRENT VENT SETTINGS. SATING FINE AT 99% AT THIS TIME. SINUS RHYTHM ON THE MONITOR WITH HR ON THE 80s. BILATERAL ARM SWELLING L>R. GT IN PLACE, PLACEMENT VERIFIED THOROUGH AUSCULTATION AND ASPIRATING GASTRIC RESIDUAL, NONE TAKEN AT THIS TIME, VENTING DONE FOR GAS. PICC LINE ON THE L LEG, TRIPLE LUMEN. TWO LUMEN FLUSHES BUT WITH NO BLOOD. WITH INFUSION OF D5NNS AT 30CC/HR. WILL TITRATE PROPOFOL ABLE. BILATERAL LOWER EXTREMITIES WITH PITTING EDEMA, WILL KEEP ELEVATED. HOB KEPT ELEVATED FOR SAP. SAFETY MEASURES OBSERVED AND KEPT IN PLACE. CALL LIGHT WITHIN REACH. WILL CONTINUE TO MONITOR PATIENT ACCORDINGLY.
[2020-05-20] MEDS: METOPROLOL TARTRATE 25 MG TABLET PO SCH ×2 (08:40→20:15)
[2020-05-20] MEDS: ASCORBIC ACID 500 MG TABLET NG SCH (08:40)
[2020-05-20] MEDS: HYDROCORTISONE SOD SUCCINATE 100 MG/2 ML VIAL IV SCH ×2 (08:40→17:13)
[2020-05-20] MEDS: PANTOPRAZOLE 40 MG/PACK PACK GT SCH (08:40)
[2020-05-20] MEDS: ENOXAPARIN SODIUM 40 MG/0.4 ML DISP.SYRIN SQ SCH (08:41)
[2020-05-20] MEDS: ZINC SULFATE 220 MG CAPSULE NG SCH (08:45)
[2020-05-20] MEDS: FUROSEMIDE 40 MG/4 ML VIAL IV SCH ×3 (09:26→17:17)
[2020-05-20] MEDS: POTASSIUM CHLORIDE 20 MEQ POWDER PACKET GT SCH ×3 (09:26→11:53)
--- NOTE | 2020-05-20 10:00 | NUR ---
RN NOTES SPOKE TO FAMILY USING ZOOM MEETING AT [facility]. TAERN AT BEDSIDE TO TRANSLATE IN CHECKING PATIENT'S ORIENTATION. PATIENT ABLE TO TRACK AND FOLLOW SIMPLE COMMANDS WHEN GIVEN INSTRUCTION IN EGYPTIAN LANGUAGE. ABLE TO MOVE LEFT UPPER AND LOWER EXTREMITY BUT NO MOVEMENT NOTED ON THE RIGHT EXTREMITIES
[2020-05-20] MEDS: LORAZEPAM 1 MG TABLET PO SCH ×2 (10:42→17:13)
--- NOTE | 2020-05-20 11:00 | NUR ---
RN NOTES PAGED DR. LANCE ABOUT FAMILY'S CONCERN AND UPDATES ON THE PATIENT. Addendum: 05/20/20 at 1108 by TAURUS DOZIER RN ALSO PAGED DR. HERRERA
--- NOTE | 2020-05-20 12:00 | NUR ---
rn notes dr. lopez at the unit informed about family's request for update. also informed about blood pressure being on the high side, per the md he will check on it and will put orders when necessary
[2020-05-20] MEDS: DIGOXIN INJ 0.5 MG/2 ML AMPUL IV SCH (13:08)
[2020-05-20] MEDS: SOD FERRIC GLUC 125 MG in IV NS 0.9% 100 ML IV SCH (14:45)
--- NOTE | 2020-05-20 16:00 | NUR ---
rn notes dr. jones at the unit. informed about family's request for update, per the later he will call family
--- NOTE | 2020-05-20 19:30 | NUR ---
RN NOTES RECEIVED PATIENT IN BED NON VERBAL OFF SEDATION SINCE MORNING. OPEN EYES ABLE TO TRACK. BREATHING NORMAL NO SOB NOTED. RESPIRATION EVEN NON LABORED. TELE MONITOR READING SR HR IN 70'S. VITAL SIGNS WNL. SATURATING 100%. HOB ELEVATED GT IN PLACE, GLUCERNA RUNNING AT 40ML/HR TOLERATING WELL NO RESIDUAL NOTED RT FEMORAL PICC LINE AND MAIKOL MIDLINE IN PLACE FLUSHES WELL. F/C INTACT YELLOW URINE RUNNING TO GRAVITY. SAFETY MEASURES IN PLACE, CALL LIGHT WITHIN REACH. WILL CONT TO MONITOR FOR CONOR.
[2020-05-20] MEDS: GLUCERNA 1.2 1,000 ML BOTTLE GT PRN (22:15)
[2020-05-21] VITALS (19 sets, daily range): BP systolic 114–152; BP diastolic 72–93
[2020-05-21 04:17] LABS: BASOPHILS % (AUTO) 0.5 % (0.0-2.0); EOSINOPHILS % (AUTO) 0.5 % (0.0-6.0); HEMATOCRIT 26 % (39-51); HEMOGLOBIN 8.6 g/dL (13.5-17.5); LYMPHOCYTES # (AUTO) 0.6 /CMM (0.8-4.8); LYMPHOCYTES % (AUTO) 8.1 % (20.0-44.0); MEAN CORPUSCULAR HGB CONC 33 g/dl (31.0-36.0); MEAN CORPUSCULAR VOLUME 91 fL (80-96); MONOCYTES # (AUTO) 0.5 /CMM (0.1-1.30); MONOCYTES % (AUTO) 6.6 % (2.0-12.0); NEUTROPHILS # (AUTO) 6.3 /CMM (1.8-8.9); NEUTROPHILS % (AUTO) 84.3 % (43.0-81.0); PLATELET COUNT (AUTO) 161 /CMM (150-450); RED BLOOD CELL COUNT(AUTO) 2.87 MIL/uL (4.5-6.0); WHITE BLOOD COUNT (AUTO) 7.4 K/uL (4.3-11.0)
[2020-05-21] MEDS: IV D5/ 0.9% NACL 1,000 ML IV PRN (04:20)
[2020-05-21 04:31] LABS: ALBUMIN 1.9 g/dL (3.4-5.0); BILIRUBIN,TOTAL 0.8 mg/dL (0.2-1.0); CALCIUM, SERUM 7.5 mg/dL (8.5-10.1); CREATININE 0.9 mg/dL (0.6-1.3); MAGNESIUM 1.9 mg/dL (1.8-2.4); PHOSPHORUS 3.1 mg/dL (2.5-4.9); TOTAL PROTEIN, SERUM 4.9 g/dL (6.4-8.2)
[2020-05-21 04:43] LABS: POTASSIUM 2.6 mmol/L (3.5-5.1)
--- NOTE | 2020-05-21 06:00 | NUR ---
POTASSIUM 2.6, DR BOOGIE NOTIFIED NEW ORDER TO REPLACE IT WITH KCL 60MEQ IV. NOTED AND CARRIED OUT.
--- NOTE | 2020-05-21 06:30 | NUR ---
RN NOTES NO CHANGES NOTED DURING SHIFT. MEDICATION WERE GIVEN ORDERED TOLERATED WELL. BED BATH GIVEN, WOUND TREATMENT DONE ORDERED. TURNING REPOSITIONING PER PROTOCOL. SUCTION PROVIDED. IV'S INTACT PATENT FLUID IS RUNNING WELL. WILL ENDORSE TO AM NURSE FOR CONOR.
[2020-05-21] MEDS ORDERED: POTASSIUM CL. PREMIX PERIPHER. 50 ML IV SCH (07:00)
--- NOTE | 2020-05-21 07:29 | NUR ---
LEAD ENGINEER OPENING NOTES: RECEIVED PT IN BE SLEEPING. PT IS ON TRACH DANICA #8, AC 18, TV 500, FIO2 45%, PEEP 5. PATIENT OPENS HIS EYE WHEN CALLED HIS NAME, REACTS TO TOUCH. PT IS ON TELE MONITOR SR. PT DOES NOT SHOW ANY SIGNS OF RESPIRATORY DISTRESS, DIFFICULTY BREATHING, SOB OR ANY PAIN. IV SITE RT FEMORAL, MAIKOL MIDLINE, INTACT, PATENT, FLUSHED WELL. PATIENTS SAFETY MEASURES MAINTAINED, CALL LIGHT WITHIN REACH WILL CONTINUE TO MONITOR CLOSELY.
--- NOTE | 2020-05-21 08:39 | NUR ---
WOUND CARE CONSULT: PT PRESENTS WITH GENERALIZED EDEMA, RASH TO ABDOMINAL/GROIN FOLDS, PERINEUM AND INNER BUTTOCKS. PT NOTED TO BE INCONTINENT OF LOOSE STOOL. RECOMMENDATIONS MADE FOR SKIN PROTECTION. DISCUSSED WITH NURSING STAFF. PT IS ON PAUL ISOFLEX LOW AIRLOSS BED. WILL SEE PRN. GODINEZ IN AGREEMENT WITH PLAN OF CARE. Addendum: 05/21/20 at 0841 by JUSTIN WEISS WNDNU Amended: Links added.
[2020-05-21] MEDS: ZINC SULFATE 220 MG CAPSULE NG SCH (08:44)
[2020-05-21] MEDS: ENOXAPARIN SODIUM 40 MG/0.4 ML DISP.SYRIN SQ SCH (08:44)
[2020-05-21] MEDS: HYDROCORTISONE SOD SUCCINATE 100 MG/2 ML VIAL IV SCH ×2 (08:44→16:56)
[2020-05-21] MEDS: PANTOPRAZOLE 40 MG/PACK PACK GT SCH (08:44)
[2020-05-21] MEDS: LORAZEPAM 1 MG TABLET PO SCH ×2 (08:45→16:56)
[2020-05-21] MEDS: METOPROLOL TARTRATE 25 MG TABLET PO SCH ×2 (08:45→21:49)
[2020-05-21] MEDS: ASCORBIC ACID 500 MG TABLET NG SCH (08:45)
[2020-05-21] MEDS: POTASSIUM CHLORIDE 20 MEQ POWDER PACKET NG SCH ×5 (08:45→12:24)
[2020-05-21] MEDS: CLOTRIMAZOLE 1% 15 GM TUBE TP SCH ×2 (09:30→16:55)
--- NOTE | 2020-05-21 09:40 | NUR ---
SPOKE WITH PATIENT'S GRANDDAUGHTER (TAVO)
[2020-05-21] MEDS: DIGOXIN INJ 0.5 MG/2 ML AMPUL IV SCH (13:11)
[2020-05-21] MEDS: SOD FERRIC GLUC 125 MG in IV NS 0.9% 100 ML IV SCH (14:25)
--- NOTE | 2020-05-21 14:30 | NUR ---
DUE TO IRRITATION ON PATIENT'S SACRUM, SCROTAL AND PERINEAL AREA AND PATIENT HAVING LOOSE STOOL THAT IS FURTHER IRRITATING HIS SKIN, INFORMED MD AND GOT NEW ORDERS FOR RECTAL TUBE TO DECREASE IRRITATION TO SKIN.
--- NOTE | 2020-05-21 14:55 | NUR ---
GAVE GRANDDAUGHTER (TAVO) UPDATE ON PATIENT
--- NOTE | 2020-05-21 17:30 | NUR ---
Patient transferred from ICU, reported by Lotus PHILLIP. v/s bp-052/79, p-80, r-16, t-98.3, O2sat 100% with vent.
--- NOTE | 2020-05-21 17:30 | NUR ---
PATIENT WAS TRANSFERRED TO [facility]. BEDSIDE REPORT GIVEN TO ОЛЕГ FOR CONTINUITY OF CARE. AT TIME OF TRANSFER, NO ACUTE DISTRESS WAS NOTED, PATIENT WAS SATING WELL. BELONGINGS WAS SENT WITH PATIENT, GIVEN TO RECEIVING NURSE INCLUDING GLASSES AND DENTURES.
--- NOTE | 2020-05-21 18:00 | NUR ---
RN Closing NOte Patient is in bed, resting comfortably, no appears pain or distress, skin is warm to touch, keep clean/dry, given meyers care, intact midline and piccline. Patient is on vent machine, no distress observed, O2sat 100%. Keep bed in lock with elevated HOB for ensure airway and aspiration precaution. Call light within reach, will endorse material handler 2nd shift.
--- NOTE | 2020-05-21 19:59 | NUR ---
TELE/RN OPENING NOTE Patient awake in bed. A/O x1. HOB elevated. Breathing even, clear, unlabored. No signs of acute distress or SOB noted. Patient denies pain. Patient on mechanical ventilation: AC18, TV 500, PEEP 5, FiO2 40%. Telemonitor reading NSR in the 80s. Right femoral picc line noted, clear, dry, intact. MAIKOL midline noted, patent and intact. No signs of infiltration or redness. Mar catheter in place draining clear, yellow urine.
[2020-05-22] VITALS: BP 154/95
[2020-05-22 04:00] VITALS: BP 110/78
--- NOTE | 2020-05-22 06:59 | NUR ---
TELE/RN CLOSING NOTE Patient awake in bed. A/O x1. HOB elevated. Breathing even, clear, unlabored. No signs of acute distress or SOB noted. Patient denies pain. Patient on mechanical ventilation: AC18, TV 500, PEEP 5, FiO2 40%. Telemonitor reading NSR in the 90s. Right femoral picc line noted, clear, dry, intact. MAIKOL midline noted, patent and intact. No signs of infiltration or redness. Patient had 1 bowel movement this shift. Large, brown, and soft. Patient has been awake for most of the night, approximately 8 hours. Mar catheter in place draining clear, yellow urine, 1100 ml. Bed in low position, wheels locked, side rails up x2, call light within reach. Will endorse to oncoming nurse.
[2020-05-22 08:00] VITALS: BP 147/89
[2020-05-22] MEDS ORDERED: POTASSIUM CHLORIDE 20 MEQ TAB.PRT.SR PO SCH (09:00)
[2020-05-22] MEDS: LORAZEPAM 1 MG TABLET PO SCH ×2 (09:20→16:27)
[2020-05-22] MEDS: ASCORBIC ACID 500 MG TABLET NG SCH (09:20)
[2020-05-22] MEDS: ZINC SULFATE 220 MG CAPSULE NG SCH (09:20)
[2020-05-22] MEDS: PANTOPRAZOLE 40 MG/PACK PACK GT SCH (09:21)
[2020-05-22] MEDS: METOPROLOL TARTRATE 25 MG TABLET PO SCH ×2 (09:21→20:53)
[2020-05-22] MEDS: HYDROCORTISONE SOD SUCCINATE 100 MG/2 ML VIAL IV SCH ×2 (09:21→16:26)
[2020-05-22] MEDS: ENOXAPARIN SODIUM 40 MG/0.4 ML DISP.SYRIN SQ SCH (09:23)
[2020-05-22] MEDS: CLOTRIMAZOLE 1% 15 GM TUBE TP SCH ×2 (09:23→16:27)
[2020-05-22] MEDS: GLUCERNA 1.2 1,000 ML BOTTLE GT PRN (09:42)
[2020-05-22 11:31] LABS: BASOPHILS % (AUTO) 0.6 % (0.0-2.0); EOSINOPHILS % (AUTO) 2.8 % (0.0-6.0); HEMATOCRIT 24 % (39-51); LYMPHOCYTES # (AUTO) 0.4 /CMM (0.8-4.8); LYMPHOCYTES % (AUTO) 5.2 % (20.0-44.0); MEAN CORPUSCULAR HGB CONC 33 g/dl (31.0-36.0); MEAN CORPUSCULAR VOLUME 91 fL (80-96); MONOCYTES # (AUTO) 0.3 /CMM (0.1-1.30); MONOCYTES % (AUTO) 4.3 % (2.0-12.0); NEUTROPHILS # (AUTO) 6.7 /CMM (1.8-8.9); NEUTROPHILS % (AUTO) 87.1 % (43.0-81.0); PLATELET COUNT (AUTO) 130 /CMM (150-450); RED BLOOD CELL COUNT(AUTO) 2.66 MIL/uL (4.5-6.0); WHITE BLOOD COUNT (AUTO) 7.7 K/uL (4.3-11.0)
[2020-05-22 11:41] LABS: BILIRUBIN,TOTAL 0.9 mg/dL (0.2-1.0); CALCIUM, SERUM 7.9 mg/dL (8.5-10.1); CREATININE 0.8 mg/dL (0.6-1.3); MAGNESIUM 1.9 mg/dL (1.8-2.4); PHOSPHORUS 2.3 mg/dL (2.5-4.9)
[2020-05-22 12:25] LABS: POTASSIUM 2.6 mmol/L (3.5-5.1)
--- NOTE | 2020-05-22 12:30 | NUR ---
MERLYN, RESPIRATORY THERAPIST ASSISTANT REPORTED PT'S CRITICAL LAB VALUE FOR POTASSIUM 2.6. REPORT READ BACK. DR LANCE MADE AWARE. RECEIVED ORDERS TO ADMINISTERE Addendum: 05/22/20 at 1337 by NAEEM MEDRANO RN MERLYN, RESPIRATORY THERAPIST ASSISTANT REPORTED PT'S CRITICAL LAB VALUE FOR POTASSIUM 2.6. REPORT READ BACK. DR LANCE MADE AWARE. RECEIVED ORDERS TO ADMINISTER KCL 10MEQ OVER 1HR X 5DOSES. ORDERS CARRIED OUT. WILL CONTINUE TO MONITOR
[2020-05-22] MEDS: DIGOXIN INJ 0.5 MG/2 ML AMPUL IV SCH (13:33)
[2020-05-22] MEDS: SOD FERRIC GLUC 125 MG in IV NS 0.9% 100 ML IV SCH (14:11)
[2020-05-22] MEDS: POTASSIUM CHLORIDE 20 MEQ POWDER PACKET NG SCH ×5 (14:12→18:27)
[2020-05-22] MEDS ORDERED: POTASSIUM CHLORIDE 10 MEQ/50 ML PREMIXED IVPB FOR PERIPHERAL LINE IV SCH (15:30)
--- NOTE | 2020-05-22 15:30 | NUR ---
PT NOTED WITH T OF 99.4, COOLING MEASURES IN PLACE, PT UNCOVERED, ICE PACK UNDERARMS. WILL CONTINUE TO MONITOR
[2020-05-22 16:00] VITALS: BP 177/97
[2020-05-22] MEDS: ACETAMINOPHEN 650 MG/20.3 ML UDC GT PRN (16:26)
--- NOTE | 2020-05-22 16:28 | NUR ---
PT NOTED WITH T OF 100.0 AT THIS TIME, COOLING MEASURES IN PLACE, PT UNCOVERED, ICE PACK UNDERARMS, ROOM KEPT COOL, COOL WASH CLOTH ON FACE. TYLENOL 650MG GT Q6HRS PRN FOR MILD FEVER ADMINISTERED PER ORDE. WILL CONTINUE TO MONITOR
[2020-05-22] MEDS ORDERED: NEUTRA PHOS 1 POWD.PACKET NG ONE (16:30)
--- NOTE | 2020-05-22 18:28 | NUR ---
PT'S TEMP IS 98.1 AT THIS TIME. COOLING MEASURES MAINTAINED, PT UNCOVERED, ICE PACK UNDERARMS, ROOM KEPT COOL, WILL CONTINUE TO MONITOR
--- NOTE | 2020-05-22 19:03 | NUR ---
RN CLOSING NOTES PT AWAKE IN BED AT THIS TIME. PT REMAINED STABLE THROUGHOUT SHIFT. PT KEPT CLEAN AND DRY. ALL CARE, NEEDS, MEDICATION AND TREATMENT ADMINISTERED ANTICIPATED PER ORDER. PT REPOSITIONED Q2HR, PRN AND PER PROTOCOL. FC CARE PROVIDED. PT SUCTIONED TOLERATED. TRACH TIE CARE PROVIDED AND CHANGED. SAFETY PRECAUTION IN PLACE AND MAINTAINED AT ALL TIMES. BED IN LOWEST LOCKED POSITION, HOB ELEVATED, RAILS UP, CALL LIGHT WITHIN REACH. WILL ENDORSE TO BODY SHOP FLOORPERSON NURSE FOR CONOR
--- NOTE | 2020-05-22 19:24 | NUR ---
INDUSTRIAL EDUCATION TEACHER OPENING NOTE RECEIVED PT RESTING IN BED AT THIS TIME. A/O X 1, NO SOB NOTED, NO S/S OF ANY ACUTE DISTRESS NOTED. NO SIGN OF PAIN OR FACIAL GRIMACE NOTED AT THIS TIME. RESPIRATIONS ARE EVEN AND UNLABORED WITH EQUAL RISE AND FALL IN CHEST. PT ON EXTERNAL MONITOR READING SR IN THE 90s. PT TOLERATING VENT SETTINGS.MAIKOL MIDLINE, PATENT, INTACT AND FLUSHING WELL. RIGHT FEMORAL PICC LINE IN PLACE. GTUBE IN PLACE WITH NO RESIDUAL NOTED. PT NOTED WITH RECTAL TUBE. FALL AND SAFETY PRECAUTION IN PLACE AND MAINTAINED AT ALL TIMES. BED IN LOWEST LOCKED POSITION, HOB ELEVATED, RAILS UP X 2, CALL LIGHT WITHIN REACH. WILL CONTINUE TO MONITOR
--- NOTE | 2020-05-22 19:59 | NUR ---
TELE/RN OPENING NOTE Patient awake in bed. A/O x1, nonverbal. HOB elevated. Breathing even, clear, unlabored. No signs of acute distress or SOB noted. Patient does not appear in physical pain. No facial grimacing or guarding. Patient on mechanical ventilation: AC18, TV 500, PEEP 5, FiO2 40%. Telemonitor reading NSR in the 80s. Right femoral picc line noted, clean, dry, intact. MAIKOL midline noted, patent and intact. No signs of infiltration or redness. Mar catheter in place draining clear, yellow urine. GTF glucerna running @ 40 ml/hr, no residual. Patient tolerating well. Non-pitting edema noted in all extremities. Skin warm, pink, dry, appropriate for ethnicity. Bed in low position, wheels locked, side rails up x2, call light within reach.
[2020-05-22 20:00] VITALS: BP 138/79
[2020-05-22 23:02] VITALS: BP 138/79
[2020-05-23] VITALS: BP 132/78
[2020-05-23 04:00] VITALS: BP 140/86
[2020-05-23] MEDS: ACETAMINOPHEN 650 MG/20.3 ML UDC GT PRN (04:22)
--- NOTE | 2020-05-23 04:34 | NUR ---
TELE/RN NOTE Patient temperature max 100. Administered PRN acetaminophen as ordered. Cooling measures in place. VSS. will continue to monitor.
--- NOTE | 2020-05-23 07:07 | NUR ---
TELE/RN CLOSING NOTE Patient awake in bed. A/O x1, nonverbal. HOB elevated. Breathing even, clear, unlabored. No signs of acute distress or SOB noted. Patient does not appear in pain. No facial grimacing. Patient on mechanical ventilation: AC18, TV 500, PEEP 5, FiO2 40%. Telemonitor reading NSR in the 90s. Right femoral picc line noted, clean, dry, intact. MAIKOL midline noted, patent and intact. No signs of infiltration or redness. Mar catheter in place draining clear, yellow urine 800 ml. GTF glucerna running @ 40 ml/hr, no residual. Patient tolerating well. Non-pitting edema noted in all extremities. Bed in low position, wheels locked, side rails up x2, call light within reach. will endorse to oncoming nurse.
[2020-05-23 07:30] LABS: BASOPHILS # (AUTO) 0.1 /CMM (0.0-0.2); BASOPHILS % (AUTO) 0.9 % (0.0-2.0); HEMATOCRIT 25 % (39-51); HEMOGLOBIN 7.9 g/dL (13.5-17.5); LYMPHOCYTES # (AUTO) 0.7 /CMM (0.8-4.8); LYMPHOCYTES % (AUTO) 9.3 % (20.0-44.0); MEAN CORPUSCULAR HGB CONC 32 g/dl (31.0-36.0); MEAN CORPUSCULAR VOLUME 93 fL (80-96); MONOCYTES # (AUTO) 0.5 /CMM (0.1-1.30); MONOCYTES % (AUTO) 6.5 % (2.0-12.0); NEUTROPHILS # (AUTO) 5.9 /CMM (1.8-8.9); NEUTROPHILS % (AUTO) 79.3 % (43.0-81.0); PLATELET COUNT (AUTO) 131 /CMM (150-450); RED BLOOD CELL COUNT(AUTO) 2.66 MIL/uL (4.5-6.0); WHITE BLOOD COUNT (AUTO) 7.5 K/uL (4.3-11.0)
[2020-05-23 07:47] LABS: ALBUMIN 1.9 g/dL (3.4-5.0); BILIRUBIN,TOTAL 0.8 mg/dL (0.2-1.0); CALCIUM, SERUM 7.8 mg/dL (8.5-10.1); CREATININE 0.9 mg/dL (0.6-1.3); PHOSPHORUS 2.4 mg/dL (2.5-4.9); POTASSIUM 3.1 mmol/L (3.5-5.1); TOTAL PROTEIN, SERUM 4.9 g/dL (6.4-8.2)
[2020-05-23 08:00] VITALS: BP 134/76
--- NOTE | 2020-05-23 08:00 | NUR ---
TELE/RN AM NOTES Patient awake in bed. A/O x1, nonverbal. HOB elevated. Breathing even, clear, unlabored. No signs of acute distress or SOB noted. Patient does not appear in pain. No facial grimacing. Patient on mechanical ventilation: AC18, TV 500, PEEP 5, FiO2 40%. Telemonitor reading NSR in the 90s. Right femoral picc line noted, clean, dry, intact. MAIKOL midline noted, patent and intact. No signs of infiltration or redness. Mar catheter in place draining clear, yellow urine 800 ml. GTF glucerna running @ 40 ml/hr, no residual. Patient tolerating well. Non-pitting edema noted in all extremities. Bed in low position, wheels locked, side rails up x2, call light within reach.
[2020-05-23] MEDS: PANTOPRAZOLE 40 MG/PACK PACK GT SCH (09:05)
[2020-05-23] MEDS: ENOXAPARIN SODIUM 40 MG/0.4 ML DISP.SYRIN SQ SCH (09:05)
[2020-05-23] MEDS: ASCORBIC ACID 500 MG TABLET NG SCH (09:05)
[2020-05-23] MEDS: ZINC SULFATE 220 MG CAPSULE NG SCH (09:05)
[2020-05-23] MEDS: HYDROCORTISONE SOD SUCCINATE 100 MG/2 ML VIAL IV SCH (09:05)
[2020-05-23] MEDS: METOPROLOL TARTRATE 25 MG TABLET PO SCH ×2 (09:05→20:35)
[2020-05-23] MEDS: LORAZEPAM 1 MG TABLET PO SCH ×2 (09:05→17:58)
[2020-05-23] MEDS: CLOTRIMAZOLE 1% 15 GM TUBE TP SCH ×2 (09:06→17:58)
[2020-05-23 09:31] LABS: ABG OXYGEN SATURATION 98.4 % (92.0-98.5); ABG PCO2 36.8 mmHg (35.0-45.0); ABG PH 7.557 (7.350-7.450); ABG PO2 129.6 mmHg (75.0-100.0); AaDO2 113.3 mmHg; COHb 0.4 % (0.5-1.5); MetHb 0.2 % (0.0-1.5); O2Hb 97.8 % (94.0-97.0); SITE, ABG Right Radial; VENT MODE, BG SIMV 6 PS 20 +5 40%
[2020-05-23] MEDS ORDERED: POTASSIUM PHOSPHATE MM 15 MMOL in IV NS 0.9% 250 ML IV SCH (11:00)
--- NOTE | 2020-05-23 11:00 | NUR ---
PT'S TAVO SORENSON CALLED 4X THIS MORNING AND ANSWERED ALL PT'S LAB RESULTS, XRAY RESULT ,MEDICATIONS ASKED.DID FACETIME WITH THE FAMILY REQUESTED PER FAMILY.
[2020-05-23] MEDS: acetaZOLAMIDE 250 MG TABLET PO SCH (11:02)
[2020-05-23] MEDS: DIGOXIN INJ 0.5 MG/2 ML AMPUL IV SCH (12:33)
[2020-05-23] MEDS: SOD FERRIC GLUC 125 MG in IV NS 0.9% 100 ML IV SCH (15:07)
[2020-05-23 16:00] VITALS: BP 161/75
[2020-05-23] MEDS: hydrALAZINE HCL IV 20 MG VIAL IV PRN (17:59)
--- NOTE | 2020-05-23 18:00 | NUR ---
PT'S RECTAL TUBE KEEPS COMING OUT AND LEAKING BECAUSE PT IS PASSING OUT SEMI-SOFT DARK BROWN SOFT STOOLS.REMOVED RECTAL TUBE FOR THE STOOLS TO PASS OUT EASILY. KEPT CLEAN AND DRY. TURNED EVERY TWO HRS. WILL MONITOR.
[2020-05-23] MEDS: GLUCERNA 1.2 1,000 ML BOTTLE GT PRN (18:26)
--- NOTE | 2020-05-23 19:30 | NUR ---
television picture tube rebuilder opening note received patient in bed. patient able to track you with eyes, follows simple commands. on mechanical ventilator present, settings: shiley #8. simv 6, tv 500, fios 40% peep 5, ps 20. no resp distress noted at this time. no s/s pain at this time. external tele monitor reads sinus tach 107. in no apparent distress. iv access in sonny midline and right femoral picc line patent and saline locked. meyers catheter is present, draining to gravity, urine is yellow and clear. rectal tube is present. gtube is present, residual 10ml, flush with no resistance. feeding running glucerna 1.2@40ml/hr. bed is low and locked, hob elevated in semi fowlers, side rials up x2, call light within reach. will continue to monitor.
[2020-05-23 20:00] VITALS: BP 109/61
--- NOTE | 2020-05-23 20:28 | NUR ---
RT NOTE PT RECEIVED TRACHED ON MECHANICAL VENTILATION. SHILEY [address] AMBU BAG/BACK UP TRACH @ BEDSIDE. SX DONE, TRACH SECURED AND PATENT. ALARMS ON AND AUDIBLE. VENT PLUGGED TO RED OUTLET. NO DISTRESS NOTED AT THIS TIME. CONT. PULSE OX CONNECTED. PT TOLERATING SIMV SETTINGS WELL. Addendum: 05/23/20 at 2028 by MIN CARY RT Amended: Links added.
[2020-05-24] VITALS: BP 148/77
[2020-05-24 04:00] VITALS: BP 137/86
[2020-05-24 04:30] VITALS: BP 137/86
--- NOTE | 2020-05-24 06:57 | NUR ---
telephone lines repairer closing note patient in bed. on mechanical ventilator present, settings: anetteley #8. simv 6, tv 500, fios 40% peep 5, ps 20. no resp distress noted . no s/s pain noted. external tele monitor reads sinus rhythm hr 85. no distress. iv access maintained in sonny midline and right femoral picc line patent and saline locked. meyers catheter is maintained, output 1600ml. rectal tube was removed. gtube is maintained running glucerna 1.2@40ml/hr. bed remains low and locked, hob elevated in semi fowlers, side rials up x2, call light within reach. will endorse to next shift.
[2020-05-24 08:00] VITALS: BP 143/75
--- NOTE | 2020-05-24 08:00 | NUR ---
dental officer opening note Received patient in bed. patient sleepy,arousable and opens eyes occasionally,doesn't follow simple commands. On mechanical ventilator present, settings: shiley #8. simv 6, tv 500, fios 40% peep 5, ps 20. no resp distress noted at this time. no s/s pain at this time. external tele monitor reads SR 87. in no apparent distress. iv access in sonny midline and right femoral picc line patent and saline locked. meyers catheter is present, draining to gravity, urine is yellow and clear. gtube is present, residual 10ml, flush with no resistance. GT feeding running glucerna 1.2@40ml/hr. bed is low and locked, hob elevated in semi fowlers, side rails up x2, call light within reach. will continue to monitor.
[2020-05-24] MEDS: HYDROCORTISONE SOD SUCCINATE 100 MG/2 ML VIAL IV SCH (09:01)
[2020-05-24] MEDS: acetaZOLAMIDE 250 MG TABLET PO SCH (09:02)
[2020-05-24] MEDS: ENOXAPARIN SODIUM 40 MG/0.4 ML DISP.SYRIN SQ SCH (09:02)
[2020-05-24 09:03] LABS: ABG BASE EXCESS 4.8 mmol/L; ABG OXYGEN SATURATION 98.6 % (92.0-98.5); ABG PCO2 34.5 mmHg (35.0-45.0); ABG PH 7.523 (7.350-7.450); ABG PO2 150.6 mmHg (75.0-100.0); AaDO2 94.9 mmHg; COHb 0.3 % (0.5-1.5); MetHb 0.1 % (0.0-1.5); O2Hb 98.2 % (94.0-97.0); SITE, ABG Right Radial; VENT MODE, BG CPAP PS15 +5 40%
[2020-05-24] MEDS: METOPROLOL TARTRATE 25 MG TABLET PO SCH ×2 (09:03→22:22)
[2020-05-24] MEDS: ZINC SULFATE 220 MG CAPSULE NG SCH (09:03)
[2020-05-24] MEDS: LORAZEPAM 1 MG TABLET PO SCH ×2 (09:03→18:13)
[2020-05-24] MEDS: PANTOPRAZOLE 40 MG/PACK PACK GT SCH (09:03)
[2020-05-24] MEDS: ASCORBIC ACID 500 MG TABLET NG SCH (09:03)
[2020-05-24] MEDS: CLOTRIMAZOLE 1% 15 GM TUBE TP SCH ×2 (09:06→18:36)
[2020-05-24] MEDS: DIGOXIN INJ 0.5 MG/2 ML AMPUL IV SCH (13:31)
[2020-05-24] MEDS: SOD FERRIC GLUC 125 MG in IV NS 0.9% 100 ML IV SCH (14:20)
[2020-05-24 16:00] VITALS: BP 135/76
--- NOTE | 2020-05-24 18:00 | NUR ---
telegraphic service dispatcher closing note patient in bed. on mechanical ventilator present, settings: anetteley #8. simv 6, tv 500, fios 40% peep 5, ps 20. no resp distress noted . no s/s pain noted. external tele monitor reads sinus rhythm hr 85. no distress. iv access maintained in sonny midline and right femoral picc line patent and saline locked. meyers catheter is maintained, output 1100 ml .gtube is maintained running glucerna 1.2@40ml/hr. bed remains low and locked, hob elevated in semi fowlers, side rails up x2, call light within reach.
[2020-05-24] MEDS: GLUCERNA 1.2 1,000 ML BOTTLE GT PRN (18:41)
[2020-05-24 20:00] VITALS: BP 144/99
--- NOTE | 2020-05-24 20:02 | NUR ---
RT NOTE PT RECEIVED TRACHED ON MECHANICAL VENTILATION. PT TOLERATING CURRENT CPAP SETTINGS WELL. SHILEY [address] CUFF CHECKED VIA EDUCATION TRAINER. SX DONE, TRACH SECURED AND PATENT. ALARMS ON AND AUDIBLE. NO DISTRESS NOTED AT THIS TIME. CONT. PULSE OX CONNECTED. WILL MONITOR T/O SHIFT. Addendum: 05/24/20 at 2002 by MIN CARY RT Amended: Links added.
[2020-05-25] VITALS (15 sets, daily range): BP systolic 60–144; BP diastolic 40–107
[2020-05-25] MEDS: MORPHINE SULFATE INJ 2 MG/ML DISP.SYRIN IV PRN (01:51)
[2020-05-25] MEDS: LORAZEPAM INJ 2 MG/ML VIAL IV PRN (02:46)
--- NOTE | 2020-05-25 02:56 | NUR ---
PT BREATHING RAPID WITH HEARTRATE IN 140'S TO 150'S RR OF 50. RT PAGED. MIN RESPONDED. PT CHANGED BACK TO AC CONTROL PT HEAR RATE NOW 110 AND RR OF 36. WILL PAGE ON CHANGE OF STATUS.
--- NOTE | 2020-05-25 03:20 | NUR ---
LES ASSISTED LIVING MANAGER CALLED AND INFORMED OF PATIENTS CHANGE IN CONDITION. NEW ORDERS RECIEVED FOR STAT CXR AND STAT ABG. RT AT BEDSIDE COLLECTING ABG. PT TOLERATING NEW VENT AC SETTINGS WELL WITH HR OF 120 BREATHING AT 28. WILL CONT TO MONITOR.
--- NOTE | 2020-05-25 03:30 | NUR ---
PT ON AC TOLEARTING AC SETTINGS ABG COLLECTED. RADIOLOGY AT BEDSIDE TO TAKE CXR.
--- NOTE | 2020-05-25 03:39 | NUR ---
RT NOTE PLACED PT BACK ON PREVIOUS AC SETTINGS DUE TO INCREASED WOB. KENJI EVANS ORDERED AND REPORTED RESULTS TO RN. WILL CONTINUE TO MONITOR CLOSELY. Addendum: 05/25/20 at 0340 by MIN CARY RT Amended: Links added.
[2020-05-25 03:42] LABS: ABG BASE EXCESS -0.6 mmol/L; ABG PCO2 34.2 mmHg (35.0-45.0); ABG PH 7.447 (7.350-7.450); ABG PO2 93.4 mmHg (75.0-100.0); AaDO2 152.5 mmHg; COHb 0.2 % (0.5-1.5); MetHb 0.4 % (0.0-1.5); O2Hb 95.4 % (94.0-97.0); SITE, ABG Right Radial
[2020-05-25] MEDS: HYDROCODONE/APAP 10/325MG TABLET PO PRN (05:14)
--- NOTE | 2020-05-25 06:02 | NUR ---
RT NOTE PT IMPROVING ON PREVIOUS AC SETTINGS. HIGH HR NOTED. KENJI ZAMUDIO @ BEDSIDE AND IS AWARE. Addendum: 05/25/20 at 0604 by MIN CARY RT Amended: Links added.
--- NOTE | 2020-05-25 07:00 | NUR ---
PREPARATION SUPERVISOR CANNING CLOSING NOTES PT IN BED, [facility] VENT SETTINGS CHANGED FROM CPAP TO AC LAST NIGHT. ABG APPEARED WITHIN NORMAL RANGE AND CXR SHOWED NO SIGNIFICANT CHANGE FROM PREVIOUS CXR FROM 05/23. PT TOLERATING NEW SETTING WELL SPO2 99% RESP RATE 22. IN NO APPARENT RESP DISTRESS. HR STILL NOTED TO BE ELEVATED IN 120'S ST. MAIKOL MIDLINE STILL INTACT FLUSHED HEPLOCKED. RIGHT FEMORAL PICC LINE PATENT AND HEPLOCKED LINES FLUSHED AND CAPS CHANGED. DRESSING INTACT WITH BIOPATCH. FC DRAINING YANNICK URINE. 800. GTUBE NOTED TO HAVE RESIDUAL OF 15. FLUCERNA RUNNING ORDERED AT 40 ML PER HOUR. BED LOW LOCKED IN SEMIFOWLERS SRX3 UPPER EXTREMITIES ELEVATED ON A PILLOW. CALL LIGHT PLACED WITHIN REACH.
--- NOTE | 2020-05-25 07:50 | NUR ---
BEEF CATTLE SPECIALIST NOTES RECEIVED PT IN BED, INTERMITTENTLY DOZING OFF, NONVERBAL, UNABLE TO FOLLOW SIMPLE COMMANDS. TOLERATING CURRENT VENT SETTING AT AC, WITH NO ACUTE RESPIRATORY DISTRESS NOTED. PT ON TELEMONITORING WITH ST110, APPEARS CALM. PIV TO MAIKOL MIDLINE AND RIGHT FEMORAL TRIPLE LUMEN PICC, BOTH FLUSHED WITH NS, INTACT AND OPERATIONAL. PT KEPT COMFORTABLE IN BED. HOB ELEVATED. CALL LIGHT KEPT WITHIN REACH. PT'S BED IN LOWEST, LOCKED POSITION WITH SR X3. WILL CONTINUE PLAN OF CARE.
[2020-05-25] MEDS ORDERED: IV NS 0.9% 1,000 ML IV PRN (08:30)
[2020-05-25] MEDS: acetaZOLAMIDE 250 MG TABLET PO SCH (09:00)
[2020-05-25] MEDS: METOPROLOL TARTRATE 25 MG TABLET PO SCH ×2 (09:00→21:22)
[2020-05-25] MEDS: LORAZEPAM 1 MG TABLET PO SCH (09:00)
[2020-05-25] MEDS: ZINC SULFATE 220 MG CAPSULE NG SCH (09:31)
[2020-05-25] MEDS: ENOXAPARIN SODIUM 40 MG/0.4 ML DISP.SYRIN SQ SCH (09:32)
[2020-05-25] MEDS: PANTOPRAZOLE 40 MG/PACK PACK GT SCH (09:32)
[2020-05-25] MEDS: HYDROCORTISONE SOD SUCCINATE 100 MG/2 ML VIAL IV SCH (09:32)
[2020-05-25] MEDS: ASCORBIC ACID 500 MG TABLET NG SCH (09:33)
[2020-05-25] MEDS: CLOTRIMAZOLE 1% 15 GM TUBE TP SCH ×2 (09:35→17:55)
--- NOTE | 2020-05-25 09:35 | NUR ---
RN NOTES HELD METOPROLOL, ATIVAN AND DIAMOX D/T LOW BP. ONGOING IV NS 1L BOLUS. WILL CONTINUE TO MONITOR.
--- NOTE | 2020-05-25 09:40 | NUR ---
TR NOTES PT SEEN AND EVALUATED BY DR. HARGROVE, ORDERED TO D/C PEEP. PAGED RT AND MADE AWARE MD'S ORDER. WILL CONTINUE TO MONITOR.
[2020-05-25 10:23] LABS: BASOPHILS % (AUTO) 0.3 % (0.0-2.0); EOSINOPHILS % (AUTO) 0.7 % (0.0-6.0); HEMATOCRIT 24 % (39-51); HEMOGLOBIN 7.7 g/dL (13.5-17.5); LYMPHOCYTES # (AUTO) 0.3 /CMM (0.8-4.8); LYMPHOCYTES % (AUTO) 1.6 % (20.0-44.0); MEAN CORPUSCULAR HGB CONC 32 g/dl (31.0-36.0); MEAN CORPUSCULAR VOLUME 93 fL (80-96); MONOCYTES # (AUTO) 0.8 /CMM (0.1-1.30); MONOCYTES % (AUTO) 4.8 % (2.0-12.0); NEUTROPHILS # (AUTO) 16.1 /CMM (1.8-8.9); NEUTROPHILS % (AUTO) 92.6 % (43.0-81.0); PLATELET COUNT (AUTO) 143 /CMM (150-450); RED BLOOD CELL COUNT(AUTO) 2.63 MIL/uL (4.5-6.0); WHITE BLOOD COUNT (AUTO) 17.4 K/uL (4.3-11.0)
--- NOTE | 2020-05-25 10:32 | NUR ---
RN NOTES JUST FINISHED 1L NS BOLUS, BP 95/46, HR 85. WILL CONTINUE TO MONITOR.
[2020-05-25 10:42] LABS: CALCIUM, SERUM 7.9 mg/dL (8.5-10.1); CREATININE 1.2 mg/dL (0.6-1.3)
[2020-05-25 10:47] LABS: ALBUMIN 1.9 g/dL (3.4-5.0); BILIRUBIN,TOTAL 0.6 mg/dL (0.2-1.0); MAGNESIUM 1.7 mg/dL (1.8-2.4); PHOSPHORUS 3.2 mg/dL (2.5-4.9); TOTAL PROTEIN, SERUM 4.7 g/dL (6.4-8.2)
--- NOTE | 2020-05-25 10:50 | NUR ---
RN NOTES SPOKE TO GRANDDAUGHTER/TAVO, INFORMED REGARDING HEMATOLOGY, CHEMISTRY, AND OTHER LAB WORKS FOR PT, GT FEEDING, URINE OUTPUT INCLUDING FROM LAST NIGHTS RESULT.
[2020-05-25 13:05] LABS: BAND % (MANUAL) 2 % (0.0-5.0); EOSINOPHILS % (MANUAL) 1 % (0-4); LYMPHOCYTES % (MANUAL) 4 % (16-48); MONOCYTES % (MANUAL) 2 % (0-11.0); NEUTROPHILS % (MANUAL) 91 (42-76)
--- NOTE | 2020-05-25 13:18 | NUR ---
pt's carlie Gregory is requesting to spick with hospitalist. Dr. Lara informed about request and provided with phone number.
[2020-05-25] MEDS: POTASSIUM CHLORIDE 20 MEQ POWDER PACKET GT SCH ×2 (13:27→15:13)
[2020-05-25] MEDS: Magnesium 1GM/D5W 100ML PREMIX 100 ML IV SCH ×2 (13:27→15:13)
--- NOTE | 2020-05-25 14:15 | NUR ---
RN NOTES SPOKE TO GRANDDAUGHTER/TAVO, UPDATED WITH PT'S CURRENT VITALS, URINE OUTPUT, AND POTASSIUM AND AMGNESIUM REPLACEMENT. WILL CONTINUE TO MONITOR.
--- NOTE | 2020-05-25 14:17 | NUR ---
RN NOTES INSTRUCTED TAVO TO CALL BACK AROUND 6PM FOR THE WHOLE UPDATES. ALSO RE ASSURED TAVO WE'RE MONITORING PT EVERY HOUR. BLOOD CULTURE WAS DRAWN EARLIER WELL. ALSO WE ARE COORDINATING WITH /.
--- NOTE | 2020-05-25 15:08 | NUR ---
Pt's granddaughter Bri called stating that we are not updating her with patients condition and hospitalist is not calling her back. I told her that md was provided with her call back number and just to wait for call back. According to primary nurse May she spoke with Bri multiple times today and she was updated with pt's condition. Bri provided with Rn supervisors phone number per her request.
[2020-05-25 17:21] LABS: ABG BASE EXCESS 4.4 mmol/L; ABG OXYGEN SATURATION 85.2 % (92.0-98.5); ABG PCO2 35.3 mmHg (35.0-45.0); AaDO2 196.6 mmHg; COHb 0.3 % (0.5-1.5); MetHb 0.1 % (0.0-1.5); O2Hb 84.9 % (94.0-97.0); SITE, ABG Right Radial; VENT MODE, BG AC 18 500 40% +0
--- NOTE | 2020-05-25 17:31 | NUR ---
RT NOTE ABG DONE DUE TO LOW SATURATION OF 88%. RESULTS SENT TO DR HARGROVE AND AWAITING ORDERS Addendum: 05/25/20 at 1733 by VENESSA SYKES RT Amended: Links added.
--- NOTE | 2020-05-25 17:35 | NUR ---
RT NOTE FIO2 INCREASED TO 100% AND PEEP TO [address] HARGROVE. PT WAITING FOR TRANSFER TO ICU Addendum: 05/25/20 at 1736 by VENESSA SYKES RT Amended: Links added.
[2020-05-25] MEDS: PROSOURCE / PROSTAT (PYXIS) 30 ML UDC GT SCH (17:55)
--- NOTE | 2020-05-25 17:55 | NUR ---
RN NOTES RN ABLE TO FACETIME FAMILY WITH TAVO PER THEIR REQUEST. AWARE OF PT'S CONDITION, FAMILY ALSO CHECKED SKIN FROM HEAD TO TOE. FAMILY A;LSO AWARE OF THE PLAN FOR TRANSFER. CHARGE NURSE/BELLA AWARE WELL. WILL ENDORSE TO VISUAL DISPLAY ASSOCIATE WELL.
[2020-05-25] MEDS: GLUCERNA 1.2 1,000 ML BOTTLE GT PRN (18:00)
--- NOTE | 2020-05-25 18:25 | NUR ---
RN NOTES TRANSFERRED PT TO ICU BED 250 VIA ACLS TRANSPORT. PT AWAKE, NOT IN DISTRESS. RT PRESENT DURING TRANSFER. UO TOTAL OF 750 ML. ENDORSED TO DIAMOND/RN AT BEDSIDE FOR CONOR.
--- NOTE | 2020-05-25 18:30 | NUR ---
PATIENT TRANSFERRED TO ICU SECONDARY TO HIGH VENT SETTINGS. -FIO2 -100%. PATIENT AWAKE BUT DOESN'T FOLLOW SIMPLE COMMANDS. ST 110. SBP 120'S. NO ACUTE DISTRESS NOTED.
--- NOTE | 2020-05-25 19:05 | NUR ---
RN OPENING NOTES RECEIVED PT ON BED AWAKE, OPEN HIS EYES I WAVE TO GREET HIM HE WAVE BACK AT ME, PT RIGHT FOOT IS KEEP ON MOVING, NO SIGN AND SYMPTOMS OF DISTRESS, SPO2 98% ON TRACH VENT SETTING ORDERED WITH BLOOD TINGE SUCTIONED SECRETION NOTED, WITH PICC LINE ON R FEMORAL PATENT AND FLUSHED, GTUBE ON PLACE POSITION AND RESIDUAL CHECKED WITH ONGOING GLUCERNA 1.2 40ML/HR RATE, SAFETY MEASURE MAINTAINED CALL LIGHT WITHIN REACH WILL CONT TO MONITOR
[2020-05-25] MEDS ORDERED: DOSE PER PHARMACY MICAFUNGIN 1 EA XX PRN (21:00)
[2020-05-25] MEDS ORDERED: MICAFUNGIN SODIUM 100 MG in IV NS 0.9% 100 ML IV ONE (21:15)
[2020-05-25] MEDS ORDERED: MICAFUNGIN SODIUM 100 MG VIAL IV ONE (22:04)
[2020-05-26] VITALS (22 sets, daily range): BP systolic 93–166; BP diastolic 37–90
[2020-05-26] MEDS: MORPHINE SULFATE INJ 2 MG/ML DISP.SYRIN IV PRN (00:22)
[2020-05-26] MEDS: LORAZEPAM INJ 2 MG/ML VIAL IV PRN ×2 (01:21→08:17)
[2020-05-26 04:43] LABS: BASOPHILS # (AUTO) 0.1 /CMM (0.0-0.2); BASOPHILS % (AUTO) 0.6 % (0.0-2.0); EOSINOPHILS % (AUTO) 1.3 % (0.0-6.0); HEMATOCRIT 24 % (39-51); HEMOGLOBIN 7.7 g/dL (13.5-17.5); LYMPHOCYTES # (AUTO) 0.6 /CMM (0.8-4.8); LYMPHOCYTES % (AUTO) 5.2 % (20.0-44.0); MEAN CORPUSCULAR HGB CONC 32 g/dl (31.0-36.0); MEAN CORPUSCULAR VOLUME 92 fL (80-96); MONOCYTES # (AUTO) 0.6 /CMM (0.1-1.30); MONOCYTES % (AUTO) 4.9 % (2.0-12.0); NEUTROPHILS # (AUTO) 10.1 /CMM (1.8-8.9); PLATELET COUNT (AUTO) 126 /CMM (150-450); RED BLOOD CELL COUNT(AUTO) 2.57 MIL/uL (4.5-6.0); WHITE BLOOD COUNT (AUTO) 11.4 K/uL (4.3-11.0)
[2020-05-26] MEDS: Z GUARD REMEDY 2 OZ OINT TP PRN (04:56)
[2020-05-26 05:00] LABS: CALCIUM, SERUM 7.3 mg/dL (8.5-10.1); CREATININE 1.1 mg/dL (0.6-1.3); MAGNESIUM 2.2 mg/dL (1.8-2.4); PHOSPHORUS 3.3 mg/dL (2.5-4.9)
[2020-05-26 05:24] LABS: POTASSIUM 2.6 mmol/L (3.5-5.1)
--- NOTE | 2020-05-26 05:53 | NUR ---
RN NOTES CRITICAL LAB VALUES OF K+ 2.[address] SALDANA PER HER INSTRUCTION LAST NIGHT THAT SHE CAN BE TEXTED WAITING FOR HER RESPONSE
--- NOTE | 2020-05-26 06:39 | NUR ---
RN NOTED RECEIVED CALL BACK FROM DR. SALDANA WITH ORDER 40MEQ K DUR VIA GTUBE AND 40 MEQ KCL IV NOTED AND CARRIED OUT
[2020-05-26] MEDS ORDERED: POTASSIUM CHLORIDE 20 MEQ TAB.PRT.SR PO ONE (07:00)
[2020-05-26] MEDS: POTASSIUM CL. PREMIX PERIPHER. 50 ML IV SCH ×4 (07:03→12:35)
--- NOTE | 2020-05-26 07:30 | NUR ---
RT PATIENT REC'D TRACHED ON [facility] VENT WITH ORDERED SETTINGS BOBBY WELL. PATIENT APPEARS COMFORTABLE, SEDATED, AND IN NO DISTRESS. DONNIEU BAG AT HOB. CONT CURRENT PLAN OF CARE. Addendum: 05/28/20 at 1207 by MEHREEN MATHEW RT Amended: Links added.
[2020-05-26] MEDS: HYDROCORTISONE SOD SUCCINATE 100 MG/2 ML VIAL IV SCH (08:36)
[2020-05-26] MEDS: PANTOPRAZOLE 40 MG/PACK PACK GT SCH (08:36)
[2020-05-26] MEDS: ASCORBIC ACID 500 MG TABLET NG SCH (08:37)
[2020-05-26] MEDS: acetaZOLAMIDE 250 MG TABLET PO SCH (08:37)
[2020-05-26] MEDS: CLOTRIMAZOLE 1% 15 GM TUBE TP SCH ×2 (08:39→17:14)
[2020-05-26] MEDS: PROSOURCE / PROSTAT (PYXIS) 30 ML UDC GT SCH ×3 (08:41→17:14)
[2020-05-26] MEDS: ZINC SULFATE 220 MG CAPSULE NG SCH (08:41)
[2020-05-26] MEDS: METOPROLOL TARTRATE 25 MG TABLET PO SCH ×2 (08:42→21:00)
[2020-05-26] MEDS: ENOXAPARIN SODIUM 40 MG/0.4 ML DISP.SYRIN SQ SCH (08:44)
[2020-05-26] MEDS: PROPOFOL 100 ML IV PRN ×2 (10:46→20:58)
[2020-05-26 12:52] LABS: ABG BASE EXCESS 0.9 mmol/L; ABG OXYGEN SATURATION 98.5 % (92.0-98.5); ABG PCO2 65.3 mmHg (35.0-45.0); ABG PH 7.263 (7.350-7.450); ABG PO2 140.2 mmHg (75.0-100.0); AaDO2 507.5 mmHg; COHb 0.5 % (0.5-1.5); MetHb 0.2 % (0.0-1.5); O2Hb 97.8 % (94.0-97.0); SITE, ABG Right Radial
[2020-05-26] MEDS ORDERED: MEROPENEM 500 MG in IV NS 0.9% 50 ML IV SCH (13:00)
[2020-05-26] MEDS: ACETAMINOPHEN 650 MG/20.3 ML UDC GT PRN (14:00)
[2020-05-26] MEDS: MEROPENEM 1 G in IV NS 0.9% 100 ML IV SCH ×2 (14:01→20:58)
[2020-05-26] MEDS: GLUCERNA 1.2 1,000 ML BOTTLE GT PRN (17:14)
--- NOTE | 2020-05-26 19:39 | NUR ---
END OF SHIFT NOTE: PT HAD A FAIRLY UNEVENTFUL SHIFT. PROPOFOL STARTED PER MD ORDERS FROM DR. HARGROVE FOR TACHYPNEA, CURRENTLY INFUSING AT 10MCG/KG/MIN. RIGHT FEMORAL PICC LINE REMOVED PER MD ORDERS, TIP WAS SENT FOR CULTURE. LEFT UPPER ARM MIDLINE PLACED PER MD ORDERS. VENT SETTING WERE ADJUSTED PER MD ORDERS, CURRENTLY AT AC24, TV 550, 80%, PEEP 10. PT RECEIVED A TOTAL OF 40 MEQ POTASSIUM PER PEG TUBE AND 40 MEQ IV FOR POTASSIUM OF 2.6 THIS AM. RN SPOKE TO GRANDDAUGHTER THIS AM, ANSWERED APPROPRIATE QUESTIONS. PER GRANDDAUGHTERS REQUEST DR. LANCE WAS NOTIFIED TO CALL HER. PT RAN A LOW GRADE TEMP AT 1200 OF 100.8, TYLENOL WAS GIVEN, TEMP CAME DOWN TO 99.4, PT CHECKED ON HOURLY AND PRN BY NURSING STAFF.
[2020-05-26] MEDS: MICAFUNGIN SODIUM 100 MG in IV NS 0.9% 100 ML IV SCH (22:14)
[2020-05-27] VITALS (27 sets, daily range): BP systolic 76–170; BP diastolic 32–96
[2020-05-27 03:59] LABS: BASOPHILS # (AUTO) 0.1 /CMM (0.0-0.2); BASOPHILS % (AUTO) 0.7 % (0.0-2.0); EOSINOPHILS % (AUTO) 4.5 % (0.0-6.0); HEMATOCRIT 26 % (39-51); HEMOGLOBIN 8.2 g/dL (13.5-17.5); LYMPHOCYTES # (AUTO) 1.2 /CMM (0.8-4.8); MEAN CORPUSCULAR HGB CONC 32 g/dl (31.0-36.0); MEAN CORPUSCULAR VOLUME 94 fL (80-96); MONOCYTES # (AUTO) 0.6 /CMM (0.1-1.30); MONOCYTES % (AUTO) 4.3 % (2.0-12.0); NEUTROPHILS # (AUTO) 10.5 /CMM (1.8-8.9); NEUTROPHILS % (AUTO) 81.5 % (43.0-81.0); PLATELET COUNT (AUTO) 125 /CMM (150-450); RED BLOOD CELL COUNT(AUTO) 2.76 MIL/uL (4.5-6.0); WHITE BLOOD COUNT (AUTO) 12.9 K/uL (4.3-11.0)
[2020-05-27 04:16] LABS: CALCIUM, SERUM 7.6 mg/dL (8.5-10.1); CARBON DIOXIDE 31 mmol/L (21-32); CHLORIDE 104 mmol/L (98-107); CREATININE 1.2 mg/dL (0.6-1.3); GLUCOSE 118 mg/dL (74-106); MAGNESIUM 2.3 mg/dL (1.8-2.4); PHOSPHORUS 3.5 mg/dL (2.5-4.9); POTASSIUM 3.8 mmol/L (3.5-5.1); SODIUM SERUM 141 mmol/L (136-145); UREA NITROGEN, BLOOD 31 mg/dL (7-18)
[2020-05-27] MEDS: MEROPENEM 1 G in IV NS 0.9% 100 ML IV SCH ×3 (05:07→21:48)
--- NOTE | 2020-05-27 06:01 | NUR ---
END OF SHIFT NO CHANGES NOTED IN PT STATUS ALL SHIFT. PT REMAINS TRACHED ON VENT. VENT AND ALARMS WELL FUNCTIONING WITH AMBU BAG AT BEDSIDE. SX PRN MOD YELLOW/ CLEAR SECRETIONS. NO DISTRESS NOTED.
--- NOTE | 2020-05-27 06:15 | NUR ---
RECEIVED A CRITICAL LAB FROM GEREMIAS KINSEY MD. CXR SHOWED A APICAL PNUEMOTHORAX LESS THAN 10%. LES IS MADE AWARE FOR RESULTS AND ORDERED TO RECHECK CHEST X-RAY TOMORROW MORNING. WILL ENDORSE TO MORNING SHIFT.
--- NOTE | 2020-05-27 07:30 | NUR ---
RN NOTES RECEIVED PATIENT SEDATED WITH DIPRIVAN AT 10MCG/KG/MIN. REACTIVE TO PAINFUL STIMULI. GOOD SATURATION LEVEL AT 98% AT CURRENT VENT SETTINGS BUT WITH NOTED USE OF ACCESSORY MUSCLE ON BREATHING. AFIB ON THE MONITOR WITH HR ON THE 90-110s. MIDLINE ON THE YISEL, FLUSHES WELL. DRESSING DRY AND INTACT. BILATERAL UPPER ARM SWELLING. GT IN PLACE, PLACEMENT VERIFIED BY AUSCULTATING GASTRIC RESIDUAL, WITH > 200 AT THIS TIME, FEEDING TURNED OFF AT THIS TIME. NAVARRETE CATHETER IN PLACE, DRAINING TO DARK COLORED URINE. WITH PITTING EDEMA ON THE FEET L>R. HOB ELEVATED FOR SAP. SAFETY PRECAUTIONS ENSURED IN PLACE. CALL LIGHT PLACED WITHIN REACH. WILL CONTINUE TO MONITOR PATIENT ACCORDINGLY
--- NOTE | 2020-05-27 07:43 | NUR ---
RT PATIENT REC'D TRACHED ON [facility] VENT WITH ORDERED SETTINGS BOBBY WELL. PATIENT APPEARS COMFORTABLE, SEDATED, AND IN NO DISTRESS. DONNIEU BAG AT HOB. CONT CURRENT PLAN OF CARE. Addendum: 05/28/20 at 1207 by MEHREEN MATHEW RT Amended: Links added.
[2020-05-27 08:15] LABS: ABG BASE EXCESS 2.7 mmol/L; ABG OXYGEN SATURATION 97.7 % (92.0-98.5); ABG PCO2 66.6 mmHg (35.0-45.0); ABG PH 7.277 (7.350-7.450); ABG PO2 106.1 mmHg (75.0-100.0); AaDO2 321.4 mmHg; COHb 0.7 % (0.5-1.5); MetHb 0.2 % (0.0-1.5); O2Hb 96.8 % (94.0-97.0); SITE, ABG Right Radial; VENT MODE, BG AC24 550 70% +10
[2020-05-27] MEDS: PANTOPRAZOLE 40 MG/PACK PACK GT SCH (08:35)
[2020-05-27] MEDS: PROSOURCE / PROSTAT (PYXIS) 30 ML UDC GT SCH ×3 (08:35→17:53)
[2020-05-27] MEDS: ASCORBIC ACID 500 MG TABLET NG SCH (08:36)
[2020-05-27] MEDS: HYDROCORTISONE SOD SUCCINATE 100 MG/2 ML VIAL IV SCH (08:36)
[2020-05-27] MEDS: ZINC SULFATE 220 MG CAPSULE NG SCH (08:36)
[2020-05-27] MEDS: METOPROLOL TARTRATE 25 MG TABLET PO SCH ×3 (08:37→23:05)
[2020-05-27] MEDS: ENOXAPARIN SODIUM 40 MG/0.4 ML DISP.SYRIN SQ SCH (08:38)
[2020-05-27] MEDS: CLOTRIMAZOLE 1% 15 GM TUBE TP SCH ×2 (08:39→17:53)
--- NOTE | 2020-05-27 09:30 | NUR ---
RN NOTES SEEN AND EXAMINED BY DR. HARGROVE WITH ORDERS TO INCREASE VENT SETTING:VT TO 600. ORDER NOTED AND CARRIED OUT
--- NOTE | 2020-05-27 10:15 | NUR ---
RN NOTES SPOKE TO (GRANDDAUGHTER) TAVO, INFORMED REGARDING VITAL SIGNS, VENT SETTINGS, HEMATOLOGY, CHEMISTRY, OTHER LAB AND DIAGNOSTIC WORKS AND RESULTS, GT FEEDING AND GASTRIC RESIDUAL, INTAKE AND OUTPUT FROM LAST NIGHT INCLUDING URINE COLOR AND OCCURRENCE OF BOWEL MOVEMENT.
[2020-05-27] MEDS: PROPOFOL 100 ML IV PRN (11:11)
--- NOTE | 2020-05-27 11:23 | NUR ---
RN NOTES SPOKE AGAIN TO TAVO (GRANDDAUGHTER) AT THIS TIME, DISCUSSED ABOUT ALL MEDICATION GIVEN IN THE MORNING.
[2020-05-27 14:33] LABS: ABG OXYGEN SATURATION 94.7 % (92.0-98.5); ABG PCO2 54.6 mmHg (35.0-45.0); ABG PO2 76.6 mmHg (75.0-100.0); AaDO2 291.1 mmHg; COHb 0.3 % (0.5-1.5); MetHb 0.1 % (0.0-1.5); O2Hb 94.3 % (94.0-97.0); SITE, ABG Right Radial; VENT MODE, BG ac 24 600 60% +8
--- NOTE | 2020-05-27 18:30 | NUR ---
RN NOTES PATIENT WITH NO SIGNIFICANT CHANGES WITHIN THE SHIFT. NOT ON ANY FORM OF DISTRESS. NO SHORTNESS OF BREATH NOTED. ALL NURSING NEEDS ATTENDED MET. SAFETY MEASURES IN PLACE AT ALL TIMES. CALL LIGHT WITHIN REACH.
--- NOTE | 2020-05-27 19:30 | NUR ---
RN NOTES RECEIVED PATIENT IN BED, ASLEEP/EYES CLOSED, SEDATED ON DIPRIVAN DRIP @ 10MCG/KG/MIN. PATIENT WITH TRACH ON MECHANICAL VENTILATION, SPO2 WNL, BUT NOTED WITH ACCESSORY MUSCLE USE ON INSPIRATION. BEDSIDE MONITOR SHOWS SINUS TACHYCARDIA, HR 112 BPM. PATIENT WITH LEFT UPPER ARM MIDLINE, PATENT AND INTACT, RUNNING DIPRIVAN DRIP @ 10MCG/KG/MIN, AND NS TKO. MINIMAL GASTRIC RESIDUAL, APPROXIMATELY 5ML. NAVARRETE CATHETER PATENT AND INTACT, DRAINING YELLOW URINE VIA GRAVITY. HOB KEPT ELEVATED FOR ASPIRATION PRECAUTIONS. WILL MONITOR CLOSELY
--- NOTE | 2020-05-27 19:30 | NUR ---
[facility] INITIAL SHIFT NOTES RECEIVED PATIENT IN BED, ORALLY INTUBATED ON MECHANICAL VENTILATION 60% FIO2, PEEP +8, SEDATED ON DIPRIVAN DRIP @ 10MCG/KG/MIN VIA LEFT UPPER ARM MIDLINE. BEDSIDE TELEMETRY MONITORING SHOWS SINUS TACHYCARDIA, HR = 112 BPM AT THIS TIME. GTUBE PATENT AND INTACT, ONGOING TUBE FEEDING AT PRESCRIBED RATE, TOLERATING WELL, MINIMAL GASTRIC RESIDUALS NOTED AT THIS TIME. HOB KEPT ELEVATED FOR ASPIRATION PRECAUTIONS. WILL MONITOR CLOSELY
--- NOTE | 2020-05-27 22:08 | NUR ---
RECE[facility]ED PT [facility]LY [facility] PT TOLERATING VENT SETTINGS NO RESP DISTRESS NOTED. SX'D AND LAVAGE FOR SML AMT OF THICK MICHAEL SECRETIONS. VENT ALARMS SET AND AUDIBLE. AMBU BAG AT BEDSIDE, SPARE TRACH AT BEDSIDE. VENT PLUGGED INTO RED OUTLET. CONTINUE [facility] VENT SUPPORT. Addendum: 05/27/20 at 2210 by MAXIM BARRAGAN RT Amended: Links added.
[2020-05-27] MEDS: MICAFUNGIN SODIUM 100 MG in IV NS 0.9% 100 ML IV SCH (23:00)
[2020-05-27] MEDS: ACETAMINOPHEN 650 MG/20.3 ML UDC GT PRN (23:27)
[2020-05-28] VITALS (24 sets, daily range): BP systolic 97–180; BP diastolic 48–114
[2020-05-28] MEDS: PROPOFOL 100 ML IV PRN ×2 (01:04→19:27)
[2020-05-28] MEDS: GLUCERNA 1.2 1,000 ML BOTTLE GT PRN (01:12)
[2020-05-28 04:26] LABS: BASOPHILS # (AUTO) 0.1 /CMM (0.0-0.2); BASOPHILS % (AUTO) 0.5 % (0.0-2.0); EOSINOPHILS % (AUTO) 5.7 % (0.0-6.0); HEMATOCRIT 24 % (39-51); HEMOGLOBIN 7.9 g/dL (13.5-17.5); LYMPHOCYTES # (AUTO) 0.9 /CMM (0.8-4.8); LYMPHOCYTES % (AUTO) 8.3 % (20.0-44.0); MEAN CORPUSCULAR HGB CONC 33 g/dl (31.0-36.0); MEAN CORPUSCULAR VOLUME 94 fL (80-96); MONOCYTES # (AUTO) 0.6 /CMM (0.1-1.30); MONOCYTES % (AUTO) 5.1 % (2.0-12.0); NEUTROPHILS # (AUTO) 8.7 /CMM (1.8-8.9); NEUTROPHILS % (AUTO) 80.4 % (43.0-81.0); PLATELET COUNT (AUTO) 157 /CMM (150-450); RED BLOOD CELL COUNT(AUTO) 2.56 MIL/uL (4.5-6.0); WHITE BLOOD COUNT (AUTO) 10.8 K/uL (4.3-11.0)
--- NOTE | 2020-05-28 04:35 | NUR ---
MANAGER TRADE NOTES PATIENT'S HR NOTED TO JUMP TO 130s AND SUSTAINING. PATIENT REPOSITIONED, BUT HR REMAINS ELEVATED. ATIVAN 1MG ADMINISTERED VIA IV. WILL MONITOR CLOSELY
[2020-05-28] MEDS: LORAZEPAM INJ 2 MG/ML VIAL IV PRN ×2 (04:39→22:59)
[2020-05-28 04:57] LABS: CALCIUM, SERUM 7.7 mg/dL (8.5-10.1); CARBON DIOXIDE 32 mmol/L (21-32); CHLORIDE 105 mmol/L (98-107); CREATININE 1.2 mg/dL (0.6-1.3); GLUCOSE 114 mg/dL (74-106); MAGNESIUM 2.3 mg/dL (1.8-2.4); PHOSPHORUS 2.6 mg/dL (2.5-4.9); POTASSIUM 3.3 mmol/L (3.5-5.1); SODIUM SERUM 144 mmol/L (136-145); UREA NITROGEN, BLOOD 38 mg/dL (7-18)
[2020-05-28] MEDS: MEROPENEM 1 G in IV NS 0.9% 100 ML IV SCH ×3 (05:30→21:01)
--- NOTE | 2020-05-28 07:00 | NUR ---
OPTICAL LABORATORY MECHANIC NOTES - CLARIFICATION WITH PHARMACY RECEIVED CALL FROM PHARMACY, SPOKE TO [facility] REGARDING ATIVAN ADMINISTRATION AT 0439. PER EMAR, MEDICATION WAS SCANNED @ 0439. WASTE (FOR PARTIAL DOSE) ON OMNICELL WAS PERFORMED SHORTLY BEFORE ADMINISTRATION, WITNESSED BY KENJI WALKER.
--- NOTE | 2020-05-28 07:30 | NUR ---
RN NOTES RECEIVED BACK FROM SERVICE ASSISTANT, STILL SEDATED WITH DIPRIVAN AT 10MCG/KG/MIN. PATIENT NOT ON ANY FORM OF DISTRESS. BREATHING UNLABORED. LOOKED MORE COMFORTABLE COMPARED TO YESTERDAY. AFEBRILE. MIDLINE IN PLACE AND OPERATIONAL. FLUSHING GOOD. NO GASTRIC RESIDUAL NOTED ON ASPIRATION. HOB KEPT ELEVATED FOR SAF. SAFETY MEASURES OBSERVE IN PLACE. CALL LIGHT PLACED WITHIN REACH. WILL CONTINUE TO MONITOR PATIENT ACCORDINGLY
[2020-05-28] MEDS ORDERED: POTASSIUM CHLORIDE 20 MEQ POWDER PACKET GT SCH (08:30)
[2020-05-28 08:32] LABS: ABG OXYGEN SATURATION 98.6 % (92.0-98.5); ABG PCO2 47.5 mmHg (35.0-45.0); ABG PH 7.444 (7.350-7.450); AaDO2 246.6 mmHg; COHb 0.4 % (0.5-1.5); MetHb 0.3 % (0.0-1.5); O2Hb 97.9 % (94.0-97.0); PEEP,BG 8 cm H2O; SITE, ABG Right Radial; VT, ABG 600 mL
[2020-05-28] MEDS: PROSOURCE / PROSTAT (PYXIS) 30 ML UDC GT SCH ×3 (08:50→16:47)
[2020-05-28] MEDS: HYDROCORTISONE SOD SUCCINATE 100 MG/2 ML VIAL IV SCH (08:51)
[2020-05-28] MEDS: PANTOPRAZOLE 40 MG/PACK PACK GT SCH (08:51)
[2020-05-28] MEDS: ASCORBIC ACID 500 MG TABLET NG SCH (08:52)
[2020-05-28] MEDS: METOPROLOL TARTRATE 25 MG TABLET PO SCH ×2 (08:53→20:35)
[2020-05-28] MEDS: ZINC SULFATE 220 MG CAPSULE NG SCH (08:53)
[2020-05-28] MEDS: ENOXAPARIN SODIUM 40 MG/0.4 ML DISP.SYRIN SQ SCH (08:54)
[2020-05-28] MEDS: CLOTRIMAZOLE 1% 15 GM TUBE TP SCH ×2 (08:54→16:47)
--- NOTE | 2020-05-28 16:25 | NUR ---
11:45am This SW contacted primary contact Bri (Granddaughter) to schedule a time for a family meeting. This SW explained that the primary doctor and the team would be on this call. Granddaughter to contact this SW after speaking with family members in order to confirm the meeting and inform SW which family member would be attending the meeting.
--- NOTE | 2020-05-28 16:25 | NUR ---
11:30am This SW was contacted by Account Associate KENJI Mercer regarding a request to schedule a family meeting for this patient. This SW to schedule the family meeting with the family. Primary Dr. Marco Zaragoza was contacted, and Dr. Lara prefers meetings in the afternoons. SW to follow up with family.
--- NOTE | 2020-05-28 16:26 | NUR ---
2:30pm This SW informed Dr. Lara, Dr. Robles, Dr. Dooley and Wheel Borer KENJI Mercer that there will be a family meeting tomorrow 05/29/2020 at 12pm (noon).
--- NOTE | 2020-05-28 16:26 | NUR ---
12pm Granddaughter Bri called this SW back with the SW regarding the family meeting. Bri and patients family wanting to meet this afternoon, 05/28, at 1pm. KENDALL contacted Dr. Lara, and KENDALL is awaiting Dr. Oropeza confirmation.
[2020-05-28] MEDS: IV NS 0.9% 250 ML IV PRN (16:48)
--- NOTE | 2020-05-28 17:00 | NUR ---
RN NOTES PATIENT BROUGHT TO RADIOLOGY DEPARTMENT VIA ACLS PROTOCOL FOR CT SCAN OF THE HEAD
--- NOTE | 2020-05-28 19:30 | NUR ---
RN NOTES RECEIVED PATIENT IN BED CONTINUES ON PROPOFOL. NO S/S OF RESPIRATORY DISTRESS NOTED. BREATHING UNLABORED. VITAL SIGNS WNL. YISEL MIDLINE IN PLACE FLUSHING WELL. CONT ON GTF GLUCERNA IS RUNNING AT 40ML/HR TOLERATING WELL NO RESIDUAL NOTED. HOB ELEVATED FOR SAFETY. SAFETY MEASURES IN PLACE, CALL LIGHT WITHIN REACH. WILL CONT TO MONITOR FOR CONOR.
--- NOTE | 2020-05-28 21:46 | NUR ---
RN NOTES RECEIVED CT SCAN RESULTS RELAY TO Amandeep PERSAUD NEW ORDER RECEIVED TO START ASA 81MG VIA GT QD NOTED AND CARRIED OUT.
[2020-05-28] MEDS: MICAFUNGIN SODIUM 100 MG in IV NS 0.9% 100 ML IV SCH (22:03)
[2020-05-28] MEDS: ACETAMINOPHEN 650 MG/20.3 ML UDC GT PRN (22:58)
[2020-05-29] VITALS (29 sets, daily range): BP systolic 93–180; BP diastolic 49–110
[2020-05-29] MEDS: PROPOFOL 100 ML IV PRN ×2 (01:42→06:53)
[2020-05-29] MEDS: GLUCERNA 1.2 1,000 ML BOTTLE GT PRN (04:18)
[2020-05-29 04:52] LABS: BASOPHILS # (AUTO) 0.1 /CMM (0.0-0.2); BASOPHILS % (AUTO) 0.9 % (0.0-2.0); EOSINOPHILS % (AUTO) 11.2 % (0.0-6.0); HEMATOCRIT 21 % (39-51); LYMPHOCYTES % (AUTO) 14.5 % (20.0-44.0); MEAN CORPUSCULAR HGB CONC 33 g/dl (31.0-36.0); MEAN CORPUSCULAR VOLUME 93 fL (80-96); MONOCYTES # (AUTO) 0.4 /CMM (0.1-1.30); MONOCYTES % (AUTO) 5.8 % (2.0-12.0); NEUTROPHILS # (AUTO) 4.8 /CMM (1.8-8.9); NEUTROPHILS % (AUTO) 67.6 % (43.0-81.0); PLATELET COUNT (AUTO) 161 /CMM (150-450); RED BLOOD CELL COUNT(AUTO) 2.23 MIL/uL (4.5-6.0)
[2020-05-29 05:00] LABS: CALCIUM, SERUM 7.2 mg/dL (8.5-10.1); CARBON DIOXIDE 32 mmol/L (21-32); CHLORIDE 108 mmol/L (98-107); CREATININE 1.1 mg/dL (0.6-1.3); GLUCOSE 93 mg/dL (74-106); MAGNESIUM 2.2 mg/dL (1.8-2.4); PHOSPHORUS 1.2 mg/dL (2.5-4.9); POTASSIUM 3.4 mmol/L (3.5-5.1); SODIUM SERUM 145 mmol/L (136-145); UREA NITROGEN, BLOOD 36 mg/dL (7-18)
[2020-05-29] MEDS: MEROPENEM 1 G in IV NS 0.9% 100 ML IV SCH ×3 (05:01→20:18)
[2020-05-29 05:14] LABS: HEMOGLOBIN 6.9 g/dL (13.5-17.5)
[2020-05-29 06:14] LABS: LYMPHOCYTES % (MANUAL) 10 % (16-48); MONOCYTES % (MANUAL) 4 % (0-11.0)
[2020-05-29 06:15] LABS: EOSINOPHILS % (MANUAL) 8 % (0-4); NEUTROPHILS % (MANUAL) 78 (42-76)
--- NOTE | 2020-05-29 07:13 | NUR ---
RN NOTES PATIENT IS SEDATED CONTINUES ON PROPOFOL TOLERATING WELL. PATIENT WAS GIVEN ROUTINE MEDICATIONS ALONG WITH PRN'S TOLERATED WELL. VENT SETTING TOLERATING WELL ORDERED. NO S/S OF ACUTE DISTRESS NOTED. YISEL MIDLINE INTACT FLUSHING WELL. GTF TOLERATING WELL, NO RESIDUAL NOTED. F/C INTACT YELLOW URINE RUNNING TO GRAVITY. ALL NEEDS ATTENDED, KEPT CLEAN DRY AND COMFORTABLE, CALL LIGHT WITHIN REACH. ENDORSE TO AM NURSE FOR CONOR.
--- NOTE | 2020-05-29 08:15 | NUR ---
awaiting primary MD or neurologist clarification regarding aspirin and lovenox admin considering hgb drop + ct results. neurologist note - "Patient is anemic with bleeding and not on anticoagulation due to upper gi bleeding. Continue Lovenox for now until more stable." ??
[2020-05-29] MEDS: METOPROLOL TARTRATE 25 MG TABLET PO SCH ×2 (08:17→20:37)
[2020-05-29] MEDS: ZINC SULFATE 220 MG CAPSULE NG SCH (08:18)
[2020-05-29] MEDS: ASCORBIC ACID 500 MG TABLET NG SCH (08:18)
[2020-05-29] MEDS: PANTOPRAZOLE 40 MG/PACK PACK GT SCH (08:18)
[2020-05-29] MEDS: HYDROCORTISONE SOD SUCCINATE 100 MG/2 ML VIAL IV SCH (08:18)
[2020-05-29] MEDS: CLOTRIMAZOLE 1% 15 GM TUBE TP SCH ×2 (08:19→16:44)
[2020-05-29] MEDS: PROSOURCE / PROSTAT (PYXIS) 30 ML UDC GT SCH ×3 (08:19→16:46)
--- NOTE | 2020-05-29 08:35 | NUR ---
reached out to Dr. Wilson neurologist on the case clarifying aspirin 81mg+ lovenox 40mg administration given hgb 6.9 (orders for 1U RBC) and CT head results. Order to DC aspirin and admin Lovenox. Confirmed with Dr. Dooley who agreed. demand manager Arpi witness to these clarifications, Lovenox cosigned with her.
[2020-05-29] MEDS ORDERED: ASPIRIN 81 MG TAB.CHEW GT SCH (09:00)
--- NOTE | 2020-05-29 09:30 | NUR ---
Sedation Vacation Notes Titrated propofol off per protocol. Patient opens eyes, unable to make eye contact, track or follow command. Pupils equal & reactive. moves R leg. L leg externally rotated Addendum: 05/29/20 at 1215 by GAVI ORTIZ RN commands tested by Bo speaking weigher and charger Arpi
[2020-05-29] MEDS: ENOXAPARIN SODIUM 40 MG/0.4 ML DISP.SYRIN SQ SCH (10:05)
[2020-05-29] MEDS: LORAZEPAM INJ 2 MG/ML VIAL IV PRN ×2 (10:42→14:03)
[2020-05-29] MEDS: MORPHINE SULFATE INJ 2 MG/ML DISP.SYRIN IV PRN ×2 (10:56→14:03)
--- NOTE | 2020-05-29 10:59 | NUR ---
1 U RBC ordered, patient's BP elevated, patient agitated, Ativan+morphine administered, awaiting IV Hydralazine, Dr. Lara states it's ok to give blood over 4 hrs BP 168/95
--- NOTE | 2020-05-29 11:00 | NUR ---
Patient only has 1 IV access (YISEL midline). Unable to place more, edematous on all extremities, prior nursing notes state PICC RN said not able to find veins. antibiotics/potassium phos admin delayed due to this. Dr. Lara aware. additionally, unable to infuse propofol + titrate patient off as patient is trach'd Patient with increased HR, BP, RR off propofol (see vitasigns). Morphine+Ativan given as ordered for comfort instead
[2020-05-29] MEDS: hydrALAZINE HCL IV 20 MG VIAL IV PRN (12:44)
--- NOTE | 2020-05-29 15:55 | NUR ---
Per Dr. Dubon: "don't DC Morphine, Ativan or Propofol for now until we find right dose of Seroquel"
[2020-05-29] MEDS ORDERED: QUETIAPINE FUMARATE 25 MG TABLET PO PRN (16:00)
[2020-05-29] MEDS: QUETIAPINE FUMARATE 25 MG TABLET PO SCH ×2 (16:43→22:32)
[2020-05-29] MEDS: POTASSIUM PHOSPHATE MM 7.5 MMOL in IV NS 0.9% 100 ML IV SCH ×2 (16:44→21:28)
[2020-05-29] MEDS: ACETAMINOPHEN 650 MG/20.3 ML UDC GT PRN (17:24)
--- NOTE | 2020-05-29 19:00 | NUR ---
PAINTER SHIPYARD Shift Summary 1U RBC tolerated well - BP elevated due to agitation (propofol turned off). Dr. Marco balderas, see vitasigns+vital signs long form for vitals documentation. Medicated as ordered, see previous note family members called x3, concerned about DIC and requesting to speak w/ Dr. Dooley. Endorsed to noc RN. [facility], no distress or SOB noted. FiO2 50%, PEEP 5, AC 24 (RR 31). See sedation vacation notes. Tele ST HR 100s throughout shift. PEG in place verified via auscultation. Glucerna @40mL/hr, no residual. Mar drained 500mL this shift. No BM. Wound care as ordered, turned per protocol. YISEL midline intact. BUE swollen 4+.
[2020-05-29] MEDS ORDERED: VANCOMYCIN 1 GM in IV D5W 250 ML IV ONE (20:00)
--- NOTE | 2020-05-29 20:00 | NUR ---
RN NOTE: PATIENT IN BED, NONVERBAL, BUT RESPONSIVE TO VERBAL AND LIGHT TOUCH STIMULI WITH EYES OPENING. PATIENT ON VENT TRACH WITH CURRENT VENT SETTINGS. NO S/S OF PAIN. MOVES RIGHT LOWER LEG. ON GTF, TOLERATING WELL, NO RESIDUAL. HOB ELEVATED. ON NAVARRETE CATH, PATENT AND INTACT, DRAINING CLEAR YELLOW URINE. NO SIGNS OF ACTIVE BLEEDING AT THIS TIME. KEPT CLEAN AND COMFORTABLE. SAFETY PRECAUTIONS IMPLEMENTED. BED LOCKED, LOW POSITION, UPPER BILATERAL SIDE RAILS X 2 RAISED. PATIENT NOTED FEBRILE 100F; COOLING MEASURES PROVIDED, WILL REASSESS PATIENT. CALL LIGHT WITHIN REACH. WILL CONT TO MONITOR. AT 2100, PATIENT'S FEVER CAME DOWN TO 99.5F; WILL CONT. TO MONITOR.
--- NOTE | 2020-05-29 20:11 | NUR ---
RN NOTE: SPOKE WITH BARBARA PHARMACIST AND MADE AWARE THAT PATIENT ONLY HAS ONE MIDLINE. PATIENT IS EDEMATOUS. PATIENT STILL HAS ONE MORE BAG OF POTASSIUM PHOSPHATE IV OVER 3 HOURS; ASKED IF IT CAN BE GIVEN WITH IV VANCO AND IV MERREM. PER BARBARA, ADMINISTER IV ANTIBIOTICS FIRST, THEN POTASSIUM PHOSPHATE IV OVER 3 HOURS, THEN IV MYCAMINE LAST. PER COOPER JIMENEZ TO ADMINISTER IV MYCAMINE LATE. WILL CONT. TO MONITOR. Addendum: 05/29/20 at 2015 by JAMSHID NAVARRETE RN PER COOPER JIMENEZ TO ADMINISTER IV VANCO AND IV MERREM AT THE SAME TIME USING ONE MIDLINE.
--- NOTE | 2020-05-29 23:40 | NUR ---
RN NOTE: TAVO (PATIENT'S GRANDDAUGHTER) CALLED; UPDATED ON PATIENT'S STATUS.
[2020-05-30] VITALS (25 sets, daily range): BP systolic 82–159; BP diastolic 50–103
[2020-05-30] MEDS: MICAFUNGIN SODIUM 100 MG in IV NS 0.9% 100 ML IV SCH ×2 (00:26→22:11)
--- NOTE | 2020-05-30 03:00 | NUR ---
RN NOTE: AT AROUND 0300, PATIENT NOTED WITH HR IN 150s-160s, BP 157/102; RESTLESSNESS, AND FACIAL GRIMACING. MEDICATED WITH MORPHINE AND ATIVAN PRN ORDERED. WILL REASSESS FOR EFFECTIVENESS. CHARGE NURSE AWARE. AT 0400, PATIENT'S HR WENT DOWN 120, BP 150/94; NOT IN ANY ACUTE DISTRESS. WILL CONT. TO MONITOR. AT 0615, PATIENT'S HR 110-115, BP 140/86; ASLEEP BUT EASILY AROUSABLE WITH EYES OPENING SPONTANEOUSLY TO LIGHT TOUCH. WILL CONT. TO MONITOR.
[2020-05-30] MEDS: ACETAMINOPHEN 650 MG/20.3 ML UDC GT PRN ×2 (03:01→12:14)
[2020-05-30] MEDS: LORAZEPAM INJ 2 MG/ML VIAL IV PRN ×3 (03:07→13:24)
[2020-05-30] MEDS: MORPHINE SULFATE INJ 2 MG/ML DISP.SYRIN IV PRN ×2 (03:09→06:38)
[2020-05-30 04:09] LABS: BASOPHILS # (AUTO) 0.1 /CMM (0.0-0.2); BASOPHILS % (AUTO) 1.5 % (0.0-2.0); HEMATOCRIT 26 % (39-51); HEMOGLOBIN 8.7 g/dL (13.5-17.5); LYMPHOCYTES # (AUTO) 1.1 /CMM (0.8-4.8); LYMPHOCYTES % (AUTO) 15.4 % (20.0-44.0); MEAN CORPUSCULAR HGB CONC 33 g/dl (31.0-36.0); MEAN CORPUSCULAR VOLUME 92 fL (80-96); MONOCYTES # (AUTO) 0.3 /CMM (0.1-1.30); MONOCYTES % (AUTO) 4.9 % (2.0-12.0); NEUTROPHILS # (AUTO) 4.5 /CMM (1.8-8.9); NEUTROPHILS % (AUTO) 66.2 % (43.0-81.0); PLATELET COUNT (AUTO) 208 /CMM (150-450); RED BLOOD CELL COUNT(AUTO) 2.88 MIL/uL (4.5-6.0); WHITE BLOOD COUNT (AUTO) 6.8 K/uL (4.3-11.0)
[2020-05-30] MEDS: MEROPENEM 1 G in IV NS 0.9% 100 ML IV SCH ×3 (04:45→22:11)
[2020-05-30] MEDS: GLUCERNA 1.2 1,000 ML BOTTLE GT PRN (04:49)
[2020-05-30 05:07] LABS: CALCIUM, SERUM 7.4 mg/dL (8.5-10.1); CARBON DIOXIDE 32 mmol/L (21-32); CHLORIDE 107 mmol/L (98-107); GLUCOSE 98 mg/dL (74-106); MAGNESIUM 2.1 mg/dL (1.8-2.4); PHOSPHORUS 2.9 mg/dL (2.5-4.9); POTASSIUM 3.5 mmol/L (3.5-5.1); SODIUM SERUM 147 mmol/L (136-145); UREA NITROGEN, BLOOD 33 mg/dL (7-18)
--- NOTE | 2020-05-30 06:35 | NUR ---
RN NOTE: PATIENT NOTED WITH RESTLESSNESS AND FACIAL GRIMACING; PER CHARGE NURSE, GIVE MORPHINE AND ATIVAN PRN ORDERED AGAIN. WILL CONT. TO MONITOR.
--- NOTE | 2020-05-30 07:00 | NUR ---
RN CLOSING NOTES: ENDORSED TO AM RN FOR CONTINUITY OF CARE. IN STABLE CONDITION. ONCOMING RN MADE AWARE THAT PATIENT'S FAMILY WOULD LIKE TO TALK TO DR. HARGROVE AND/OR DR. LANCE.
--- NOTE | 2020-05-30 07:46 | NUR ---
RT RECEIVED PT TRACH VENT DEPENDENT, TRACH SIZE SHILEY # 8. FUSE ASSEMBLER DONE AND TRACH IS SECURE. VENT PLUGGED IN RED OUTLET. ALARMS CHECKED AND AUDIBLE. SX WITH MOD THK MICHAEL SECRETIONS. PT TOLERATING VENT SETTINGS. NO SOB OR RESP DISTRESS NOTED. AMBU BAG AND SPARE TRACH NOTED HOB. WILL CONTINUE TO MONITOR T/O SHIFT.
--- NOTE | 2020-05-30 08:13 | NUR ---
05/29/2020 12:00pm This SW conducted a family meeting regarding this patient. Dr. Robles, Dr. Lara. Dr. Dooley and this note underwriter solicitation director were in attendance. Patients father Dandy (Guamanian speaking), Granddaughter Ze and Grandson Mj were in attendance. Family meeting was held to discuss the details of patients condition, management and prognosis, and treatments moving forward. The outcome of the meeting was the following: The plan is to continue hospitalization with vent management, continue G-tube feedings, blood transfusions, and daily labs. Per family request, patient is not to have a weaning trial from the vent for the next 2 days. Per communication request from family, Doctors will follow up on every procedure conducted and to follow up with Bri. Patients family requested status update every 2-3 days per RN. Patient family would like to request Facetime for the patient and if possible have his personal phone on the bed to receive personal calls. Dr. Robles informed them to call machine shorthand reporter to ask for this request. Dr. Robles invited the patient family to have their physician of choice to follow-up and review this patients chart. Family stated that they would like to take advantage of this inquiry and will follow-up with physician information. Dr. Robles invited a family member to come see the patient when necessary and Dr. Lara to follow-up in this following COIVD-19 protocol when the time arrives. Family meeting ran for a total of 1 hour and 15 minutes. SW to remain available for all needs regarding this patient
[2020-05-30] MEDS: VANCOMYCIN 0.75 GM in IV D5W 250 ML IV SCH ×2 (08:56→22:11)
[2020-05-30] MEDS: PANTOPRAZOLE 40 MG/PACK PACK GT SCH (08:58)
[2020-05-30] MEDS: HYDROCORTISONE SOD SUCCINATE 100 MG/2 ML VIAL IV SCH (08:58)
[2020-05-30] MEDS: QUETIAPINE FUMARATE 25 MG TABLET PO SCH ×2 (08:58→22:11)
[2020-05-30] MEDS: ASCORBIC ACID 500 MG TABLET NG SCH (08:58)
[2020-05-30] MEDS: METOPROLOL TARTRATE 25 MG TABLET PO SCH ×3 (08:58→22:12)
[2020-05-30] MEDS: ZINC SULFATE 220 MG CAPSULE NG SCH (08:58)
[2020-05-30] MEDS: ENOXAPARIN SODIUM 40 MG/0.4 ML DISP.SYRIN SQ SCH (08:59)
[2020-05-30] MEDS: CLOTRIMAZOLE 1% 15 GM TUBE TP SCH ×2 (09:00→17:51)
[2020-05-30] MEDS: PROSOURCE / PROSTAT (PYXIS) 30 ML UDC GT SCH ×3 (09:00→17:51)
--- NOTE | 2020-05-30 09:52 | NUR ---
RETAIL INTERIOR DESIGNER OPENING NOTES: RECEIVED PT IN BED SLEEPING. PT EYES WERE REACTIVE TO LIGHT WHEN CHECKED. PT IS ON TRACH TOLERATING WELL. SR, BILATERAL UPPER ARM EDEMA PRESENT PITTING +3, NO SIGNS OF ANY DISTRESS, PT ON GT TOLERATING WELL. F/C NORMAL O/U. PTS BP WAS LOW SO LOPRESSOR WAS HELD BP 98/50. ALL SAFETY MEASURES MAINTAINED, CALL LIGHT WITHIN REACH, WILL CONTINUE TO MONITOR.
--- NOTE | 2020-05-30 17:53 | NUR ---
TROLLEY CAR OVERHAULER CLOSING NOTES: PT IN BED OCCASIONALLY OPENING HIS EYES. NO ACUTE CHANGES DURING THE SHIFT, VITALS WERE WNL DURING THE DAY, NO SIGNS OF ANY RESPIRATORY DISTRESS, DIFFICULTY BREATHING, PT SHOWED SIGNS OF DISTRESS MEDICATION WAS ADMINISTERED. F/C NORMAL U/O. PATIENTS SAFETY AND COMFORT MEASURES MAINTAINED, CALL LIGHT WITHIN REACH, WILL ENDORSE TO PM NURSE FOR CONTINUATION OF CARE.
--- NOTE | 2020-05-30 19:58 | NUR ---
INSPECTOR AND CLERK. INITIAL ASSESSMENT. RECEIVED THE PT REST ON THE BED. TRACH TO VENT CONNECTED. SHILEY#8,AC 24,TV 600.FIO2 50%,PEEP 5. SAT 98%. WEB OPERATIONS SPECIALIST SHOWING S TACH. 101. LT SIDE FLACCID. IV LT UPPER ARM MID LINE. TKO RUNNING. GT INTACT. GLUCERNA 40 ML/H, FC PATENT. URINE DRAINING. HOB ELEVATED. AFEBRILE. WILL CONTINUE TO MONITOR VITALS..
[2020-05-30] MEDS: IV NS 0.9% 250 ML IV PRN (22:10)
[2020-05-31] VITALS (24 sets, daily range): BP systolic 105–165; BP diastolic 58–115
--- NOTE | 2020-05-31 03:21 | NUR ---
curriculum and assessment coordinator. kavitha lilly, oral care, bed abth given. linen changed. remaining same vent setting tolerated well. gt feeding tolerated well. embosser apprentice showing nst. iv fc patent. fc patent. HOB ELEVATED, WILL CONTINUE TO MONITOR CONTINUE TO MONITOR VITALS
[2020-05-31 04:17] LABS: BASOPHILS # (AUTO) 0.1 /CMM (0.0-0.2); BASOPHILS % (AUTO) 1.7 % (0.0-2.0); EOSINOPHILS % (AUTO) 11.4 % (0.0-6.0); HEMATOCRIT 26 % (39-51); HEMOGLOBIN 8.6 g/dL (13.5-17.5); LYMPHOCYTES # (AUTO) 0.7 /CMM (0.8-4.8); LYMPHOCYTES % (AUTO) 12.1 % (20.0-44.0); MEAN CORPUSCULAR HGB CONC 33 g/dl (31.0-36.0); MEAN CORPUSCULAR VOLUME 91 fL (80-96); MONOCYTES # (AUTO) 0.4 /CMM (0.1-1.30); MONOCYTES % (AUTO) 6.1 % (2.0-12.0); NEUTROPHILS % (AUTO) 68.7 % (43.0-81.0); PLATELET COUNT (AUTO) 184 /CMM (150-450); RED BLOOD CELL COUNT(AUTO) 2.84 MIL/uL (4.5-6.0); WHITE BLOOD COUNT (AUTO) 5.8 K/uL (4.3-11.0)
[2020-05-31 04:38] LABS: CALCIUM, SERUM 7.7 mg/dL (8.5-10.1); CARBON DIOXIDE 34 mmol/L (21-32); CHLORIDE 107 mmol/L (98-107); CREATININE 0.8 mg/dL (0.6-1.3); GLUCOSE 99 mg/dL (74-106); MAGNESIUM 2.1 mg/dL (1.8-2.4); PHOSPHORUS 2.8 mg/dL (2.5-4.9); SODIUM SERUM 148 mmol/L (136-145); UREA NITROGEN, BLOOD 31 mg/dL (7-18)
[2020-05-31 05:11] LABS: D-DIMER 7.82 mg/L(FEU (0.17-0.50)
[2020-05-31] MEDS: MEROPENEM 1 G in IV NS 0.9% 100 ML IV SCH ×3 (05:14→21:18)
[2020-05-31] MEDS: HYDROCORTISONE SOD SUCCINATE 100 MG/2 ML VIAL IV SCH (08:09)
[2020-05-31] MEDS: METOPROLOL TARTRATE 25 MG TABLET PO SCH ×2 (08:10→21:15)
[2020-05-31] MEDS: PANTOPRAZOLE 40 MG/PACK PACK GT SCH (08:10)
[2020-05-31] MEDS: QUETIAPINE FUMARATE 25 MG TABLET PO SCH ×2 (08:10→21:16)
[2020-05-31] MEDS: ASCORBIC ACID 500 MG TABLET NG SCH (08:10)
[2020-05-31] MEDS: ZINC SULFATE 220 MG CAPSULE NG SCH (08:10)
[2020-05-31] MEDS: ENOXAPARIN SODIUM 40 MG/0.4 ML DISP.SYRIN SQ SCH (08:11)
[2020-05-31] MEDS: PROSOURCE / PROSTAT (PYXIS) 30 ML UDC GT SCH ×3 (08:12→16:18)
[2020-05-31] MEDS: CLOTRIMAZOLE 1% 15 GM TUBE TP SCH ×2 (08:18→16:18)
[2020-05-31] MEDS ORDERED: POTASSIUM CHLORIDE 20 MEQ POWDER PACKET GT SCH (08:30)
--- NOTE | 2020-05-31 08:33 | NUR ---
received pt from energy efficiency finance manager, lethargic, does not follow commands, able to move right extremities, ST, SR, T/V/P, sat well, GT to feeding, tolerates well, f/c good output, v/s stable, no pain, pt turned and repositioned.
[2020-05-31] MEDS: VANCOMYCIN 0.75 GM in IV D5W 250 ML IV SCH ×2 (08:57→21:18)
[2020-05-31] MEDS: ACETAMINOPHEN 650 MG/20.3 ML UDC GT PRN (12:34)
[2020-05-31] MEDS: LORAZEPAM INJ 2 MG/ML VIAL IV PRN ×2 (15:12→21:13)
--- NOTE | 2020-05-31 18:32 | NUR ---
Patient in resting comfortably in moderate high back rest, oral care, bed bath given. linen changed. remaining same vent setting tolerated well. gt feeding tolerated well. radiation monitor showing ST, F/C patent and intact, draining with clear yellow urine. Will endorse to pattern hanger nurse for leda.
--- NOTE | 2020-05-31 20:16 | NUR ---
RT NOTE Pt rec'd trached on [facility] vent on AC mode settings as charted. Pt shows no signs of resp distress or sob. Pt sx'd for thick small amt of pale yellow secretions. Alarms are set and audible. Vent plugged into red outlet. ambu bag bedside. will continue to monitor closely. Addendum: 05/31/20 at 2017 by SILVIA WHITE RT Amended: Links added.
[2020-05-31] MEDS: MICAFUNGIN SODIUM 100 MG in IV NS 0.9% 100 ML IV SCH (21:20)
[2020-06-01] VITALS (14 sets, daily range): BP systolic 111–184; BP diastolic 62–133
[2020-06-01] MEDS: LORAZEPAM INJ 2 MG/ML VIAL IV PRN ×2 (00:47→03:05)
[2020-06-01] MEDS: MORPHINE SULFATE INJ 2 MG/ML DISP.SYRIN IV PRN (04:22)
[2020-06-01] MEDS: MEROPENEM 1 G in IV NS 0.9% 100 ML IV SCH ×3 (04:56→20:57)
[2020-06-01 05:02] LABS: CALCIUM, SERUM 8.1 mg/dL (8.5-10.1); CREATININE 0.8 mg/dL (0.6-1.3); POTASSIUM 3.1 mmol/L (3.5-5.1)
[2020-06-01] MEDS: HYDROCODONE/APAP 10/325MG TABLET PO PRN (05:17)
--- NOTE | 2020-06-01 05:41 | NUR ---
RN notes In bed resting comfortably in bed. No respiratory distress noted, breathing even and unlabored. Vent setting well tolerated.. Opens eyes, with slight eye tracking, non verbal. Noted with facial grimacing, morphine and norco given with relief. Had episodes of restlessness, with elevated heart rate and blood pressure, ativan administered with help. Kept clean and dry. Will continue to monitor and will endorse to next shift for continuity of care.
--- NOTE | 2020-06-01 07:31 | NUR ---
FOOD TECHNOLOGY TEACHER NOTE PATIENT IN BED WITH BOTH EYES OPEN VERBALLY RESPONSIVE BUT NOT TRACKING HIS EYES ALSO RESPONSE TO TACTILE STIMULI, WITH TRACH TO VENT SETTING ORDERED, ON TELE MONITOR SR HR 89 , WITH NAVARRETE CATH TO GRAVITY WITH YELLED COLOR URINE , WITH G TUBE FEEDING ORDERED KEEP HOB ELEVATED AT ALL TIME , YISEL MID LINE IN PLACE BED IN LEWDEST AND LOCKED POSITION , WILL CONT TO CISCO
[2020-06-01] MEDS: HYDROCORTISONE SOD SUCCINATE 100 MG/2 ML VIAL IV SCH (08:07)
[2020-06-01] MEDS: PANTOPRAZOLE 40 MG/PACK PACK GT SCH (08:07)
[2020-06-01] MEDS: METOPROLOL TARTRATE 25 MG TABLET PO SCH ×2 (08:08→21:55)
[2020-06-01] MEDS: QUETIAPINE FUMARATE 25 MG TABLET PO SCH ×2 (08:09→21:54)
[2020-06-01] MEDS: ZINC SULFATE 220 MG CAPSULE NG SCH (08:09)
[2020-06-01] MEDS: ASCORBIC ACID 500 MG TABLET NG SCH (08:09)
[2020-06-01] MEDS: PROSOURCE / PROSTAT (PYXIS) 30 ML UDC GT SCH ×3 (08:10→16:00)
[2020-06-01] MEDS: ENOXAPARIN SODIUM 40 MG/0.4 ML DISP.SYRIN SQ SCH (08:10)
[2020-06-01] MEDS: CLOTRIMAZOLE 1% 15 GM TUBE TP SCH ×2 (08:10→16:00)
[2020-06-01] MEDS: VANCOMYCIN 0.75 GM in IV D5W 250 ML IV SCH ×2 (08:21→21:54)
--- NOTE | 2020-06-01 09:20 | NUR ---
INSTANT POWDER SUPERVISOR NOTE PER DR HARGROVE AND RT OK TO CHANGE TO FIO2 40% ON VENT , WILL MONITOR
[2020-06-01] MEDS: POTASSIUM CHLORIDE 20 MEQ POWDER PACKET GT SCH ×2 (10:26→11:12)
--- NOTE | 2020-06-01 10:30 | NUR ---
LEAD INJECTION MOLD TECHNICIAN OTE SPOKE WITH FAMILY OVER PHONE, UPDATED PATIENT CONDITION , TURN REPOSITION, KEEP CLEAN DRY ,ORAL CARE DONE ,WILL CONT TO MONITOR
--- NOTE | 2020-06-01 11:33 | NUR ---
POULTRY FIELD SERVICE TECHNICIAN NOTE KEEP CLEAN DRY, PATIENT TRYING TO SQUEEZE RT HAND AND TRYING TO MAKE EYE CONTACT, STILL NOT TRACKING HIS EYES ,ABLE TO FOLLOW VERY SIMPLE COMMAND, WILL CONT TO MONITOR
--- NOTE | 2020-06-01 12:30 | NUR ---
ACCOUNT INFORMATION CLERK NOTE SEEN BY DR LANCE ,UPDATED PATIENT CONDITION ,AWARE THAT BP 169/78, OK TO GIVE HYDRALAZINE PRN
[2020-06-01] MEDS: hydrALAZINE HCL 10 MG TABLET GT PRN (13:24)
--- NOTE | 2020-06-01 14:06 | NUR ---
VASHTI PHILLIP NOTE BP 174/100 ,HYDRALAZINE 10 MG PO GIVEN ORDERED WILL F\U Addendum: 06/01/20 at 1439 by STEFANIE VALDIVIA RN BP NOW 156/100
--- NOTE | 2020-06-01 17:17 | NUR ---
SUPERVISOR PAPER COATING NOTE TRANSFERRED TO ROOM 327 WITH STABLE CONDITION, BY BED BY ACLS PROTOCOL
--- NOTE | 2020-06-01 17:26 | NUR ---
RT PT SAFELY TRANSPORTED TO ROOM 327-1 FROM ICU. VENT PLUGGED IN RED OUTLET. SPARE TRACH AND AMBU BAG NOTED HOB. NO RESP DISTRESS NOTED OR SOB. WILL CONTINUE TO MONITOR.
[2020-06-01] MEDS: ACETAMINOPHEN 650 MG/20.3 ML UDC GT PRN (18:19)
--- NOTE | 2020-06-01 18:19 | NUR ---
NISSAN SALES CONSULTANT NOTE FEELING HOT T 99.2 TYLENOL VIA G TUBE GIVEN ,COOLING MEASURE PROVIDED, WILL MONITOR
--- NOTE | 2020-06-01 18:46 | NUR ---
SOIL ENGINEER NOTE CONT ON COOLING MEASURE , KEEP CLEAN DRY , ON TELE MONITOR ST HR 105 AT THIS TIME , BED IN LOWEST AND LOCKED POSITION , WITH TRACH TO VENT SETTING ORDERED ,O2 SATURATION 98% AT THIS TIME, WITH NAVARRETE CATH TO GRAVITY , WITH G TUBE FEEDING ORDERED TOLERATED WELL ,KEEP HOB ELEVATED AT ALL TIME , WILL MONITOR CLOSELY
--- NOTE | 2020-06-01 19:47 | NUR ---
ESCALATOR OPERATOR OPENING NOTE: Patient in bed awake, staring at the TV and at the white board. Patient opens eyes is nonverbal. Noted bilateral upper arm swelling. On mechanical ventilator. Tolerating settings well, no sob, no respiratory distress noted. Breathing even and unlabored. Noted gtube, intact with feeding running. Noted Mar catheter, patent, with clear yellow output. Noted left upper arm midline, dressing intact, patent, no redness, or infiltration. Safety precaution is in place, bed is in the lowest level, brakes are on, alarm is on, side rails x2 are up, and call light is within reach. Will continue to monitor.
--- NOTE | 2020-06-01 21:30 | NUR ---
MS RN NOTE: Patient medication, PropylTHIOURACEL not in the unit. Patient is an ICU transfer. Called ICU to inquire. They will call me back.
[2020-06-01] MEDS: MICAFUNGIN SODIUM 100 MG in IV NS 0.9% 100 ML IV SCH (22:56)
--- NOTE | 2020-06-01 22:57 | NUR ---
BURNISHER NOTE: ICU does not have patient medication, PropylTHIOURACEL, sent medication request to operations supervisor chemical cleaning.
--- NOTE | 2020-06-01 23:13 | NUR ---
DIRECTOR OF BRAND MARKETING NOTE: Spoke to nursing diving supervisor. PropylTHIOURACEL, not in diving supervisor med supply. Follow up in the morning.
[2020-06-02] VITALS (8 sets, daily range): BP systolic 115–175; BP diastolic 75–109
[2020-06-02] MEDS: MEROPENEM 1 G in IV NS 0.9% 100 ML IV SCH ×3 (04:17→21:24)
--- NOTE | 2020-06-02 06:31 | NUR ---
SENIOR PAYROLL SPECIALIST CLOSING NOTE: Patient in bed watching TV. Patient shows no signs of pain or discomfort. No SOB, or respiratory distress noted. Patient tolerating mechanical ventilator settings well. Safety precaution is in place, bed in the lowest level, bed is locked, alarm is on, side rails x2 are up, and call light is within reach. Will endorse to next shift.
[2020-06-02 06:54] LABS: BASOPHILS # (AUTO) 0.1 /CMM (0.0-0.2); EOSINOPHILS % (AUTO) 9.8 % (0.0-6.0); HEMATOCRIT 28 % (39-51); HEMOGLOBIN 9.3 g/dL (13.5-17.5); LYMPHOCYTES # (AUTO) 1.1 /CMM (0.8-4.8); LYMPHOCYTES % (AUTO) 14.7 % (20.0-44.0); MEAN CORPUSCULAR HGB CONC 33 g/dl (31.0-36.0); MEAN CORPUSCULAR VOLUME 92 fL (80-96); MONOCYTES # (AUTO) 0.5 /CMM (0.1-1.30); MONOCYTES % (AUTO) 6.2 % (2.0-12.0); NEUTROPHILS % (AUTO) 68.3 % (43.0-81.0); PLATELET COUNT (AUTO) 223 /CMM (150-450); RED BLOOD CELL COUNT(AUTO) 3.06 MIL/uL (4.5-6.0); WHITE BLOOD COUNT (AUTO) 7.3 K/uL (4.3-11.0)
[2020-06-02 07:11] LABS: CREATININE 0.8 mg/dL (0.6-1.3); MAGNESIUM 2.1 mg/dL (1.8-2.4); PHOSPHORUS 2.9 mg/dL (2.5-4.9); POTASSIUM 3.3 mmol/L (3.5-5.1)
--- NOTE | 2020-06-02 07:27 | NUR ---
SCIENTIFIC ILLUSTRATOR NOTE: Called pharmacy regarding medication, PropylTHIOURACEL, not in the unit. Pharmacist stated they will bring the medication up. Endorsed to AM nurse.
--- NOTE | 2020-06-02 08:05 | NUR ---
RN OPENING NOTES RECEIVED PATIENT RESTING IN BED COMFORTABLY, FOLLOWS WITH EYES, NO S/SX OF DISTRESS. PT IS ON MECH VENT VIA TRACH, NON-VERBAL, AND BED BOUND. TOLERATING VENT SETTINGS WELL, NO SOB OR RESP DISTRESS. TELE MONITOR SHOWING SR ST. GTUBE PATENT AND INTACT INFUSING GLUCERNA AT 40 ML.HR. LEFT ARM HAS +4 EDEMA, POSITIVE FOR DVT. SAFETY MEASURES HAVE BEEN IMPLEMENTED, CALL LIGHT IS WITHIN REACH, BED IS IN LOWEST AND LOCKED POSITION, SIDE RAILS UP X2, WILL CONTINUE TO MONITOR FOR ANY CHANGES.
[2020-06-02] MEDS: QUETIAPINE FUMARATE 25 MG TABLET PO SCH ×2 (08:37→22:48)
[2020-06-02] MEDS: ASCORBIC ACID 500 MG TABLET NG SCH (08:37)
[2020-06-02] MEDS: PANTOPRAZOLE 40 MG/PACK PACK GT SCH (08:37)
[2020-06-02] MEDS: METOPROLOL TARTRATE 25 MG TABLET PO SCH ×2 (08:37→21:52)
[2020-06-02] MEDS: HYDROCORTISONE SOD SUCCINATE 100 MG/2 ML VIAL IV SCH (08:38)
[2020-06-02] MEDS: ZINC SULFATE 220 MG CAPSULE NG SCH (08:38)
[2020-06-02] MEDS: ENOXAPARIN SODIUM 40 MG/0.4 ML DISP.SYRIN SQ SCH (08:38)
[2020-06-02] MEDS: GLUCERNA 1.2 1,000 ML BOTTLE GT PRN (08:44)
[2020-06-02] MEDS: VANCOMYCIN 0.75 GM in IV D5W 250 ML IV SCH ×2 (08:44→22:48)
[2020-06-02] MEDS: PROSOURCE / PROSTAT (PYXIS) 30 ML UDC GT SCH ×3 (08:44→16:38)
[2020-06-02] MEDS: CLOTRIMAZOLE 1% 15 GM TUBE TP SCH ×2 (09:49→16:38)
--- NOTE | 2020-06-02 10:00 | NUR ---
PAGED DR. LANCE TO NOTIFY OF CRITICAL POTASSIUM LEVEL. WAITING FOR CALL BACK, WILL CONTINUE TO MONITOR
[2020-06-02] MEDS ORDERED: POTASSIUM CHLORIDE 20 MEQ POWDER PACKET NG SCH ×2 (10:30)
--- NOTE | 2020-06-02 17:23 | NUR ---
RT NOTE PT REMAINS MECHANICALLY VENTILATED VIA CUFFED TRACHEOSTOMY TUBE. CUFF INFLATED. TRACH TUBE MIDLINE AND SECURE. VENTILATOR SETTINGS PRESCRIBED. ALARMS SET PER PROTOCOL AND AUDIBLE. VENT PLUGGED IN TO RED OUTLET. AMBU BAG AND BACK UP TRACH AT BED SIDE. NO DISTRESS NOTED. Addendum: 06/02/20 at 1724 by JENNIFER KAMINSKI RT Amended: Links added.
--- NOTE | 2020-06-02 18:50 | NUR ---
RN CLOSING NOTES PT IS RESTING IN BED COMFORTABLY AT THIS TIME. TOLERATING VENT SETTING WELL, NO SOB OR RESP DISTRESS. GTUBE FEEDING INTACT AND RUNNING. PT HAD BM 45 MIN AGO, NO S/SX OF GI BLEED EVIDENT. NO ACUTE CHANGES OCCURRED THROUGHOUT THE SHIFT, VITAL SIGNS ARE STABLE, PT NEEDS HAVE BEEN MET. SAFETY MEASURES HAVE BEEN IMPLEMENTED, CALL LIGHT IS WITHIN REACH, BED IS IN LOWEST AND LOCKED POSITION, SIDE RIALS UP X2, WILL ENDORSE TO NIGHTSHIFT RN FOR CONOR.
--- NOTE | 2020-06-02 19:30 | NUR ---
telegraph office manager opening note received patient in bed. nonverbal, patient understand Macedonian, nods head to Macedonian questions. on mechanical ventilator. no resp distress noted. in no apparent distress. iv access in YISEL midline running tko. meyers catheter is present urine is yellow and clear, gtube is present running nepro. no residual. bed is low and locked, hob elevated in high owen,s side rails up x2. dickson light within reach.will continue to monitor.
[2020-06-03] VITALS (36 sets, daily range): BP systolic 62–157; BP diastolic 35–108
[2020-06-03] MEDS: MICAFUNGIN SODIUM 100 MG in IV NS 0.9% 100 ML IV SCH (00:08)
--- NOTE | 2020-06-03 00:20 | NUR ---
BODY JOINER NOTE PATIENT TEMP 99.1. ROOM FEELS HOT, AC TURNED ON, SHEET PLACED OVER PATIENT. WILL CONTINUE TO MONITOR.
--- NOTE | 2020-06-03 03:08 | NUR ---
TEACHER VOCAL NOTE REASSESSED TEMP. AXILLARY TEMP NOW 99.6. WILL ADMINISTER PRN TYLENOL 65OMG. WILL CONTINUE TO MONITOR.
[2020-06-03] MEDS: ACETAMINOPHEN 650 MG/20.3 ML UDC GT PRN (03:11)
--- NOTE | 2020-06-03 04:10 | NUR ---
MARINE TECHNICIAN NOTE CALLED DR. TREVINO TO INFORM HIM PATIENT IS HAVING HR IN 140S. BP IS 120/84. MD TELEPHONE ORDER DILTIAZEM 10MG IV PUSH. ORDER READ BACK, NOTED AND CARRIED OUT.
[2020-06-03] MEDS ORDERED: DILTIAZEM HCL 25 MG IV IVP ONE (04:30)
[2020-06-03] MEDS: MEROPENEM 1 G in IV NS 0.9% 100 ML IV SCH ×3 (04:37→21:10)
--- NOTE | 2020-06-03 05:38 | NUR ---
PATIENT RECEIVED ON TRACH TO VENT WITH SETTINGS OF AC 24, 600 Vt, 40%, +5. SUCTIONED FOR MINIMAL, THICK, WHITE SECRETIONS. AMBU BAG AT BEDSIDE. VENT AND PULSE OXIMETER ALARMS AUDIBLE AND VISIBLE. VENT PLUGGED INTO RED OUTLET. Addendum: 06/03/20 at 0539 by CAMMY MCINTOSH RT Amended: Links added.
--- NOTE | 2020-06-03 05:38 | NUR ---
telecommunications administrator note called dr. gonzalez and informed him that patients hr did not drop. MD telephone order change to TD-tele status and start Diltazem drip.
--- NOTE | 2020-06-03 05:54 | NUR ---
television servicer note endorsed to TD MARINATOR Celweyn. with orders to begin diltiazem drip.
[2020-06-03] MEDS ORDERED: DILTIAZEM HCL IV 125 MG in IV NS 0.9% 100 ML IV PRN (06:30)
[2020-06-03] MEDS ORDERED: NOREPINEPHRINE 8 MG in IV NS 0.9% 242 ML IV PRN (07:30)
--- NOTE | 2020-06-03 07:34 | NUR ---
RN notes Received patient awake in bed, noted with congestion and distress. Vital signs taken, abnormal range noted, temperature 101.2, heart rate 149, bp 77/48, respiration 35. Cooling measures provided. On vent setting, suctioned large amount of semi loose yellowish secretion. Noted with air hunger and difficulty of breathing using accessory muscles, with O2sat 96%. Called MD and obtained order to transfer patient to ICU, stat EKG and ABG and cardizem drip (to hold if BP is low) and levophed drip. Noted and carried out. Endorsed to next shift for continuity of care.
--- NOTE | 2020-06-03 07:35 | NUR ---
ICU/RN: RECEIVED PT FROM 3W FOR HYPOTENSION AND RESPIRATORY DISTRESS. STAT ABG PENDING. ORDERS RECEIVED FOR LEVO FOR BP SUPPORT. PT KESHA ON TELE, AWARE. PT OPEN EYES, TRACKS WHEN SPOKEN TO IN UZBEK. CALLED GRAND-DAUGHTER AND UPDATES GIVEN REGARDING CHANGE IN CONDITION. ALL NEEDS WILL BE ATTENDED TO, SAFETY MEASURES TAKEN, BED IN LOW POSITION, SIDE RAILS UP, CALL LIGHT WITHIN REACH.
[2020-06-03 07:46] LABS: BASOPHILS # (AUTO) 0.1 /CMM (0.0-0.2); BASOPHILS % (AUTO) 1.1 % (0.0-2.0); EOSINOPHILS % (AUTO) 7.6 % (0.0-6.0); HEMATOCRIT 31 % (39-51); LYMPHOCYTES # (AUTO) 1.6 /CMM (0.8-4.8); LYMPHOCYTES % (AUTO) 14.6 % (20.0-44.0); MEAN CORPUSCULAR HGB CONC 32 g/dl (31.0-36.0); MEAN CORPUSCULAR VOLUME 92 fL (80-96); MONOCYTES # (AUTO) 0.7 /CMM (0.1-1.30); MONOCYTES % (AUTO) 5.9 % (2.0-12.0); NEUTROPHILS # (AUTO) 7.9 /CMM (1.8-8.9); NEUTROPHILS % (AUTO) 70.8 % (43.0-81.0); PLATELET COUNT (AUTO) 318 /CMM (150-450); RED BLOOD CELL COUNT(AUTO) 3.41 MIL/uL (4.5-6.0); WHITE BLOOD COUNT (AUTO) 11.2 K/uL (4.3-11.0)
[2020-06-03 07:53] LABS: CREATININE 0.9 mg/dL (0.6-1.3); MAGNESIUM 2.1 mg/dL (1.8-2.4); PHOSPHORUS 3.8 mg/dL (2.5-4.9); POTASSIUM 3.2 mmol/L (3.5-5.1)
[2020-06-03] MEDS ORDERED: PHENYLEPHRINE 50 MG in IV NS 0.9% 245 ML IV PRN (08:30)
[2020-06-03] MEDS: METOPROLOL TARTRATE 25 MG TABLET PO SCH ×2 (08:37→21:11)
[2020-06-03] MEDS: HYDROCORTISONE SOD SUCCINATE 100 MG/2 ML VIAL IV SCH (09:23)
[2020-06-03] MEDS: QUETIAPINE FUMARATE 25 MG TABLET PO SCH ×2 (09:24→21:10)
[2020-06-03] MEDS: ASCORBIC ACID 500 MG TABLET NG SCH (09:24)
[2020-06-03] MEDS: PANTOPRAZOLE 40 MG/PACK PACK GT SCH (09:24)
[2020-06-03] MEDS: PROSOURCE / PROSTAT (PYXIS) 30 ML UDC GT SCH ×3 (09:24→17:11)
[2020-06-03] MEDS: ZINC SULFATE 220 MG CAPSULE NG SCH (09:24)
[2020-06-03] MEDS: CLOTRIMAZOLE 1% 15 GM TUBE TP SCH ×2 (09:25→17:10)
[2020-06-03] MEDS: ENOXAPARIN SODIUM 40 MG/0.4 ML DISP.SYRIN SQ SCH (09:25)
--- NOTE | 2020-06-03 09:30 | NUR ---
ICU/RN: SWITCHED FROM LEVO TO ORALIA DUE TO HIGH HR. WILL CONTINUE TO MONITOR. RECEIVED ORDERS FROM .
[2020-06-03] MEDS ORDERED: POTASSIUM CHLORIDE 20 MEQ POWDER PACKET GT SCH (10:00)
[2020-06-03] MEDS: VANCOMYCIN 0.75 GM in IV D5W 250 ML IV SCH (10:10)
--- NOTE | 2020-06-03 10:28 | NUR ---
ICU/RN: PT CONVERTED FROM A.FIB TO SINUS. NOTIFIED. DR. LANCE D/C'D DIGOXIN SINCE PT IS IN SINUS. NOTIFIED.
[2020-06-03] MEDS ORDERED: DIGOXIN INJ 0.5 MG/2 ML AMPUL IV SCH (12:00)
--- NOTE | 2020-06-03 16:00 | NUR ---
ICU/RN: VSS, ORALIA OFF, PLEASE REFER TO IV SPREAD SHEET FOR VSS.
[2020-06-03] MEDS: GLUCERNA 1.2 1,000 ML BOTTLE GT PRN (17:11)
--- NOTE | 2020-06-03 19:24 | NUR ---
ICU/RN: ENDING NOTES,AM REPORT ENDORSED TO NIGHT NURSE FOR CONOR. ALL NEEDS ATTENDED TO, PT TRACH TO VENT WITH SETTINGS ORDERED, NO DISTRESS NOTED, PT TOLERATING WELL. SINUS NOW ON TELE. ZOOM CALL WITH FAMILY DONE TODAY. ALL NEEDS ATTENDED TO, SAFETY MEASURES TAKEN, BED IN LOW POSITION, SIDE RAILS UP, CALL LIGHT WITHIN REACH.
--- NOTE | 2020-06-03 19:30 | NUR ---
BRICKLAYER HELPER RCD PT W/DX RESP DIST; PT IS AWAKE FOLLOWS SOME COMMANDS. ST ON MONITOR. PT RESTLESS DURING NIBP READING. G TUBE IN PLACE W/GLUCERNA 1.2 @ 40 ML/HR; NO RESIDUAL AT THIS TIME. BUE EDEMA NOTED. LEFT THIGH WOUND MEPILEX PLACED. SACRAL EXCORIATION NOTED. YISEL MIDLINE PATENT. PENDING BLOOD CULTURE RESULTS.
--- NOTE | 2020-06-03 23:17 | NUR ---
DIRECTOR MERIT SYSTEM RCD CALL FROM GRAND DAUGHTER REQUESTING TO KNOW PTS VS, URINE OUTPUT NOW AND FOR THE PAST 12 HOURS, WANTS TO KNOW IF PT HAD BM NOW AND IN PREVIOUS SHIFT. ASKED IT PT WAS OKAY WHEN HE WAS AWAKE. ALL QUESTIONS ANSWERED WITH GRAND DAUGHTER RESPONDING GOT IT.
[2020-06-04] VITALS (24 sets, daily range): BP systolic 99–165; BP diastolic 50–118
[2020-06-04 04:01] LABS: BASOPHILS # (AUTO) 0.1 /CMM (0.0-0.2); EOSINOPHILS % (AUTO) 7.6 % (0.0-6.0); HEMATOCRIT 26 % (39-51); HEMOGLOBIN 8.4 g/dL (13.5-17.5); LYMPHOCYTES # (AUTO) 1.1 /CMM (0.8-4.8); LYMPHOCYTES % (AUTO) 15.6 % (20.0-44.0); MEAN CORPUSCULAR HGB CONC 32 g/dl (31.0-36.0); MEAN CORPUSCULAR VOLUME 92 fL (80-96); MONOCYTES # (AUTO) 0.6 /CMM (0.1-1.30); MONOCYTES % (AUTO) 8.9 % (2.0-12.0); NEUTROPHILS # (AUTO) 4.7 /CMM (1.8-8.9); NEUTROPHILS % (AUTO) 66.9 % (43.0-81.0); PLATELET COUNT (AUTO) 218 /CMM (150-450); WHITE BLOOD COUNT (AUTO) 7.1 K/uL (4.3-11.0)
[2020-06-04] MEDS: MEROPENEM 1 G in IV NS 0.9% 100 ML IV SCH ×3 (04:30→20:35)
[2020-06-04 04:43] LABS: CALCIUM, SERUM 7.6 mg/dL (8.5-10.1); CARBON DIOXIDE 35 mmol/L (21-32); CHLORIDE 105 mmol/L (98-107); CREATININE 0.8 mg/dL (0.6-1.3); GLUCOSE 97 mg/dL (74-106); PHOSPHORUS 2.8 mg/dL (2.5-4.9); POTASSIUM 3.3 mmol/L (3.5-5.1); SODIUM SERUM 143 mmol/L (136-145); UREA NITROGEN, BLOOD 21 mg/dL (7-18)
--- NOTE | 2020-06-04 06:15 | NUR ---
ZIGZAG TOPSTITCHER PT RESTED WELL THROUGHOUT THE NIGHT. TOLERATED VENT SETTINGS. NO DISTRESS NOTED.
--- NOTE | 2020-06-04 07:35 | NUR ---
RT PATIENT REC'D TRACHED ON [facility] VENT WITH ORDERED SETTINGS BOBBY WELL. VENT ALARMS CHECKED AND AUDIBLE. AMBU BAG AT HOB. TRACH SECURE AND IN PROPER POSITION. PATIENT APPEARS COMFORTABLE AND IN NO DISTRESS AT THIS TIME. CONT CURRENT PLAN OF RESP CARE. Addendum: 06/04/20 at 1050 by MEHREEN MATHEW RT Amended: Links added.
--- NOTE | 2020-06-04 07:45 | NUR ---
RN OPENING NOTE: RECEIVED PATIENT IN BED THIS MORNING. PATIENT IS ALERT, TRACH, TOLERATING VENT SETTINGS WELL, SATING WELL. NO SIGNS OF ACUTE DISTRESS NOTED AT THIS TIME. AFIB/JUNCTIONAL/PVC/SR IN THE 90S ON THE BEDSIDE MONITOR. GTF GLUCERNA 1.2 @ 40CC/HR. FC DRAINING URINE. YISEL MIDLINE, C/D/I, FLUSHING WELL, NO SIGNS OF COMPLICATIONS NOTED. SAFETY MEASURES IMPLEMENTED, BED IN LOWEST POSITION, LOCKED, SIDE RAILS UP, CALL LIGHT WITHIN REACH. WILL CONTINUE TO MONITOR PATIENT FOR CHANGES.
[2020-06-04] MEDS: ZINC SULFATE 220 MG CAPSULE NG SCH (08:40)
[2020-06-04] MEDS: PANTOPRAZOLE 40 MG/PACK PACK GT SCH (08:40)
[2020-06-04] MEDS: PROSOURCE / PROSTAT (PYXIS) 30 ML UDC GT SCH ×4 (08:40→20:37)
[2020-06-04] MEDS: ASCORBIC ACID 500 MG TABLET NG SCH (08:44)
[2020-06-04] MEDS: METOPROLOL TARTRATE 25 MG TABLET PO SCH ×2 (08:44→20:46)
[2020-06-04] MEDS: QUETIAPINE FUMARATE 25 MG TABLET PO SCH ×2 (08:44→20:37)
[2020-06-04] MEDS: HYDROCORTISONE SOD SUCCINATE 100 MG/2 ML VIAL IV SCH (08:45)
[2020-06-04] MEDS: ENOXAPARIN SODIUM 40 MG/0.4 ML DISP.SYRIN SQ SCH (08:46)
[2020-06-04] MEDS: CLOTRIMAZOLE 1% 15 GM TUBE TP SCH ×2 (08:47→16:53)
[2020-06-04] MEDS ORDERED: POTASSIUM CHLORIDE 20 MEQ POWDER PACKET GT ONE ×2 (09:00→12:30)
--- NOTE | 2020-06-04 10:29 | NUR ---
GAVE THOROUGH REPORT TO GRANDDAUGHTER (TAVO)
[2020-06-04] MEDS: GLUCERNA 1.2 1,000 ML BOTTLE GT PRN (17:28)
--- NOTE | 2020-06-04 18:54 | NUR ---
RN CLOSING NOTE: PATIENT REMAINS IN ROOM. NO SIGNS OF ACUTE DISTRESS NOTED AT THIS TIME. AFIB/JUNCTIONAL/PVCS NOTED WITH HR IN THE 90S ON THE TECHNICAL SALES SUPPORT SPECIALIST. SAFETY MEASURES IMPLEMENTED, BED IN LOWEST POSITION, LOCKED, SIDE RAILS UP, CALL LIGHT WITHIN REACH. WILL ENDORSE TO ONCOMING SHIFT RN FOR CONTINUITY OF CARE.
--- NOTE | 2020-06-04 19:30 | NUR ---
STUDENT SERVICES COUNSELOR NOTES, RECEIVED PATIENT IN BED, AWAKE AB;E TO MOUTH WORDS, ON TRACH ON MECHANICAL VENTILATOR TOLERATING VENT SETTINGS WELL AND SATING WELL, NO SIGNS OF ACUTE DISTRESS NOTED AT THIS TIME, SINUS RHYTHM, YISEL MIDLINE, C/D/I, FLUSHING WELL, NO SIGNS OF INFILTRATION NOTED, GTF GLUCERNA 1.2 @ 40CC/HR, INFUSING WELL AND PATIENT TOLERATED WELL, FC IN PLACED, DRAINING YELLOW URINE, PATENCY INTACT, SAFETY MEASURES IMPLEMENTED, BED LOCKED AND LOWEST POSITION, SIDE RAILS UP, CALL LIGHT WITHIN REACH, WILL CONTINUE TO MONITOR PATIENT CLOSELY.
--- NOTE | 2020-06-04 20:41 | NUR ---
RECEIVED PT TRACHED ON VENT. NO RESP DISTRESS. TOLERATING SETTINGS. SX'D MOD AMT OF MICHAEL SECRETIONS. VENT ALARMS SET AND AUDIBLE. AMBU BAG AT BEDSIDE AND SPARE TRACH SAME SIZE. WILL CONTINUE TO MONITOR. Addendum: 06/04/20 at 2041 by MAXIM BARRAGAN RT Amended: Links added.
[2020-06-04] MEDS ORDERED: VANCOMYCIN 500 MG in IV D5W 100ml IV SCH (21:00)
[2020-06-05] VITALS (13 sets, daily range): BP systolic 113–166; BP diastolic 60–98
[2020-06-05] MEDS: MEROPENEM 1 G in IV NS 0.9% 100 ML IV SCH ×3 (04:30→21:36)
[2020-06-05 04:34] LABS: CALCIUM, SERUM 7.9 mg/dL (8.5-10.1); CREATININE 0.8 mg/dL (0.6-1.3); POTASSIUM 3.5 mmol/L (3.5-5.1)
[2020-06-05 05:08] LABS: BASOPHILS # (AUTO) 0.1 /CMM (0.0-0.2); BASOPHILS % (AUTO) 1.1 % (0.0-2.0); EOSINOPHILS % (AUTO) 9.9 % (0.0-6.0); HEMATOCRIT 26 % (39-51); HEMOGLOBIN 8.8 g/dL (13.5-17.5); LYMPHOCYTES # (AUTO) 1.1 /CMM (0.8-4.8); LYMPHOCYTES % (AUTO) 16.1 % (20.0-44.0); MEAN CORPUSCULAR HGB CONC 33 g/dl (31.0-36.0); MEAN CORPUSCULAR VOLUME 92 fL (80-96); MONOCYTES # (AUTO) 0.7 /CMM (0.1-1.30); NEUTROPHILS # (AUTO) 4.4 /CMM (1.8-8.9); NEUTROPHILS % (AUTO) 62.9 % (43.0-81.0); PLATELET COUNT (AUTO) 235 /CMM (150-450); RED BLOOD CELL COUNT(AUTO) 2.89 MIL/uL (4.5-6.0); WHITE BLOOD COUNT (AUTO) 6.9 K/uL (4.3-11.0)
--- NOTE | 2020-06-05 07:00 | NUR ---
MANAGER CLINICAL APPLICATIONS NOTES, PATIENT IN BED, ASLEEP AT THIS TIME, , ON TRACH ON MECHANICAL VENTILATOR TOLERATING VENT SETTINGS WELL AND SATING WELL, NO SIGNS OF ACUTE DISTRESS NOTED THROUGHOUT THE NIGHT, CONT SINUS RHYTHM IN TELE MONITOR, WITH HR MOSTLY IN 80S, NO SIGNIFICANT CHANGE IN CONDITION DURING THE NIGHT, WITH GOOD OUTPUT DURING THE NIGHT, SAFETY MEASURES IMPLEMENTED, BED LOCKED AND LOWEST POSITION, SIDE RAILS UP, CALL LIGHT WITHIN REACH, WILL ENDORSE CONTINUITY OF CARE TO ONCOMING NURSE
--- NOTE | 2020-06-05 07:30 | NUR ---
RT RECEIVED PT TRACH VENT DEPENDENT, TRACH SIZE SHILEY # 8. BELT LOOP MAKER DONE AND TRACH IS SECURE. VENT PLUGGED IN RED OUTLET. ALARMS CHECKED AND AUDIBLE. SX WITH MOD THK MICHAEL SECRETIONS. PT TOLERATING VENT SETTINGS. NO SOB OR RESP DISTRESS NOTED. AMBU BAG AND SPARE TRACH NOTED HOB. WILL CONTINUE TO MONITOR T/O SHIFT.
--- NOTE | 2020-06-05 07:30 | NUR ---
RN OPENING NOTE: RECEIVED PATIENT IN BED THIS MORNING. PATIENT IS ALERT, TRACH, TOLERATING VENT SETTINGS WELL, SATING WELL. NO SIGNS OF ACUTE DISTRESS NOTED AT THIS TIME. SR IN THE 80S ON THE BEDSIDE MONITOR. GTF GLUCERNA 1.2 @ 40CC/HR. FC DRAINING URINE. YISEL MIDLINE, C/D/I, FLUSHING WELL, NO SIGNS OF COMPLICATIONS NOTED. SAFETY MEASURES IMPLEMENTED, BED IN LOWEST POSITION, LOCKED, SIDE RAILS UP, CALL LIGHT WITHIN REACH. WILL CONTINUE TO MONITOR PATIENT FOR CHANGES.
[2020-06-05] MEDS: ZINC SULFATE 220 MG CAPSULE NG SCH (08:06)
[2020-06-05] MEDS: QUETIAPINE FUMARATE 25 MG TABLET PO SCH ×2 (08:06→21:40)
[2020-06-05] MEDS: PANTOPRAZOLE 40 MG/PACK PACK GT SCH (08:06)
[2020-06-05] MEDS: ASCORBIC ACID 500 MG TABLET NG SCH (08:06)
[2020-06-05] MEDS: METOPROLOL TARTRATE 25 MG TABLET PO SCH ×2 (08:07→21:50)
[2020-06-05] MEDS: ENOXAPARIN SODIUM 40 MG/0.4 ML DISP.SYRIN SQ SCH (08:08)
[2020-06-05] MEDS: CLOTRIMAZOLE 1% 15 GM TUBE TP SCH ×2 (08:10→17:31)
[2020-06-05] MEDS: HYDROCORTISONE SOD SUCCINATE 100 MG/2 ML VIAL IV SCH (08:10)
[2020-06-05] MEDS: PROSOURCE / PROSTAT (PYXIS) 30 ML UDC GT SCH ×4 (08:12→22:00)
--- NOTE | 2020-06-05 10:24 | NUR ---
GRANDDAUGHTER (TAVO) CALLED FOR AN UPDATE. UPDATED FAMILY MEMBER ON PATIENT AND INFORMED HER OF PATIENT'S DOWNGRADE TO TELEMETRY POSSIBLY TODAY.
--- NOTE | 2020-06-05 10:42 | NUR ---
GAVE REPORT TO KENJI VICTORIA FOR CONTINUITY OF CARE. NO ACUTE DISTRESS NOTED AT THIS TIME.
--- NOTE | 2020-06-05 11:01 | NUR ---
RECEIVED REPORT FROM KENJI RANDALL FOR CONTINUATION OF CARE. PATIENT RESTING COMFORTABLY IN BED.
[2020-06-05] MEDS: MORPHINE SULFATE INJ 2 MG/ML DISP.SYRIN IV PRN (12:01)
--- NOTE | 2020-06-05 14:15 | NUR ---
SYSTEMS ACCOUNTANT NOTES [facility] ACLS PROTOCOL, BEDSIDE REPORT GIVEN TO FABRICE. PATIENT IN STABLE CONDITION.
--- NOTE | 2020-06-05 14:29 | NUR ---
RESORT HOUSEKEEPER NOTES PATIENT TRANSFERRED FROM ICU ROOM 256 TO ROOM 312-1 AT 1415 ACCOMPANIED BY KENJI VICTORIA. A/O X1, RESPONSIVE TO VERBAL AND TACTILE STIMULI. PATIENT ON [facility] VENTILATOR AT PRESCRIBED PARAMETERS, TOLERATING SETTINGS WELL, W/ NO ACUTE RESPIRATORY DISTRESS NOTED, SATURATING WELL. PATIENT ON TELEMONITORING W/ CURRENT READING OF SR AND HR IN THE 80'S, NO CARDIAC DISTRESS OBSERVED. PATIENT W/ MIDLINE ON YISEL, INTACT AND PATENT. G-TUBE IN PLACE W/ GLUCERNA 1.2 FEEDING RUNNING AT 40ML/HR, NO RESIDUAL NOTED. ASPIRATION PRECS MAINTAINED. PATIENT W/ NAVARRETE CATHETER IN PLACE, ACTIVELY DRAINING CLEAR, YELLOW URINE VIA GRAVITY. SAFETY MEASURES IN PLACE: BED ON LOWEST AND LOCKED POSITION, SR UP X3, HOB KEPT ELEVATED, CALL LIGHT PLACED WITHIN REACH. WILL CONTINUE TO MONITOR.
--- NOTE | 2020-06-05 14:30 | NUR ---
RT PT TRANSFERRED FROM ICU TO [facility]. VENT PLUGGED IN RED OUTLET. AMBU BAG AND SPARE TRACH NOTED HOB. NO SOB OR DISTRESS NOTED. WILL CONTINUE TO MONITOR
[2020-06-05] MEDS: GLUCERNA 1.2 1,000 ML BOTTLE GT PRN (17:24)
--- NOTE | 2020-06-05 18:39 | NUR ---
COPY CHASER CLOSING NOTES PATIENT IS IN BED RESTING, AWAKE AND RESPONSIVE TO VERBAL AND TACTILE STIMULI. ON MECHANICAL VENTILATOR AT PRESCRIBED PARAMETERS TOLERATED WELL BY PATIENT, NO ACUTE RESPIRATORY DISTRESS NOTED. ON TELEMONITORING WITH READING OF SR, HR IN THE 80'S WITHOUT CARDIAC DISTRESS NOTED. MIDLINE ON YISEL, INTACT AND PATENT. G-TUBE FEEDING OF GLUCERNA 1.2 AT 40ML/HR IN PROGRESS, NO RESIDUAL NOTED, TOLERATED BY PATIENT. ASPIRATION PRECAUTIONS OBSERVED. NAVARRETE CATHETER IN PLACE, DRAINING CLEAR, YELLOW URINE VIA GRAVITY. NAVARRETE CATH CARE DONE. TURNED AND REPOSITIONED Q2H. ALL NEEDS AND CARE PROVIDED. SAFETY PRECAUTIONS MAINTAINED: BED ON LOWEST AND LOCKED POSITION, SR UP X3, CALL LIGHT PLACED WITHIN REACH. WILL ENDORSE TO VASCULAR TECHNOLOGIST NURSE FOR CONOR.
--- NOTE | 2020-06-05 19:58 | NUR ---
HUSKER OPERATOR: RECEIVED PATIENT Transferred patient to [facility] by bed. Trach in tach, on mechanical vent, settings per Pulmo. Abdomen presence of Gtube, maintained upright posture. YISEL midline intact. Fall; Skin; Aspiration precaution maintained.
--- NOTE | 2020-06-05 20:20 | NUR ---
RT PATIENT REC'D TRACHED ON [facility] VENT WITH ORDERED SETTINGS BOBBY WELL. PATIENT APPEARS COMFORTABLE AND IN NO DISTRESS. DONNIEU BAG AT HOB. CONT CURRENT PLAN OF CARE. Addendum: 06/06/20 at 0421 by JEAN CLAUDE SAMSON RT Amended: Links added.
[2020-06-06 00:18] VITALS: BP 147/90
[2020-06-06] MEDS: MEROPENEM 1 G in IV NS 0.9% 100 ML IV SCH (05:34)
[2020-06-06 05:51] VITALS: BP 164/102
[2020-06-06] MEDS: hydrALAZINE HCL 10 MG TABLET GT PRN (05:54)
--- NOTE | 2020-06-06 06:39 | NUR ---
NUCLEAR TECHNOLOGIST: END OF SHIFT REPORT Patient in bed, awake. Trach intact, on mechanical vent. Sinus Rhythm/ Sinus Tach in the Tele monitor. YISEL midline intact, IV abx as scheduled, afebrile. Plan for completion of abx today, ID following. Will endorse to oncoming RN.
[2020-06-06 07:05] LABS: CALCIUM, SERUM 8.1 mg/dL (8.5-10.1); CREATININE 0.8 mg/dL (0.6-1.3); POTASSIUM 3.1 mmol/L (3.5-5.1)
--- NOTE | 2020-06-06 07:30 | NUR ---
STRAND BUNCHER FINE WIRE OPENING NOTES RECEIVED PATIENT THIS AM WITH NO ACUTE DISTRESS. PATIENT IS ALERT, TRACH, TOLERATING VENT SETTINGS WELL, O2 SAT WNL. NO SIGNS OF ACUTE DISTRESS NOTED AT THIS TIME. SR IN THE 80S ON THE BEDSIDE MONITOR. GTF GLUCERNA 1.2 @ 40CC/HR. FC DRAINING URINE. YISEL MIDLINE, C/D/I, FLUSHING WELL, NO SIGNS OF COMPLICATIONS NOTED. SAFETY MEASURES IMPLEMENTED, BED IN LOWEST POSITION, LOCKED, SIDE RAILS UP, CALL LIGHT WITHIN REACH. WILL CONTINUE TO MONITOR.
[2020-06-06] MEDS ORDERED: POTASSIUM CHLORIDE 20 MEQ POWDER PACKET GT SCH (08:30)
[2020-06-06] MEDS: PROSOURCE / PROSTAT (PYXIS) 30 ML UDC GT SCH ×4 (09:20→20:10)
[2020-06-06] MEDS: ASCORBIC ACID 500 MG TABLET NG SCH (09:21)
[2020-06-06] MEDS: PANTOPRAZOLE 40 MG/PACK PACK GT SCH (09:21)
[2020-06-06] MEDS: ZINC SULFATE 220 MG CAPSULE NG SCH (09:21)
[2020-06-06] MEDS: QUETIAPINE FUMARATE 25 MG TABLET PO SCH ×2 (09:22→20:10)
[2020-06-06] MEDS: METOPROLOL TARTRATE 25 MG TABLET PO SCH ×2 (09:22→20:10)
[2020-06-06] MEDS: ENOXAPARIN SODIUM 40 MG/0.4 ML DISP.SYRIN SQ SCH (09:27)
[2020-06-06] MEDS: CLOTRIMAZOLE 1% 15 GM TUBE TP SCH ×2 (09:30→17:43)
[2020-06-06 09:39] LABS: BASOPHILS # (AUTO) 0.1 /CMM (0.0-0.2); BASOPHILS % (AUTO) 1.3 % (0.0-2.0); EOSINOPHILS % (AUTO) 7.8 % (0.0-6.0); HEMATOCRIT 27 % (39-51); HEMOGLOBIN 8.7 g/dL (13.5-17.5); LYMPHOCYTES # (AUTO) 1.3 /CMM (0.8-4.8); LYMPHOCYTES % (AUTO) 17.8 % (20.0-44.0); MEAN CORPUSCULAR HGB CONC 33 g/dl (31.0-36.0); MEAN CORPUSCULAR VOLUME 92 fL (80-96); MONOCYTES # (AUTO) 0.9 /CMM (0.1-1.30); MONOCYTES % (AUTO) 12.3 % (2.0-12.0); NEUTROPHILS # (AUTO) 4.4 /CMM (1.8-8.9); NEUTROPHILS % (AUTO) 60.8 % (43.0-81.0); PLATELET COUNT (AUTO) 238 /CMM (150-450); RED BLOOD CELL COUNT(AUTO) 2.91 MIL/uL (4.5-6.0); WHITE BLOOD COUNT (AUTO) 7.2 K/uL (4.3-11.0)
[2020-06-06 12:00] VITALS: BP 104/67
[2020-06-06 16:19] VITALS: BP 110/64
--- NOTE | 2020-06-06 22:00 | NUR ---
RN NOTE SPOKE TO TAVO (GRAND DAUGHTER) AND GAVE UPDATE ON PT'S CONDITION AND PLAN OF CARE.
[2020-06-06 22:12] VITALS: BP 137/88
[2020-06-07] VITALS (8 sets, daily range): BP systolic 98–171; BP diastolic 62–87
[2020-06-07] MEDS: GLUCERNA 1.2 1,000 ML BOTTLE GT PRN (01:16)
[2020-06-07] MEDS: MORPHINE SULFATE INJ 2 MG/ML DISP.SYRIN IV PRN (03:51)
--- NOTE | 2020-06-07 06:25 | NUR ---
RN CLOSING NOTES NO ACUTE CHANGES OBSERVED OVERNIGHT. TRACH MID LINE AND IN PLACE. TOLERATING VENT SETTINGS WELL. ALL NEEDS MET AND ATTENDED TO. GT FEEDING RUNNING ORDERED AND TOLERATING WELL WITH MINIMAL GASTRIC RESIDUAL. NAVARRETE CATHETER PATENT AND IN PLACE DRAINING CLEAR YELLOW URINE. BED ALARM ON, CALL LIGHT WITHIN REACH, SAFETY MEASURES IN PLACE, WILL ENDORSE TO MORNING RN FOR CONTINUATION OF CARE.
[2020-06-07 06:36] LABS: BASOPHILS # (AUTO) 0.1 /CMM (0.0-0.2); BASOPHILS % (AUTO) 1.3 % (0.0-2.0); EOSINOPHILS % (AUTO) 9.8 % (0.0-6.0); HEMATOCRIT 27 % (39-51); HEMOGLOBIN 9.1 g/dL (13.5-17.5); LYMPHOCYTES % (AUTO) 13.1 % (20.0-44.0); MEAN CORPUSCULAR HGB CONC 33 g/dl (31.0-36.0); MEAN CORPUSCULAR VOLUME 91 fL (80-96); MONOCYTES # (AUTO) 0.8 /CMM (0.1-1.30); NEUTROPHILS # (AUTO) 4.8 /CMM (1.8-8.9); NEUTROPHILS % (AUTO) 64.8 % (43.0-81.0); PLATELET COUNT (AUTO) 248 /CMM (150-450); RED BLOOD CELL COUNT(AUTO) 2.99 MIL/uL (4.5-6.0); WHITE BLOOD COUNT (AUTO) 7.4 K/uL (4.3-11.0)
[2020-06-07 06:58] LABS: CALCIUM, SERUM 8.1 mg/dL (8.5-10.1); CREATININE 0.8 mg/dL (0.6-1.3); POTASSIUM 3.8 mmol/L (3.5-5.1)
[2020-06-07] MEDS: CLOTRIMAZOLE 1% 15 GM TUBE TP SCH ×2 (09:26→18:07)
[2020-06-07] MEDS: PROSOURCE / PROSTAT (PYXIS) 30 ML UDC GT SCH ×4 (09:27→21:22)
[2020-06-07] MEDS: ZINC SULFATE 220 MG CAPSULE NG SCH (09:30)
[2020-06-07] MEDS: QUETIAPINE FUMARATE 25 MG TABLET PO SCH ×2 (09:31→21:24)
[2020-06-07] MEDS: ASCORBIC ACID 500 MG TABLET NG SCH (09:31)
[2020-06-07] MEDS: PANTOPRAZOLE 40 MG/PACK PACK GT SCH (09:31)
[2020-06-07] MEDS: METOPROLOL TARTRATE 25 MG TABLET PO SCH ×2 (09:31→21:23)
[2020-06-07] MEDS: ENOXAPARIN SODIUM 40 MG/0.4 ML DISP.SYRIN SQ SCH (09:35)
[2020-06-07] MEDS: hydrALAZINE HCL 10 MG TABLET GT PRN (15:10)
[2020-06-07] MEDS: LORAZEPAM INJ 2 MG/ML VIAL IV PRN (15:20)
[2020-06-07] MEDS: ACETAMINOPHEN 650 MG/20.3 ML UDC GT PRN (15:35)
--- NOTE | 2020-06-07 18:23 | NUR ---
ASSISTANT PARALEGAL CLOSING NOTES NO ACUTE CHANGES OBSERVED OVERNIGHT. TRACH MID LINE AND IN PLACE. TOLERATING VENT SETTINGS WELL. ALL NEEDS MET AND ATTENDED TO. GT FEEDING RUNNING ORDERED AND TOLERATING WELL WITH MINIMAL GASTRIC RESIDUAL. TELE MONITOR READS NSR, WITH HR WNL. NAVARRETE CATHETER PATENT AND IN PLACE DRAINING CLEAR YELLOW URINE. BED ALARM ON, CALL LIGHT WITHIN REACH, SAFETY MEASURES IN PLACE, WILL ENDORSE TO NEXT SHIFT FOR CONTINUATION OF CARE.
--- NOTE | 2020-06-07 20:00 | NUR ---
DIESEL ENGINE ASSEMBLER OPENING NOTES RECEIVED PATIENT IN BED WITH NO ACUTE DISTRESS. PATIENT IS ALERT, VENT TRACH, TOLERATING VENT SETTINGS WELL, O2 SAT WNL. NO SIGNS OF ACUTE DISTRESS NOTED AT THIS TIME. SR IN THE 90S ON MONITOR. GTF GLUCERNA 1.2 @ 40CC/HR.TOLERATING WELL NO RESIDUAL NOTED . FC DRAINING WITH YELLOWISH URINE OUTPUT . YISEL MIDLINE, C/D/I, FLUSHING WELL, SAFETY MEASURES IMPLEMENTED, BED IN LOWEST POSITION, LOCKED, SIDE RAILS UP, CALL LIGHT WITHIN REACH. DUE MEDS GIVEN ORDERED , ALL NEEDS ATTENDED TOO WILL CONTINUE TO MONITOR PTS. DVT PUMP ON BILATERAL LEGS IN PLACE .V/S STABLE AFEBRILE.
--- NOTE | 2020-06-07 20:18 | NUR ---
RT PATIENT REC'D TRACHED ON [facility] VENT WITH ORDERED SETTINGS BOBBY WELL. PATIENT APPEARS COMFORTABLE AND IN NO DISTRESS. DONNIEU BAG AT HOB. CONT CURRENT PLAN OF CARE. Addendum: 06/07/20 at 2018 by JEAN CLAUDE SAMSON RT Amended: Links added.
--- NOTE | 2020-06-07 23:00 | NUR ---
TELE NURSES NOTE, RECEIVED A CALL FROM FAMILY , UPDATED WITH PTS CONDITION .FACE TIME WITH PATIENT .
[2020-06-08] VITALS: BP 157/87
--- NOTE | 2020-06-08 | NUR ---
SUBASSEMBLY SUPERVISOR NOTED PTS TURNED AND REPOSITION , V/S STABLE , WILL CONTINUE TO MONITOR PTS.
[2020-06-08 04:00] VITALS: BP 144/92
[2020-06-08] MEDS: GLUCERNA 1.2 1,000 ML BOTTLE GT PRN (04:46)
--- NOTE | 2020-06-08 06:48 | NUR ---
television maintenance worker notes Pts remains in bed awake and responsive , on sr on the monitor no sob no distress noted , gt feeding on progress no residual noted , will endorse to rn day shift for continuty of care.
[2020-06-08 06:57] LABS: BASOPHILS # (AUTO) 0.2 /CMM (0.0-0.2); BASOPHILS % (AUTO) 1.9 % (0.0-2.0); EOSINOPHILS % (AUTO) 10.4 % (0.0-6.0); HEMATOCRIT 30 % (39-51); HEMOGLOBIN 9.8 g/dL (13.5-17.5); LYMPHOCYTES # (AUTO) 1.2 /CMM (0.8-4.8); LYMPHOCYTES % (AUTO) 15.2 % (20.0-44.0); MEAN CORPUSCULAR HGB CONC 33 g/dl (31.0-36.0); MEAN CORPUSCULAR VOLUME 92 fL (80-96); MONOCYTES # (AUTO) 0.9 /CMM (0.1-1.30); MONOCYTES % (AUTO) 11.5 % (2.0-12.0); PLATELET COUNT (AUTO) 269 /CMM (150-450); RED BLOOD CELL COUNT(AUTO) 3.25 MIL/uL (4.5-6.0); WHITE BLOOD COUNT (AUTO) 8.2 K/uL (4.3-11.0)
--- NOTE | 2020-06-08 07:20 | NUR ---
RN OPENING NOTE Received patient awake in bed appears calm and relaxed no signs of distress. Moves legs occasionally. Able to communicate by pointing to trach when need suction. On trach and vent Shiley 8 AC 16 TV550 FiO2 40% PEEP 5 tolerating well no signs of distress. AO x1 to self, non verbal, German speaking only. Tele reading SR. Mar catheter draining clear yellow urine. On GTF Glucerna 1.2 @ 40cc/hr tolerating well. Has YISEL Midline flushes well. Safety measures reinforced. Bed locked and on lowest position. Will cont to monitor. Addendum: 06/08/20 at 1149 by CONNER MORALES RN PEEP IS 0
[2020-06-08 08:00] VITALS: BP 156/96
[2020-06-08 08:32] LABS: CALCIUM, SERUM 8.1 mg/dL (8.5-10.1); CREATININE 0.7 mg/dL (0.6-1.3); POTASSIUM 3.7 mmol/L (3.5-5.1)
[2020-06-08] MEDS: ENOXAPARIN SODIUM 40 MG/0.4 ML DISP.SYRIN SQ SCH (08:32)
[2020-06-08] MEDS: METOPROLOL TARTRATE 25 MG TABLET PO SCH ×2 (08:33→20:12)
[2020-06-08] MEDS: ZINC SULFATE 220 MG CAPSULE NG SCH (08:33)
[2020-06-08] MEDS: ASCORBIC ACID 500 MG TABLET NG SCH (08:34)
[2020-06-08] MEDS: PROSOURCE / PROSTAT (PYXIS) 30 ML UDC GT SCH ×4 (08:34→20:12)
[2020-06-08] MEDS: CLOTRIMAZOLE 1% 15 GM TUBE TP SCH ×2 (08:34→16:16)
[2020-06-08] MEDS: QUETIAPINE FUMARATE 25 MG TABLET PO SCH ×2 (08:34→20:12)
[2020-06-08] MEDS: PANTOPRAZOLE 40 MG/PACK PACK GT SCH (08:34)
[2020-06-08 12:00] VITALS: BP 159/98
[2020-06-08 16:00] VITALS: BP 154/95
--- NOTE | 2020-06-08 18:41 | NUR ---
RN CLOSING NOTE Patient in bed awake no signs of distress. Trach and vent settings tolerating well. All due meds given. No signs of pain or discomfort. Kept clean and dry. Rendered treatment as ordered. Vital signs within normal limits. Call light within reach, Safety measures maintained. Will endorse to overhead cleaner maintainer nurse for leda.
--- NOTE | 2020-06-08 19:28 | NUR ---
DIVERSIONAL THERAPIST'S ASSISTANT OPENING NOTES RECEIVED PATIENT IN BED WITH NO ACUTE DISTRESS. PATIENT IS ALERT, VENT TRACH, TOLERATING VENT SETTINGS PER MD ORDER, O2 SAT 99%. NO SIGNS OF ACUTE DISTRESS NOTED AT THIS TIME. SINUS IN THE 90S ON MONITOR. GTUBE ON PLACE PATENT WITH ONGOING GLUCERNA 1.2 @ 40CC/HR.TOLERATING WELL NO RESIDUAL NOTED . NAVARRETE CATH DRAINING WITH YELLOWISH URINE OUTPUT . YISEL MIDLINE, C/D/I, FLUSHING WELL, SAFETY MEASURES IMPLEMENTED, BED IN LOWEST POSITION, LOCKED, SIDE RAILS UP, CALL LIGHT WITHIN REACH. WILL CONT TO MONITOR.
[2020-06-08 20:00] VITALS: BP 137/87
--- NOTE | 2020-06-08 21:55 | NUR ---
RT NOTE PT RECEIVED TRACHED ON MECHANICAL VENTILATION. CUFF CHECKED VIA DAM WORKER. PT AWAKE. AMBU BAG @ HOB. SX DONE, TRACH SECURED AND PATENT. ALARMS ON AND AUDIBLE. VENT PLUGGED TO RED OUTLET. NO DISTRESS NOTED AT THIS TIME. WILL CONTINUE TO MONITOR T/O SHIFT. CONT. PULSE OX CONNECTED. Addendum: 06/08/20 at 2156 by MIN CARY RT Amended: Links added.
[2020-06-09] VITALS (7 sets, daily range): BP systolic 127–171; BP diastolic 72–101
--- NOTE | 2020-06-09 01:11 | NUR ---
RN NOTES BP RECHECKED 150/84 HR 92
[2020-06-09] MEDS: Z GUARD REMEDY 2 OZ OINT TP PRN (04:06)
[2020-06-09] MEDS: hydrALAZINE HCL 10 MG TABLET GT PRN (04:06)
--- NOTE | 2020-06-09 05:09 | NUR ---
RN NOTES BP RECHECKED 155/98
[2020-06-09] MEDS: GLUCERNA 1.2 1,000 ML BOTTLE GT PRN (05:16)
--- NOTE | 2020-06-09 06:48 | NUR ---
RN CLOSING NOTES PT ON BED ASLEEP NO SIGN AND SYMPTOMS OF RESPIRATORY DISTRESS, SPO2 98% VIA TRACH VENT SETTING ORDERED, NO SIGNIFICANT CHANGES ON CONDITION NOTED, TELE MONITOR READS SINUS RHYTHM 90' WITH OCC PVCS ALL NEEDS ATTENDED, SAFETY MEASURE MAINTAINED BED ON LOWEST POSITION AND LOCKED SIDE RAILS UP X 2 CALL LIGHT WITHIN REACH WILL ENDORSE TO AM SHIFT NURSE
--- NOTE | 2020-06-09 07:30 | NUR ---
RN OPENING NOTES Patient in bed, A/Ox3, Eritrean and Georgian speaker, able to mumble words, unable to write, calm, cooperative, able to perform passive and active ROM; right side stronger than left. patient is on [facility] ventilator, Shiley 8, AC TV 550, FiO2 40%, PEEP 0. Tele-monitor is SR 83-85, Mar cath in place daring yellow clear urine by gravity, intact and patent, G-tube noted in place, no residual noted, placement confirmed with auscultation. Patient is on g-tube feeding Glucerna 1.2 @ 40cc/hr tolerating well. Midline noted on YISEL, intact and patent, flushes well. Safety measures implemeted, call light in rewach, will cont to monitor
[2020-06-09 08:03] LABS: CALCIUM, SERUM 8.5 mg/dL (8.5-10.1); CREATININE 0.8 mg/dL (0.6-1.3); POTASSIUM 3.4 mmol/L (3.5-5.1)
[2020-06-09 08:21] LABS: BASOPHILS # (AUTO) 0.1 /CMM (0.0-0.2); BASOPHILS % (AUTO) 1.4 % (0.0-2.0); EOSINOPHILS % (AUTO) 9.3 % (0.0-6.0); HEMATOCRIT 32 % (39-51); HEMOGLOBIN 10.3 g/dL (13.5-17.5); LYMPHOCYTES # (AUTO) 1.1 /CMM (0.8-4.8); LYMPHOCYTES % (AUTO) 14.7 % (20.0-44.0); MEAN CORPUSCULAR HGB CONC 32 g/dl (31.0-36.0); MEAN CORPUSCULAR VOLUME 92 fL (80-96); MONOCYTES # (AUTO) 0.8 /CMM (0.1-1.30); MONOCYTES % (AUTO) 10.4 % (2.0-12.0); NEUTROPHILS % (AUTO) 64.2 % (43.0-81.0); PLATELET COUNT (AUTO) 258 /CMM (150-450); RED BLOOD CELL COUNT(AUTO) 3.46 MIL/uL (4.5-6.0); WHITE BLOOD COUNT (AUTO) 7.8 K/uL (4.3-11.0)
[2020-06-09] MEDS: ZINC SULFATE 220 MG CAPSULE NG SCH (08:21)
[2020-06-09] MEDS: QUETIAPINE FUMARATE 25 MG TABLET PO SCH ×2 (08:21→20:21)
[2020-06-09] MEDS: ASCORBIC ACID 500 MG TABLET NG SCH (08:21)
[2020-06-09] MEDS: METOPROLOL TARTRATE 25 MG TABLET PO SCH ×2 (08:21→20:22)
[2020-06-09] MEDS: PANTOPRAZOLE 40 MG/PACK PACK GT SCH (08:22)
[2020-06-09] MEDS: CLOTRIMAZOLE 1% 15 GM TUBE TP SCH ×2 (08:22→17:38)
[2020-06-09] MEDS: ENOXAPARIN SODIUM 40 MG/0.4 ML DISP.SYRIN SQ SCH (08:23)
[2020-06-09] MEDS: PROSOURCE / PROSTAT (PYXIS) 30 ML UDC GT SCH ×4 (08:25→20:21)
[2020-06-09] MEDS ORDERED: POTASSIUM CHLORIDE 20 MEQ POWDER PACKET GT SCH (10:00)
--- NOTE | 2020-06-09 18:00 | NUR ---
FAMILY CAME DAUGHTER (BLAZE) AND GRANDDAUGHTER (TAVO) PICKED UP PATIENTS BELONGINGS PHONE, VOCATIONAL DIRECTOR AND UPPER DENTURES. BELONGING LIST CHECKED AND UPDATED
--- NOTE | 2020-06-09 18:52 | NUR ---
RN CLOSING NOTES PATIENT REMAINS IN BED, TOLERATING VENT SETTINGS WELL, DRESSINGS CHANGED, COMFORT NEEDS ATTENDED, MEDICATIONS GIVEN, PROVIDE TIME WITH FAMILY VIA FACETIME, PATIENT IS COMMUNICATING IN [place] ISLANDER AND [place] LANGUAGE, IV LINE PATENT AND INTACT, NAVARRETE CATH IN PLACE, SAFETY PRECAUTIONS IN PLACE, BED IS LOCKED IN LOWEST POSITION , CALL LIGHT IN REACH, HOB ELEVATED, WILL ENDORSE TO PM SHIFT FOR CONOR
--- NOTE | 2020-06-09 19:28 | NUR ---
LOCKSTITCH ZIPPER SETTER OPENING NOTES RECEIVED PATIENT IN BED WITH NO ACUTE DISTRESS. PATIENT IS ALERT, VENT TRACH, TOLERATING well, VENT SETTINGS PER MD ORDER, O2 SAT 100%. NO SIGNS OF ACUTE DISTRESS NOTED AT THIS TIME. SINUS IN THE 80S ON MONITOR. GTUBE ON PLACE PATENT WITH ONGOING GLUCERNA 1.2 @ 40CC/HR.TOLERATING WELL NO RESIDUAL NOTED . NAVARRETE CATH DRAINING WITH YELLOWISH URINE OUTPUT . YISEL MIDLINE,PATENT AND FLUSHING WELL, SAFETY MEASURES IMPLEMENTED, BED IN LOWEST POSITION, LOCKED, SIDE RAILS UP, CALL LIGHT WITHIN REACH. WILL CONT TO MONITOR.
[2020-06-10] VITALS (9 sets, daily range): BP systolic 117–143; BP diastolic 62–91
[2020-06-10] MEDS: Z GUARD REMEDY 2 OZ OINT TP PRN (04:08)
[2020-06-10] MEDS: GLUCERNA 1.2 1,000 ML BOTTLE GT PRN (04:32)
[2020-06-10] MEDS: IV NS 0.9% 250 ML IV PRN (04:46)
[2020-06-10 06:43] LABS: BASOPHILS # (AUTO) 0.1 /CMM (0.0-0.2); BASOPHILS % (AUTO) 1.3 % (0.0-2.0); EOSINOPHILS % (AUTO) 9.4 % (0.0-6.0); HEMATOCRIT 30 % (39-51); HEMOGLOBIN 9.9 g/dL (13.5-17.5); LYMPHOCYTES # (AUTO) 1.3 /CMM (0.8-4.8); LYMPHOCYTES % (AUTO) 14.3 % (20.0-44.0); MEAN CORPUSCULAR HGB CONC 33 g/dl (31.0-36.0); MEAN CORPUSCULAR VOLUME 93 fL (80-96); MONOCYTES # (AUTO) 1.1 /CMM (0.1-1.30); MONOCYTES % (AUTO) 12.8 % (2.0-12.0); NEUTROPHILS # (AUTO) 5.5 /CMM (1.8-8.9); NEUTROPHILS % (AUTO) 62.2 % (43.0-81.0); PLATELET COUNT (AUTO) 216 /CMM (150-450); RED BLOOD CELL COUNT(AUTO) 3.28 MIL/uL (4.5-6.0); WHITE BLOOD COUNT (AUTO) 8.8 K/uL (4.3-11.0)
--- NOTE | 2020-06-10 06:45 | NUR ---
RN CLOSING NOTES PT ON BED ASLEEP NO SIGN AND SYMPTOMS OF RESPIRATORY DISTRESS, SPO2 98% VIA TRACH VENT SETTING ORDERED, NO SIGNIFICANT CHANGES ON CONDITION NOTED, TELE MONITOR READS SINUS RHYTHM 90',WITH AWAITING BED FROM SUB ACUTE A PLAN AT THE MOMENT ALL NEEDS ATTENDED, SAFETY MEASURE MAINTAINED BED ON LOWEST POSITION AND LOCKED SIDE RAILS UP X 2 CALL LIGHT WITHIN REACH WILL ENDORSE TO AM SHIFT NURSE
--- NOTE | 2020-06-10 07:26 | NUR ---
RT RECEIVED PT TRACH VENT DEPENDENT, TRACH SIZE SHILEY # 8. 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 VENT PLUGGED IN RED OUTLET. ALARMS CHECKED AND AUDIBLE. SX WITH MOD THK MICHAEL SECRETIONS. PT TOLERATING VENT SETTINGS AND PT ON CONTINUOUS PULSE OX. NO SOB OR RESP DISTRESS NOTED. AMBU BAG AND SPARE TRACH NOTED HOB. WILL CONTINUE TO MONITOR T/O SHIFT.
--- NOTE | 2020-06-10 07:30 | NUR ---
RN OPENING NOTES Patient present in bed, A/Ox3,able to understand Vincentian and Citizen Of [place] language unable to write, relaxed, cooperative, able to perform passive and active ROM;able to squeeze left hand when asked, right side no impairment. Patient is on [facility] ventilator, Shiley 8, AC TV 550, FiO2 40%, PEEP 0. Vent alarms is checked and working. Left upper arm midline noted, patent, flushed and intact, dressing is clean. Tele-monitor is SR 75-80, Mar cath noted daring yellow clear urine by gravity,patent and intact. G-tube noted in place, no residual noted, placement confirmed with auscultation. Patient is on g-tube feeding Glucerna 1.2 @ 40cc/hr tolerating well, flatus and BM present, no abnormalities noted. Safety measures implemented, call light in reach, bed in lowest position, HOB elevated, bed alarm is on, will cont to monitor
[2020-06-10 08:08] LABS: CALCIUM, SERUM 8.6 mg/dL (8.5-10.1); CREATININE 0.7 mg/dL (0.6-1.3); POTASSIUM 3.7 mmol/L (3.5-5.1)
[2020-06-10] MEDS: METOPROLOL TARTRATE 25 MG TABLET PO SCH ×2 (08:57→20:46)
[2020-06-10] MEDS: QUETIAPINE FUMARATE 25 MG TABLET PO SCH ×2 (08:57→21:11)
[2020-06-10] MEDS: ZINC SULFATE 220 MG CAPSULE NG SCH (08:58)
[2020-06-10] MEDS: PROSOURCE / PROSTAT (PYXIS) 30 ML UDC GT SCH ×4 (08:58→21:11)
[2020-06-10] MEDS: ASCORBIC ACID 500 MG TABLET NG SCH (08:58)
[2020-06-10] MEDS: PANTOPRAZOLE 40 MG/PACK PACK GT SCH (08:58)
[2020-06-10] MEDS: CLOTRIMAZOLE 1% 15 GM TUBE TP SCH ×2 (08:58→17:29)
[2020-06-10] MEDS: ENOXAPARIN SODIUM 40 MG/0.4 ML DISP.SYRIN SQ SCH (11:08)
--- NOTE | 2020-06-10 12:00 | NUR ---
patient remains in the bed,, Call Light In Reach,Bed Low, Side Rail Up As Appropriate, No S/S Of Distress Noted, tolerating vent settings well, G-tube patent and in place, Needs Attended, cont to monitor
--- NOTE | 2020-06-10 14:52 | NUR ---
Bri contacted this SW to request an Ukrainian or Sri Lankan speaking nurse for this patient. This SW to inform solar project engineer Soon of this request and attempt to make this possible per patient's family.
--- NOTE | 2020-06-10 14:57 | NUR ---
laundry assistant Soon confirmed with this SW that the patient's family request has been noted. Per Soon, this request is being accommodated for all shifts.
--- NOTE | 2020-06-10 16:00 | NUR ---
Patient remains in bed, tolerating vent settings well, no SOB, no cough, no distress, bed is locked, side rails up x2, tolerating feeding welll, cont to monitor
--- NOTE | 2020-06-10 18:00 | NUR ---
Patient has BM, CLEANED, CHANGED, TOLERATE WELL, NO S/SX OF SOB OR DISTRESS NOTED
--- NOTE | 2020-06-10 18:50 | NUR ---
RN CLOSING NOTES Patient in bed, tolerating vent settings well,SPO2 is 100%, no cough, no discharge, no SOB noted, no s/sx of pain or discomfort noted, dressings change, comfort needs attended, family time via Facetime provided, patient is able to understand Czech and Citizen Of [place] language only, able to communicate and follow commands, IV line is patent and intact, Mar cat intact and patent. Safety measures implemented, bed locked, lowest position, bed alarm is on, call light in reach, HOB elevated, will endorse CONOR to PM shifty RN
--- NOTE | 2020-06-10 19:31 | NUR ---
RN NOTE PT IS CURRENTLY RESTING IN BED. ALERT AND ORIENTED X3. NONVERBAL. FULL CODE. ALLERGY TO BISEPTOC AND AMOXICILLIN NOTED. NO SHORTNESS OF BREATH OR RESPIRATORY DISTRESS NOTED. PATIENT IS SINUS RHYTHM AT THIS TIME HEART RATE 90. NON VERBAL. TOGOLESE JAPANESE SPEAKING. AUTOMATION OPERATOR USED. PATIENT IS TRACH TO VENT. SHILEY 8 AC 16 TV 550 FIO2 40 PEEP 0.0. TOLERATING VENT SETTINGS WELL SATURATING AT 100%. LEFT ARM EDEMATOUS. G TUBE PATENT, FLUSHED. RESIDUALS CHECK OF 10CC. PATIENT TOLERATING GLUCERNA OF 40ML/HR. LEFT UPPER ARM MIDLINE PATENT. FLUSHED TKO OF 5ML/HR. BED IS LOCKED IN LOWEST POSITION WITH BED ALARM ON. WILL CONTINUE TO MONITOR.
--- NOTE | 2020-06-10 22:16 | NUR ---
RN NOTE WOUND TREATMENTS PERFORMED ORDERED. NO SIGNS OF RESPIRATORY DISTRESS OR SHORTNESS OF BREATH AT THIS TIME. WILL CONTINUE TO MONITOR.
[2020-06-11] VITALS: BP 134/94
[2020-06-11] MEDS: LORAZEPAM INJ 2 MG/ML VIAL IV PRN (01:27)
--- NOTE | 2020-06-11 01:29 | NUR ---
RN NOTE PT IS AGITATED, TRYING TO PULL OUT NAVARRETE CATHETER AND IV SITE. GAVE ATIVAN PRN ORDERED. WILL CONTINUE TO MONITOR. Addendum: 06/11/20 at 0623 by TUNG HUMPHREY RN RN NOTE @4647 REASSESSED PATIENT IS CALM. NO SHORTNESS OF BREATH. NO RESPIRATORY DISTRESS AT THIS TIME. WILL CONTINUE TO MONITOR.
--- NOTE | 2020-06-11 02:12 | NUR ---
RN NOTE PT VERBALIZED DESIRE TO TAKE OFF SCD. EXPLAINED RISKS AND BENEFITS X2. VICE PRESIDENT FIXED INCOME UTILIZED. NO SHORTNESS OF BREATH OR RESPIRATORY DISTRESS AT THIS TIME. PT IS STABLE AT THIS TIME. WILL CONTINUE TO MONITOR.
[2020-06-11] MEDS: MORPHINE SULFATE INJ 2 MG/ML DISP.SYRIN IV PRN (02:55)
--- NOTE | 2020-06-11 03:05 | NUR ---
RN NOTE PT VERBALIZED GENERAL PAIN 05/06. GUTTER INSTALLER USED. GAVE PRN MORPHINE ORDERED. WILL REASSESS. Addendum: 06/11/20 at 0625 by TUNG HUMPHREY RN RN NOTE @9801 PT REASSESSED AND VERBALIZED DECREASE OF GENERALIZED PAIN 10/06. GUTTER INSTALLER UTILIZED. WILL CONTINUE TO MONITOR.
[2020-06-11] MEDS: IV NS 0.9% 250 ML IV PRN (03:20)
[2020-06-11 04:00] VITALS: BP 149/93
[2020-06-11] MEDS: GLUCERNA 1.2 1,000 ML BOTTLE GT PRN (04:59)
[2020-06-11 07:22] LABS: BASOPHILS # (AUTO) 0.2 /CMM (0.0-0.2); BASOPHILS % (AUTO) 1.5 % (0.0-2.0); HEMATOCRIT 33 % (39-51); HEMOGLOBIN 10.4 g/dL (13.5-17.5); LYMPHOCYTES # (AUTO) 1.6 /CMM (0.8-4.8); LYMPHOCYTES % (AUTO) 15.2 % (20.0-44.0); MEAN CORPUSCULAR HGB CONC 32 g/dl (31.0-36.0); MEAN CORPUSCULAR VOLUME 94 fL (80-96); MONOCYTES # (AUTO) 1.3 /CMM (0.1-1.30); MONOCYTES % (AUTO) 12.2 % (2.0-12.0); NEUTROPHILS # (AUTO) 6.7 /CMM (1.8-8.9); NEUTROPHILS % (AUTO) 65.1 % (43.0-81.0); PLATELET COUNT (AUTO) 212 /CMM (150-450); RED BLOOD CELL COUNT(AUTO) 3.45 MIL/uL (4.5-6.0); WHITE BLOOD COUNT (AUTO) 10.3 K/uL (4.3-11.0)
--- NOTE | 2020-06-11 07:30 | NUR ---
RN OPENING NOTES Received patient in bed, A/Ox3, sleepy, relaxed able to understand Kuwaiti and Icelandic language.Actively moving both legs around the bed, Left hand present with edema and severe weakens, right hand is able to perform active ROM. Patient is on [facility] ventilator, with Shiley 8, AC TV 550, FiO2 40%, PEEP 0.0, tolerating well SPO2 100%; Vent alarms is checked and working. Midline on left upper midline present intact, patent with clean dressing. Telemonitor readings shows ST [address] at this moment. G-TUBE in place, residual checked, less than 3 cc, auscultated, verified in place, patient is receiving Glucerna feeding @ 40cc/hr, tolerating well, no vomiting or diarrhea reported during night nurse , active bowel sounds in 4 quadrants, flatus present. Mar cath in place daring yellow clear urine by gravity,patent and intact. Safety precautions in place, bed alarm is on, bed is locked in lowest position, call light in reach, will cont to monitor
[2020-06-11 07:49] LABS: CALCIUM, SERUM 8.8 mg/dL (8.5-10.1); CREATININE 0.7 mg/dL (0.6-1.3); POTASSIUM 3.7 mmol/L (3.5-5.1)
--- NOTE | 2020-06-11 07:58 | NUR ---
RN NOTE PATIENT IS CURRENTLY AWAKE IN BED. ONLY SLEPT INTERMITTENTLY THROUGHOUT THE NIGHT. PATIENT IS ALERT AND ORIENTED X 3. PT IS ORIENTED TO HIMSELF, UNDERSTANDS HE IS IN THE HOSPITAL, AND KNOWS IT IS DAY TIME. VERBALIZED IN BRITISH [place] ISLANDER/DOMINICAN. GLUER MACHINE OPERATOR UTILIZED. STILL TRACH TO VENT ORDERED SHILEY 8, AC 16, TV 550, FIO2 40, PEEP OF 0.0. PATIENT IS TOLERATING VENT SETTINGS WELL O2 SATURATION OF 100%. NAVARRETE CATHETER DRAINED CLEAR YELLOW URINE OUTPUT OF 800ML. IV SITE LEFT UPPER ARM MIDLINE PATENT FLUSHED, TKO OF 5ML. ENDORSED TO AM SHIFT NURSE FOR CONTINUATION OF CARE.
[2020-06-11 08:00] VITALS: BP 127/81
--- NOTE | 2020-06-11 08:40 | NUR ---
RN NOTE MEDICATION ATIVAN PATIENT RESTLESS AND AGITATED. ATTEMPTING TO PULL OUT FEEDING AND TUGGING AT IV LINES. ADMINISTERED LATEST DOSE OF ATIVAN 1MG/0.5ML AT 0631 ON 06/11/20. LUDIN UP AND WASTED MED WITH CHARGE NURSE COLT. FORGOT TO SCAN MEDICATION ON EMAR. ENDORSED TO AM SHIFT NURSE BLAZE. ENDORSED TO CHARGE NURSE NANCY. SPOKE WITH AND NOTIFIED PHARMACY, [facility].
[2020-06-11] MEDS: ASCORBIC ACID 500 MG TABLET NG SCH (09:21)
[2020-06-11] MEDS: ZINC SULFATE 220 MG CAPSULE NG SCH (09:21)
[2020-06-11] MEDS: PANTOPRAZOLE 40 MG/PACK PACK GT SCH (09:21)
[2020-06-11] MEDS: QUETIAPINE FUMARATE 25 MG TABLET PO SCH ×2 (09:22→20:23)
[2020-06-11] MEDS: METOPROLOL TARTRATE 25 MG TABLET PO SCH ×2 (09:22→20:43)
[2020-06-11] MEDS: ENOXAPARIN SODIUM 40 MG/0.4 ML DISP.SYRIN SQ SCH (09:23)
[2020-06-11] MEDS: CLOTRIMAZOLE 1% 15 GM TUBE TP SCH ×2 (09:25→17:08)
[2020-06-11] MEDS: PROSOURCE / PROSTAT (PYXIS) 30 ML UDC GT SCH ×4 (09:26→20:23)
[2020-06-11 12:00] VITALS: BP 138/79
--- NOTE | 2020-06-11 14:30 | NUR ---
spoke with dr Parrish ; informed about patient negative tolerance of Mar cath recently, ok to put condom cath
[2020-06-11 16:00] VITALS: BP 117/76
--- NOTE | 2020-06-11 16:55 | NUR ---
placed condom cath, size medium
--- NOTE | 2020-06-11 19:10 | NUR ---
DEPORTATION EXAMINER OPENING NOTES RECEIVED PATIENT IN BED WITH NO ACUTE DISTRESS. PATIENT IS ALERT, VENT TRACH, TOLERATING well, VENT SETTINGS PER MD ORDER, O2 SAT 100%. NO SIGNS OF ACUTE DISTRESS NOTED AT THIS TIME. SINUS IN THE 80S ON MONITOR. GTUBE ON PLACE PATENT WITH ONGOING GLUCERNA 1.2 @ 40CC/HR.TOLERATING WELL NO RESIDUAL NOTED . condom CATH DRAINING WITH YELLOWISH URINE OUTPUT . YISEL MIDLINE,PATENT AND FLUSHING WELL, SAFETY MEASURES IMPLEMENTED, BED IN LOWEST POSITION, LOCKED, SIDE RAILS UP, CALL LIGHT WITHIN REACH. WILL CONT TO MONITOR.
--- NOTE | 2020-06-11 19:36 | NUR ---
RN CLOSING NOTES Patient in bed,SLEEPING AND RELAXED tolerating same vent settings well,SPO2 is 100%,no distress,no SOB noted, no s/sx of pain or discomfort noted, dressings changed,trach care provided, comfort needs attended, family time via Facetime provided, patient is able to understand Amharic and Gabonese language only, IV line is patent and intact, Mar cath (condom) intact and patent. Safety measures implemented, bed locked, lowest position, bed alarm is on, call light in reach, HOB elevated, will endorse CONOR to PM SHIFT RN
[2020-06-11 20:00] VITALS: BP 119/76
[2020-06-12] VITALS: BP 115/69
[2020-06-12 04:00] VITALS: BP 136/96
[2020-06-12] MEDS: Z GUARD REMEDY 2 OZ OINT TP PRN (04:29)
[2020-06-12] MEDS: GLUCERNA 1.2 1,000 ML BOTTLE GT PRN (05:53)
[2020-06-12 06:29] LABS: BASOPHILS # (AUTO) 0.1 /CMM (0.0-0.2); BASOPHILS % (AUTO) 1.2 % (0.0-2.0); EOSINOPHILS % (AUTO) 10.7 % (0.0-6.0); HEMATOCRIT 28 % (39-51); HEMOGLOBIN 8.9 g/dL (13.5-17.5); LYMPHOCYTES # (AUTO) 1.2 /CMM (0.8-4.8); MEAN CORPUSCULAR HGB CONC 33 g/dl (31.0-36.0); MEAN CORPUSCULAR VOLUME 93 fL (80-96); MONOCYTES # (AUTO) 1.1 /CMM (0.1-1.30); MONOCYTES % (AUTO) 16.1 % (2.0-12.0); NEUTROPHILS # (AUTO) 3.8 /CMM (1.8-8.9); PLATELET COUNT (AUTO) 132 /CMM (150-450); RED BLOOD CELL COUNT(AUTO) 2.97 MIL/uL (4.5-6.0); WHITE BLOOD COUNT (AUTO) 6.9 K/uL (4.3-11.0)
[2020-06-12 06:48] LABS: CALCIUM, SERUM 8.5 mg/dL (8.5-10.1); CREATININE 0.8 mg/dL (0.6-1.3); MAGNESIUM 2.1 mg/dL (1.8-2.4); PHOSPHORUS 4.3 mg/dL (2.5-4.9); POTASSIUM 3.8 mmol/L (3.5-5.1)
--- NOTE | 2020-06-12 07:25 | NUR ---
RN OPENING NOTE Received patient asleep in bed appears calm and relaxed no signs of distress. Trach and vent: Shiley 8 AC 16, TV 550, fio2 40% PEEP 0. tolerating well. AoX2-3 ethiopian and german speaking only. Opens eyes and moves arms and legs. Tele monitor reading SR 80-90s. DVT pump present. Condom catheter draining clear yellow urine. L thigh scab is dried no signs of infection. GTF Glucerna 1.2 @ 40ml/hr running tolerating well. No residual. Patent and flushes well. YISEL Midline dressing intact flushes well. Safety measures reinforced. Call light within reach. Bed locked and on lowest position. Will cont to monitor.
[2020-06-12 08:00] VITALS: BP 139/87
--- NOTE | 2020-06-12 08:30 | NUR ---
MORNING MEDICATION GIVEN TO PATIENT VIA GT. CHECKED PLACEMENT BY INJECTING AIR AND USED STETHOSCOPE TO HEAR FOR GURGLING SOUND. ASPIRATE USING SYRINGE TO CHECK FOR RESIDUAL NO RESIDUAL.
[2020-06-12] MEDS: PANTOPRAZOLE 40 MG/PACK PACK GT SCH (08:35)
[2020-06-12] MEDS: PROSOURCE / PROSTAT (PYXIS) 30 ML UDC GT SCH ×4 (08:35→20:23)
[2020-06-12] MEDS: METOPROLOL TARTRATE 25 MG TABLET PO SCH ×2 (08:36→20:29)
[2020-06-12] MEDS: ZINC SULFATE 220 MG CAPSULE NG SCH (08:36)
[2020-06-12] MEDS: ENOXAPARIN SODIUM 40 MG/0.4 ML DISP.SYRIN SQ SCH (08:36)
[2020-06-12] MEDS: QUETIAPINE FUMARATE 25 MG TABLET PO SCH ×2 (08:36→20:23)
[2020-06-12] MEDS: ASCORBIC ACID 500 MG TABLET NG SCH (08:36)
[2020-06-12] MEDS: CLOTRIMAZOLE 1% 15 GM TUBE TP SCH (08:38)
--- NOTE | 2020-06-12 08:53 | NUR ---
WOUND CARE FOLLOW UP: PT SEEN FOR SKIN REASSESSMENT AND NOTED TO HAVE RESOLVED RASH ON SKIN FOLDS AND BUTTOCKS. SLIGHT REDNESS NOTED TO BUTTOCKS. PT IS INCONTINENT. RECOMMENDATIONS MADE FOR SKIN PROTECTION. DISCUSSED WITH NURSING STAFF. PT IS ON PAUL ISOFLEX LOW AIRLOSS BED. WILL SEE PRRubin. IN AGREEMENT WITH PLAN OF CARE.
[2020-06-12 12:00] VITALS: BP 128/80
--- NOTE | 2020-06-12 12:30 | NUR ---
1PM MEDICATION GIVEN TO PATIENT VIA GT. CHECKED PLACEMENT BY INJECTING AIR AND USED STETHOSCOPE TO HEAR FOR GURGLING SOUND. GT IS PATENT. ASPIRATE USING SYRINGE TO CHECK FOR RESIDUAL NO RESIDUAL.
--- NOTE | 2020-06-12 12:46 | NUR ---
Bri contacted this SW to request an Bulgarian or East Timorese speaking nurse for this patient. This SW to inform plaster applicator Amy of this request and attempt to make this possible per patient's family. Addendum: 06/12/20 at 1248 by PORTIA SERRATO Per plaster applicator Amy no nurse is Bulgarian or East Timorese speaking at the moment. Bri granddaughter to be informed of this.
--- NOTE | 2020-06-12 15:39 | NUR ---
PATIENT IN BED RESTING NO SIGNS OF DISTRESS. ENDORSED TO LOURDES.
--- NOTE | 2020-06-12 15:39 | NUR ---
TELE/RN NOTE Received patient from KENJI Collins. Patient resting in bed, responsive to tactile and verbal stimulation by opening eyes. Breathing even and non-labored on current vent settings, saturating 100%. No cardiac distress noted. No s/s of pain/discomfort. Midline access noted on YISEL, patent and intact, running NS TKO. G-tube in place, patent and intact, running glucerna @ 40 mls/hr, no gastric residual noted. Condom catheter in place, draining yellow urine output well. Sensation from all peripheral extremities intact. Fall precautions maintained. Will continue to monitor. Addendum: 06/12/20 at 1625 by LOURDES WATKINS RN On tele monitor, reading SR 82.
[2020-06-12 16:00] VITALS: BP 139/66
--- NOTE | 2020-06-12 18:39 | NUR ---
TELE/RN CLOSING NOTE Patient awake in bed, remains stable. All needs are met and attended to. No s/s of pain/discomfort noted. VSS, afebrile, no respiratory distress noted. Breathing even and non-labored on current vent settings, AC 16, TV 550, FiO2 40%. No cardiac distress noted, on tele monitor reading SR 86. Midline access on YISEL remain patent and intact, on NS TKO. G-tube in place, with clean dry dressing, patent and intact, and running glucerna @ 40 mls/hr. Condom cath remained in place, draining yellow urine output well. Turned and reposition every 2 hours. Fall and aspiration precautions maintained. Will endorse to weight shifter nurse.
[2020-06-12 20:00] VITALS: BP 116/65
--- NOTE | 2020-06-12 20:00 | NUR ---
AUTOMAT WATCHER OPENING NOTES RECEIVED PATIENT IN BED WITH NO ACUTE DISTRESS. PATIENT IS ALERT, VENT TRACH, TOLERATING VENT SETTINGS WELL, O2 SAT WNL. NO SIGNS OF ACUTE DISTRESS NOTED AT THIS TIME. SR IN THE 90S ON MONITOR. GTF GLUCERNA 1.2 @ 40CC/HR.TOLERATING WELL NO RESIDUAL NOTED . YISEL MIDLINE, C/D/I, FLUSHING WELL, SAFETY MEASURES IMPLEMENTED, BED IN LOWEST POSITION, LOCKED, SIDE RAILS UP, CALL LIGHT WITHIN REACH. DUE MEDS GIVEN ORDERED , ALL NEEDS ATTENDED TOO WILL CONTINUE TO MONITOR PTS. DVT PUMP ON BILATERAL LEGS IN PLACE .V/S STABLE AFEBRILE.
[2020-06-13] VITALS: BP 131/84
--- NOTE | 2020-06-13 | NUR ---
teletypesetter monitor notes face time with family done , updated with pts condition.
[2020-06-13 04:00] VITALS: BP 153/90
[2020-06-13] MEDS: GLUCERNA 1.2 1,000 ML BOTTLE GT PRN (04:50)
--- NOTE | 2020-06-13 06:25 | NUR ---
telephone operator chief notes pt remains on vent ,settings tolerated ,no sob no distress noted ,will endorse to rn day shift for continity of care.
[2020-06-13] MEDS: LORAZEPAM INJ 2 MG/ML VIAL IV PRN (07:53)
[2020-06-13 08:00] VITALS: BP 146/95
--- NOTE | 2020-06-13 08:11 | NUR ---
RN OPENING NOTES: RECEIVED PT IN BED AWAKE A/O X2, PT IS ON TRACH, TOLERATING WELL, NO SIGNS OF RESPIRATORY DISTRESS, DIFFICULTY BREATHING, PT WAS VERY AGITATED AND ANXIOUS ATIVAN ADMINISTERED.IV SITE PATENT INTACT AND FLUSHED WELL. ALL SAFETY AND COMFORT MEASURES MAINTAINED, CALL LIGHT WITHIN REACH WILL CONTINUE TO MONITOR.
[2020-06-13] MEDS: PANTOPRAZOLE 40 MG/PACK PACK GT SCH (09:25)
[2020-06-13] MEDS: ASCORBIC ACID 500 MG TABLET NG SCH (09:25)
[2020-06-13] MEDS: METOPROLOL TARTRATE 25 MG TABLET PO SCH ×2 (09:25→20:58)
[2020-06-13] MEDS: ZINC SULFATE 220 MG CAPSULE NG SCH (09:25)
[2020-06-13] MEDS: QUETIAPINE FUMARATE 25 MG TABLET PO SCH ×2 (09:25→20:59)
[2020-06-13] MEDS: ENOXAPARIN SODIUM 40 MG/0.4 ML DISP.SYRIN SQ SCH (09:26)
[2020-06-13] MEDS: PROSOURCE / PROSTAT (PYXIS) 30 ML UDC GT SCH ×4 (09:29→21:03)
[2020-06-13 12:00] VITALS: BP 143/70
[2020-06-13 16:00] VITALS: BP 141/93
--- NOTE | 2020-06-13 19:01 | NUR ---
RN CLOSING NOTES: PT IN BED AWAKE. NO ACUTE CHANGES DURING THE SHIFT, VITAL WNL. SAFETY AND COMFORT MEASURES MAINTAINED, CALL LIGHT WITHIN REACH, WILL ENDORSE TO PM SHIFT NURSE.
--- NOTE | 2020-06-13 19:40 | NUR ---
FISH MACHINE FEEDER OPENING NOTES PATIENT AWAKE IN BED. A/OX1. VENT DEPENDENT; TOLERATING SETTINGS WELL; SPO2 100%; NO S/S OF ACUTE RESPIRATORY DISTRESS; BREATHING IS EVEN AND UNLABORED. NO S/S OF PAIN NOTED. TELE MONITOR READING NSR WITH OCCASIONAL PVC, HEART RATE 99. GTUBE PRESENT WITH GLUCERNA RUNNING AT 40 ML/HR; TOLERATING WELL. MIDLINE PRESENT ON LEFT UPPER ARM, INTACT & PATENT, NS RUNNING TKO. SAFETY MEASURES IN PLACE AND PATIENT'S NEEDS MET. BED LOCKED, HOB ELEVATED, SIDE RAILS X3, CALL LIGHT WITHIN REACH. WILL CONTINUE TO MONITOR.
[2020-06-13 20:00] VITALS: BP 121/87
[2020-06-14] VITALS (8 sets, daily range): BP systolic 104–184; BP diastolic 64–103
[2020-06-14] MEDS: hydrALAZINE HCL 10 MG TABLET GT PRN (04:38)
--- NOTE | 2020-06-14 04:38 | NUR ---
BLOCKER HEATED METAL FORMS NOTES PATIENT'S BP: 184/103, HR: 107. ADMINISTERED PRN APRESOLINE 10 MG VIA GTUBE FOR SBP >160 PER ORDERS. WILL CONTINUE TO MONITOR.
[2020-06-14] MEDS: GLUCERNA 1.2 1,000 ML BOTTLE GT PRN (04:53)
[2020-06-14] MEDS: MORPHINE SULFATE INJ 2 MG/ML DISP.SYRIN IV PRN (05:27)
--- NOTE | 2020-06-14 05:27 | NUR ---
RESEARCH WORKER KITCHEN NOTES PATIENT SQUIRMING IN BED WITH FACIAL GRIMACING AND GUARDING LEFT LEG. PRN MORPHINE 2MG GIVEN IV. WILL CONTINUE TO MONITOR.
--- NOTE | 2020-06-14 06:00 | NUR ---
RENTAL MANAGER NOTES PATIENT'S BP: 110/71, HR: 91. NO S/S PAIN NOTED; SLEEPING COMFORTABLY IN BED. WILL CONTINUE TO MONITOR.
--- NOTE | 2020-06-14 06:48 | NUR ---
MANAGER UNIVERSAL CLOSING NOTES PATIENT SLEEPING. A/OX1. VENT DEPENDENT; TOLERATING SETTINGS WELL; SPO2 100%; NO S/S OF ACUTE RESPIRATORY DISTRESS; BREATHING IS EVEN AND UNLABORED. NO S/S OF PAIN NOTED. TELE MONITOR READING SINUS TACH WITH OCCASIONAL PVC, HEART RATE 107. GTUBE PRESENT WITH GLUCERNA RUNNING AT 40 ML/HR; TOLERATING WELL. MIDLINE PRESENT ON LEFT UPPER ARM, INTACT & PATENT, NS RUNNING TKO. SAFETY MEASURES IN PLACE AND PATIENT'S NEEDS MET. BED LOCKED, HOB ELEVATED, SIDE RAILS X3, CALL LIGHT WITHIN REACH. WILL ENDORSE TO DAY SHIFT RN PLAN OF CARE.
--- NOTE | 2020-06-14 07:30 | NUR ---
DEHYDRATION UNIT OPERATOR OPENING NOTES PATIENT AWAKE IN BED. A/OX1. VENT DEPENDENT; TOLERATING SETTINGS WELL; SPO2 100%; NO S/S OF ACUTE RESPIRATORY DISTRESS; BREATHING IS EVEN AND UNLABORED. NO S/S OF PAIN NOTED. TELE MONITOR READING NSR WITH OCCASIONAL PVC, HEART RATE 90S. GTUBE PRESENT WITH GLUCERNA RUNNING AT 40 ML/HR; TOLERATING WELL. MIDLINE PRESENT ON LEFT UPPER ARM, INTACT & PATENT, NS RUNNING TKO. SAFETY MEASURES IN PLACE AND PATIENT'S NEEDS MET. SAFETY PRECAUTION OBSERVED. WILL CONTINUE TO MONITOR
--- NOTE | 2020-06-14 07:59 | NUR ---
RT PATIENT REC;D TRACHED ON [facility] VENT WITH ORDERED SETTINGS, AMBU BAG AT [facility]. PATIENT APPEARS COMFORTABLE AND IN NO DISTRESS AT THIS TIME. Addendum: 06/14/20 at 0921 by MEHREEN MATHEW RT Amended: Links added.
[2020-06-14] MEDS: QUETIAPINE FUMARATE 25 MG TABLET PO SCH ×2 (08:49→20:31)
[2020-06-14] MEDS: ASCORBIC ACID 500 MG TABLET NG SCH (08:50)
[2020-06-14] MEDS: METOPROLOL TARTRATE 25 MG TABLET PO SCH ×2 (08:50→20:32)
[2020-06-14] MEDS: PANTOPRAZOLE 40 MG/PACK PACK GT SCH (08:50)
[2020-06-14] MEDS: ZINC SULFATE 220 MG CAPSULE NG SCH (08:51)
[2020-06-14] MEDS: ENOXAPARIN SODIUM 40 MG/0.4 ML DISP.SYRIN SQ SCH (08:54)
[2020-06-14] MEDS: LORAZEPAM INJ 2 MG/ML VIAL IV PRN (09:01)
[2020-06-14] MEDS: PROSOURCE / PROSTAT (PYXIS) 30 ML UDC GT SCH ×4 (09:05→20:32)
[2020-06-14 15:25] LABS: BASOPHILS % (AUTO) 0.3 % (0.0-2.0); EOSINOPHILS % (AUTO) 12.1 % (0.0-6.0); HEMATOCRIT 27 % (39-51); HEMOGLOBIN 8.9 g/dL (13.5-17.5); LYMPHOCYTES # (AUTO) 1.3 /CMM (0.8-4.8); LYMPHOCYTES % (AUTO) 17.7 % (20.0-44.0); MEAN CORPUSCULAR HGB CONC 33 g/dl (31.0-36.0); MEAN CORPUSCULAR VOLUME 91 fL (80-96); MONOCYTES # (AUTO) 1.1 /CMM (0.1-1.30); MONOCYTES % (AUTO) 15.4 % (2.0-12.0); NEUTROPHILS # (AUTO) 3.9 /CMM (1.8-8.9); NEUTROPHILS % (AUTO) 54.5 % (43.0-81.0); PLATELET COUNT (AUTO) 111 /CMM (150-450); WHITE BLOOD COUNT (AUTO) 7.2 K/uL (4.3-11.0)
[2020-06-14 15:32] LABS: CALCIUM, SERUM 8.4 mg/dL (8.5-10.1); CREATININE 0.8 mg/dL (0.6-1.3); POTASSIUM 3.7 mmol/L (3.5-5.1)
[2020-06-14 16:10] LABS: EOSINOPHILS % (MANUAL) 14 % (0-4); LYMPHOCYTES % (MANUAL) 26 % (16-48); MONOCYTES % (MANUAL) 16 % (0-11.0); NEUTROPHILS % (MANUAL) 44 (42-76)
--- NOTE | 2020-06-14 19:03 | NUR ---
CORPORATE PLANNING MANAGER CLOSING NOTES PATIENT ALERT /ORIENTED X1. VENT DEPENDENT; TOLERATING SETTINGS WELL; SPO2 100%; NO S/S OF ACUTE RESPIRATORY DISTRESS; BREATHING IS EVEN AND UNLABORED. NO S/S OF PAIN NOTED. TELE MONITOR READING SINUS TACH WITH HR IN 90S. GTUBE PRESENT WITH GLUCERNA RUNNING AT 40 ML/HR; TOLERATING WELL. MIDLINE PRESENT ON LEFT UPPER ARM, INTACT & PATENT, NS RUNNING TKO. SAFETY MEASURES IN PLACE AND PATIENT'S NEEDS MET. SAFETY PRECAUTIONS OBSERVED. WILL ENDORSE TO NEXT SHIFT.
--- NOTE | 2020-06-14 19:47 | NUR ---
RN OPENING NOTE PT RECEIVED IN BED. AWAKE AND ABLE TO FOLLOW COMMANDS. PT IS ON MECHANICAL VENTILATION VIA TRACH 100%. PT IS ON TELE MONITOR SHOWING SR IN 90s, PT HAS G TUBE GLUCERNA RUNNING AT 40 ML, TOLERATING WELL NO RESIDUAL NOTED. PT HAS YISEL S/L FLUSHES WELL, AND INTACT.SAFETY MEASURES IN PLACE BED AT LOWEST POSITION, LOCKED, CALL LIGHT IN REACH, HOB ELEVATED, SIDE RAILS UP X2.
--- NOTE | 2020-06-14 21:35 | NUR ---
RN CLOSING NOTE PT PICKED UP BY 2 wood machine carver AND 1 RT. PT TRANSPORTED TO [facility] IN STABLE CONDITION. VS BP 131/76 HR 92 O2 100%.
== END 2020-06-14 21:51 | disposition short-term general hospital (02) | DRG 5 ==
LOC: ER 20:01 → TELE1 21:35 → TELE-TD 22:41 → ICU 04-07 10:33 → TELE 05-21 17:29 → ICU 05-25 17:59 → TELE 06-01 17:06 → ICU 06-03 07:05 → TELE 06-05 13:57 → TELE1 06-05 19:40
PROVIDERS: ADMIT Nurse Practitioner Acute Care; ATTEND Hospitalist
PROC: 30233K1 Transfusion of Nonautologous Frozen Plasma into Peripheral Vein, Percutaneous Approach (ICD-10-PCS; 2020-04-07)
PROC: 30233L1 Transfusion of Nonautologous Fresh Plasma into Peripheral Vein, Percutaneous Approach (ICD-10-PCS; 2020-04-07)
PROC: 05HA33Z Insertion of Infusion Device into Left Brachial Vein, Percutaneous Approach (ICD-10-PCS; 2020-04-11)
PROC: 0BH17EZ Insertion of Endotracheal Airway into Trachea, Via Natural or Artificial Opening (ICD-10-PCS; principal; 2020-04-14)
PROC: 5A1955Z Respiratory Ventilation, Greater than 96 Consecutive Hours (ICD-10-PCS; principal; 2020-04-14)
PROC: 05H933Z Insertion of Infusion Device into Right Brachial Vein, Percutaneous Approach (ICD-10-PCS; 2020-04-22)
PROC: 06HM33Z Insertion of Infusion Device into Right Femoral Vein, Percutaneous Approach (ICD-10-PCS; 2020-05-06)
PROC: B54BZZA Ultrasonography of Right Lower Extremity Veins, Guidance (ICD-10-PCS; 2020-05-06)
PROC: 0B113F4 Bypass Trachea to Cutaneous with Tracheostomy Device, Percutaneous Approach (ICD-10-PCS; 2020-05-09)
PROC: 0DH63UZ Insertion of Feeding Device into Stomach, Percutaneous Approach (ICD-10-PCS; 2020-05-17)
PROC: 30233N1 Transfusion of Nonautologous Red Blood Cells into Peripheral Vein, Percutaneous Approach (ICD-10-PCS; 2020-05-29)
DX: A41.89 Other specified sepsis (principal); U07.1 COVID-19; J12.89 Other viral pneumonia; J96.01 Acute respiratory failure with hypoxia; N17.0 Acute kidney failure with tubular necrosis; E87.1 Hypo-osmolality and hyponatremia; B37.49 Other urogenital candidiasis; D69.6 Thrombocytopenia, unspecified; E43 Unspecified severe protein-calorie malnutrition; I11.0 Hypertensive heart disease with heart failure; I50.33 Acute on chronic diastolic (congestive) heart failure; R74.0 Nonspecific elevation of levels of transaminase and lactic acid dehydrogenase [LDH]; E11.65 Type 2 diabetes mellitus with hyperglycemia; D64.9 Anemia, unspecified; D68.59 Other primary thrombophilia; E05.90 Thyrotoxicosis, unspecified without thyrotoxic crisis or storm; E27.40 Unspecified adrenocortical insufficiency; E78.1 Pure hyperglyceridemia; E83.39 Other disorders of phosphorus metabolism; E83.51 Hypocalcemia; E87.2 Acidosis; E87.6 Hypokalemia; G93.40 Encephalopathy, unspecified; I21.A1 Myocardial infarction type 2; I47.1 Supraventricular tachycardia; I48.91 Unspecified atrial fibrillation; I70.0 Atherosclerosis of aorta; J98.11 Atelectasis; K29.70 Gastritis, unspecified, without bleeding; R13.10 Dysphagia, unspecified; R65.21 Severe sepsis with septic shock; Z88.1 Allergy status to other antibiotic agents; R47.01 Aphasia; I82.622 Acute embolism and thrombosis of deep veins of left upper extremity; G81.94 Hemiplegia, unspecified affecting left nondominant side; Z87.01 Personal history of pneumonia (recurrent); Z87.891 Personal history of nicotine dependence; A41.53 Sepsis due to Serratia; J15.9 Unspecified bacterial pneumonia; B49 Unspecified mycosis; D68.9 Coagulation defect, unspecified; K56.609 Unspecified intestinal obstruction, unspecified as to partial versus complete obstruction
CPT/HCPCS: 31720; 36410; 36415; 36569; 36600; 43246; 70450-TC; 71045-TC; 74018; 76770-TC; 80048-TC; 80053-TC; 80061-TC; 80076-TC; 80162-TC; 80202-TC; 81000-TC; 82040-TC; 82248-TC; 82272-TC; 82533; 82550-TC; 82553; 82570-TC; 82728-TC; 82803-TC; 82962-TC; 83540-TC; 83605-TC; 83615-TC; 83735-TC; 83880; 83970; 84100-TC; 84132-TC; 84155; 84155-TC; 84165; 84300-TC; 84439-TC; 84443-TC; 84478-TC; 84484-TC; 85025-TC; 85027-TC; 85378-TC; 85385-TC; 85396; 85610-TC; 85652-TC; 85730-TC; 86140-TC; 86480; 86850-TC; 86921-TC; 87040-TC; 87070-TC; 87081-TC; 87086-TC; 87186-TC; 93308-TC; 93880-TC; 93971-TC; 94002-TC; 94003-TC; 94760-TC; 94762-TC; 94799-TC; 99082-TC; A4216; A4217; A4349; A4623; A6403; A7526; A9563; C1751; C1769; C9113; G0378; J0153; J0282; J0330; J0360; J0690; J0692; J1100; J1160; J1650; J1720; J1815; J1940; J1956; J2060; J2185; J2248; J2250; J2270; J2370; J2405; J2704; J2916; J3010; J3262; J3370; J3430; J3475; J3480; J3490; J7030; J7040; J7042; J7050; J7060; P9016-BL; P9017-BL; P9045; U0003-CS